=== PATIENT | female | born 1955 | race Caucasian/White ===

== ENCOUNTER 2017-06-02 15:39 | Observation (INO) | payer BC, SELFPAY ==
--- NOTE | 2017-06-02 15:54 | XR_ITS ---
XR chest 2V HISTORY: ITS.REASON: shortness of breath, cough ORDERING PHYSICIAN: Jorge A Souza MD PATIENT AGE: 62 years COMPARISON: None available FINDINGS: The cardiomediastinal silhouette and pulmonary vascularity are within normal limits. There is atelectasis or infiltrate in the right lung base medially. The remaining lungs are clear. Calcified node present in the right perihilar region.. No acute bony abnormalities. IMPRESSION: Right lower lobe atelectasis or infiltrate
[2017-06-02 16:06] VITALS: O2SAT 90
[2017-06-02 16:23] VITALS: BP 141/55; PULSE 85; RESP 20; TEMP 36.7; O2SAT 90; BMI 42.0
[2017-06-02 17:06] LABS: Adenovirus,PCR Not Detected (NotDetected); Bordetella Pertussis Not Detected (NotDetected); Chlamydophila Pneumoniae, PCR Not Detected (NotDetected); Coronavirus 229E Not Detected (NotDetected); Coronavirus NL63 Not Detected (NotDetected); Coronavirus OC43 Not Detected (NotDetected); Coronovirus HKU1,PCR Not Detected (NotDetected); Human Metapneumovirus Not Detected (NotDetected); Influenza A, PCR Not Detected (NotDetected); Influenza AH1, 2009 Not Detected (NotDetected); Influenza AH1, PCR Not Detected (NotDetected); Influenza AH3,PCR Not Detected (NotDetected); Influenza B, PCR Not Detected (NotDetected); Mycoplasma Pneumoniae, PCR Not Detected (NotDected); Parainfluenza 1, PCR Not Detected (NotDetected); Parainfluenza 2, PCR Not Detected (NotDetected); Parainfluenza 3, PCR Not Detected (NotDetected); Parainfluenza 4, PCR Not Detected (NotDetected); Respiratory Syncytial Virus Not Detected (NotDetected); Rhinovirus/Enterovirus Not Detected (NotDetected)
[2017-06-02 17:09] LABS: Basophils # 0.1 K/mm3 (0-0.2); Basophils % 0.5 % (0.1-2.0); Eosinophils # 0.2 K/mm3 (0.0-0.4); Eosinophils % 1.4 % (0.1-12.0); Hematocrit 36.4 % (37.0-47.0); Hemoglobin 11.1 g/dL (12.2-16.2); Lymphocytes # 2.4 K/mm3 (0.7-4.5); Lymphocytes % 22.4 K/mm3 (10-50); Mean Corpuscular HGB Conc 30.5 g/dL (31.8-35.4); Mean Corpuscular Hemoglobin 22.6 pg (27.0-31.2); Monocytes # 0.9 K/mm3 (0.1-1.0); Monocytes % 7.9 % (1.7-9.3); Neutrophils # 7.3 K/mm3 (1.8-7.8); Neutrophils % 67.8 % (37.0-80.0); Platelet Count 299 K/mm3 (142-424); Red Blood Count 4.92 M/mm3 (4.20-5.40); Red Cell Distribution Width 17.9 % (11.5-17.5); White Blood Count 10.7 K/mm3 (4.8-10.8)
[2017-06-02 17:25] VITALS: PULSE 62; O2SAT 91
[2017-06-02 17:39] LABS: Alanine Aminotransferase 35 U/L (12-78); Albumin Level 2.8 gm/dL (3.4-5.0); Albumin/Globulin Ratio 0.5 (1.1-1.8); Alkaline Phosphatase 86 U/L (46-116); Anion Gap 8.6 mEq/L (5-15); Aspartate Amino Transferase 35 U/L (15-37); Bilirubin,Total 0.5 mg/dL (0.2-1.0); Blood Urea Nitrogen 13 mg/dL (7-18); Calcium 9.1 mg/dL (8.5-10.1); Carbon Dioxide 34 mmol/L (21.0-32.0); Chloride 100 mmol/L (98-107); Creatinine Clearance Estimated 56 mL/min (0-300); Creatinine,Serum 0.81 mg/dL (0.55-1.02); Estimated Glomerular Filt Rate 71 ml/min (>60); GFR (African American) 86 ML/MIN (>60); Globulin 5.6 gm/dl (1.3-3.2); Glucose 95 mg/dL (74-106); Potassium 3.6 mmoL/L (3.5-5.1); Sodium 139 mmol/L (136-145); Total Protein,Serum 8.4 gm/dL (6.4-8.2)
[2017-06-02 20:14] VITALS: O2SAT 87
[2017-06-02 20:17] VITALS: BP 157/60; PULSE 78; RESP 20; TEMP 36.7; O2SAT 93
[2017-06-02 20:45] VITALS: O2SAT 93
[2017-06-02 22:54] LABS: Mycoplasma Pneumo IGM (Rapid) Non-Reactive (Non-Reactiv)
[2017-06-03] VITALS (10 sets, daily range): BP systolic 134–183; BP diastolic 36–69; PULSE 68–90; RESP 16–68; TEMP 36.5–37.3; O2SAT 88–95; BMI 42.0
--- NOTE | 2017-06-03 03:38 | PC.NURSE ---
PT RESTING IN BED. LUNGS NOTED TO HAVE WHEEZING AND RHONCHI T/O. PT REMAINS ON 2L O2 NC. VSS. PT REMAINS AFEBRILE. MEDICATIONS ADMINISTERED PER JUL. NO OTHER COCNERNS AT THIS TIME. WILL CONTINUE TO MONITOR.
[2017-06-03 06:53] LABS: Basophils % 0.2 % (0.1-2.0); Eosinophils % 0.5 % (0.1-12.0); Hematocrit 34.6 % (37.0-47.0); Hemoglobin 10.3 g/dL (12.2-16.2); Lymphocytes % 16.8 K/mm3 (10-50); Mean Corpuscular HGB Conc 29.9 g/dL (31.8-35.4); Mean Corpuscular Volume 73.4 fl (81-99); Mean Platelet Volume 7.2 fl (7.4-10.4); Monocytes # 0.1 K/mm3 (0.1-1.0); Monocytes % 1.9 % (1.7-9.3); Neutrophils # 4.8 K/mm3 (1.8-7.8); Neutrophils % 80.7 % (37.0-80.0); Platelet Count 284 K/mm3 (142-424); Red Blood Count 4.71 M/mm3 (4.20-5.40); Red Cell Distribution Width 17.7 % (11.5-17.5)
[2017-06-03 07:12] LABS: Anion Gap 9.9 mEq/L (5-15); Blood Urea Nitrogen 13 mg/dL (7-18); Carbon Dioxide 31 mmol/L (21.0-32.0); Chloride 103 mmol/L (98-107); Creatinine Clearance Estimated 56 mL/min (0-300); Creatinine,Serum 0.71 mg/dL (0.55-1.02); Estimated Glomerular Filt Rate 83 ml/min (>60); GFR (African American) 101 ML/MIN (>60); Glucose 152 mg/dL (74-106); Potassium 3.9 mmoL/L (3.5-5.1); Sodium 140 mmol/L (136-145)
--- NOTE | 2017-06-03 07:21 | HMH.PHAVTE ---
[facility] Pharmacy VTE Monitoring - Patient Demographics Admission date: 06/02/17 Report Date: 06/03/17 Time: 07:21 Allergies/Adverse Reactions: Patient Allergies No Known Allergies Allergy (Unverified 04/26/17 14:48) Height: 1.7 m Weight: 121.563 kg - VTE Risk Labs: VTE Related Lab Results Hgb 10.3 g/dL (12.2-16.2) L 06/03/17 06:22 Hct 34.6 % (37.0-47.0) L 06/03/17 06:22 Plt Count 284 K/mm3 (142-424) 06/03/17 06:22 BUN 13 mg/dL (7-18) 06/03/17 06:22 Creatinine 0.71 mg/dL (0.55-1.02) 06/03/17 06:22 Estimated Creat Clear 56 mL/min (0-300) 06/03/17 06:22 VTE Score: 3 VTE Risk Level: Low Risk Clinical Trial Participant: No - Prophylaxis VTE Prophylaxis Ordered?: Yes Types of VTE Prophylaxis: TEDS Knee High
--- NOTE | 2017-06-03 07:25 | PC.NURSE ---
REPORT GIVEN TO Delia MCMAHAN W/C
--- NOTE | 2017-06-03 07:49 | PC.NURSE ---
REPORT HANDOFF TO Scott DRAKE
--- NOTE | 2017-06-03 08:24 | HMH.ACPN2 ---
Internal Medicine - PN: Subj *Date: 06/03/17 *Time: 08:24 Interval history: Patient feels better than she did yesterday. Less tightness. No problems with cough or Dyspnea at rest. Exam Vital signs and Labs for Last 24 Hours: Temp Pulse Resp BP Pulse Ox 97.7 F 90 20 183/69 93 L 06/03/17 07:26 06/03/17 07:26 06/03/17 07:26 06/03/17 07:26 06/03/17 07:26 Laboratory Results - last 24 hr 06/02/17 16:45: Mycoplasma pneumon IgM Non-reactive 06/02/17 16:45: Chlamy pneumoniae PCR Not detected, Adenovirus (PCR) Not detected, B.parapertussis DNA PCR Not detected, Coronavirus OC43 (PCR) Not detected, Coronavirus HKU1 (PCR) Not detected, Coronavirus 229E (PCR) Not detected, Coronavirus NL63 (PCR) Not detected, Human Metapneumovir PCR Not detected, Influenza A (H1) PCR Not detected, Influ A (H1N1/09) PCR Not detected, Influenza A (H3) PCR Not detected, Influenza Type A (PCR) Not detected, Influenza Type B (PCR) Not detected, M. pneumoniae (PCR) Not detected, Parainfluenza 1 (PCR) Not detected, Parainfluenza 2 (PCR) Not detected, Parainfluenza 3 (PCR) Not detected, Parainfluenza 4 (PCR) Not detected, RSV (PCR) Not detected, Entero/Rhino (PCR) Not detected 06/02/17 16:45: WBC 10.7, RBC 4.92, Hgb 11.1 L, Hct 36.4 L, MCV 74.0 L, MCH 22.6 L, MCHC 30.5 L, RDW 17.9 H, Plt Count 299, MPV 7.0 L, Neut % (Auto) 67.8, Lymph % (Auto) 22.4, [place] % (Auto) 7.9, Eos % (Auto) 1.4, Baso % (Auto) 0.5, Neut # (Auto) 7.3, Lymph # (Auto) 2.4, [place] # (Auto) 0.9, Eos # (Auto) 0.2, Baso # (Auto) 0.1 06/02/17 16:45: Sodium 139, Potassium 3.6, Chloride 100, Carbon Dioxide 34 H, Anion Gap 8.6, BUN 13, Creatinine 0.81, Estimated Creat Clear 56, Estimated GFR 71, Est GFR ( Amer) 86, Glucose 95, Calcium 9.1, Total Bilirubin 0.5, AST 35, ALT 35, Alkaline Phosphatase 86, Total Protein 8.4 H, Albumin 2.8 L, Globulin 5.6 H, Albumin/Globulin Ratio 0.5 L 06/03/17 06:22: WBC 6.0 D, RBC 4.71, Hgb 10.3 L, Hct 34.6 L, MCV 73.4 L, MCH 22.0 L, MCHC 29.9 L, RDW 17.7 H, Plt Count 284, MPV 7.2 L, Neut % (Auto) 80.7 H, Lymph % (Auto) 16.8, [place] % (Auto) 1.9, Eos % (Auto) 0.5, Baso % (Auto) 0.2, Neut # (Auto) 4.8, Lymph # (Auto) 1.0, [place] # (Auto) 0.1, Eos # (Auto) 0.0, Baso # (Auto) 0.0 06/03/17 06:22: Sodium 140, Potassium 3.9, Chloride 103, Carbon Dioxide 31, Anion Gap 9.9, BUN 13, Creatinine 0.71, Estimated Creat Clear 56, Estimated GFR 83, Est GFR ( Amer) 101, Glucose 152 H D I & O for Last 24 hours: Intake & Output 05/31/17 06/01/17 06/02/17 06/03/17 11:59 11:59 11:59 11:59 Intake Total 1475 / 1475 Balance 1475 / 1475 Weight 268 lb Microbiology Reports for the Last 24 Hours: Microbiology 06/02/17 Unknown Sputum - Expectorated Sputum Gram Stain - Final Narrative: Patient is alert, oriented. Wearing oxygen, appears comfortable. Morbid obesity noted which limits her exam and complicates all aspects of her care. Lungs have expiratory wheezing but symmetric air entry bilaterally. Rate regular. No edema noted. No clubbing. Assessment and Plan (1) Asthma with acute exacerbation in adult Current visit: Yes Status: Acute Category: Medical Code(s): J45.901 - Unspecified asthma with (acute) exacerbation (2) Hypertension, essential Current visit: Yes Status: Chronic Category: Medical Code(s): I10 - Essential (primary) hypertension (3) Morbid obesity with BMI of 40.0-44.9, adult Current visit: Yes Status: Chronic Category: Medical Code(s): E66.01 - Morbid (severe) obesity due to excess calories; Z68.41 - Body mass index (BMI) 40.0-44.9, adult - Assessment and plan all Dx Assessment and Plan for all problems:: Continue current plan. Patient is improving but continues to have an oxygen requirement and wheezing. Continue steroids. Restart hypertensive medications.
--- NOTE | 2017-06-03 08:42 | HMH.HP ---
*Admission Date: 06/02/17 *Chief complaint: Cough and congestion *History of present illness: 62-year-old white female, with history of smoking, asthma and recurrent cough and congestion episodes over the past week or so. has been exposed to flu. Came to the office on the day of admission, found to have tight wheezing, cough/congestion/dyspnea and was admitted to hospital for asthma exacerbation. [facility] History I have reviewed the patient's past medical history: Yes Medical History: Reports:: Asthma, Congestive Heart Failure, Hypertension Denies:: Cancer, Diabetes Mellitus Type 1, Diabetes Mellitus Type 2, MRSA Other Medical History: Reports: Hormone Therapy Other Surgeries: Yes: Colonoscopy, Tubal Ligation Amputation: No Fractures: No - *Social History Educational Level: Attended College Smoking Status: Current every day smoker Tobacco Type: cigarettes Alcohol Intake: never Occupational Status: unemployed Housing: house Household Members: spouse - Psychiatric History Expresses thoughts of harming self/others: None Suicide Plan Description: No Plan *Family Hx:: Asthma, Cancer, Coronary Artery Disease, Diabetes, Heart Attack, Hyperlipidemia, Hypertension, Kidney Disease, Stroke Review of Systems - Review of Systems Review of systems:: unable to obtain, other, pertinent systems reviewed and negative unless documented below - ENT Reports dry mouth, Reports nasal obstruction, Reports sinus pressure - *Cardiovascular Reports shortness of breath, Reports shortness of breath with activity - *Respiratory Reports change in phlegm color, Reports chest congestion, Reports cough, Reports shortness of breath - *Gastrointestinal Denies abdominal pain Meds Home Medications Medication Instructions Recorded Confirmed Type Carvedilol [Carvedilol 25mg Tab] 12.5 mg PO BID 06/02/17 06/02/17 History Cyanocobalamin (Vitamin B-12) 1,000 mcg SL DAILY 06/02/17 06/02/17 History [Vitamin B-12] Venlafaxine HCl [Effexor Xr] 75 mg PO DAILY 06/02/17 06/02/17 History hydroCHLOROthiazide [HCTZ 25mg 25 mg PO DAILY 06/02/17 06/02/17 History tab] Allergies Allergy/AdvReac Type Severity Reaction Status Date / Time No Known Allergies Allergy Unverified 04/26/17 14:48 Exam Vital signs and Labs for Last 24 Hours: Temp Pulse Resp BP Pulse Ox 97.7 F 90 20 183/69 93 L 06/03/17 07:26 06/03/17 07:26 06/03/17 07:26 06/03/17 07:26 06/03/17 07:26 Laboratory Results - last 24 hr 06/02/17 16:45: Mycoplasma pneumon IgM Non-reactive 06/02/17 16:45: Chlamy pneumoniae PCR Not detected, Adenovirus (PCR) Not detected, B.parapertussis DNA PCR Not detected, Coronavirus OC43 (PCR) Not detected, Coronavirus HKU1 (PCR) Not detected, Coronavirus 229E (PCR) Not detected, Coronavirus NL63 (PCR) Not detected, Human Metapneumovir PCR Not detected, Influenza A (H1) PCR Not detected, Influ A (H1N1/09) PCR Not detected, Influenza A (H3) PCR Not detected, Influenza Type A (PCR) Not detected, Influenza Type B (PCR) Not detected, M. pneumoniae (PCR) Not detected, Parainfluenza 1 (PCR) Not detected, Parainfluenza 2 (PCR) Not detected, Parainfluenza 3 (PCR) Not detected, Parainfluenza 4 (PCR) Not detected, RSV (PCR) Not detected, Entero/Rhino (PCR) Not detected 06/02/17 16:45: WBC 10.7, RBC 4.92, Hgb 11.1 L, Hct 36.4 L, MCV 74.0 L, MCH 22.6 L, MCHC 30.5 L, RDW 17.9 H, Plt Count 299, MPV 7.0 L, Neut % (Auto) 67.8, Lymph % (Auto) 22.4, [place] % (Auto) 7.9, Eos % (Auto) 1.4, Baso % (Auto) 0.5, Neut # (Auto) 7.3, Lymph # (Auto) 2.4, [place] # (Auto) 0.9, Eos # (Auto) 0.2, Baso # (Auto) 0.1 06/02/17 16:45: Sodium 139, Potassium 3.6, Chloride 100, Carbon Dioxide 34 H, Anion Gap 8.6, BUN 13, Creatinine 0.81, Estimated Creat Clear 56, Estimated GFR 71, Est GFR ( Amer) 86, Glucose 95, Calcium 9.1, Total Bilirubin 0.5, AST 35, ALT 35, Alkaline Phosphatase 86, Total Protein 8.4 H, Albumin 2.8 L, Globulin 5.6 H, Albumin/Globulin Ratio 0.5 L 06/03/17 0
--- NOTE | 2017-06-03 08:48 | P.HP_ITS ---
*Admission Date: 06/02/17 *Chief complaint: Cough and congestion *History of present illness: 62-year-old white female, with history of smoking, asthma and recurrent cough and congestion episodes over the past week or so. has been exposed to flu. Came to the office on the day of admission, found to have tight wheezing, cough/ congestion/dyspnea and was admitted to hospital for asthma exacerbation. [facility] History I have reviewed the patient's past medical history: Yes Medical History: Reports:: Asthma, Congestive Heart Failure, Hypertension Denies:: Cancer, Diabetes Mellitus Type 1, Diabetes Mellitus Type 2, MRSA Other Medical History: Reports: Hormone Therapy Other Surgeries: Yes: Colonoscopy, Tubal Ligation Amputation: No Fractures: No - *Social History Educational Level: Attended College Smoking Status: Current every day smoker Tobacco Type: cigarettes Alcohol Intake: never Occupational Status: unemployed Housing: house Household Members: spouse - Psychiatric History Expresses thoughts of harming self/others: None Suicide Plan Description: No Plan *Family Hx:: Asthma, Cancer, Coronary Artery Disease, Diabetes, Heart Attack, Hyperlipidemia, Hypertension, Kidney Disease, Stroke Review of Systems - Review of Systems Review of systems:: unable to obtain, other, pertinent systems reviewed and negative unless documented below - ENT Reports dry mouth, Reports nasal obstruction, Reports sinus pressure - *Cardiovascular Reports shortness of breath, Reports shortness of breath with activity - *Respiratory Reports change in phlegm color, Reports chest congestion, Reports cough, Reports shortness of breath - *Gastrointestinal Denies abdominal pain Meds Home Medications Medication Instructions Recorded Confirmed Type Carvedilol [Carvedilol 25mg Tab] 12.5 mg PO BID 06/02/17 06/02/17 History Cyanocobalamin (Vitamin B-12) 1,000 mcg SL DAILY 06/02/17 06/02/17 History [Vitamin B-12] Venlafaxine HCl [Effexor Xr] 75 mg PO DAILY 06/02/17 06/02/17 History hydroCHLOROthiazide [HCTZ 25mg 25 mg PO DAILY 06/02/17 06/02/17 History tab] Allergies Allergy/AdvReac Type Severity Reaction Status Date / Time No Known Allergies Allergy Unverified 04/26/17 14:48 Exam Vital signs and Labs for Last 24 Hours: Temp Pulse Resp BP Pulse Ox 97.7 F 90 20 183/69 93 L 06/03/17 07:26 06/03/17 07:26 06/03/17 07:26 06/03/17 07:26 06/03/17 07:26 Laboratory Results - last 24 hr 06/02/17 16:45: Mycoplasma pneumon IgM Non-reactive 06/02/17 16:45: Chlamy pneumoniae PCR Not detected, Adenovirus (PCR) Not detected, B.parapertussis DNA PCR Not detected, Coronavirus OC43 (PCR) Not detected, Coronavirus HKU1 (PCR) Not detected, Coronavirus 229E (PCR) Not detected, Coronavirus NL63 (PCR) Not detected, Human Metapneumovir PCR Not detected, Influenza A (H1) PCR Not detected, Influ A (H1N1/09) PCR Not detected , Influenza A (H3) PCR Not detected, Influenza Type A (PCR) Not detected, Influenza Type B (PCR) Not detected, M. pneumoniae (PCR) Not detected, Parainfluenza 1 (PCR) Not detected, Parainfluenza 2 (PCR) Not detected, Parainfluenza 3 (PCR) Not detected, Parainfluenza 4 (PCR) Not detected, RSV (PCR ) Not detected, Entero/Rhino (PCR) Not detected 06/02/17 16:45: WBC 10.7, RBC 4.92, Hgb 11.1 L, Hct 36.4 L, MCV 74.0 L, MCH 22.6 L, MCHC 30.5 L, RDW 17.9 H, Plt Count 299, MPV 7.0 L, Neut % (Auto) 67.8, Lymph % (Auto) 22.4, [place] % (Auto) 7.9, Eos
--- NOTE | 2017-06-03 16:08 | PC.NURSE ---
Pt resting in bed, no complaints noted this shift. Pt remains with auditory wheeze, Has slept most of the shift. ambulated to and from bathroom independently. Call light in reach will continue to monitor
[2017-06-04] VITALS: BP 143/62; PULSE 86; RESP 16; TEMP 36.6; O2SAT 94
[2017-06-04 04:00] VITALS: BP 156/48; PULSE 77; RESP 18; TEMP 36.6; O2SAT 91
--- NOTE | 2017-06-04 05:25 | PC.NURSE ---
Pt has rested well this shift. She has not c/o any discomfort or soa. she is currently on 1 L NC. V/S HAVE REMAINED STABLE. MEDICATIONS ADMIN PER MAR. NO CONCERNS NOTED AT THIS TIME. WILL CONTINUE TO MONITOR.
[2017-06-04 06:15] VITALS: PULSE 84; O2SAT 95
[2017-06-04 07:40] VITALS: BP 149/62; PULSE 68; RESP 20; TEMP 36.8; O2SAT 91
--- NOTE | 2017-06-04 07:53 | HMH.DCSUM ---
General - General Admission date: 06/02/17 Discharge date: 06/04/17 HPI HPI: 62-year-old white female, with history of smoking, asthma and recurrent cough and congestion episodes over the past week or so. has been exposed to flu. Came to the office on the day of admission, found to have tight wheezing, cough/congestion/dyspnea and was admitted to hospital for asthma exacerbation. Objective Vital signs: Temp Pulse Resp BP Pulse Ox 98.2 F 68 20 149/62 91 L 06/04/17 07:40 06/04/17 07:40 06/04/17 07:40 06/04/17 07:40 06/04/17 07:40 Narrative: This morning patient is sitting up in bed. Awake, alert, off oxygen with saturations 91-92%. Lungs are much clearer, good air movement, only minimal rhonchi, minimal expiratory wheezing at the end expiratory phase. No edema or clubbing. Hospital Course Hospital Course: She was admitted, placed on nebulizer treatments, inhaled bronchodilators, IV steroids and antibiotics. She improved over the next couple of days and is back almost to baseline today. She will be discharged home with nebulizer treatments, p.o. steroids, p.o. antibiotics and short-term follow-up in my office. Results Labs on day of discharge: Preliminary micro results at discharge 06/02/17 16:45 Blood Culture - Preliminary Blood NO GROWTH AFTER 24 HOURS 06/02/17 16:45 Blood Culture - Preliminary Blood NO GROWTH AFTER 24 HOURS DS: Diagnosis - Discharge Diagnosis (1) Asthma with acute exacerbation in adult Status: Acute (2) Hypertension, essential Status: Chronic (3) Morbid obesity with BMI of 40.0-44.9, adult Status: Chronic (4) Lobar pneumonia Status: Acute Meds Home Medications Medication Instructions Recorded Confirmed Type Carvedilol [Carvedilol 25mg Tab] 12.5 mg PO BID 06/02/17 06/02/17 History Cyanocobalamin (Vitamin B-12) 1,000 mcg SL DAILY 06/02/17 06/02/17 History [Vitamin B-12] Venlafaxine HCl [Effexor Xr] 75 mg PO DAILY 06/02/17 06/02/17 History hydroCHLOROthiazide [HCTZ 25mg 25 mg PO DAILY 06/02/17 06/02/17 History tab] Allergies Allergy/AdvReac Type Severity Reaction Status Date / Time No Known Allergies Allergy Unverified 04/26/17 14:48 Discharge Plan - Patient Discharge Instructions ACTIVITY: Limited activity DIET: continue same diet - Follow up Plan Follow up with: Jena Mackay APRN [Nurse Practitioner] - 06/07/17 11:00 am Disposition: Home, Self-Detention Medications: Home Medications Medication Instructions Recorded Confirmed Type Carvedilol [Carvedilol 25mg Tab] 12.5 mg PO BID 06/02/17 06/02/17 History Cyanocobalamin (Vitamin B-12) 1,000 mcg SL DAILY 06/02/17 06/02/17 History [Vitamin B-12] Venlafaxine HCl [Effexor Xr] 75 mg PO DAILY 06/02/17 06/02/17 History hydroCHLOROthiazide [HCTZ 25mg 25 mg PO DAILY 06/02/17 06/02/17 History tab] Prescriptions/Medication Reconciliation: New Azithromycin [Zithromax 250mg tab] 250 mg PO DIRECTED #6 tab Cefdinir [Omnicef 300mg Capsule] 300 mg PO BID #20 cap Ipratropium/Albuterol Sulfate [Duoneb 3mL neb] 3 ml IH TID 30 Days #90 neb predniSONE [Prednisone 20mg Tab] 20 mg PO BID 5 Days #10 tab Continue hydroCHLOROthiazide [HCTZ 25mg tab] 25 mg PO DAILY Cyanocobalamin (Vitamin B-12) [Vitamin B-12] 1,000 mcg SL DAILY Carvedilol [Carvedilol 25mg Tab] 12.5 mg PO BID Venlafaxine HCl [Effexor Xr] 75 mg PO DAILY
--- NOTE | 2017-06-04 07:56 | P.DS_ITS ---
General - General Admission date: 06/02/17 Discharge date: 06/04/17 HPI HPI: 62-year-old white female, with history of smoking, asthma and recurrent cough and congestion episodes over the past week or so. has been exposed to flu. Came to the office on the day of admission, found to have tight wheezing, cough/ congestion/dyspnea and was admitted to hospital for asthma exacerbation. Objective Vital signs: Temp Pulse Resp BP Pulse Ox 98.2 F 68 20 149/62 91 L 06/04/17 07:40 06/04/17 07:40 06/04/17 07:40 06/04/17 07:40 06/04/17 07:40 Narrative: This morning patient is sitting up in bed. Awake, alert, off oxygen with saturations 91-92%. Lungs are much clearer, good air movement, only minimal rhonchi, minimal expiratory wheezing at the end expiratory phase. No edema or clubbing. Hospital Course Hospital Course: She was admitted, placed on nebulizer treatments, inhaled bronchodilators, IV steroids and antibiotics. She improved over the next couple of days and is back almost to baseline today. She will be discharged home with nebulizer treatments, p.o. steroids, p.o. antibiotics and short-term follow-up in my office. Results Labs on day of discharge: Preliminary micro results at discharge 06/02/17 16:45 Blood Culture - Preliminary Blood NO GROWTH AFTER 24 HOURS 06/02/17 16:45 Blood Culture - Preliminary Blood NO GROWTH AFTER 24 HOURS DS: Diagnosis - Discharge Diagnosis (1) Asthma with acute exacerbation in adult Status: Acute (2) Hypertension, essential Status: Chronic (3) Morbid obesity with BMI of 40.0-44.9, adult Status: Chronic (4) Lobar pneumonia Status: Acute Meds Home Medications Medication Instructions Recorded Confirmed Type Carvedilol [Carvedilol 25mg Tab] 12.5 mg PO BID 06/02/17 06/02/17 History Cyanocobalamin (Vitamin B-12) 1,000 mcg SL DAILY 06/02/17 06/02/17 History [Vitamin B-12] Venlafaxine HCl [Effexor Xr] 75 mg PO DAILY 06/02/17 06/02/17 History hydroCHLOROthiazide [HCTZ 25mg 25 mg PO DAILY 06/02/17 06/02/17 History tab] Allergies Allergy/AdvReac Type Severity Reaction Status Date / Time No Known Allergies Allergy Unverified 04/26/17 14:48 Discharge Plan - Patient Discharge Instructions ACTIVITY: Limited activity DIET: continue same diet - Follow up Plan Follow up with: Jena Mackay APRN [Nurse Practitioner] - 06/07/17 11:00 am Disposition: Home, Self-Senior Living Medications: Home Medications Medication Instructions Recorded Confirmed Type Carvedilol [Carvedilol 25mg Tab] 12.5 mg PO BID 06/02/17 06/02/17 History Cyanocobalamin (Vitamin B-12) 1,000 mcg SL DAILY 06/02/17 06/02/17 History [Vitamin B-12] Venlafaxine HCl [Effexor Xr] 75 mg PO DAILY 06/02/17 06/02/17 History hydroCHLOROthiazide [HCTZ 25mg 25 mg PO DAILY 06/02/17 06/02/17 History tab] Prescriptions/Medication Reconciliation: New Azithromycin [Zithromax 250mg tab] 250 mg PO DIRECTED #6 tab Cefdinir [Omnicef 300mg Capsule] 300 mg PO BID #20 cap Ipratropium/Albuterol Sulfate [Duoneb 3mL neb] 3 ml IH TID 30 Days #90 neb predniSONE [Prednisone 20mg Tab] 20 mg PO BID 5 Days #10 tab Continue hydro
[2017-06-04 11:27] VITALS: BP 159/56; PULSE 70; RESP 22; TEMP 36.6; O2SAT 91
[2017-06-04 11:45] VITALS: PULSE 88
== END 2017-06-04 12:00 | disposition home or self-care (01) ==
PROVIDERS: Nurse Practitioner Family; Admitting Provider Internal Medicine Adolescent Medicine; Family Provider Internal Medicine Adolescent Medicine; PCP Internal Medicine Adolescent Medicine; Visit Provider Internal Medicine Adolescent Medicine
DX: J45.901 Unspecified asthma with (acute) exacerbation (principal); J18.1 Lobar pneumonia, unspecified organism; I10 Essential (primary) hypertension; E66.01 Morbid (severe) obesity due to excess calories; Z72.0 Tobacco use
CPT/HCPCS: 36415; 71046; 80048; 80053; 85025; 86738; 87040; 87070; 87205; 87486; 87581; 87633; 87798; 93005; 94640; 94760; 94761; G0378

== ENCOUNTER → 2017-09-15 08:36 | Outpatient (CLI) | payer BC, SELFPAY ==
[2017-09-15 10:40] LABS: Basophils # 0.1 K/mm3 (0-0.2); Basophils % 0.9 % (0.1-2.0); Eosinophils # 0.2 K/mm3 (0.0-0.4); Eosinophils % 2.6 % (0.1-12.0); Hematocrit 37.3 % (37.0-47.0); Hemoglobin 11.2 g/dL (12.2-16.2); Lymphocytes # 2.8 K/mm3 (0.7-4.5); Lymphocytes % 36.6 K/mm3 (10-50); Mean Corpuscular Hemoglobin 23.8 pg (27.0-31.2); Mean Corpuscular Volume 79.3 fl (81-99); Monocytes # 0.6 K/mm3 (0.1-1.0); Neutrophils # 3.9 K/mm3 (1.8-7.8); Neutrophils % 51.9 % (37.0-80.0); Platelet Count 334 K/mm3 (142-424); Red Cell Distribution Width 17.5 % (11.5-17.5); White Blood Count 7.6 K/mm3 (4.8-10.8)
[2017-09-15 17:37] LABS: Alanine Aminotransferase 46 U/L (12-78); Albumin Level 3.2 gm/dL (3.4-5.0); Albumin/Globulin Ratio 0.7 (1.1-1.8); Alkaline Phosphatase 83 U/L (46-116); Aspartate Amino Transferase 43 U/L (15-37); Bilirubin,Total 0.3 mg/dL (0.2-1.0); Blood Urea Nitrogen 16 mg/dL (7-18); Calcium 9.2 mg/dL (8.5-10.1); Carbon Dioxide 28 mmol/L (21.0-32.0); Chloride 106 mmol/L (98-107); Chol/HDL Ratio 3.6 (1-3.5); Cholesterol 164 mg/dL (140-200); Creatinine,Serum 0.73 mg/dL (0.55-1.02); Estimated Glomerular Filt Rate 81 ml/min (>60); GFR (African American) 97 ML/MIN (>60); Globulin 4.3 gm/dl (1.3-3.2); Glucose 110 mg/dL (74-106); HDL Cholesterol 45 mg/dL (29-89); LDL Cholesterol 100 mg/dL (0-130); Sodium 143 mmol/L (136-145); Total Protein,Serum 7.5 gm/dL (6.4-8.2); Triglycerides 95 mg/dL (30-200); VLDL Cholesterol 19 mg/dL (0-40)
== END ==
PROVIDERS: Visit Provider Nurse Practitioner Family
DX: Z00.00 Encounter for general adult medical examination without abnormal findings (principal); E78.5 Hyperlipidemia, unspecified; I10 Essential (primary) hypertension; D64.9 Anemia, unspecified
CPT/HCPCS: 36415; 80053; 80061; 85025

== ENCOUNTER → 2017-09-20 09:35 | Outpatient (CLI) | payer BC, SELFPAY ==
--- NOTE | 2017-09-20 09:39 | MM_ITS ---
MM Dig screening mamm BI w/CAD CAD Screening INDICATION: ORDERING PHYSICIAN: Jena Mackay PATIENT AGE: 62 years COMPARISON: 06/08/2016, 07/30/2014, 06/06/2013 TECHNIQUE: Standard CC and MLO images were obtained. R2 CAD reviewed. FINDINGS: Average fibroglandular tissue. There are multiple benign-appearing nodules and benign-appearing calcifications. There is an enlarging probably benign-appearing nodule in the medial aspect of the right breast. This does have a probably benign appearance however has continued to slightly increase in size with some increase in density and questionable calcifications therefore, spot compression mag views and ultrasound is recommended. IMPRESSION: Probably benign nodule medial aspect of the right breast slightly increasing in size and is increasing in density with question of calcifications. Mag views and Ultrasound is therefore recommended BI-RADS Category: 0 Need Additional Imaging Evaluation RECOMMENDED FOLLOW-UP: IMM - IMMEDIATE FOLLOW-UP RECOMMENDED Recommend right breast ultrasound with spot mag views (A letter has been sent to the patient regarding results of the study.)
== END ==
PROVIDERS: Family Provider Internal Medicine Adolescent Medicine; PCP Internal Medicine Adolescent Medicine; Visit Provider Nurse Practitioner Family
DX: Z12.31 Encounter for screening mammogram for malignant neoplasm of breast (principal)
CPT/HCPCS: 77067

== ENCOUNTER → 2017-10-12 13:22 | Outpatient (CLI) | payer BC, SELFPAY ==
--- NOTE | 2017-10-12 13:30 | MM_ITS ---
MM Dig mamm DX unilat RT CAD, US breast RT complete INDICATION: Follow-up abnormal mammogram ORDERING PHYSICIAN: Jorge A Souza MD PATIENT AGE: 62 years COMPARISON: 09/20/2017, 06/08/2016 TECHNIQUE: Problem-solving views of the right breast along with right breast ultrasound FINDINGS: Nodular density medial aspect of the right breast measures 7 x 6 mm.. Superior margins are somewhat obscured. No discrete calcification within the nodule. Right breast ultrasound: There are some low level echoes within the nodule at 2:00 with some irregularity of the posterior wall. Possibly complex cyst. IMPRESSION: Mildly suspicious findings. Probable complex cyst. Recommend ultrasound guided aspiration BI-RADS Category: 4 Suspicious Abnormality-Biopsy Considered RECOMMENDED FOLLOW-UP: BIO - BIOPSY RECOMMENDED Suggest ultrasound guided aspiration. If the area does not aspirate, then core biopsy can be performed (A letter has been sent to the patient regarding results of the study.)
== END ==
PROVIDERS: Family Provider Internal Medicine Adolescent Medicine; PCP Internal Medicine Adolescent Medicine; Visit Provider Internal Medicine Adolescent Medicine
DX: R92.8 Other abnormal and inconclusive findings on diagnostic imaging of breast (principal)
CPT/HCPCS: 76641; 77065

== ENCOUNTER → 2017-11-15 09:53 | Outpatient (CLI) | payer BC, SELFPAY ==
--- NOTE | 2017-11-15 | MM_ITS ---
US breast cyst asp, US breast RT complete, MM Dig mamm DX unilat LT CAD HISTORY: Complex cyst right breast. ITS.REASON: RT BREAST CYST ORDERING PHYSICIAN: Jorge A Souza MD PATIENT AGE: 62 years COMPARISON: 10/12/2017 Pre-biopsy ultrasound: Prebiopsy ultrasound performed for planning for the best approach for the FNA and confirms the presence of a hypoechoic nodule at 2:00 similar to the previous exam. TECHNIQUE: Following obtaining informed consent, using aseptic technique and local anesthesia with buffered lidocaine, fine-needle aspiration was performed of the nodule of interest using sonographic guidance. 25-gauge needle was inserted into the nodule. The nodule was easily aspirated and completely disappeared. Less than 1 cc of cloudy fluid was aspirated.. The patient tolerated the procedure well without evidence of immediate complications and left the suite in stable condition. CYTOLOGY:Negative for malignant cells. And metaplasia and microbiology is consistent with fibrocystic change Right mammogram: Post aspiration mammogram shows a nodule of interest within the medial aspect of the right breast is no longer be present. IMPRESSION: Successful sonographic guided aspiration of right breast nodule negative for malignancy consistent with a cyst. Recommend resuming screening mammogram September 2018
== END ==
PROVIDERS: Family Provider Internal Medicine Adolescent Medicine; PCP Internal Medicine Adolescent Medicine; Visit Provider Internal Medicine Adolescent Medicine
DX: R92.8 Other abnormal and inconclusive findings on diagnostic imaging of breast (principal); N60.01 Solitary cyst of right breast
CPT/HCPCS: 10022; 76942; 76641; 77065

== ENCOUNTER 2018-03-02 11:54 | Inpatient (IN) ==
[2018-03-02 12:55] LABS: Basophils # 0.1 K/mm3 (0-0.2); Basophils % 0.7 % (0.1-2.0); Eosinophils # 0.2 K/mm3 (0.0-0.4); Eosinophils % 1.9 % (0.1-12.0); Hematocrit 38.6 % (37.0-47.0); Hemoglobin 11.5 g/dL (12.2-16.2); Lymphocytes # 2.4 K/mm3 (0.7-4.5); Lymphocytes % 24.6 K/mm3 (10-50); Mean Corpuscular HGB Conc 29.9 g/dL (31.8-35.4); Mean Corpuscular Hemoglobin 23.1 pg (27.0-31.2); Mean Corpuscular Volume 77.3 fl (81-99); Mean Platelet Volume 6.9 fl (7.4-10.4); Monocytes # 0.7 K/mm3 (0.1-1.0); Monocytes % 6.9 % (1.7-9.3); Neutrophils # 6.4 K/mm3 (1.8-7.8); Neutrophils % 65.8 % (37.0-80.0); Platelet Count 314 K/mm3 (142-424); Red Blood Count 4.99 M/mm3 (4.20-5.40); Red Cell Distribution Width 17.9 % (11.5-17.5); White Blood Count 9.7 K/mm3 (4.8-10.8)
--- NOTE | 2018-03-02 13:11 | History & Physical Report ---
*Admission Date: 03/02/18 *Chief complaint: shortness of breath, cough *History of present illness: 62 year old female with a history of tobacco use and mild intermittent asthma presented to PCP office with shortness of breath and cough. Patient reports URI symptoms began approx one month ago and were resolving until cough/chest congestion became worst last week. Patient has productive cough, white sputum. Shortness of breath has increased significantly over the last week, especially with ambulation. No fevers. + malaise. In the office, she was found to be somewhat dyspneic and mildly hypoxic, saturations 87% RA. She was moving very little air on exam. Albuterol neb was administered with no improvement in saturations. Patient was direct admitted for IV antibiotics, steroids and further evaluation. [facility] History I have reviewed the patient's past medical history: Yes Medical History: Reports:: Asthma, Congestive Heart Failure, Hypertension Denies:: Cancer, Diabetes Mellitus Type 1, Diabetes Mellitus Type 2, MRSA Other Medical History: Reports: Hormone Therapy Other Surgeries: Yes: Colonoscopy, Tubal Ligation Amputation: No Fractures: No - *Social History Educational Level: Completed High School Smoking Status: Current every day smoker Tobacco Type: cigarettes Alcohol Intake: never Occupational Status: unemployed Housing: house Household Members: spouse - Psychiatric History Expresses thoughts of harming self/others: None Suicide Plan Description: No Plan *Family Hx:: Asthma, Cancer, Coronary Artery Disease, Diabetes, Heart Attack, Hyperlipidemia, Hypertension, Kidney Disease, Stroke Review of Systems - Review of Systems Review of systems:: pertinent systems reviewed and negative unless documented below - Constitutional Reports malaise - *Respiratory Reports chest congestion, Reports cough, Reports shortness of breath Meds Home Medications Medication Instructions Recorded Confirmed Type Carvedilol [Carvedilol 25mg Tab] 12.5 mg PO BID 06/02/17 06/02/17 History Cyanocobalamin (Vitamin B-12) 1,000 mcg SL DAILY 06/02/17 06/02/17 History [Vitamin B-12] Venlafaxine HCl [Effexor Xr] 75 mg PO DAILY 06/02/17 06/02/17 History hydroCHLOROthiazide [HCTZ 25mg 25 mg PO DAILY 06/02/17 06/02/17 History tab] Allergies Allergy/AdvReac Type Severity Reaction Status Date / Time No Known Allergies Allergy Unverified 04/26/17 14:48 Exam Vital signs and Labs for Last 24 Hours: Laboratory Results - last 24 hr 03/02/18 12:44: WBC 9.7, RBC 4.99, Hgb 11.5 L, Hct 38.6, MCV 77.3 L, MCH 23.1 L, MCHC 29.9 L, RDW 17.9 H, Plt Count 314, MPV 6.9 L, Neut % (Auto) 65.8, Lymph % (Auto) 24.6, Weakley % (Auto) 6.9, Eos % (Auto) 1.9, Baso % (Auto) 0.7, Neut # (Auto) 6.4, Lymph # (Auto) 2.4, Weakley # (Auto) 0.7, Eos # (Auto) 0.2, Baso # (Auto) 0.1 Narrative: Alert and oriented x3. Rate and rhythm regular. No LE edema. No JVD. No cervical LAD. ENT exam unremarkable. Lung sounds with rhonchi/tight wheezes throughout, poor air movement. Abdomen soft and nontender. Skin pink, warm and dry. Neuro exam unremarkable Assessment and Plan (1) CAP (community acquired pneumonia) Current visit: Yes Status: Acute Category: Medical Code(s): J18.9 - Pneumonia, unspecified organism (2) Asthma with acute exacerbation in adult Current visit: No Status: Acute Category: Medical Code(s): J45.901 - Unspecified asthma with (acute) exacerbation (3) Hypertension, essential Current visit: No Status: Chronic Category: Medical Code(s): I10 - Essential (primary) hypertension (4) Morbid obesity with BMI of 40.0-44.9, adult Current visit: No Status: Chronic Category: Medical Code(s): E66.01 - Morbid (severe) obesity due to excess calories; Z68.41 - Body mass index (BMI) 40.0-44.9, adult - Assessment and plan all Dx Assessment and Plan for all problems:: Community acquired pneumonia protocol with ceftriaxone and azithromycin. Solu- medrol added. Place oxygen, titrate to saturations 94-99%. CXR, blood cultures and labs are pending. Obtain sputum if able to produce.
[2018-03-02 13:30] LABS: Alanine Aminotransferase 40 U/L (12-78); Albumin/Globulin Ratio 0.6 (1.1-1.8); Alkaline Phosphatase 97 U/L (46-116); Anion Gap 10.7 mEq/L (5-15); Aspartate Amino Transferase 35 U/L (15-37); Bilirubin,Total 0.4 mg/dL (0.2-1.0); Blood Urea Nitrogen 17 mg/dL (7-18); Calcium 8.6 mg/dL (8.5-10.1); Carbon Dioxide 30 mmol/L (21.0-32.0); Chloride 106 mmol/L (98-107); Glucose 110 mg/dL (74-106); Potassium 3.7 mmoL/L (3.5-5.1); Sodium 143 mmol/L (136-145)
[2018-03-03 06:33] LABS: Basophils % 0.1 % (0.1-2.0); Eosinophils % 0.3 % (0.1-12.0); Hematocrit 36.5 % (37.0-47.0); Hemoglobin 11.1 g/dL (12.2-16.2); Lymphocytes # 1.3 K/mm3 (0.7-4.5); Lymphocytes % 13.4 K/mm3 (10-50); Mean Corpuscular HGB Conc 30.4 g/dL (31.8-35.4); Mean Corpuscular Volume 75.6 fl (81-99); Mean Platelet Volume 6.4 fl (7.4-10.4); Monocytes # 0.3 K/mm3 (0.1-1.0); Monocytes % 2.7 % (1.7-9.3); Neutrophils # 7.7 K/mm3 (1.8-7.8); Neutrophils % 83.5 % (37.0-80.0); Platelet Count 285 K/mm3 (142-424); Red Blood Count 4.82 M/mm3 (4.20-5.40); Red Cell Distribution Width 17.8 % (11.5-17.5); White Blood Count 9.3 K/mm3 (4.8-10.8)
[2018-03-03 06:42] LABS: Anion Gap 9.2 mEq/L (5-15); Calcium 8.8 mg/dL (8.5-10.1); Potassium 4.2 mmoL/L (3.5-5.1)
--- NOTE | 2018-03-03 07:22 | Pharmacy Consult Notes ---
[facility] Pharmacy VTE Monitoring - Patient Demographics Admission date: 03/02/18 Report Date: 03/03/18 Time: 07:22 Allergies/Adverse Reactions: Patient Allergies bee sting Allergy (Uncoded 03/02/18 13:09) Height: 1.7 m Weight: 122.555 kg Patient Problems: Current Active Problems CAP (community acquired pneumonia) (Acute) - VTE Risk Labs: VTE Related Lab Results Hgb 11.1 g/dL (12.2-16.2) L 03/03/18 06:20 Hct 36.5 % (37.0-47.0) L 03/03/18 06:20 Plt Count 285 K/mm3 (142-424) 03/03/18 06:20 BUN 18 mg/dL (7-18) 03/03/18 06:20 Creatinine 0.65 mg/dL (0.55-1.02) D 03/03/18 06:20 Estimated Creat Clear 56 mL/min (0-300) 03/03/18 06:20 Was VTE Risk Assessment Performed: Yes VTE Score: 3 VTE Risk Level: Low Risk Clinical Trial Participant: No - Prophylaxis VTE Prophylaxis Ordered?: Yes Types of VTE Prophylaxis: TEDS Knee High
--- NOTE | 2018-03-03 12:41 | Progress Note ---
Internal Medicine - PN: Subj *Date: 03/03/18 *Time: 08:25 Interval history: Patient continued to have some shortness of breath overnight. Having productive cough. Still wheezing. Tolerating regular intake. Denies any fevers or chills. Otherwise hemodynamically stable. Exam Vital signs and Labs for Last 24 Hours: Temp Pulse Resp BP Pulse Ox 98.5 F 97 H 22 165/61 H 91 L 03/03/18 11:35 03/03/18 11:35 03/03/18 11:35 03/03/18 11:35 03/03/18 11:35 Laboratory Results - last 24 hr 03/02/18 12:44: WBC 9.7, RBC 4.99, Hgb 11.5 L, Hct 38.6, MCV 77.3 L, MCH 23.1 L, MCHC 29.9 L, RDW 17.9 H, Plt Count 314, MPV 6.9 L, Neut % (Auto) 65.8, Lymph % (Auto) 24.6, Boyd % (Auto) 6.9, Eos % (Auto) 1.9, Baso % (Auto) 0.7, Neut # (Auto) 6.4, Lymph # (Auto) 2.4, Boyd # (Auto) 0.7, Eos # (Auto) 0.2, Baso # (Auto) 0.1 03/02/18 12:44: Sodium 143, Potassium 3.7, Chloride 106, Carbon Dioxide 30, Anion Gap 10.7, BUN 17, Creatinine 0.93, Estimated GFR 61, Est GFR ( Amer) 74, Glucose 110 H, Calcium 8.6, Total Bilirubin 0.4, AST 35, ALT 40, Alkaline Phosphatase 97, Total Protein 8.0, Albumin 3.0 L, Globulin 5.0 H, Albumin/Globulin Ratio 0.6 L 03/03/18 06:20: WBC 9.3, RBC 4.82, Hgb 11.1 L, Hct 36.5 L, MCV 75.6 L, MCH 23.0 L, MCHC 30.4 L, RDW 17.8 H, Plt Count 285, MPV 6.4 L, Neut % (Auto) 83.5 H, Lymph % (Auto) 13.4, Boyd % (Auto) 2.7, Eos % (Auto) 0.3, Baso % (Auto) 0.1, Neut # (Auto) 7.7, Lymph # (Auto) 1.3, Boyd # (Auto) 0.3, Eos # (Auto) 0.0, Baso # (Auto) 0.0 03/03/18 06:20: Sodium 140, Potassium 4.2, Chloride 104, Carbon Dioxide 31, Anion Gap 9.2, BUN 18, Creatinine 0.65 D, Estimated Creat Clear 56, Estimated GFR 92, Est GFR ( Amer) 111 D, Glucose 158 H D, Calcium 8.8 I & O for Last 24 hours: Intake & Output 02/28/18 03/01/18 03/02/18 03/03/18 23:59 23:59 23:59 23:59 Intake Total 360 / 360 360 / 360 Balance 360 / 360 360 / 360 Weight 122.555 kg 122.555 kg Microbiology Reports for the Last 24 Hours: Microbiology 03/02/18 Unknown Sputum - Expectorated Sputum Gram Stain - Final - *Routine HEENT Exam Head: Present: normocephalic, atraumatic Eye: Present: EOMI, PERRL ENT: Present: mucous membranes moist - *Routine Neck Exam Present: supple, full ROM. Absent: lymphadenopathy - *Routine Respiratory Exam Present: prolonged expiratory phase, wheezes, crackles. Absent: CTA bilaterally - *Routine Cardiovascular Exam Present: RRR, Normal S1, Normal S2 - *Routine Abdominal Exam Present: soft, normoactive bowel sounds - *Routine Rectal Exam Patient deferred: visual exam - *Routine Exam Patient deferred: external exam - *Routine Extremities Exam Absent: cyanosis, clubbing, edema - *Routine Skin Exam Present: intact. Absent: erythema - *Routine Neurological Exam Present: alert, oriented X3, CN II-XII intact. Absent: altered mental status Assessment and Plan (1) CAP (community acquired pneumonia) Current visit: Yes Status: Acute Category: Medical Code(s): J18.9 - Pneumonia, unspecified organism Continue current course. Transition antibiotics to oral azithromycin, continue IV ceftriaxone -Continue supplemental oxygen as needed goal sats greater than 88 while asleep, greater than 92 while awake -Breathing treatments scheduled -Continue steroid (2) Asthma with acute exacerbation in adult Current visit: No Status: Acute Category: Medical Code(s): J45.901 - Unspecified asthma with (acute) exacerbation (3) Hypertension, essential Current visit: No Status: Chronic Category: Medical Code(s): I10 - Essential (primary) hypertension Continue home regimen (4) Morbid obesity with BMI of 40.0-44.9, adult Current visit: No Status: Chronic Category: Medical Code(s): E66.01 - Morbid (severe) obesity due to excess calories; Z68.41 - Body mass index (BMI) 40.0-44.9, adult Complicates all aspects of care
--- NOTE | 2018-03-04 08:05 | Discharge Summary ---
General - General Admission date:: 03/02/18 Discharge date: 03/04/18 HPI HPI: 62 year old female with a history of tobacco use and mild intermittent asthma presented to PCP office with shortness of breath and cough. Patient reports URI symptoms began approx one month ago and were resolving until cough/chest congestion became worst last week. Patient has productive cough, white sputum. Shortness of breath has increased significantly over the last week, especially with ambulation. No fevers. + malaise. In the office, she was found to be somewhat dyspneic and mildly hypoxic, saturations 87% RA. She was moving very little air on exam. Albuterol neb was administered with no improvement in saturations. Patient was direct admitted for IV antibiotics, steroids and further evaluation. Hospital Course Hospital Course: Patient was admitted to hospital, found to have right middle lobe pneumonia on chest x-ray. Treated with levofloxacin and did well with this, oxygen requirement diminished over the next 24 hours. This morning she was eating well, drinking well, felt better, continue to have a mild cough but much less productive sputum. Of note blood cultures and sputum cultures are nondiagnostic at the time of discharge. Plan will be to discharge home, levofloxacin as noted, short-term follow-up in my office. Await culture results for decision on any needed antibiotic change. Objective Vital signs: Temp Pulse Resp BP Pulse Ox 97.4 F L 71 20 126/43 L 92 L 03/04/18 07:47 03/04/18 07:47 03/04/18 07:47 03/04/18 07:47 03/04/18 07:47 Narrative: Patient is pleasant, awake, oriented x3. O2 saturation 92% on room air. Lungs have minimal rhonchi in the right middle lung field, good air movement, no perfusion deficits. No cyanosis, clubbing or edema. Heart rate regular. Abdomen soft, no tenderness. No edema or clubbing. Neurologic exam intact. Results Labs on day of discharge: Preliminary micro results at discharge 03/02/18 Unknown Sputum Culture - Preliminary Sputum - Expectorated Sputum DS: Diagnosis - Discharge Diagnosis (1) CAP (community acquired pneumonia) Status: Acute (2) Asthma with acute exacerbation in adult Status: Acute (3) Hypertension, essential Status: Chronic (4) Morbid obesity with BMI of 40.0-44.9, adult Status: Chronic Discharge Plan - Patient Discharge Instructions ACTIVITY: Continue current activity DIET: continue same diet Patient Instructions: Pneumonia-Adult - Follow up Plan Follow up with: Jorge A Souza MD [Primary Care Provider] - 03/08/18 11:15 am Disposition: Home, Self-Fpc Medications: Home Medications Medication Instructions Recorded Confirmed Type Carvedilol [Carvedilol 25mg Tab] 25 mg PO BID 06/02/17 03/03/18 History Cyanocobalamin (Vitamin B-12) 1,000 mcg SL DAILY 06/02/17 03/02/18 History [Vitamin B-12] Venlafaxine HCl [Effexor Xr] 75 mg PO DAILY 06/02/17 03/02/18 History hydroCHLOROthiazide [HCTZ 25mg 12.5 mg PO DAILY 06/02/17 03/03/18 History tab] Ipratropium/Albuterol Sulfate 3 ml IH TID 03/02/18 03/02/18 History [Duoneb 3mL neb] Prescriptions/Medication Reconciliation: New Azithromycin [Zithromax 250mg tab] 250 mg PO DIRECTED #6 tab Cefdinir [Omnicef 300mg Capsule] 300 mg PO BID #14 cap predniSONE [Deltasone 20mg tablet] 20 mg PO BID 7 Days #14 tab Continue hydroCHLOROthiazide [HCTZ 25mg tab] 12.5 mg PO DAILY Cyanocobalamin (Vitamin B-12) [Vitamin B-12] 1,000 mcg SL DAILY Carvedilol [Carvedilol 25mg Tab] 25 mg PO BID Ipratropium/Albuterol Sulfate [Duoneb 3mL neb] 3 ml IH TID Venlafaxine HCl [Effexor Xr] 75 mg PO DAILY
== END 2018-03-04 10:25 | disposition home or self-care (01) ==
LOC: 2ND 12:03
PROVIDERS: ADMIT Internal Medicine Adolescent Medicine; ATTEND Internal Medicine Adolescent Medicine

== ENCOUNTER → 2018-03-22 12:13 | Outpatient (CLI) | payer BC, SELFPAY ==
[2018-03-22 12:44] LABS: Basophils % 0.6 % (0.1-2.0); Eosinophils # 0.2 K/mm3 (0.0-0.4); Eosinophils % 2.3 % (0.1-12.0); Hematocrit 37.1 % (37.0-47.0); Hemoglobin 11.3 g/dL (12.2-16.2); Lymphocytes # 2.3 K/mm3 (0.7-4.5); Lymphocytes % 29.6 % (10-50); Mean Corpuscular HGB Conc 30.5 g/dL (31.8-35.4); Mean Corpuscular Hemoglobin 23.4 pg (27.0-31.2); Mean Corpuscular Volume 76.6 fl (81-99); Mean Platelet Volume 6.7 fl (7.4-10.4); Monocytes # 0.6 K/mm3 (0.1-1.0); Monocytes % 7.2 % (1.7-9.3); Neutrophils # 4.6 K/mm3 (1.8-7.8); Neutrophils % 60.3 % (37.0-80.0); Platelet Count 251 K/mm3 (142-424); Red Blood Count 4.84 M/mm3 (4.20-5.40); Red Cell Distribution Width 19.5 % (11.5-17.5); White Blood Count 7.6 K/mm3 (4.8-10.8)
[2018-03-22 14:11] LABS: Alanine Aminotransferase 42 U/L (12-78); Albumin/Globulin Ratio 0.8 (1.1-1.8); Alkaline Phosphatase 93 U/L (46-116); Anion Gap -15.2 mEq/L (5-15); Aspartate Amino Transferase 36 U/L (15-37); Bilirubin,Total 0.4 mg/dL (0.2-1.0); Blood Urea Nitrogen 20 mg/dL (7-18); Carbon Dioxide 29 mmol/L (21.0-32.0); Chloride 117 mmol/L (98-107); Creatinine,Serum 1.14 mg/dL (0.55-1.02); Estimated Glomerular Filt Rate 48 ml/min (>60); Ferritin 17 ng/mL (8-388); GFR (African American) 58 ML/MIN (>60); Glucose 98 mg/dL (74-106); Potassium 3.8 mmoL/L (3.5-5.1); Sodium 127 mmol/L (136-145)
[2018-03-23 08:32] LABS: Iron 37 ug/dL (27-139); UIBC 340 ug/dL (118-369)
[2018-03-24 07:04] LABS: Iron Saturation 10 % (15-55); Vitamin B12 1963 pg/mL (232-1245)
== END ==
PROVIDERS: Visit Provider Internal Medicine Adolescent Medicine
DX: D50.9 Iron deficiency anemia, unspecified (principal)
CPT/HCPCS: 36415; 80053; 82607; 82728; 83540; 83550; 85025

== ENCOUNTER → 2018-03-27 14:46 | Outpatient (CLI) | payer BC, SELFPAY ==
[2018-03-27 15:55] VITALS: PULSE 62; PULSE 68
[2018-03-27 16:15] VITALS: BP 130/80; BP 170/90; PULSE 114; PULSE 62; RESP 16; RESP 20; O2SAT 92; O2SAT 94
== END ==
PROVIDERS: PCP Internal Medicine Adolescent Medicine; Visit Provider Internal Medicine Adolescent Medicine
DX: J44.9 Chronic obstructive pulmonary disease, unspecified (principal)
CPT/HCPCS: 94060; 94618; 94640; 94727; 94729

== ENCOUNTER → 2018-07-24 10:28 | Outpatient (CLI) | payer BC, SELFPAY ==
[2018-07-24 10:53] LABS: Basophils # 0.1 K/mm3 (0-0.2); Basophils % 0.8 % (0.1-2.0); Eosinophils # 0.2 K/mm3 (0.0-0.4); Eosinophils % 2.2 % (0.1-12.0); Hematocrit 43.9 % (37.0-47.0); Hemoglobin 14.7 g/dL (12.2-16.2); Lymphocytes # 2.3 K/mm3 (0.7-4.5); Lymphocytes % 30.7 % (10-50); Mean Corpuscular HGB Conc 33.4 g/dL (31.8-35.4); Mean Corpuscular Hemoglobin 30.9 pg (27.0-31.2); Mean Corpuscular Volume 92.4 fl (81-99); Mean Platelet Volume 7.1 fl (7.4-10.4); Monocytes # 0.6 K/mm3 (0.1-1.0); Monocytes % 7.9 % (1.7-9.3); Neutrophils # 4.4 K/mm3 (1.8-7.8); Neutrophils % 58.4 % (37.0-80.0); Platelet Count 231 K/mm3 (142-424); Red Blood Count 4.75 M/mm3 (4.20-5.40); Red Cell Distribution Width 14.4 % (11.5-17.5); White Blood Count 7.5 K/mm3 (4.8-10.8)
[2018-07-24 12:01] LABS: Alanine Aminotransferase 62 U/L (12-78); Albumin Level 3.2 gm/dL (3.4-5.0); Albumin/Globulin Ratio 0.8 (1.1-1.8); Alkaline Phosphatase 88 U/L (46-116); Anion Gap 13.8 mEq/L (5-15); Aspartate Amino Transferase 43 U/L (15-37); Bilirubin,Total 0.5 mg/dL (0.2-1.0); Blood Urea Nitrogen 17 mg/dL (7-18); Calcium 8.8 mg/dL (8.5-10.1); Carbon Dioxide 27 mmol/L (21.0-32.0); Chloride 107 mmol/L (98-107); Chol/HDL Ratio 3.5 (1-3.5); Cholesterol 181 mg/dL (140-200); Creatinine,Serum 0.63 mg/dL (0.55-1.02); Estimated Glomerular Filt Rate 95 ml/min (>60); Ferritin 104 ng/mL (8-388); GFR (African American) 115 ML/MIN (>60); Glucose 114 mg/dL (74-106); HDL Cholesterol 51 mg/dL (29-89); LDL Cholesterol 110 mg/dL (0-130); Potassium 3.8 mmoL/L (3.5-5.1); Sodium 144 mmol/L (136-145); Total Protein,Serum 7.2 gm/dL (6.4-8.2); Triglycerides 100 mg/dL (30-200); VLDL Cholesterol 20 mg/dL (0-40)
[2018-07-25 07:19] LABS: Iron 147 ug/dL (27-139); UIBC 145 ug/dL (118-369)
[2018-07-26 07:58] LABS: Iron Saturation 50 % (15-55)
== END ==
PROVIDERS: Visit Provider Nurse Practitioner Family
DX: I10 Essential (primary) hypertension (principal); D50.9 Iron deficiency anemia, unspecified
CPT/HCPCS: 36415; 80053; 80061; 82728; 83540; 83550; 85025

== ENCOUNTER → 2018-09-22 08:47 | Outpatient (CLI) | payer BC, SELFPAY ==
--- NOTE | 2018-09-22 08:49 | MM_ITS ---
MM Dig screening mamm BI w/CAD ORDERING PHYSICIAN : Jorge A Souza MD PATIENT AGE: 63 years GENDER: Female COMPARISON: July 2014, September 2017, May 2016, May 2013 INDICATION: . Routine screening mammogram. No hormones. No new complaints. .. Previous cyst aspiration right breast Noncontributory family history TECHNIQUE: Standard CC and MLO images were obtained. R2 CAD reviewed. Additional axillary CC view left breast FINDINGS: Low-density breast with generalized fatty replacement. Very Minimal residual fibroglandular elements. . Prior films are helpful and supportive stable appearance is well. No dominant or suspicious mass. No suspicious calcification. Scattered benign calcifications bilateral. RIGHT BREAST:Stable right mammogram. Previously noted small cyst seen at the medial retroareolar region is smaller today. Previous it measured near 6 mm. Today it measures up to 4.3 mm.. LEFT BREAST:. No new areas of concern.. Stable gbenign-appearing axillary lymph node bilaterally. With one of these nodes measuring over Today's image includes more of the long 3.5 mm lymph node likely combination of 2 left nodes with thin appearance and fatty hilum. This benign-appearing node at left breast stable since 2013. IMPRESSION: Stable bilateral mammogram with no significant new findings. Lower density breast. Bilateral follow-up in one year recommended BI-RADS Category: 2 Benign Finding(s) RECOMMENDED FOLLOW-UP: 1YR 1 YEAR FOLLOW-UP (A letter has been sent to the patient regarding results of the study.)
== END ==
PROVIDERS: PCP Internal Medicine Adolescent Medicine; Visit Provider Internal Medicine Adolescent Medicine
DX: Z12.31 Encounter for screening mammogram for malignant neoplasm of breast (principal)
CPT/HCPCS: 77067

== ENCOUNTER 2019-03-22 11:24 | Inpatient (IN) ==
[2019-03-22 13:15] LABS: Basophils # 0.1 K/mm3 (0-0.2); Basophils % 1.3 % (0.1-2.0); Eosinophils # 0.1 K/mm3 (0.0-0.4); Eosinophils % 1.2 % (0.1-12.0); Hematocrit 45.9 % (37.0-47.0); Hemoglobin 15.3 g/dL (12.2-16.2); Lymphocytes # 1.7 K/mm3 (0.7-4.5); Mean Corpuscular HGB Conc 33.4 g/dL (31.8-35.4); Mean Platelet Volume 7.9 fl (7.4-10.4); Monocytes # 0.6 K/mm3 (0.1-1.0); Monocytes % 8.7 % (1.7-9.3); Neutrophils # 4.8 K/mm3 (1.8-7.8); Neutrophils % 65.9 % (37.0-80.0); Platelet Count 189 K/mm3 (142-424); Red Blood Count 4.78 M/mm3 (4.20-5.40); Red Cell Distribution Width 13.6 % (11.5-17.5); White Blood Count 7.2 K/mm3 (4.8-10.8)
--- NOTE | 2019-03-22 13:20 | Pharmacy Consult Notes ---
[facility] Pharmacy VTE Monitoring - Patient Demographics Admission date: 03/22/19 Report Date: 03/22/19 Time: 13:20 Allergies/Adverse Reactions: Patient Allergies venom-honey bee Allergy (Unknown, Verified 03/22/19 11:49) Unknown allergy reaction venom-wasp Allergy (Unknown, Verified 03/22/19 11:49) Unknown allergy reaction Height: 1.7 m Weight: 122.668 kg - VTE Risk Labs: VTE Related Lab Results Hgb 15.3 g/dL (12.2-16.2) 03/22/19 13:00 Hct 45.9 % (37.0-47.0) 03/22/19 13:00 Plt Count 189 K/mm3 (142-424) 03/22/19 13:00 - Prophylaxis VTE Prophylaxis Ordered?: Yes Types of VTE Prophylaxis: TEDS Knee High Location of Applied Device: Bilateral Lower Extremeties - VTE Diagnosis Confirmed Treatment or plan recommended: Continue Current Treatment
[2019-03-22 13:26] LABS: Anion Gap 8.9 mEq/L (5-15); Calcium 9.3 mg/dL (8.5-10.1)
--- NOTE | 2019-03-22 14:13 | History & Physical Report ---
*Admission Date: 03/22/19 <Christina Parker 03/22/19 14:24> *Chief complaint: cough and shortness of breath <Christina Parker 03/22/19 14:24> *History of present illness: 64 yr old female with history of chronic obstructive lung disease, pneumonia and continued tobacco use presented to our outpatient clinic today with complaints of cough, clear sputum, chills, shortness of breath and malaise over the past 48 hours. Denies body aches, sore throat, sore ears and nasal symptoms. Denies known exposure to respiratory illness recently and has not had her influenza vaccination for this season. She has been hospitalized for pneumonia in the past, most recently in February 2018. She has been prescribed controller inhalers for COPD in the past but is not currently using any type of inhaler. She believes she has an albuterol inhaler at home but also has not been using that recently. In clinic she was found to be hypoxic with a room air saturation of 71% which improved to 90% on 3L oxygen via NC. Low-grade fever of 99.5F orally and diffuse wheezes and was admitted with community acquired pneumonia and COPD exacerbation. <Christina Parker 03/22/19 17:58> [facility] History I have reviewed the patient's past medical history: Yes <Christina Parker 03/22/19 17:58> Medical History: Reports:: Anxiety, Asthma, Congestive Heart Failure, Chronic Obstructive Pulmonary Disease (COPD), Depression, Hypertension Denies:: Cancer, Diabetes Mellitus Type 1, Diabetes Mellitus Type 2, MRSA <Christina Parker 03/22/19 17:58> *Have you ever received a pneumonia vaccine?: Yes <Christina Parker 03/22/19 14:24> *Have you received a flu vaccine this season?: No <Christina Parker 03/22/19 14:24> Other Medical History: Reports: Hormone Therapy <Christina Parker 03/22/19 14:24> Other Surgeries: Yes: Colonoscopy, Tubal Ligation, Other (LEFT heel surgery) <Christina Parker 03/22/19 17:58> Amputation: No <Christina Parker 03/22/19 14:24> Fractures: No <Christina Parker 03/22/19 14:24> - *Social History Educational Level: Completed High School <Christina Parker 03/22/19 14:24> Smoking Status: Current every day smoker <Christina Parker 03/22/19 14:24> Tobacco Type: cigarettes <Christina Parker 03/22/19 14:24> # Packs/Day (cigarettes): 1 <Christina Parker 03/22/19 17:58> Alcohol Intake: never <Christina Parker 03/22/19 14:24> *Occupational Status:: unemployed <Christina Parker 03/22/19 14:24> Housing: house <Christina Parker 03/22/19 14:24> Household Members: spouse <Christina Parker 03/22/19 14:24> *Travel in the last 8 weeks: None <Christina Parker 03/22/19 14:24> - Psychiatric History Pschychiatric History:: Reports:: Anxiety, Depression <Christina Parker 03/22/19 17:58> Family Hx:: Asthma, Cancer, Coronary Artery Disease, Diabetes, Heart Attack, Hyperlipidemia, Hypertension, Kidney Disease, Stroke <Christina Parker 03/22/19 14:24> Review of Systems - Review of Systems Review of systems:: pertinent systems reviewed and negative unless documented below <Christina Parker 03/22/19 17:58> - Constitutional Reports chills, Denies body ache(s), Denies fever(s) <Christina Parker 03/22/19 17:58> - ENT Denies ear pain, Denies nasal congestion, Denies nasal discharge <Christina Parker 03/22/19 17:58> - *Cardiovascular Reports shortness of breath, Denies chest pain <Christina Parker [facility] 03/22/19 17:58> - *Respiratory Reports chest congestion, Reports cough, Reports shortness of breath <Christina Parker 03/22/19 17:58> - *Gastrointestinal Denies abdominal pain <Christina Parker 03/22/19 17:58> - *Musculoskeletal Reports other (back pain, intermittent joint pain, stable) <Christina Parker - 03/22/19 17:58> - Psychiatric Reports anxiety, Reports depression (stable on venlafaxine) <Christina Parker - 03/22/19 17:58> Meds Home Medications Medication Instructions Recorded Confirmed Type Carvedilol [Carvedilol 25mg Tab] 12.5 mg PO BID 06/02/17 03/22/19 History Venlafaxine HCl [Effexor Xr] 75 mg PO DAILY 06/02/17 03/22/19 History hydroCHLOROthiazide [HCTZ 25mg 12.5 mg PO DAILY 06/02/17 03/22/19 History tab] Aspirin [Aspirin 325mg Tab] 325 mg PO DAILY 03/22/19 03/22/19 History <David Sesay - 03/23/19 06:24> Allergies Allergy/AdvReac Type Severity Reaction Status Date / Time venom-honey bee Allergy Unknown Unknown Verified 03/22/19 11:49 allergy reaction venom-wasp Allergy Unknown Unknown Verified 03/22/19 11:49 allergy reaction <David Sesay - 03/23/19 06:24> Exam Vital signs and Labs for Last 24 Hours: Temp Pulse Resp BP Pulse Ox 98.3 F 63 21 181/77 H 94 L 03/23/19 04:00 03/23/19 04:00 03/23/19 04:00 03/23/19 04:00 03/23/19 04:00 Laboratory Results - last 24 hr 03/22/19 11:25: Influenza Type A Ag Negative, Influenza Type B Ag Negative 03/22/19 13:00: WBC 7.2, RBC 4.78, Hgb 15.3, Hct 45.9, MCV 96.0, MCH 32.1 H, MCHC 33.4, RDW 13.6, Plt Count 189, MPV 7.9, Neut % (Auto) 65.9, Lymph % (Auto) 23.0, [place] % (Auto) 8.7, Eos % (Auto) 1.2, Baso % (Auto) 1.3, Neut # (Auto) 4.8, Lymph # (Auto) 1.7, [place] # (Auto) 0.6, Eos # (Auto) 0.1, Baso # (Auto) 0.1 03/22/19 13:00: Sodium 140, Potassium 3.9, Chloride 104, Carbon Dioxide 31, Anion Gap 8.9, BUN 15, Creatinine 0.89, Estimated Creat Clear 55, Estimated GFR 64, Est GFR ( Amer) 77, Glucose 114 H, Calcium 9.3 03/22/19 13:00: Mycoplasma pneumon IgM Non-reactive 03/23/19 05:37: WBC 5.9, RBC 4.51, Hgb 14.2, Hct 43.6, MCV 96.7, MCH 31.5 H, MCHC 32.6, RDW 13.6, Plt Count 161, MPV 7.9, Neut % (Auto) 45.6, Lymph % (Auto) 37.0, [place] % (Auto) 13.7 H, Eos % (Auto) 2.4, Baso % (Auto) 1.3, Neut # (Auto) 2.7, Lymph # (Auto) 2.2, [place] # (Auto) 0.8, Eos # (Auto) 0.1, Baso # (Auto) 0.1 03/23/19 05:37: Sodium 139, Potassium 3.8, Chloride 105, Carbon Dioxide 32, Anion Gap 5.8, BUN 16, Creatinine 0.75, Estimated Creat Clear 55, Estimated GFR 78, Est GFR ( Amer) 94 D, Glucose 114 H, Calcium 8.7 <David Sesay - 03/23/19 06:24> Temp Pulse Resp BP Pulse Ox 98.2 F 74 18 146/67 H 91 L 03/22/19 11:53 03/22/19 13:49 03/22/19 11:53 03/22/19 11:53 03/22/19 13:49 Laboratory Results - last 24 hr 03/22/19 11:25: Influenza Type A Ag Negative, Influenza Type B Ag Negative 03/22/19 13:00: WBC 7.2, RBC 4.78, Hgb 15.3, Hct 45.9, MCV 96.0, MCH 32.1 H, MCHC 33.4, RDW 13.6, Plt Count 189, MPV 7.9, Neut % (Auto) 65.9, Lymph % (Auto) 23.0, [place] % (Auto) 8.7, Eos % (Auto) 1.2, Baso % (Auto) 1.3, Neut # (Auto) 4.8, Lymph # (Auto) 1.7, [place] # (Auto) 0.6, Eos # (Auto) 0.1, Baso # (Auto) 0.1 03/22/19 13:00: Sodium 140, Potassium 3.9, Chloride 104, Carbon Dioxide 31, Anion Gap 8.9, BUN 15, Creatinine 0.89, Estimated Creat Clear 55, Estimated GFR 64, Est GFR ( Amer) 77, Glucose 114 H, Calcium 9.3 03/22/19 13:00: Mycoplasma pneumon IgM Non-reactive <Christina Parker - 03/22/19 14:24> I & O for Last 24 hours: Intake & Output 03/20/19 03/21/19 03/22/19 03/23/19 23:59 23:59 23:59 23:59 Intake Total 720 / 720 Balance 720 / 720 Weight 122.668 kg 122.668 kg <LázaroDavid - 03/23/19 06:24> Intake & Output 03/20/19 03/21/19 03/22/19 03/23/19 11:59 11:59 11:59 11:59 Intake Total 360 / 360 Balance 360 / 360 Weight 270 lb 7 oz <Christina Parker - 03/22/19 14:24> Microbiology Reports for the Last 24 Hours: Microbiology 03/22/19 18:50 Sputum - Expectorated Sputum Gram Stain - Final <LázaroDavid 03/23/19 06:24> - Constitutional mild distress, obese <Christina Parker - 03/22/19 17:58> - *Routine HEENT Exam Head: Present: normocephalic, atraumatic <Christina Parker 03/22/19 17:58> Eye: Present: conjunctivae pink <Christina Parker 03/22/19 17:58> ENT: Present: mucous membranes moist, oropharynx clear, external ear normal <Christina Parker 03/22/19 17:58> - *Routine Neck Exam Present: supple. Absent: lymphadenopathy <Christina Parker 03/22/19 17:58> - *Routine Respiratory Exam Present: prolonged expiratory phase. Absent: rhonchi <David Sesay 03/23/19 06:24> Present: rales, wheezes (musical, throughout. Right sided rales after nebulizer treatment) <[facility] 03/22/19 17:58> - *Routine Cardiovascular Exam Present: RRR. Absent: murmur <[facility]lena[facility] 03/22/19 17:58> - *Routine Abdominal Exam Present: soft, normoactive bowel sounds. Absent: tenderness <[facility] 03/22/19 17:58> - *Routine Extremities Exam Absent: clubbing, edema <[facility] 03/22/19 17:58> - *Routine Skin Exam Present: intact, warm <[facility] 03/22/19 17:58> - *Routine Neurological Exam Present: oriented X3, moving all extremities <[facility] 03/22/19 17:58> Assessment and Plan (1) CAP (community acquired pneumonia) Current visit: No Status: Acute Qualifiers: Laterality: right Lung location: middle lobe of lung Qualified Code(s): J18.9 - Pneumonia, unspecified organism Category: Medical Code(s): J18.9 - Pneumonia, unspecified organism (2) COPD with exacerbation Current visit: Yes Status: Acute Category: Medical Code(s): J44.1 - Chronic obstructive pulmonary disease with (acute) exacerbation (3) Hypertension, essential Current visit: Yes Status: Chronic Category: Medical Code(s): I10 - Essential (primary) hypertension (4) Morbid obesity with BMI of 40.0-44.9, adult Current visit: Yes Status: Chronic Category: Medical Code(s): E66.01 - Morbid (severe) obesity due to excess calories; Z68.41 - Body mass index (BMI) 40.0-44.9, adult complicates all aspects of care. (5) Tobacco use Current visit: Yes Status: Chronic Category: Medical Code(s): Z72.0 - Tobacco use (6) Hypoxia Current visit: Yes Status: Acute Category: Medical Code(s): R09.02 - Hypoxemia <David Sesay 03/23/19 06:24> (1) CAP (community acquired pneumonia) Current visit: No Status: Acute Qualifiers: Laterality: right Lung location: middle lobe of lung Qualified Code(s): J18.9 - Pneumonia, unspecified organism Category: Medical Code(s): J18.9 - Pneumonia, unspecified organism (2) COPD with exacerbation Current visit: Yes Status: Acute Category: Medical Code(s): J44.1 - Chronic obstructive pulmonary disease with (acute) exacerbation (3) Hypertension, essential Current visit: Yes Status: Chronic Category: Medical Code(s): I10 - Essential (primary) hypertension (4) Morbid obesity with BMI of 40.0-44.9, adult Current visit: Yes Status: Chronic Category: Medical Code(s): E66.01 - Morbid (severe) obesity due to excess calories; Z68.41 - Body mass index (BMI) 40.0-44.9, adult (5) Tobacco use Current visit: Yes Status: Chronic Category: Medical Code(s): Z72.0 - Tobacco use (6) Hypoxia Current visit: Yes Status: Acute Category: Medical Code(s): R09.02 - Hypoxemia <Christina Parker - 03/22/19 17:41> - Assessment and plan all Dx Assessment and Plan for all problems:: Rounded on the patient in the afternoon on day of admission. Discussed assessment and plan with nurse practitioner. Agree with exam findings and care plan as documented. <David Sesay - 03/23/19 06:24> Treatment initiated with Community-Acquired Pneumonia protocol, azithromycin and ceftriaxone. Albuterol/ipratropium treatment every 6 hours and as needed. Supplemental oxygen support as indicated. Sputum and blood cultures pending. Rapid influenza testing negative. CT chest ordered secondary to recurrent right- sided pneumonia. Nicotine patches to help with cessation and continue to encourage through outpatient setting Monitor labs during admission, renal function currently normal and WBC in normal range as well. Regular diet. Activity as tolerated. GANGA sears for DVT/PE prevention <Christina Parker - 03/22/19 17:58>
[2019-03-23 05:47] LABS: Basophils # 0.1 K/mm3 (0-0.2); Basophils % 1.3 % (0.1-2.0); Eosinophils # 0.1 K/mm3 (0.0-0.4); Eosinophils % 2.4 % (0.1-12.0); Hematocrit 43.6 % (37.0-47.0); Hemoglobin 14.2 g/dL (12.2-16.2); Lymphocytes # 2.2 K/mm3 (0.7-4.5); Mean Corpuscular HGB Conc 32.6 g/dL (31.8-35.4); Mean Corpuscular Volume 96.7 fl (81-99); Mean Platelet Volume 7.9 fl (7.4-10.4); Monocytes # 0.8 K/mm3 (0.1-1.0); Monocytes % 13.7 % (1.7-9.3); Neutrophils # 2.7 K/mm3 (1.8-7.8); Neutrophils % 45.6 % (37.0-80.0); Platelet Count 161 K/mm3 (142-424); Red Blood Count 4.51 M/mm3 (4.20-5.40); Red Cell Distribution Width 13.6 % (11.5-17.5); White Blood Count 5.9 K/mm3 (4.8-10.8)
[2019-03-23 05:52] LABS: Anion Gap 5.8 mEq/L (5-15); Calcium 8.7 mg/dL (8.5-10.1)
--- NOTE | 2019-03-23 09:35 | Progress Note ---
Internal Medicine - PN: Subj *Date: 03/23/19 *Time: 09:31 Interval history: Ms. Cruz did well overnight. Continues to require oxygen. Overall feeling better but still slept poorly due to cough and some mild to improve shortness of breath. Denies chest pain, nausea, vomiting, diarrhea. Tolerating p.o. intake well Exam Vital signs and Labs for Last 24 Hours: Temp Pulse Resp BP Pulse Ox 98.2 F 69 17 131/55 L 92 L 03/23/19 08:00 03/23/19 08:00 03/23/19 08:00 03/23/19 08:00 03/23/19 08:20 Laboratory Results - last 24 hr 03/22/19 11:25: Influenza Type A Ag Negative, Influenza Type B Ag Negative 03/22/19 13:00: WBC 7.2, RBC 4.78, Hgb 15.3, Hct 45.9, MCV 96.0, MCH 32.1 H, MCHC 33.4, RDW 13.6, Plt Count 189, MPV 7.9, Neut % (Auto) 65.9, Lymph % (Auto) 23.0, [place] % (Auto) 8.7, Eos % (Auto) 1.2, Baso % (Auto) 1.3, Neut # (Auto) 4.8, Lymph # (Auto) 1.7, [place] # (Auto) 0.6, Eos # (Auto) 0.1, Baso # (Auto) 0.1 03/22/19 13:00: Sodium 140, Potassium 3.9, Chloride 104, Carbon Dioxide 31, Anion Gap 8.9, BUN 15, Creatinine 0.89, Estimated Creat Clear 55, Estimated GFR 64, Est GFR ( Amer) 77, Glucose 114 H, Calcium 9.3 03/22/19 13:00: Mycoplasma pneumon IgM Non-reactive 03/23/19 05:37: WBC 5.9, RBC 4.51, Hgb 14.2, Hct 43.6, MCV 96.7, MCH 31.5 H, MCHC 32.6, RDW 13.6, Plt Count 161, MPV 7.9, Neut % (Auto) 45.6, Lymph % (Auto) 37.0, [place] % (Auto) 13.7 H, Eos % (Auto) 2.4, Baso % (Auto) 1.3, Neut # (Auto) 2.7, Lymph # (Auto) 2.2, [place] # (Auto) 0.8, Eos # (Auto) 0.1, Baso # (Auto) 0.1 03/23/19 05:37: Sodium 139, Potassium 3.8, Chloride 105, Carbon Dioxide 32, Anion Gap 5.8, BUN 16, Creatinine 0.75, Estimated Creat Clear 55, Estimated GFR 78, Est GFR ( Amer) 94 D, Glucose 114 H, Calcium 8.7 I & O for Last 24 hours: Intake & Output 03/20/19 03/21/19 03/22/19 03/23/19 23:59 23:59 23:59 23:59 Intake Total 720 / 720 240 / 240 Balance 720 / 720 240 / 240 Weight 122.668 kg 122.668 kg Microbiology Reports for the Last 24 Hours: Microbiology 03/22/19 18:50 Sputum - Expectorated Sputum Gram Stain - Final 03/22/19 18:50 Sputum - Expectorated Sputum Sputum Culture - Preliminary Narrative: - Constitutional Minimal distress on 2L NC, obese - *Routine HEENT Exam Head: Present: normocephalic, atraumatic Eye: Present: conjunctivae pink Mouth: moist, oropharynx clear, external ear normal - *Routine Neck Exam Present: supple. Absent: lymphadenopathy - *Routine Respiratory Exam Present: prolonged expiratory phase. Absent: rhonchi Present: rales, wheezes, interval improvement in air movement - *Routine Cardiovascular Exam Present: RRR. Absent: murmur - *Routine Abdominal Exam Present: soft, normoactive bowel sounds. Absent: tenderness - *Routine Extremities Exam Absent: clubbing, edema - *Routine Skin Exam Present: intact, warm - *Routine Neurological Exam Present: oriented X3, moving all extremities Assessment and Plan (1) CAP (community acquired pneumonia) Current visit: No Status: Acute Qualifiers: Laterality: right Lung location: middle lobe of lung Qualified Code(s): J18.9 - Pneumonia, unspecified organism Category: Medical Code(s): J18.9 - Pneumonia, unspecified organism (2) COPD with exacerbation Current visit: Yes Status: Acute Category: Medical Code(s): J44.1 - Chronic obstructive pulmonary disease with (acute) exacerbation (3) Hypertension, essential Current visit: Yes Status: Chronic Category: Medical Code(s): I10 - Essential (primary) hypertension (4) Morbid obesity with BMI of 40.0-44.9, adult Current visit: Yes Status: Chronic Category: Medical Code(s): E66.01 - Morbid (severe) obesity due to excess calories; Z68.41 - Body mass index (BMI) 40.0-44.9, adult (5) Tobacco use Current visit: Yes Status: Chronic Category: Medical Code(s): Z72.0 - Tobacco use (6) Hypoxia Current visit: Yes Status: Acute Category: Medical Code(s): R09.02 - Hypoxemia - Assessment and plan all Dx Assessment and Plan for all problems:: 64-year-old with pneumonia. Tolerating IV antibiotics and supplemental oxygen. Some improvement in the past 24 hours however still necessitating inpatient management, would recommend 48 hours of IV antibiotics prior to transition to oral medications and discharge home. Will assess for oxygen need when dischar ged. Blood pressure elevated overnight however did not resume her blood pressure meds last evening. Will monitor today. Given patient's body habitus, the fact she snores at night, and is sleeping poorly, would recommend outpatient sleep study to assess for sleep apnea. Monitor overnight for continued effervescence of symptoms. Transition oral tomorrow with anticipated discharge in the morning.
[2019-03-24 07:28] LABS: Basophils # 0.1 K/mm3 (0-0.2); Eosinophils # 0.3 K/mm3 (0.0-0.4); Eosinophils % 4.3 % (0.1-12.0); Hematocrit 43.8 % (37.0-47.0); Hemoglobin 14.2 g/dL (12.2-16.2); Lymphocytes # 2.4 K/mm3 (0.7-4.5); Lymphocytes % 39.8 % (10-50); Mean Corpuscular HGB Conc 32.3 g/dL (31.8-35.4); Mean Platelet Volume 7.7 fl (7.4-10.4); Monocytes # 0.6 K/mm3 (0.1-1.0); Monocytes % 10.1 % (1.7-9.3); Neutrophils # 2.7 K/mm3 (1.8-7.8); Neutrophils % 44.9 % (37.0-80.0); Platelet Count 181 K/mm3 (142-424); Red Blood Count 4.52 M/mm3 (4.20-5.40); Red Cell Distribution Width 13.8 % (11.5-17.5); White Blood Count 6.1 K/mm3 (4.8-10.8)
[2019-03-24 07:34] LABS: Anion Gap 5.7 mEq/L (5-15); Calcium 8.6 mg/dL (8.5-10.1)
--- NOTE | 2019-03-24 09:13 | Discharge Summary ---
General - General Admission date:: 03/22/19 Discharge date: 03/24/19 HPI HPI: 64 yr old female with history of chronic obstructive lung disease, pneumonia and continued tobacco use presented to our outpatient clinic today with complaints of cough, clear sputum, chills, shortness of breath and malaise over the past 48 hours. Denies body aches, sore throat, sore ears and nasal symptoms. Denies known exposure to respiratory illness recently and has not had her influenza vaccination for this season. She has been hospitalized for pneumonia in the past, most recently in February 2018. She has been prescribed controller inhalers for COPD in the past but is not currently using any type of inhaler. She believes she has an albuterol inhaler at home but also has not been using that recently. In clinic she was found to be hypoxic with a room air saturation of 71% which improved to 90% on 3L oxygen via NC. Low-grade fever of 99.5F orally and diffuse wheezes and was admitted with community acquired pneumonia and COPD exacerbation. Hospital Course Hospital Course: Admitted due to acute hypoxemic respiratory failure secondary to pneumonia. Patient initiated on azithromycin and ceftriaxone along with nebulizer every 4 hours. Responded well to therapy. Had significant improvement during hospitalization with gradual effervescence of symptoms and stable oxygen saturations greater 90% on room air. Continue to be wheezy on day of discharge however significant improvement and respiratory status. Remained afebrile during admission. Tolerating good p.o. intake. Completed course of azithromycin during admission. Plan to initiate oral Omnicef to complete 7 days of therapy total. Additionally started on Stiolto and given samples for daily inhaler use. Counseled on need to stop smoking. Discussed risks of continued smoking and benefit of cessation. Counseled for 5 minutes. Patient is pre- contemplative at this time though has done well without smoking during admission and has not used a nicotine patch. Denies chest pain, nausea, vomiting, shortness of breath. Medically stable for discharge home Objective Vital signs: Temp Pulse Resp BP Pulse Ox 97.9 F 76 17 154/73 H 85 L 03/24/19 08:00 03/24/19 08:00 03/24/19 08:00 03/24/19 08:00 03/24/19 08:00 Narrative: - Constitutional NAD on RA, obese - *Routine HEENT Exam Head: Present: normocephalic, atraumatic Eye: Present: conjunctivae pink Mouth: moist, oropharynx clear, external ear normal - *Routine Neck Exam Present: supple. Absent: lymphadenopathy - *Routine Respiratory Exam Present: Good airmovement bilaterally, no crackles, improved wheeze in posterior lung balderas, occasional rhonchi that clear with cough. - *Routine Cardiovascular Exam Present: RRR. Absent: murmur - *Routine Abdominal Exam Present: soft, normoactive bowel sounds. Absent: tenderness - *Routine Extremities Exam Absent: clubbing, edema - *Routine Skin Exam Present: intact, warm - *Routine Neurological Exam Present: oriented X3, moving all extremities Results Labs on day of discharge: Labs from last 24 hours 03/24/19 03/24/19 06:20 06:20 WBC 6.1 RBC 4.52 Hgb 14.2 Hct 43.8 MCV 97.0 MCH 31.4 H MCHC 32.3 RDW 13.8 Plt Count 181 MPV 7.7 Neut % (Auto) 44.9 Lymph % (Auto) 39.8 [place] % (Auto) 10.1 H Eos % (Auto) 4.3 Baso % (Auto) 1.0 Neut # (Auto) 2.7 Lymph # (Auto) 2.4 [place] # (Auto) 0.6 Eos # (Auto) 0.3 Baso # (Auto) 0.1 Sodium 140 Potassium 3.7 Chloride 106 Carbon Dioxide 32 Anion Gap 5.7 BUN 15 Creatinine 0.62 Estimated Creat Clear 53 Estimated GFR 97 Est GFR ( Amer) 117 D Glucose 98 Calcium 8.6 Preliminary micro results at discharge 03/22/19 18:50 Sputum Culture - Preliminary Sputum - Expectorated Sputum DS: Diagnosis - Discharge Diagnosis (1) CAP (community acquired pneumonia) Status: Acute (2) COPD with exacerbation Status: Acute (3) Hypertension, essential Status: Chronic (4) Morbid obesity with BMI of 40.0-44.9, adult Status: Chronic (5) Tobacco use Status: Chronic (6) Hypoxia Status: Acute Discharge Plan - Patient Discharge Instructions ACTIVITY: Continue current activity DIET: continue same diet Patient Instructions: DI for Chronic Obstructive Pulmonary Disease, DI for Pn eumonia -- Adult - Follow up Plan Follow up with: David Sesay MD [Staff Physician] - Disposition: Home, Self-Halfway Medications: Home Medications Medication Instructions Recorded Confirmed Type Carvedilol [Carvedilol 25mg Tab] 12.5 mg PO BID 06/02/17 03/22/19 History Venlafaxine HCl [Effexor Xr] 75 mg PO DAILY 06/02/17 03/22/19 History Aspirin [Aspirin 325mg Tab] 325 mg PO DAILY 03/22/19 03/22/19 History Cefdinir [Omnicef 300mg Capsule] 300 mg PO BID 5 Days #10 cap 03/23/19 Rx Tiotropium Br/Olodaterol HCl 2 puff IH DAILY 30 Days #1 03/24/19 Rx [Stiolto Respimat Inhal Kimberly] mist.inhal hydroCHLOROthiazide [HCTZ 25mg 12.5 mg PO DAILY 30 Days #15 tab 03/24/19 Rx tab] Prescriptions/Medication Reconciliation: New Cefdinir [Omnicef 300mg Capsule] 300 mg PO BID 5 Days #10 cap hydroCHLOROthiazide [HCTZ 25mg tab] 12.5 mg PO DAILY 30 Days #15 tab Continued Carvedilol [Carvedilol 25mg Tab] 12.5 mg PO BID Venlafaxine HCl [Effexor Xr] 75 mg PO DAILY Aspirin [Aspirin 325mg Tab] 325 mg PO DAILY - Problem Reconciliation Problems Reviewed?: Yes
== END 2019-03-24 12:41 | disposition home or self-care (01) | DRG 193 ==
LOC: 2ND 11:35
PROVIDERS: ADMIT Internal Medicine Adolescent Medicine; ATTEND Internal Medicine Adolescent Medicine
CPT/HCPCS: 36415; 71020; 71046; 71250; 80048; 85025; 86738; 87040; 87070; 87077; 87186; 87205; 87275; 87276; 94640; 94761; J0456

== ENCOUNTER → 2019-04-03 20:06 | Outpatient (CLI) | payer MEDICARE, BC, SELFPAY | PROVIDERS: PCP Internal Medicine Adolescent Medicine; Visit Provider Internal Medicine Adolescent Medicine | DX: G47.33 Obstructive sleep apnea (adult) (pediatric) (principal); I10 Essential (primary) hypertension; E66.9 Obesity, unspecified | CPT/HCPCS: 95810 ==

== ENCOUNTER → 2019-06-12 10:54 | Outpatient (CLI) | payer MEDICARE, BC, SELFPAY ==
--- NOTE | 2019-06-12 11:07 | XR_ITS ---
PROCEDURE: XR MULTIPLE SPINE 6+V CLINICAL INDICATION: CERVICAL, THORACIC AND LUMBAR PAIN COMPARISON: No exams were available for comparison FINDINGS: Cervical spine: Five views: Mild facet arthritic changes at C3-C4 and C5 on the right. Normal alignment. No fracture or dislocation or significant foraminal narrowing. Thoracic spine two views: Normal alignment. There are mild degenerative changes in the mid and upper thoracic spine with slight decrease in the disc space and minimal endplate spurring. No fracture or dislocation. No lytic or blastic change. Lumbar spine five views: Normal alignment. No fracture or dislocation. No significant degenerative change. Incidental note made atherosclerotic calcification of the aorta and degenerative changes of the SI joints. IMPRESSION: Mild degenerative changes of the cervical and thoracic spine with unremarkable lumbar spine. There are degenerative changes of the SI joints Dictated by: Js Petersen MD 06/12/2019 18:38 Electronically signed by Js Petersen MD in [place] 06/12/2019 18:38
== END ==
PROVIDERS: PCP Internal Medicine Adolescent Medicine; Visit Provider Internal Medicine Adolescent Medicine
DX: M54.6 Pain in thoracic spine (principal); M54.2 Cervicalgia; M54.9 Dorsalgia, unspecified
CPT/HCPCS: 72084

== ENCOUNTER → 2020-03-14 08:19 | Outpatient (CLI) | payer MEDICARE, BC, SELFPAY ==
[2020-03-14 10:03] LABS: Basophils # 0.1 K/mm3 (0-0.2); Basophils % 0.9 % (0.1-2.0); Eosinophils # 0.2 K/mm3 (0.0-0.4); Eosinophils % 2.8 % (0.1-12.0); Hematocrit 48.2 % (37.0-47.0); Hemoglobin 15.9 g/dL (12.2-16.2); Lymphocytes # 1.6 K/mm3 (0.7-4.5); Lymphocytes % 21.1 % (10-50); Mean Corpuscular HGB Conc 32.9 g/dL (31.8-35.4); Mean Corpuscular Hemoglobin 31.6 pg (27.0-31.2); Mean Corpuscular Volume 96.1 fl (81-99); Mean Platelet Volume 8.5 fl (7.4-10.4); Monocytes # 0.7 K/mm3 (0.1-1.0); Monocytes % 8.9 % (1.7-9.3); Neutrophils # 4.9 K/mm3 (1.8-7.8); Neutrophils % 66.1 % (37.0-80.0); Platelet Count 192 K/mm3 (142-424); Red Blood Count 5.02 M/mm3 (4.20-5.40); Red Cell Distribution Width 13.8 % (11.5-17.5); White Blood Count 7.4 K/mm3 (4.8-10.8)
[2020-03-14 12:01] LABS: Alanine Aminotransferase 43 U/L (12-78); Albumin Level 3.8 g/dl (3.5-5.0); Albumin/Globulin Ratio 1.1 (1.1-1.8); Alkaline Phosphatase 89 U/L (38-126); Anion Gap 10.8 mEq/L (5-15); Aspartate Amino Transferase 52 U/L (14-36); Bilirubin,Total 0.7 mg/dl (0.2-1.3); Blood Urea Nitrogen 17 mg/dl (7-17); Calcium 9.6 mg/dl (8.4-10.2); Carbon Dioxide 32 mmol/L (22.0-30.0); Chloride 103 mmol/L (98-107); Cholesterol 174 mg/dl (140-200); Estimated Glomerular Filt Rate 100 ml/min (>60); GFR (African American) 121 ML/MIN (>60); Globulin 3.5 g/dL (1.3-3.2); Glucose 124 mg/dl (74-100); HDL Cholesterol 44 mg/dl (40-60); Potassium 3.8 mmoL/L (3.5-5.1); Sodium 142 mmol/L (136-145); Total Protein,Serum 7.3 g/dl (6.3-8.2); Triglycerides 139 mg/dl (30-150); VLDL Cholesterol 28 mg/dL (0-40)
[2020-03-14 12:12] LABS: Direct LDL Cholesterol 103.27 mg/dL (100-129)
[2020-03-14 15:30] LABS: Hemoglobin A1C 5.9 % (4.0-6.0)
== END ==
PROVIDERS: Internal Medicine Adolescent Medicine; Visit Provider Internal Medicine Adolescent Medicine
DX: E78.5 Hyperlipidemia, unspecified (principal); D50.9 Iron deficiency anemia, unspecified; R73.9 Hyperglycemia, unspecified
CPT/HCPCS: 36415; 80053; 80061; 83036; 85025

== ENCOUNTER → 2020-03-21 09:16 | Outpatient (CLI) | payer MEDICARE, SELFPAY ==
--- NOTE | 2020-03-21 09:23 | MM_ITS ---
PROCEDURE: MM DIG SCREENING MAMM BI W/CAD Referring Doctor: Jorge A Souza Patient Age:65Y CLINICAL INDICATION: SCREENING . no hormones no new complaints. Previous cyst aspiration right breast. Family history-noncontributory COMPARISON: MG DMSB DIG MAMM-SCREEN ISAIAS W/CAD from 06/08/2016 MG SCBI MM Dig screening mamm BI w/CAD from 09/20/2017 US BREASTRT US breast RT complete from 10/12/2017 MG DXRT MM Dig mamm DX unilat RT CAD from 10/12/2017 MG DXLT MM Dig mamm DX unilat LT CAD from 11/15/2017 US ASPBR US breast cyst asp from 11/15/2017 MG DIG MAMM-SCREEN ISAAIS from 09/22/2018 TECHNIQUE: Standard CC and MLO images were obtained. R2 CAD reviewed. Bilateral digital breast tomosynthesis included. FINDINGS: Lower density breast year with minimal residual fibroglandular elements and generalized fatty replacement. No suspicious calcifications Left breast. No areas of concern. No significant change. Follow-up 1 year recommended Right breast: Scattered nodularity encountered at right breast. Some areas of been seen previously. Nodule A:. This is developed or progressed since previous studies. This slightly lobulated nodule measuring up to near 8 mm maximally located in the deeper medial right breast. A likely small lobulated cyst but warrants ultrasound right breast, along with spot views to further correlate. Recommend spot cc and MLO view along with full 90 degree view right breast Nodule B: Previously identified and aspirated cyst under ultrasound-, 2018 appears to of recurred Behind the nipple at medial and slight superior. Nodule C: But this is been seen on previous studies and is likely a fluctuating cyst but it seems to come and go over course of multiple studies supporting tiny cyst. Of its appearance similar to 2000 There are some other tiny areas of nodularity but these appear similar to previous studies but can be survey does well when the patient returns IMPRESSION: 1...Right breast. Scattered areas of nodularity most of which have been seen before. There is a new area labeled A:-probable small lobulated cyst measuring up to 8 mm but warrants ultrasound and spot views right breast to further evaluate.. Patient with prior history of small cysts right breast 2..Left breast. Stable Thus left breast follow-up screening mammogram 1 year. BI-RAD Category: 0 Need Additional Imaging Evaluation FOLLOW-UP: IMM Immediate Follow-up Recommended (A letter has been sent to the patient regarding results of the study.) Dictated by: Karan Sebastian MD 03/28/2020 11:01 Karan Sebastian MD in [place] 03/28/2020 11:01
--- NOTE | 2020-03-21 09:23 | XR_ITS ---
PROCEDURE: XR DEXA AXIAL SKELETON CLINICAL HISTORY: POST MENOPAUSAL COMPARISON: No exams were available for comparison FINDINGS: The right hip BMD is 1.097 with a T-score of 2.2. The left hip BMD is 1.173 with a T-score of 1.9. The lumbar spine BMD is 1.154 with a T-score of 1.0. IMPRESSION: This patient is considered normal according to the World Health Organization criteria. Fracture risk is low. Based on these results a follow-up exam is recommended in 2 year. Dictated by: Js Petersen MD 03/21/2020 20:32 Js Petersen MD in [place] 03/22/2020 08:45
== END ==
PROVIDERS: PCP Internal Medicine Adolescent Medicine; Visit Provider Internal Medicine Adolescent Medicine
DX: Z12.31 Encounter for screening mammogram for malignant neoplasm of breast (principal); Z78.0 Asymptomatic menopausal state; Z13.820 Encounter for screening for osteoporosis
CPT/HCPCS: 77063; 77067; 77080

== ENCOUNTER → 2020-04-11 13:34 | Outpatient (CLI) | payer MEDICARE, SELFPAY ==
--- NOTE | 2020-04-11 13:39 | US_ITS ---
PROCEDURE: Right breast ultrasound complete with axilla MM DIG MAMM DX UNILAT RT CAD Digital Breast Tomosynthesis Included CLINICAL INDICATION: ABN MAMM OF RT BREAST Follow-up abnormal mammogram COMPARISON: MG DMSB DIGITAL MAMM-SCREEN BILATERAL from 01/25/2011 US BREASTRT US breast RT complete from 10/12/2017 MG DXLT MM Dig mamm DX unilat LT CAD from 11/15/2017 MG DIG MAMM-SCREEN ISAIAS from 09/22/2018 MG MM DIG SCREENING MAMM BI W/CAD from 03/21/2020 US US BREAST RT COMPLETE from 04/11/2020 TECHNIQUE: Standard CC and MLO images and 3D Tomosynthesis was obtained. R2 CAD reviewed. FINDINGS: Spot-compression views are performed of the right breast once again demonstrating multiple breast nodules. There are 3 nodules present in the medial aspect of the right breast. The anterior-most nodule measures 5 mm. The posterior-most nodule is lobular and measures 6 mm. There is also an area of asymmetry between these 2 nodules which measure 4 mm. Rolled views demonstrate that the middle nodule is probably due to overlapping fibroglandular tissue. Other smaller nodules are present in the mid and lateral aspect of the right breast. The enlarging posterior nodule has benign features multilocular. Right breast ultrasound: There is a 5 mm cyst at 12 o'clock, 4 mm cyst at 2 o'clock, 5 by 7 mm cyst at 9 o'clock.. The 4 mm cyst at 2 o'clock could very well represent the enlarging nodule noted on the mammogram however, that nodule has a somewhat lobulated contour on the mammogram not demonstrated on the ultrasound. Therefore, recommend ultrasound-guided fine needle aspiration of the cyst with mammogram to follow to confirm a concordance. IMPRESSION: Enlarging nodule in the medial aspect of the right breast may represent a 4 mm cyst however, concordance is not confirmed. Recommend ultrasound-guided FNA with mammogram to follow. BI-RAD Category: 4 Suspicious Abnormality - Biopsy Considered FOLLOW-UP: BIO Biopsy Recommended (A letter has been sent to the patient regarding results of the study.) Dictated by: Js Petersen MD 04/18/2020 11:21 Js Petersen MD in [place] 04/18/2020 11:21
== END ==
PROVIDERS: PCP Internal Medicine Adolescent Medicine; Visit Provider Internal Medicine Adolescent Medicine
DX: R92.8 Other abnormal and inconclusive findings on diagnostic imaging of breast (principal)
CPT/HCPCS: 76641; 77061; 77065; G0279

== ENCOUNTER → 2020-05-27 09:26 | Outpatient (CLI) | payer MEDICARE, SELFPAY ==
--- NOTE | 2020-05-27 | MM_ITS ---
PROCEDURE: MM DIG MAMM DX UNILAT RT CAD Digital Breast Tomosynthesis Included CLINICAL INDICATION: Post FNA mammogram COMPARISON: MG DIG MAMM-SCREEN ISAIAS from 09/22/2018 MG MM DIG SCREENING MAMM BI W/CAD from 03/21/2020 MG MM DIG MAMM DX UNILAT RT CAD from 04/11/2020 TECHNIQUE: Standard CC and MLO images and 3D Tomosynthesis was obtained. R2 CAD reviewed. FINDINGS: Previous exam demonstrating an enlarging nodule in the medial aspect of the right breast. There are multiple other smaller nodules also present. Fine-needle aspiration was performed of 2 small nodules in the medial aspect of the right breast. Previously noted lobulated nodule in the medial aspect of the right breast appears somewhat less apparent and may have been due to 1 of the nodules which is aspirated. In the medial aspect of the right breast anteriorly previously noted nodule is no longer apparent. There also remains a nodule in the medial aspect of the right breast near the nipple. No suspicious nodules are evident. IMPRESSION: No suspicious nodule is evident. Previously noted lobulated nodule medial aspect right breast may be slightly smaller and may have been aspirated during the procedure. Probably benign. Recommend continued six-month mammographic and sonographic follow-up of the right breast BI-RAD Category: 3 Probably Benign Finding Short Term Follow-up FOLLOW-UP: 6M 6Month Follow-up (A letter has been sent to the patient regarding results of the study.) Dictated by: Js Petersen MD 06/09/2020 11:56 Js Petersen MD in [place] 06/09/2020 11:56
--- NOTE | 2020-05-27 09:44 | US_ITS ---
PROCEDURE: US FNA BREAST CLINICAL INDICATION: ABN MAMM Right breast nodule 2 o'clock COMPARISON: US US BREAST RT COMPLETE from 04/11/2020 FINDINGS: Two cystic nodules are present level 2 a and B both at 2 o'clock. Following obtaining informed consent and time-out procedure under aseptic conditions and local anesthesia with 1 percent buffered lidocaine, a 21 gauge needle was inserted into both of the right breast nodules at 2 o'clock and completely aspirated by ultrasound. There were no immediate complications. Cytology: Right breast cyst, A: 2 o'clock negative for malignancy. Consistent with benign cyst contents Cytology right breast cyst B: At 2 o'clock negative for malignancy consistent with benign cyst contents IMPRESSION: Status post cyst aspiration of the right breast x2 both negative for malignancy. Please see mammogram report Dictated by: Js Petersen MD 06/09/2020 11:34 Js Petersen MD in [place] 06/09/2020 11:34
== END ==
PROVIDERS: PCP Internal Medicine Adolescent Medicine; Visit Provider Internal Medicine Adolescent Medicine
DX: R92.8 Other abnormal and inconclusive findings on diagnostic imaging of breast (principal); N63.11 Unspecified lump in the right breast, upper outer quadrant
CPT/HCPCS: 10005; 77061; 77065; 88112; 88173; G0279

== ENCOUNTER → 2020-05-28 08:00 | Outpatient (CLI) | payer MEDICARE, SELFPAY ==
[2020-05-28 11:22] LABS: Coronavirus 19 IgG Antibody Negative (Negative); Coronavirus 19 IgM Antibody Negative (Negative)
== END ==
PROVIDERS: Visit Provider Internal Medicine Gastroenterology
DX: Z01.812 Encounter for preprocedural laboratory examination (principal); Z11.52 Encounter for screening for COVID-19; Z12.11 Encounter for screening for malignant neoplasm of colon
CPT/HCPCS: 36415; 86328

== ENCOUNTER 2020-05-30 08:00 | Day surgery (SDC) | payer MEDICARE, SELFPAY ==
[2020-05-22 10:06] VITALS: BMI 44.3
[2020-05-30 08:16] VITALS: BP 151/70; PULSE 79; RESP 18; TEMP 36.3; O2SAT 95
[2020-05-30 09:31] VITALS: O2SAT 97
--- NOTE | 2020-05-30 09:42 | P.PCN_ITS ---
[facility] Procedure Note Procedure Note:: Colonoscopy Procedure Report: Colonoscopy with cold snare polypectomy Endoscopist: Rebel Coronado II, MD Referring physician: Jorge A Souza M.D. Date of Procedure: May 30, 2020 Equipment: Olympus 180 variable stiffness pediatric colonoscope Sedation: MAC sedation Indication: Mrs. Cruz is a 65-year-old female who is here for screening colonoscopy (10-year surveillance). She reports no abdominal pain, weight loss, change in her bowel habits or rectal bleeding. I believe at one point she did have some microcytic anemia. She reports no family history of colon cancer. Her last colonoscopy approximately 10 years ago was normal. Procedure: Prior to the procedure, a history and physical exam was performed, and patient's medications and allergies were reviewed. The risks, benefits and alternatives of the sedation and procedure were discussed with the patient. All questions were answered and informed consent was obtained. The patient was brought to the procedure room. Patient identification and proposed procedure were verified by the physician and the nurse. The patient was placed in a left lateral decubitus position and the scope was passed under direct vision. Throughout the procedure, the patient's blood pressure, pulse, and oxygen saturations were monitored continuously. The colonoscopy was accomplished without difficulty. The patient tolerated the procedure well. Findings: On digital rectal examination there was normal rectal tone. There were no external hemorrhoids. The colonoscope was introduced through the anal canal to the rectum and advanced to the cecum. The ileocecal valve and appendiceal orifice were identified. The scope was advanced a short distance into the ileum which appeared grossly normal. The scope was then withdrawn into the colon. There was a single 5 mm polyp in the cecum removed via cold snare polypectomy. The remaining cecum, ascending and transverse colon and mucosa were grossly normal. There were scattered diverticuli throughout the descending and sigmoid colon (LEFT colon). The rectum itself was normal. Upon retroflexion within the rectum there were grade 1-2 internal hemorrhoids. The preparation was excellent throughout with Lamoni Preparation Score of 9. The cecal time was 12 minutes. Impression: 1. Diminutive cecal polyp 2. Left-sided diverticulosis 3. Grade 1-2 internal hemorrhoids Plan: I will follow up the polyp pathology and recommend repeat colonoscopy again in 7-10 years based upon the polyp histology. I would encourage fiber supplementation on a long-term daily maintenance basis.
[2020-05-30 09:43] VITALS: BP 133/63; PULSE 83; RESP 18; TEMP 37.1; O2SAT 98
[2020-05-30 09:53] VITALS: BP 134/67; PULSE 69; RESP 18; O2SAT 100
[2020-05-30 10:03] VITALS: BP 155/57; PULSE 66; RESP 18; O2SAT 98
[2020-05-30 10:33] VITALS: BP 148/73; PULSE 63; RESP 18; O2SAT 99
--- NOTE | 2020-05-30 13:50 | HMH.ANESCL ---
[facility] Anesthesia Checklist - Patient Identification Patient Identification: Arm Band - Structural Data Admitted From: Home Planned Operative Procedure/s: colon Consent for Planned Operative Procedure(s) Verified: Yes Verified Documents: Surgical Consent - Anesthesia Plan Anesthesia Risk discussed: Yes Anesthesia Plan: Verified ASA Class: III Anesthesia Type: General [facility] History Medical History: Reports:: Anxiety, Asthma, Congestive Heart Failure, Chronic Obstructive Pulmonary Disease (COPD), Depression, Hypertension Denies:: Cancer, Diabetes Mellitus Type 1, Diabetes Mellitus Type 2, Internal Pacemaker, MRSA, Seizures *Have you ever received a pneumonia vaccine?: Yes *Have you received a flu vaccine this season?: Yes Other Medical History: Reports: Hormone Therapy Anesthesia experience/problems:: none Laterality Cases: Left: Other Other Surgeries: Yes: Colonoscopy, Tubal Ligation, Other (LEFT heel surgery). No: Pacemaker Amputation: No Fractures: No - *Social History Last grade of school completed: Some college Smoking Status: Current every day smoker Tobacco Type: cigarettes # Packs/Day (cigarettes): 1 Alcohol Intake: current Alcohol Intake Frequency:: holidays/special occasions only Substance Use Type: denies use *Occupational Status:: retired Housing: house Household Members: spouse *Travel in the last 8 weeks: None - Psychiatric History Pschychiatric History:: Reports:: Anxiety, Depression Family Hx:: Diabetes, Heart Attack, Hypertension, Stroke
== END 2020-05-30 10:41 | disposition home or self-care (01) ==
LOC: OUTP 08:01
PROVIDERS: PCP Internal Medicine Adolescent Medicine; Visit Provider Internal Medicine Gastroenterology
PROC: 0DJD8ZZ Inspection of Lower Intestinal Tract, Via Natural or Artificial Opening Endoscopic (ICD-10-PCS; CPT 45378; principal; 2020-05-30 09:00)
DX: Z12.11 Encounter for screening for malignant neoplasm of colon (principal); K63.5 Polyp of colon; K57.30 Diverticulosis of large intestine without perforation or abscess without bleeding; K64.0 First degree hemorrhoids; I11.0 Hypertensive heart disease with heart failure; I50.9 Heart failure, unspecified; F41.9 Anxiety disorder, unspecified; J44.9 Chronic obstructive pulmonary disease, unspecified; F32.9 Major depressive disorder, single episode, unspecified; Z79.82 Long term (current) use of aspirin; Z79.890 Hormone replacement therapy; Z79.899 Other long term (current) drug therapy
CPT/HCPCS: 45385; 88305

== ENCOUNTER → 2020-09-10 10:00 | Outpatient (CLI) | payer MEDICARE, SELFPAY ==
[2020-09-10 11:02] LABS: Basophils # 0.1 K/mm3 (0-0.2); Eosinophils # 0.3 K/mm3 (0.0-0.4); Hematocrit 43.4 % (37.0-47.0); Hemoglobin 14.2 g/dL (12.2-16.2); Lymphocytes # 2.5 K/mm3 (0.7-4.5); Mean Corpuscular HGB Conc 32.7 g/dL (31.8-35.4); Mean Corpuscular Hemoglobin 30.6 pg (27.0-31.2); Mean Corpuscular Volume 93.8 fl (81-99); Mean Platelet Volume 7.5 fl (7.4-10.4); Monocytes # 0.7 K/mm3 (0.1-1.0); Monocytes % 8.8 % (1.7-9.3); Neutrophils # 4.8 K/mm3 (1.8-7.8); Neutrophils % 57.3 % (37.0-80.0); Platelet Count 206 K/mm3 (142-424); Red Blood Count 4.63 M/mm3 (4.20-5.40); Red Cell Distribution Width 13.7 % (11.5-17.5); White Blood Count 8.3 K/mm3 (4.8-10.8)
[2020-09-10 11:58] LABS: Chloride 105 mmol/L (98-107)
[2020-09-10 11:59] LABS: Sodium 139 mmol/L (136-145)
[2020-09-10 12:01] LABS: Alanine Aminotransferase 44 U/L (12-78); Alkaline Phosphatase 96 U/L (38-126); Aspartate Amino Transferase 53 U/L (14-36); Bilirubin,Total 0.5 mg/dl (0.2-1.3); Blood Urea Nitrogen 18 mg/dl (7-17); Carbon Dioxide 28 mmol/L (22.0-30.0); Estimated Glomerular Filt Rate 100 ml/min (>60); GFR (African American) 121 ML/MIN (>60)
[2020-09-10 12:02] LABS: Albumin Level 3.8 g/dl (3.5-5.0); Albumin/Globulin Ratio 1.2 (1.1-1.8); Calcium 9.1 mg/dl (8.4-10.2); Chol/HDL Ratio 4.6 (1-3.5); Cholesterol 179 mg/dl (140-200); Globulin 3.2 g/dL (1.3-3.2); Glucose 139 mg/dl (74-100); HDL Cholesterol 39 mg/dl (40-60); Triglycerides 116 mg/dl (30-150); VLDL Cholesterol 23 mg/dL (0-40)
[2020-09-10 12:13] LABS: Direct LDL Cholesterol 107.44 mg/dL (100-129)
== END ==
PROVIDERS: Visit Provider Internal Medicine Adolescent Medicine
DX: E78.5 Hyperlipidemia, unspecified (principal); D50.9 Iron deficiency anemia, unspecified
CPT/HCPCS: 36415; 80053; 80061; 85025

== ENCOUNTER → 2020-10-08 07:16 | Outpatient (CLI) | payer MEDICARE, SELFPAY ==
--- NOTE | 2020-10-08 07:20 | CT_ITS ---
PROCEDURE: CT LUNG SCREENING CLINICAL INDICATION: H/O NICOTINE DEPENDENCE Current smoker 30 pack year smoking history Quit smoking for 21 years and started back 4 years ago. COMPARISON: CT CT CHEST WO CON from 03/22/2019 TECHNIQUE: The exam was performed on a [facility] Light Speed [address] scanner using 2.90 mGy CTDI. A low dose helical CT CHEST was performed on a multi-detector scanner. All CT scans at the facility use one or more dose reduction, viz: automated exposure control, ma/kV adjustment per patient size (including targeted exams where dose is matched to indication, i.e. head), or iterative reconstruction technique. The LDCT was performed in a facility that meets the criteria for the screening program. Data regarding this exam was submitted to ACR which is an approved registry. The order for this exam indicates that it came as a result of a lung cancer screening counseling shard decision-making visit that included all the elements required of such a visit including smoking cessation. The radiologist interpreting this exam meets the [facility] criteria for the LDCT lung cancer screening program. The exam is reported using the Lung-RADS classification scale and reported to the ACR registry. NOTE: This study was performed for the specific purposes of lung cancer screening and is not an alternative to diagnostic chest CT. RADIATION DOSE: CTDI vol(CT dose Index-volume) = 2.90mG DLP (Dose Length Product) = 109.94 mGcm FINDINGS: Scattered pulmonary nodules are once again noted. The 7 mm nodule in the left apex is slightly smaller in volume at 8 x 4 mm. Previously this measured 8 x 8 mm. Previously noted 5 mm nodule in the right apex is no longer apparent. Patchy area of increased density is present in the right lower lobe medially and posteriorly slightly less prominent. There is some minimal atelectatic or fibrotic change in the left lung base. No new nodules are evident. OTHER FINDINGS: COPD changes. Coronary artery calcifications. IMPRESSION: Lung-RADS Category 2 Benign Appearance or Behavior Follow-up: Continue annual screening with LDCT in 12 months Dictated by: Js Petersen MD 10/27/2020 08:38 Js Petersen MD in [place] 10/27/2020 08:38
== END ==
PROVIDERS: PCP Internal Medicine Adolescent Medicine; Visit Provider Internal Medicine Adolescent Medicine
DX: Z87.891 Personal history of nicotine dependence (principal); Z12.2 Encounter for screening for malignant neoplasm of respiratory organs
CPT/HCPCS: 71271

== ENCOUNTER → 2021-05-16 11:14 | Outpatient (CLI) | payer MEDICARE, SELFPAY ==
[2021-05-16 12:21] LABS: Basophils # 0.2 K/mm3 (0-0.2); Basophils % 2.6 % (0.1-2.0); Eosinophils # 0.3 K/mm3 (0.0-0.4); Hematocrit 47.4 % (37.0-47.0); Hemoglobin 14.8 g/dL (12.2-16.2); Lymphocytes # 2.4 K/mm3 (0.7-4.5); Lymphocytes % 28.9 % (10-50); Mean Corpuscular HGB Conc 31.3 g/dL (31.8-35.4); Mean Corpuscular Hemoglobin 30.8 pg (27.0-31.2); Mean Corpuscular Volume 98.4 fl (81-99); Mean Platelet Volume 7.9 fl (7.4-10.4); Monocytes # 0.7 K/mm3 (0.1-1.0); Monocytes % 8.9 % (1.7-9.3); Neutrophils # 4.7 K/mm3 (1.8-7.8); Neutrophils % 56.6 % (37.0-80.0); Platelet Count 240 K/mm3 (142-424); Red Blood Count 4.82 M/mm3 (4.20-5.40); Red Cell Distribution Width 13.8 % (11.5-17.5); White Blood Count 8.2 K/mm3 (4.8-10.8)
[2021-05-16 13:48] LABS: Chloride 101 mmol/L (98-107)
[2021-05-16 13:49] LABS: Alanine Aminotransferase 47 U/L (12-78); Aspartate Amino Transferase 63 U/L (14-36); Carbon Dioxide 30 mmol/L (22.0-30.0); Sodium 141 mmol/L (136-145)
[2021-05-16 13:51] LABS: Albumin Level 3.8 g/dl (3.5-5.0); Albumin/Globulin Ratio 1.1 (1.1-1.8); Alkaline Phosphatase 102 U/L (38-126); Bilirubin,Total 0.6 mg/dl (0.2-1.3); Cholesterol 167 mg/dl (140-200); Globulin 3.6 g/dL (1.3-3.2); Total Protein,Serum 7.4 g/dl (6.3-8.2); Triglycerides 110 mg/dl (30-150); VLDL Cholesterol 22 mg/dL (0-40)
[2021-05-16 13:52] LABS: Chol/HDL Ratio 4.1 (1-3.5); Glucose 130 mg/dl (74-100); HDL Cholesterol 41 mg/dl (40-60)
[2021-05-16 13:54] LABS: Blood Urea Nitrogen 20 mg/dl (7-17); Estimated Glomerular Filt Rate 100 ml/min (>60); GFR (African American) 121 ML/MIN (>60)
[2021-05-16 14:01] LABS: Direct LDL Cholesterol 100.72 mg/dL (100-129)
[2021-05-16 14:55] LABS: Hemoglobin A1C 6.3 % (4.0-6.0)
== END ==
PROVIDERS: Visit Provider Internal Medicine Adolescent Medicine
DX: Z00.00 Encounter for general adult medical examination without abnormal findings (principal); I10 Essential (primary) hypertension; E66.9 Obesity, unspecified; Z68.41 Body mass index [BMI] 40.0-44.9, adult; Z79.899 Other long term (current) drug therapy
CPT/HCPCS: 36415; 80053; 80061; 83036; 85025

== ENCOUNTER → 2021-11-04 14:45 | Outpatient (CLI) | payer MEDICARE, SELFPAY ==
--- NOTE | 2021-11-04 14:51 | CT_ITS ---
FINAL REPORT CLINICAL HISTORY: PERSONAL HX OF NICOTINE DEPENDENCE COMPARISON: October 08, 2020 and March 22, 2019 FINDINGS: Low-Dose Chest CT CTDI vol (mGy): 2.90 DLP (mGy-cm): 103.42 Axial images were obtained from the lung apex to the mid abdomen by computed tomography. Low-dose protocol was utilized. FINDINGS: CHEST: There is no axillary adenopathy. There is no hilar or mediastinal adenopathy. The heart is proper size. There is severe coronary artery calcification. There is no pericardial or pleural effusion. Limited images of the upper abdomen are unremarkable. Lung window images demonstrate mild changes of emphysema and mild pulmonary scarring. There is a stable 7 mm left apical nodule. No new mass or nodule is identified. IMPRESSION: Stable left apical nodule. Modifier S: Severe coronary artery calcifications Lung RADS category 1S. Recommend 12 month follow-up low-dose chest CT. Reviewed, Interpreted and Dictated by John High III, MD Transcribed by Radha Corrales Authenticated and [facility]
== END ==
PROVIDERS: PCP Internal Medicine Adolescent Medicine; Visit Provider Internal Medicine Adolescent Medicine
DX: Z87.891 Personal history of nicotine dependence (principal); Z12.2 Encounter for screening for malignant neoplasm of respiratory organs
CPT/HCPCS: 71271

== ENCOUNTER → 2021-11-19 07:15 | Outpatient (CLI) | payer MEDICARE, SELFPAY ==
--- NOTE | 2021-11-19 | CA_ITS ---
APPROVED REPORT Exam: Pharmacologic Technologist: Janneth Soliz, Ht: 5 ft 7 in Wt: 260 lbs BSA: 2.26 m2 HR: 58 bpm BP: 193/76 mmHg Rhythm: sinus victor hugo, slow R wave progression Medical History Medical History: HTN, Diabetes Medications: Aspirin,,,,, Metformin,,,,, HCTZ,,,,, Carvedilol,,,,, Venlafaxine,,,,, JaRDiance,,,,, StIloto,,,,, Cardiac Risk Factors: HTN, , Diabetes (non-insulin), Smoking Stress Test Details Test: LEXISCAN HR Resting HR: 55 bpm Max Heart Rate (APMHR): 153.097721 bpm Max HR Achieved: 78 bpm Target HR (85% APMHR): 130.801672 bpm % of APMHR: 50.98 Recovery HR: 65 bpm BP Resting BP: 193/76 mmHg Max BP: 193/76 mmHg Recovery BP: 165.0/62.0 mmHg ECG Resting ECG: sinus victor hugo, slow R wave progression Clinical Exercise duration: 04:11 min Highest Stage Achieved: Stress ECG Conclusion During lexiscan pt experinced mild SOA and head discomfort. Rare PAC noted. no significant ST changes. Unremarkable lexiscan stress. Myoview images reported separately. Test Summary REST . . . . . . . Sitting REST 10:21 . . 55 . 193/ 76 . . Stage 1 01:00 . . 71 . . . . Stage 2 01:00 . . 74 . . . . Stage 3 01:00 . . 74 . 160/ 69 . . Stage 4 01:00 . . 73 . 179/ 65 . . Stage 4 01:11 . . 73 . 179/ 65 . Stop exercise at 04:11 RECOVERY 01:00 . . 65 . 177/ 73 . . RECOVERY 02:00 . . 62 . 177/ 73 . . RECOVERY 03:00 . . 61 . 165/ 62 . . RECOVERY 03:20 . . 66 . 172/ 62 . . Electronically signed by : Octavio Sanford MD 11/20/2021 13:02:47
--- NOTE | 2021-11-19 07:36 | NM_ITS ---
APPROVED REPORT Exam: Nuclear Stress Test Indication: CHF, HTN, D.M., HYPERLIPIDEMIA, TOB USE, SOB Patient Location: Outpatient Stress Tech: Janneth LANDERS Tech:Anne Marie Dinh ELIANA RT (R)(N)(M) Ht: 5 ft 7 in Wt: 260 lbs Bra Size: B HR: 58 bpm BP: 193/76 mmHg BSA: 2.26 m2 TID: 1.29 BMI: 40.7 History: PT COULD NOT LAY ON STOMACH FOR PRONE IMAGES DUE TO ASCITES Procedure: Patient received a 0.4 mg of intravenous Lexiscan, resting heart rate 58 bpm, resting blood pressure 193/76 mmHg, with Lexiscan maximum heart rate achived was 76 bpm which is Less than 85 % of the maximum predicted heart rate and blood pressure was 160/69 mmHg. With Lexiscan, patient denied any complaint of chest pain. Electrocardiogram Resting electrocardiogram shows sinus rhythm, with Lexiscan there is less than 1.[address] segment depression noted from the baseline EKG. The EKG portion of the Lexiscan is nondiagnostic. Cardiac Stress and Resting SPECT Images: Cardiac Stress and Resting SPECT images were obtained using technetium 99m Myoview 31.9 mCi stress and 10.83 mCi at rest. Gated SPECT for analysis of segmental wall motion and calculation of the ejection fraction also done. Cardiac stress and rest SPECT may show uniform myocardial activity without segmental perfusion abnormality, computer derived ejection fraction is 59% with no regional wall motion abnormality, right ventricle is normal size and contractility, there is transient ischemic dilatation of the left ventricle seen, raising the concern for presence of balanced ischemia or multivessel coronary artery disease. Conclusion: 1. The EKG portion of the Lexiscan is nondiagnostic. 2. No scintigraphic evidence of reversible ischemia seen, compared to ejection fraction 59% with no regional wall motion abnormality, right ventricle is normal size and contractility, there is transient ischemic dilatation of the left ventricle seen, raising the concerns of presence of balanced ischemia or multivessel coronary artery disease. 3. Abnormal Lexiscan Myoview study. Electronically signed by : Octavio Sanford MD 11/20/2021 13:05:05
== END ==
PROVIDERS: PCP Internal Medicine Adolescent Medicine; Visit Provider Internal Medicine Adolescent Medicine
DX: J44.1 Chronic obstructive pulmonary disease with (acute) exacerbation (principal); R06.2 Wheezing
CPT/HCPCS: 78452; 93017; A9502; J2785

== ENCOUNTER → 2022-09-10 11:18 | Outpatient (CLI) | payer MEDICARE, SELFPAY ==
--- NOTE | 2022-09-10 11:22 | CT_ITS ---
FINAL REPORT TECHNIQUE: Axial images were obtained from the lung apex to the mid abdomen by computed tomography. This study was performed with techniques to keep radiation doses as low as reasonably achievable (ALARA). Individualized dose reduction techniques using automated exposure control or adjustment of mA and/or kV according to the patient's size were employed. CLINICAL HISTORY: HISTORY OF NICOTINE DEPENDENCE SMOKED FOR 40 YRS 1 PK PER DAY FINDINGS: CHEST CT LOW DOSE CTDI vol (mGy): 2.90 DLP (mGy-cm): 125.85 There is dense coronary artery calcification. There is no axillary adenopathy. There is no hilar or mediastinal adenopathy. The heart is normal in size. There is no pericardial or pleural effusion. There is a stable 7 mm left apical nodule well seen on image 22 series 4. There are stable tiny nodules in the periphery of the right upper lobe measuring up to 3 mm. Findings are well seen on image 40 of series 4. Limited images of the upper abdomen are unremarkable. IMPRESSION: Stable nodules as detailed above. Lung RADS category 2. Recommend 12 month follow-up low-dose chest CT. Reviewed, Interpreted and Dictated by Manuel Hyatt MD Transcribed by Leni Jones Authenticated and [facility]
== END ==
PROVIDERS: PCP Internal Medicine Adolescent Medicine; Visit Provider Internal Medicine Adolescent Medicine
DX: Z87.891 Personal history of nicotine dependence (principal); Z12.2 Encounter for screening for malignant neoplasm of respiratory organs
CPT/HCPCS: 71271

== ENCOUNTER → 2022-09-15 08:40 | Outpatient (CLI) | payer MEDICARE, SELFPAY ==
--- NOTE | 2022-09-15 08:45 | XR_ITS ---
FINAL REPORT TECHNIQUE: Bone densitometry calculations of the lumbar spine and left hip were obtained. CLINICAL HISTORY: post menopausal COMPARISON: 03/21/2020 FINDINGS: Using L1-4, the bone mineral density of the spine is 1.154 g/cm2, corresponding to T-score of 1.0. Using the left hip, the bone mineral density of the femoral neck is 1 point 088 g/cm2, corresponding to a T-score of 2.2. Using the right hip, the bone mineral density of the femoral neck is 1.063 g/cm2, corresponding to a T-score of 1.9. NOTE: T-score: Standard deviation compared with peak bone mass of young adult mean. *Following the recommendations of the International Society of Bone densitometry, classification of hip BMD is based on the lower of two T-scores; total hip or femoral neck. IMPRESSION: Normal bone mineral density of the lumbar spine and hip. FRAX data was not reported because all of the T-scores are at or above -1.0 Reviewed, Interpreted and Dictated by Vijaya Barillas MD Transcribed by Leni Jones Authenticated and [facility]
--- NOTE | 2022-09-15 08:45 | MM_ITS ---
PROCEDURE INFORMATION: Exam: MG Bilateral Screening 3D Mammography Exam date and time: 09/15/2022 8:59 AM Age: 67 years old Clinical indication: Screening examination TECHNIQUE: Imaging protocol: Bilateral Screening tomosynthesis and 2D mammography including computer-aided detection (CAD) when performed. COMPARISON: 1. MG MM DIG MAMM DX UNILAT RT CAD 05/27/2020 10:27 AM 2. MG MM DIG MAMM DX UNILAT RT CAD 04/11/2020 1:47 PM FINDINGS: MAMMOGRAPHY: Breast composition: There are scattered areas of fibroglandular density. Mass: None. Architectural distortion: None. Calcifications: No suspicious calcifications. Asymmetric density: None. Skin thickening: None. Axillary adenopathy: None. IMPRESSION: No mammographic evidence of malignancy. Annual screening is recommended unless otherwise clinically indicated. ASSESSMENT: BI-RADS Category 1: Negative
== END ==
PROVIDERS: PCP Internal Medicine Adolescent Medicine; Visit Provider Internal Medicine Adolescent Medicine
DX: Z12.31 Encounter for screening mammogram for malignant neoplasm of breast (principal); Z78.0 Asymptomatic menopausal state; Z87.891 Personal history of nicotine dependence; Z12.2 Encounter for screening for malignant neoplasm of respiratory organs
CPT/HCPCS: 77063; 77067; 77080

== ENCOUNTER → 2023-04-25 11:38 | Outpatient (CLI) | payer MEDICARE, SELFPAY ==
[2023-04-25 12:08] LABS: Basophils % 0.4 % (0.1-2.0); Eosinophils # 0.3 K/mm3 (0.0-0.4); Eosinophils % 3.6 % (0.1-12.0); Hematocrit 40.8 % (37.0-47.0); Hemoglobin 13.8 g/dL (12.2-16.2); Lymphocytes # 2.5 K/mm3 (0.7-4.5); Lymphocytes % 27.3 % (10-50); Mean Corpuscular HGB Conc 33.8 g/dL (31.8-35.4); Mean Corpuscular Hemoglobin 30.5 pg (27.0-31.2); Mean Corpuscular Volume 90.3 fl (81-99); Mean Platelet Volume 7.2 fl (7.4-10.4); Monocytes # 0.6 K/mm3 (0.1-1.0); Monocytes % 6.4 % (1.7-9.3); Neutrophils # 5.8 K/mm3 (1.8-7.8); Neutrophils % 62.3 % (37.0-80.0); Platelet Count 251 K/mm3 (142-424); Red Blood Count 4.53 M/mm3 (4.20-5.40); Red Cell Distribution Width 13.8 % (11.5-17.5); White Blood Count 9.3 K/mm3 (4.8-10.8)
[2023-04-25 12:45] LABS: Chloride 104 mmol/L (98-107); Potassium 4.1 mmoL/L (3.5-5.1); Sodium 140 mmol/L (136-145)
[2023-04-25 12:47] LABS: Alanine Aminotransferase 37 U/L (12-78); Aspartate Amino Transferase 45 U/L (14-36); Blood Urea Nitrogen 21 mg/dl (7-17); Estimated Glomerular Filt Rate 83 ml/min (>60); GFR (African American) 100 ML/MIN (>60)
[2023-04-25 12:48] LABS: Albumin Level 4.1 g/dl (3.5-5.0); Albumin/Globulin Ratio 1.2 (1.1-1.8); Alkaline Phosphatase 84 U/L (38-126); Anion Gap 13.1 mEq/L (5-15); Bilirubin,Total 0.4 mg/dl (0.2-1.3); Calcium 9.1 mg/dl (8.4-10.2); Carbon Dioxide 27 mmol/L (22.0-30.0); Cholesterol 178 mg/dl (140-200); Globulin 3.3 g/dL (1.3-3.2); Glucose 114 mg/dl (74-100); HDL Cholesterol 45 mg/dl (40-60); Total Protein,Serum 7.4 g/dl (6.3-8.2); Triglycerides 168 mg/dl (30-150); VLDL Cholesterol 34 mg/dL (0-40)
[2023-04-25 13:15] LABS: Direct LDL Cholesterol 94.54 mg/dL (100-129)
[2023-04-25 14:48] LABS: Hemoglobin A1C 5.6 % (4.0-6.0)
== END ==
PROVIDERS: PCP Internal Medicine Adolescent Medicine; Visit Provider Internal Medicine Adolescent Medicine
DX: E78.5 Hyperlipidemia, unspecified (principal); E11.69 Type 2 diabetes mellitus with other specified complication
CPT/HCPCS: 36415; 80053; 80061; 83036; 85025

== ENCOUNTER 2023-09-14 10:40 | Outpatient (CLI) | payer MEDICARE, SELFPAY ==
[2023-09-14 11:53] LABS: Alanine Aminotransferase 28 U/L (12-78); Albumin Level 3.9 g/dl (3.5-5.0); Albumin/Globulin Ratio 1.2 (1.1-1.8); Alkaline Phosphatase 76 U/L (38-126); Anion Gap 12.9 mEq/L (5-15); Aspartate Amino Transferase 39 U/L (14-36); Bilirubin,Total 0.4 mg/dl (0.2-1.3); Blood Urea Nitrogen 20 mg/dl (7-17); Calcium 9.6 mg/dl (8.4-10.2); Carbon Dioxide 29 mmol/L (22.0-30.0); Chloride 104 mmol/L (98-107); Chol/HDL Ratio 3.3 (1-3.5); Cholesterol 192 mg/dl (140-200); Estimated Glomerular Filt Rate 83 ml/min (>60); GFR (African American) 100 ML/MIN (>60); Globulin 3.3 g/dL (1.3-3.2); Glucose 107 mg/dl (74-100); HDL Cholesterol 58 mg/dl (40-60); Potassium 3.9 mmoL/L (3.5-5.1); Sodium 142 mmol/L (136-145); Total Protein,Serum 7.2 g/dl (6.3-8.2); Triglycerides 169 mg/dl (30-150); VLDL Cholesterol 34 mg/dL (0-40)
[2023-09-14 13:54] LABS: Hemoglobin A1C 5.8 % (4.0-6.0)
== END 2023-09-14 23:59 | disposition home or self-care (01) ==
LOC: LAB 10:42
PROVIDERS: PCP Internal Medicine Adolescent Medicine; Visit Provider Internal Medicine Adolescent Medicine
DX: E11.69 Type 2 diabetes mellitus with other specified complication (principal); E66.8 Other obesity; Z68.41 Body mass index [BMI] 40.0-44.9, adult
CPT/HCPCS: 36415; 80053; 80061; 83036

== ENCOUNTER 2023-09-16 10:50 | Outpatient (CLI) | payer MEDICARE, SELFPAY ==
--- NOTE | 2023-09-16 10:54 | MM_ITS ---
PROCEDURE INFORMATION: Exam: MG Bilateral Screening 3D Mammography Exam date and time: 09/16/2023 10:46 AM Age: 68 years old Clinical indication: Screening mammogram TECHNIQUE: Imaging protocol: Bilateral Screening tomosynthesis and 2D mammography including computer-aided detection (CAD) when performed. COMPARISON: 1. MG MM DIG SCREENING MAMM BI W/CAD 09/15/2022 8:59 AM 2. MG MM DIG MAMM DX UNILAT RT CAD 05/27/2020 10:27 AM 3. MG MM DIG MAMM DX UNILAT RT CAD 04/11/2020 1:47 PM 4. MG MM DIG SCREENING MAMM BI W/CAD 03/21/2020 9:32 AM FINDINGS: MAMMOGRAPHY: Breast composition: There are scattered areas of fibroglandular density. Mass: None. Architectural distortion: No new or suspicious architectural distortion. Calcifications: No new or suspicious calcifications are present Asymmetric density: No new or suspicious asymmetric density is present Skin thickening: None. Axillary adenopathy: None. IMPRESSION: No mammographic evidence of malignancy. Recommend annual screening mammography unless otherwise clinically indicated. ASSESSMENT: BI-RADS category 1: Negative.
== END 2023-09-16 23:59 | disposition home or self-care (01) ==
LOC: RAD 10:51
PROVIDERS: PCP Internal Medicine Adolescent Medicine; Visit Provider Internal Medicine Adolescent Medicine
DX: Z12.31 Encounter for screening mammogram for malignant neoplasm of breast (principal)
CPT/HCPCS: 77063; 77067

== ENCOUNTER 2024-10-30 08:54 | Day surgery (SDC) | payer MEDICARE, SELFPAY ==
[2024-10-29 14:08] VITALS: BMI 37.7
[2024-10-30 09:40] VITALS: BP 180/58; PULSE 72; RESP 16; TEMP 36.2; O2SAT 93
--- NOTE | 2024-10-30 09:40 | EXP.GEN.HP ---
HPI HPI HPI: This is a 69-year-old female who presents for esophagogastroduodenoscopy for evaluation regarding epigastric pain. Occasional reflux. No melena. No hematemesis. She states that she is concerned that she might have a hernia or an ulcer . [facility] Disclaimer: The information contained in this section may have been updated after the patient was seen, as this information can be updated by other users. Medical History (Updated 10/30/24 @ 09:41 by Hans Cha MD) Depression Anxiety Stroke Diabetes Hypercholesterolemia Hypertension COPD (chronic obstructive pulmonary disease) Surgical History Hx of colonoscopy Hx of tubal ligation Hx of foot surgery Family History (Updated 10/30/24 @ 09:34 by Ashwini Mc RN) No significant family history Social History Smoking Status: Current every day smoker tobacco type: cigarettes packs per day: 1 second hand exposure: Yes alcohol intake: never substance use type: denies use current occupational status: employed and retired Travel in the last 8 weeks?: None household members: spouse housing: house current occupation: house current occupational exposures/hazards: No caffeine: No Have you lived/traveled outside [place] in past 30 days?: No Contact w/someone who lives/traveled outside [place] past 30 days?: No Exposure to someone with infectious disease in past 14 days?: No Do you have a fever (greater than 100.4 F or 38 C)?: No Have you tested positive for COVID-19?: No Exposed to someone with COVID-19 in past 14 days?: No Do you have a sore throat?: No Do you have a cough?: No Do you have any weakness?: No Are you experiencing any nausea/vomitting?: No Do you have any diarrhea?: No Are you experiencing any unusual bleeding?: No Do you have any muscle aches/pain?: No Do you have any abdominal pain?: No Are you experiencing loss of taste or smell?: No Other Medical History Have you received the Flu Vaccine for this season: Yes Have you received the Pneumonia Vaccine: Yes Review of Systems Review of Systems Review of systems:: pertinent systems reviewed and negative unless documented below *Gastrointestinal Gastrointestinal: Reports as per HPI Meds Home Medications and Allergies Home Medications ?Medication ?Instructions ?Recorded ?Confirmed ?Type carvedilol 25 mg tablet 12.5 mg PO BID Hypertension 06/02/17 10/30/24 History venlafaxine 75 mg capsule,extended 75 mg PO DAILY Depression 06/02/17 10/30/24 History release 24 hr (Effexor XR) aspirin 325 mg tablet 325 mg PO DAILY Heart disease 03/22/19 10/30/24 History hydrochlorothiazide 25 mg tablet 12.5 mg (1/2 x 25 mg) PO DAILY 03/24/19 10/30/24 Rx Diuretic 30 days #15 tabs tiotropium 2.5 mcg-olodaterol 2.5 2 puff IH DAILY allergies 05/22/20 10/30/24 History mcg/actuation mist for inhalation New Prescriptions to Start Prescriptions: Allergies Allergy/AdvReac Type Severity Reaction Status Date / Time venom-honey bee Allergy Unknown Unknown Verified 10/30/24 09:36 allergy reaction venom-wasp Allergy Unknown Unknown Verified 10/30/24 09:36 allergy reaction Exam Data for Last 24 hours I & O for Last 24 hours: Intake & Output 10/27/24 10/28/24 10/29/24 10/30/24 11:59 11:59 11:59 11:59 Weight 241 lb Constitutional Constitutional: no acute distress *Routine HEENT Exam Head: Present normocephalic Eye: Present EOMI ENT: Present mucous membranes moist *Routine Neck Exam Neck: Present full ROM *Routine Respiratory Exam Respiratory: Absent respiratory distress *Routine Cardiovascular Exam Cardiovascular: Absent tachycardia *Routine Abdominal Exam Abdominal: Present soft *Routine Rectal Exam Rectal:: deferred *Routine Genitalia Exam Genitalia:: deferred *Routine Extremities Exam Extremities: Present full ROM *Routine Skin Exam Skin: Absent erythema *Routine Neurological Exam Neurological: Present alert Assessment and Plan *Assessment and plan (1) Epigastric pain: Status: Acute Category: Medical Code(s): R10.13 - Epigastric pain Plan: Esophagogastroduodenoscopy today I have discussed the risks and benefits including, but not limited to: Bleeding Infection Damage to surrounding tissue Inherent risks of sedation The patient agrees to proceed.
--- NOTE | 2024-10-30 09:42 | HMH.SCOPE ---
Procedure: Date: 10/30/24 Patient Date of :: 1955 Procedure Performed:: Esophagogastroduodenoscopy with biopsy Indications:: Epigastric pain Performing Provider:: Hans Cha MD Referring Provider:: Dr. Souza Sedation:: Monitored anesthesia care Procedure:: After informed consent was obtained the patient was taken to the endoscopy suite. Sedation ensued after the patient was transferred to the left lateral decubitus position. Pulse, blood pressure, and oxygen saturation were monitored throughout the procedure. The endoscope was advanced beyond the duodenal bulb. Retroflexion within the gastric lumen was accomplished. The gastroscope was carefully removed and the patient was transferred to recovery in stable condition. Please see findings and specimens below for detail. Findings:: Gastroesophageal junction at 43 cm Relatively small sliding hiatal hernia Patchy gastritis distally No obvious ulceration No evidence of bleeding Specimens:: Antral biopsy Recommendations:: Follow-up pathology Evaluation with regard to recent symptomatology will be ongoing (consider gastroenterology evaluation, consider additional radiographic evaluation, etc.) Complications:: No immediate Estimated blood obtained (mL): 1 Colonoscopy Component Colonoscopy Component Was a colonoscopy performed during today's procedure?: No
--- NOTE | 2024-10-30 09:51 | EXP.ANES.CKL ---
[facility] Disclaimer: The information contained in this section may have been updated after the patient was seen, as this information can be updated by other users. Medical History (Updated 10/30/24 @ 09:41 by Hans Cha MD) Depression Anxiety Stroke Diabetes Hypercholesterolemia Hypertension COPD (chronic obstructive pulmonary disease) Surgical History Hx of colonoscopy Hx of tubal ligation Hx of foot surgery Family History (Updated 10/30/24 @ 09:34 by Ashwini Mc RN) Other No significant family history Social History Smoking Status: Current every day smoker tobacco type: cigarettes packs per day: 1 second hand exposure: Yes alcohol intake: never substance use type: denies use current occupational status: employed and retired Travel in the last 8 weeks?: None household members: spouse housing: house current occupation: house current occupational exposures/hazards: No caffeine: No Have you lived/traveled outside [place] in past 30 days?: No Contact w/someone who lives/traveled outside [place] past 30 days?: No Exposure to someone with infectious disease in past 14 days?: No Do you have a fever (greater than 100.4 F or 38 C)?: No Have you tested positive for COVID-19?: No Exposed to someone with COVID-19 in past 14 days?: No Do you have a sore throat?: No Do you have a cough?: No Do you have any weakness?: No Are you experiencing any nausea/vomitting?: No Do you have any diarrhea?: No Are you experiencing any unusual bleeding?: No Do you have any muscle aches/pain?: No Do you have any abdominal pain?: No Are you experiencing loss of taste or smell?: No [facility] Anesthesia Checklist Patient Identification Patient Identification: Arm Band and Verbal (Name & ) Structural Data Admitted From: Home Planned Operative Procedure/s: EGD Consent for Planned Operative Procedure(s) Verified: Yes Verified Documents: Surgical Consent NPO Status Verified Time NPO: 00:00 Additional verifications Anesthesia Reactions: No Hx Blood Transfusions: No Airway Assessment Mallampati Score:: Class II C-Spine Mobility Assessed: Yes TMJ Mobility Assessed: Yes Dentition: Partials Neurological Assessment Level of Consciousness: Awake, Alert and Appropriate Hx Seizures: No Numbness or tingling in extremities: No Anesthesia Plan Anesthesia Risk discussed: Yes Anesthesia Plan: Verified ASA Class: III Anesthesia Type: MAC
[2024-10-30 10:20] VITALS: BP 112/49; PULSE 55; RESP 17; TEMP 36.1; O2SAT 93
[2024-10-30 10:30] VITALS: BP 114/50; PULSE 49; RESP 17; O2SAT 95
[2024-10-30 10:40] VITALS: BP 116/50; PULSE 47; RESP 17; O2SAT 98
[2024-10-30 10:50] VITALS: BP 122/57; PULSE 50; RESP 18; O2SAT 98
[2024-10-30 10:52] LABS: POC Glucose,Bedside 106 (70-110)
== END 2024-10-30 10:55 | disposition home or self-care (01) ==
PROVIDERS: PCP Internal Medicine Adolescent Medicine; Visit Provider Surgery
PROC: 0DJ08ZZ Inspection of Upper Intestinal Tract, Via Natural or Artificial Opening Endoscopic (ICD-10-PCS; CPT 43239; principal; 2024-10-30 10:30)
DX: K29.50 Unspecified chronic gastritis without bleeding (principal); J44.9 Chronic obstructive pulmonary disease, unspecified; E11.9 Type 2 diabetes mellitus without complications; E78.00 Pure hypercholesterolemia, unspecified; I10 Essential (primary) hypertension; F17.200 Nicotine dependence, unspecified, uncomplicated; Z86.73 Personal history of transient ischemic attack (TIA), and cerebral infarction without residual deficits; Z79.82 Long term (current) use of aspirin; Z79.899 Other long term (current) drug therapy
CPT/HCPCS: 43239; 82962; 88305; 88342; J2003; J2704

== ENCOUNTER 2024-11-07 14:51 | Outpatient (CLI) | payer MEDICARE, SELFPAY ==
[2024-11-07 15:21] LABS: Hematocrit 41.5 % (37.0-47.0); Hemoglobin 13.7 g/dL (12.2-16.2); Immature Granulocytes % 0.4 %; Mean Corpuscular HGB Conc 33.0 g/dL (31.8-35.4); Mean Corpuscular Hemoglobin 29.0 pg (27.0-31.2); Mean Corpuscular Volume 87.9 fl (81-99); Nucleated Red Blood Cells % 0 %; Platelet Count 237 K/mm3 (142-424); Red Blood Count 4.72 M/mm3 (4.20-5.40); Red Cell Distribution Width-SD 57.9 fL; White Blood Count 10.4 K/mm3 (4.8-10.8)
[2024-11-07 16:13] LABS: Anion Gap 13.4 mEq/L (5-15); Blood Urea Nitrogen 19 mg/dl (7-17); Calcium 9.7 mg/dl (8.4-10.2); Carbon Dioxide 28 mmol/L (22.0-30.0); Chloride 103 mmol/L (98-107); Creatinine,Serum 0.80 mg/dl (0.52-1.04); Estimated Glomerular Filt Rate 71 ml/min (>60); GFR (African American) 86 ML/MIN (>60); Glucose 88 mg/dl (74-100); Potassium 4.4 mmoL/L (3.5-5.1); Sodium 140 mmol/L (136-145)
== END 2024-11-07 23:59 | disposition home or self-care (01) ==
LOC: LAB 14:52
PROVIDERS: PCP Internal Medicine Adolescent Medicine; Visit Provider Surgery
DX: R10.13 Epigastric pain (principal)
CPT/HCPCS: 36415; 80048; 85025

== ENCOUNTER 2024-11-19 07:53 | Outpatient (CLI) | payer MEDICARE, SELFPAY ==
--- OUTSIDE RECORDS SUMMARY | 2024-08-11 17:30 | XMS_ITS ---
Author Organization [facility] PE D DAVID Address [address] [place] [address] Care Team Providers Care Chauffeur [employer] Name Role Phone Jorge A Souza Primary Care Provider [phone] David Sesay Unavailable [phone] Migration, Provider Unavailable Unavailable REASON FOR VISIT Multum To [facility] Conversion Encounter Medications Medication SIG (Take, Route, Frequency, Duration) Notes Start Date End Date Status Albuterol Sulfate (2.5 MG/3ML) 0.083% 3 mL inhaled three times daily as needed; Duration: 90 days Diagnosis: J44.9 COPD 02/09/2021 Active Anoro Ellipta 62.5 MCG-25 MCG/INH 1 PUFF(S) INHALED ONCE A DAY; Duration: 90 DAYS prn *Please review and pick correct strength-formula tion from [facility] options. 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 If intended option is not shown, discontinue and re-order from Quick Search* Venlafaxine HCl ER 150 MG 1 cap(s) orally once a day prn; Duration: 90 days Next Appt Details Provider Name:Jorge A Souza, 12/05/2024 09:30:00 AM, [address] [facility] [address] [facility], [address], [place], [address], Progress Notes * Janice CRUZDOB:1955 ( 69 yo F)Acc No.[id number]:08/11/2024 Patient: Romero THOMPSONva Provider: Lizzie steiner Migration :1955 A ge:69 Y S ex:Female Date:08/11/2024 Address:[address] [place] [address] RD , [place], [id number] Pcp:Jorge A Souza Subjective: * Chief Complaints: [...] 1. * * Electronic signature of Prov andrew Migration on 11/19/2024 at 07:55 AM EDT Sign off status: Pending * Provider: Lizzie steiner Migration Date: 08/11/2024 Generated for Porter hernandez/Juan/Aliviaitting on: 0 11/19/2024 07:55 AM EDT
--- OUTSIDE RECORDS SUMMARY | 2024-10-24 07:15 | XMS_ITS ---
Author Organization [facility] PE D DAVID Address [address] [facility] [address] [facility] [address] [place] [address] Care Team Providers Care Class 1 Owner Operator Name Role Phone Jorge A Souza Primary Care Provider [phone] David Sesay Unavailable [phone] Allergies No Known Allergies Reason For Referral Reason dr elliott for egd Diagnosis 1 Epigastric pain (R10 .13) Referral Organization [facility] PED DAVID Referring Provider First Name Jorge A Referring Provider Last Name Harley Referring Provider Speciality Internal M edicine Referred Organization [facility] Referred Address [address], [place],[address],[place] Referred Provider Specialty General Surg aparna General Notes Ann Lee 2024 04:02:30 PM >npo after midnight 10, Ann Lee 10/24/2024 04:04:23 PM >spoke with patient about appt Referral Priority Routine Referral Appointment Date 10/30/2024 REASON FOR VISIT 8 Week F/U, lots of pain across her stomach-sometimes after she eats and other times it's all day-then she vomits x 8 wks (started when she started Iron) Medications Medication SIG (Take, Route, Frequency, Duration) Notes Start Date End Date Status Rosuvastatin Calcium 20 MG Take 1 tablet by mouth once daily; Duration: 90 Active Albuterol Sulfate (2.5 MG/3ML) 0.083% 3 mL inhaled three times daily as needed; Duration: 90 days Diagnosis: J44.9 COPD 02/09/2021 Active Carvedilol 12.5 MG Take 1 tablet by mouth twice daily; Duration: 90 days Active hydroCHLOROthiazide 25 MG 1/2 orally onc e a day; Duration: 90 days Active Venlafaxine HCl ER 150 MG 1 cap(s) orall y daily; Duration: 90 days Active Aspirin 325 MG 1 tab(s) orally once a day Active Fluticasone Propionate 50 MCG/ACT as directed intranasally once a day; Duration: 90 days prn Active GLUCOMETER 1; Duration: 30 DAYS *Please review for potential replacement for e-prescription and drug interaction check* Active metFORMIN HCl 1000 MG 1 tab(s) orally once daily; Duration: 90 days Active Anoro Ellipta 62.5 MCG-25 MCG/INH 1 PUFF(S) INHALED ONCE A DAY; Duration: 90 DAYS prn *Please review and pick correct strength-formula tion from [employer] options. If intended option is not shown, discontinue and re-order from Quick Search* 04/17/2019 Active KONSYL 100% DIRECTED ORALLY 3 TIMES A DAY; Duration: 7 DAY(S) once a day *Please review for potential replacement for e-prescription and drug interaction check* Active Biotin 40108 MCG 1 tab(s) orally once a day Active Social History Tobacco Use: Social History Observation Description Date Details (start date - stop date) Current Smoker NA - NA Smoking: Question Answer Notes Are you a: current smoker How often do you smoke cigarettes? every day How many cigarettes a day do you smoke? 11-20 Problems Problem Type SNOMED Code ICD Code Onset Dates Problem Status W/U Status Risk Notes Problem Iron deficiency anemia (24779911) Iron deficiency anemia, unspecified iron deficiency anemia type (D50.9) Active confirmed Vital Signs Temperature 97.6 degrees Fahrenheit 10/25/19 25 Blood pressure systolic 132 mm Hg 10/25/19 25 Blood pressure diastolic 64 mm Hg 025 Heart Rate 78 /min 10/24/2024 Height 5 ft 7.5 in in 10/24/2024 Weight 241.3 lbs 10/24/2024 BMI 37.23 kg/m2 10/24/2024 Encounters Encounter Location Date Provider Diagnosis [facility] PED DAVID [address] [place] [address] 10/24/2024 Jorge A Souza Epigastric pain R10.13 and Iron deficiency anemia, unspecified iron deficiency anemia type D50.9 Assessments Encounter Date Diagnosis (ICD Code) Assessment Notes Treatment Notes Treatment Clinical Notes Section Notes 10/24/2024 Epigastric pain (ICD-10 - R10.13) Needs EGD given combination of iron deficiency anemia and abdominal pain 10/24/2024 Iron deficiency anemia, unspecified iron deficiency anemia type (ICD-10 - D50.9) EGD will be set up, hold oral iron at this point, feels better after 6 weeks of therapy, will do lab work in November Plan Of Treatment Treatment Notes Assessment Notes Epigastric pain Needs EGD given comb ination of iron deficiency anemia and abdominal pain Iron deficiency anemia, unsp ecified iron deficiency anemia type EGD will be set up, hold oral iron at th is point, feels better after 6 weeks of therapy, will do lab work in November Referrals Referral Date Details 10/24/2024 10/24/2024, dr gabriel rm for egd, [address] [facility], [place], [address], Next Appt Details Follow Up: prn, Reason: Provider Name:Jorge A Souza, 12/05/2024 09:30:00 AM, [address] [facility], [address], [place], [address], Progress Notes * ANTHONY JaniceDOB:1955 ( 69 yo F)Acc No.[id number]:10/24/2024 Progress Notes Patient: Janice THOMPSON Provider: Mary Souza MD :1955 A ge:69 Y S ex:Female Date:10/24/2024 Address:[address] [place] [address] , [id number] Subjective: * Chief Complaints: * 1 . 8 Week F/U. 2. lots of pain across her stomach-sometimes after she eats and other times it's all day-then she vomits x 8 wks (started when she started Iron). * HPI: g en: Patient is having abdominal pain and cramping across her stomach, thinks it is related to some iron therapy issues. No hematemesis, coffee-ground emesis, no melena or bright red blood per rectum. * Medical History: H ypertension, Stroke, Anxiety, Vit d def, Arthritis, Recurrent uti's, Body mass index (BMI) of 40.0-44.9 in adult, colonoscopy 2015-diverticulosis - repeated May 2020 with diminutive polyp and left-sided diverticulosis, Tobacco use, mammogram with change in nodules 05/29- biopsy normal - normal mammogram 09/2022, Normal mammogram 09/29, COPD, see PFT 03/2018, Normal DEXA 03/2020 and normal DEXA 09/28, Normal LDCT chest 10/27 -repeated October 2021 with no changes - Stable without changes 09/28, Diabetes. * Surgical History: l eft heel spur , tubal ligation , cystoscopy 02/2015, colonoscopy 2015, breast cyst with aspiration 2004 , colonscopy 05/2020. * Hospitalization/Major Diagno stic Procedure: p neumonia, CHF 1985, childbirth x3 , pneumonia, asthma 05/2017, pneumonia 02/2018. * Family History: F ather: , stroke, heart disease, diagnosed with Heart Disease, Stroke. M other: , diabetes, heart disease, diagnosed with Diabetes, Heart Disease. P aternal Grand Father: . P aternal Grand Mother: . M aternal Grand Father: , [place], diagnosed with Heart Disease. M aternal Grand Mother: . P aternal aunt: alive, stroke. M aternal uncle: , [place]. M aternal aunt: , diabetes. S iblings: alive, 5 brother [place],lung cancer, 3 sisters -[place] and cirrhosis of the liver older brother-Parkinson's Diseaseyoungest brother-black lzvz-vhvnsnslofsbwbq-xhmoyusgs cancersister-, diagnosed with Cancer. C patrickzack: alive. 5 brother(s) , 4 sister(s) . 2 son(s) , 1 daughter(s) - healthy. . one brother currently has esophageal cancer. * Social History: S moking A re you a: c urrent smoker, H ow often do you smoke cigarettes? e very day, H ow many cigarettes a day do you smoke? 1 1-20. R ecreational drug use: no. Exercise: no. Home smoke detector use: yes. Caffeine: yes, frequency: tea. Living Will: Yes. Alcohol: no. Sexually active: yes. Travel outside [place]: no. Occupation: housewife. * Medications: T aking KONSYL 100% POWDER FOR RECONSTITUTION DIRECTED ORALLY 3 TIMES A DAY , Notes to Pharmacist: once a day *Please review for potential replacement for e- prescription and drug interaction check*, Taking Biotin 29429 MCG Tablet 1 tab(s) orally once a day [...] 1 tab(s) orally once daily , Taking Anoro Ellipta 62.5 MCG-25 MCG/INH POWDER 1 PUFF(S) INHALED ONCE A DAY , Notes to Pharmacist: prn *Please review and pick correct strength-formulation from [employer] options. If intended option is not shown, discontinue and re-order from Quick Search*, Taking Albuterol Sulfate (2.5 MG/3ML) 0.083% Nebulization Solution 3 mL inhaled three times daily as needed , Notes to Pharmacist: Diagnosis: J44.9 COPD, Taking Carvedilol 12.5 MG Tablet Take 1 tablet by mouth twice daily , Taking hydroCHLOROthiazide 25 MG Tablet 1/2 orally once a day , Taking Venlafaxine HCl ER 150 MG Capsule Extended Release 24 Hour 1 cap(s) orally daily , Taking Rosuvastatin Calcium 20 MG Tablet Take 1 tablet by mouth once daily , Medication List reviewed and reconciled with the patient * Allergies: N .K.D.A. Objective: * Vitals: N urse: jl, Pain: 0, Temp: 97.6, RR: 18, HR: 78, BP: 132/64, Ht: 5 ft 7.5 in, Wt: 241.3, BMI:37.23. * Examination: G astroenterology: General Appearance: p leasant, NAD. Oral cavity: n ormal. Sclera: a nicteric. Heart sounds: r egular, normal S1 S2 , no murmurs. Lungs: c lear, no crackles or wheezes. Abdomen: s oft, BS present, no guarding or rigidity, no masses felt. Hernias: n one. Skin W ithout acute rashes. Assessment: * Assessment: 1. E pigastric pain - R10.13 (Primary) 2 . I laura deficiency anemia, unspecified iron deficiency anemia type - D50.9 Plan: * Treatment: 2. I laura deficiency anemia, unspecified iron deficiency anemia type Notes: EGD will be set up, hold oral iron at this point, feels better after 6 weeks of therapy, will do lab work in November * Follow Up: p rn * * Sign off status: Completed true * Provider: Mary Souza MD Date: 0 10/24/2024 Generated for Shayyi david/Juan/eTransmitting on: 0 11/19/2024 07:55 AM EDT History and Physical Notes * Examination Category Sub-Category Detail Notes Category Not es Gastroenterology Oral cavity: normal Sclera: anicteric Heart sounds: regular, normal S1 S 2 , no murmurs Lungs: clear, no crackles o r wheezes Abdomen: soft, BS present, no guarding or rigidity, no masses felt Hernias: none General Appearance: pleasant, NAD Skin Without acute rashes Consultation Request Notes Referral Date Referring Provider Referred Provider Not es 10/24/[address] allran fo r egd
--- OUTSIDE RECORDS SUMMARY | 2024-11-19 07:55 | XMS_ITS | Patient Health Record ---
Author Organization [facility] PE D DAVID Address [address] [place] [address] Care Team Providers Care Value Stream Leader Name Role Phone Jorge A Souza Primary Care Provider [phone] David Sesay Unavailable [phone] Migration, Provider Unavailable Unavailable Allergies No Known Allergies Results Component Value Reference Range Notes COMPREHENSIVE METABOLIC PANE Adrian ([id number]) Reviewed date:03/30/2024 02:37:20 PM Interpretation: Performing Lab:CB, [facility] [address], [facility] ClinicUnkgXB[address] Han Busch Notes/Report: FASTING: YES FASTING:YES NON-FASTING; NON-FASTING; NON-FASTING GLUCOSE 105 65-99 mg/dL Fasting reference interval For someone without known diabetes, a glucose value between 100 and 125 mg/dL is consistent with prediabetes and should be confirmed with a follow-up test. UREA NITROGEN (BUN) 16 7-25 mg/dL CREATININE 0.66 0.60-1.00 mg/dL EGFR 94 > OR = 60 mL/min/1.73m2 BUN/CREATININE RATIO SEE NOTE: 6-22 (calc) Not Reported: BUN and Creatinine are within reference range. SODIUM 143 135-146 mmol/L POTASSIUM 3.9 3.5-5.3 mmol/L CHLORIDE 105 98-110 mmol/L CARBON DIOXIDE 29 20-32 mmol/L CALCIUM 9.6 8.6-10.4 mg/dL PROTEIN, TOTAL 7.4 6.1-8.1 g/dL ALBUMIN 3.8 3.6-5.1 g/dL GLOBULIN 3.6 1.9-3.7 g/dL (calc) ALBUMIN/GLOBULIN RATIO 1.1 1.0-2.5 (calc) BILIRUBIN, TOTAL 0.4 0.2-1.2 mg/dL ALKALINE PHOSPHATASE 64 37-153 U/L AST 31 10-35 U/L ALT 22 6-29 U/L COMPREHENSIVE METABOLIC PANE L ([id number]) Reviewed date:02/08/2024 12:52:58 PM Interpretation: Performing Lab:[facility]NEY, [facility] [address], [place] AmrpLU[address] Han Busch Notes/Report: FASTING: YES FASTING:YES NON-FASTING; NON-FASTING GLUCOSE 110 65-99 mg/dL Fasting reference interval For someone without known diabetes, a glucose value between 100 and 125 mg/dL is consistent with prediabetes and should be confirmed with a follow-up test. UREA NITROGEN (BUN) 19 7-25 mg/dL CREATININE 0.76 0.50-1.05 mg/dL EGFR 85 > OR = 60 mL/min/1.73m2 BUN/CREATININE RATIO SEE NOTE: 6-22 (calc) Not Reported: BUN and Creatinine are within reference range. SODIUM 144 135-146 mmol/L POTASSIUM 4.1 3.5-5.3 mmol/L CHLORIDE 105 98-110 mmol/L CARBON DIOXIDE 28 20-32 mmol/L CALCIUM 9.4 8.6-10.4 mg/dL PROTEIN, TOTAL 7.5 6.1-8.1 g/dL ALBUMIN 3.9 3.6-5.1 g/dL GLOBULIN 3.6 1.9-3.7 g/dL (calc) ALBUMIN/GLOBULIN RATIO 1.1 1.0-2.5 (calc) BILIRUBIN, TOTAL 0.4 0.2-1.2 mg/dL ALKALINE PHOSPHATASE 72 37-153 U/L AST 34 10-35 U/L ALT 26 6-29 U/L LIPID PANEL, STANDARD ([id number]) Reviewed date:02/08/2024 12:52:58 PM Interpretation: Performing Lab:[place], [facility] [address], [facility] CenterNbohGH[address] Han Busch Notes/Report: NON-FASTING; NON-FASTING FASTING:YES FASTING: YES CHOLESTEROL, TOTAL 95 <200 mg/dL HDL CHOLESTEROL 46 > OR = 50 mg/dL TRIGLYCERIDES 101 <150 mg/dL LDL-CHOLESTEROL 31 Reference range: <100 Desirable range <100 mg/dL for primary prevention; <70 mg/dL for patients with CHD or diabetic patients with > or = 2 CHD risk factors. LDL-C is now calculated using the Jose-Guerra calculation, which is a validated novel method providing better accuracy than the Friedewald equation in the estimation of LDL-C. Jose SS et al. JOB. 2013;310(19): 9106-9972 (http://education.[employer] labs.SPOOTNIC.COM/faq/YWW585) CHOL/HDLC RATIO 2.1 <5.0 (calc) NON HDL CHOLESTEROL 49 <130 mg/dL (calc) For patients with diabetes plus 1 major ASCVD risk factor, treating to a non-HDL-C goal of <100 mg/dL (LDL-C of <70 mg/dL) is considered a therapeutic option. LIPID PANEL, STANDARD (7600) Reviewed date:03/30/2024 02:37:20 PM Interpretation: Performing Lab:CB, [facility] [id number] [facility], [facility] CenterBedrFR[address] Han Busch Notes/Report: NON-FASTING; NON-FASTING; NON-FASTING FASTING:YES FASTING: YES CHOLESTEROL, TOTAL 90 <200 mg/dL HDL CHOLESTEROL 48 > OR = 50 mg/dL TRIGLYCERIDES 89 <150 mg/dL LDL-CHOLESTEROL 25 Reference range: <100 Desirable range <100 mg/dL for primary prevention; <70 mg/dL for patients with CHD or diabetic patients with > or = 2 CHD risk factors. LDL-C is now calculated using the Jose-Guerra calculation, which is a validated novel method providing better accuracy than the Friedewald equation in the estimation of LDL-C. Jose SS et al. JOB. 2013;310(19): 7483-1942 (http://education.[employer] labs.SPOOTNIC.COM/faq/INZ921) CHOL/HDLC RATIO 1.9 <5.0 (calc) NON HDL CHOLESTEROL 42 <130 mg/dL (calc) For patients with diabetes plus 1 major ASCVD risk factor, treating to a non-HDL-C goal of <100 mg/dL (LDL-C of <70 mg/dL) is considered a therapeutic option. LIPID PANEL, STANDARD (7600) Reviewed date:08/30/2024 02:15:11 PM Interpretation: Performing Lab:[facility] [address], UnveilEyknPH[address] Han Busch Notes/Report: NON-FASTING; NON-FASTING; NON-FASTING; NON-FASTING; NON-FAST FASTING:YES FASTING: YES CHOLESTEROL, TOTAL 104 <200 mg/dL HDL CHOLESTEROL 60 > OR = 50 mg/dL TRIGLYCERIDES 76 <150 mg/dL LDL-CHOLESTEROL 28 Reference range: <100 Desirable range <100 mg/dL for primary prevention; <70 mg/dL for patients with CHD or diabetic patients with > or = 2 CHD risk factors. LDL-C is now calculated using the Jose-Mari calculation, which is a validated novel method providing better accuracy than the Friedewald equation in the estimation of LDL-C. Jose SS et al. JOB. 2013;310(19): 6305-3683 (http://education.[employer]./faq/XFH175) CHOL/HDLC RATIO 1.7 <5.0 (calc) NON HDL CHOLESTEROL 44 <130 mg/dL (calc) For patients with diabetes plus 1 major ASCVD risk factor, treating to a non-HDL-C goal of <100 mg/dL (LDL-C of <70 mg/dL) is considered a therapeutic option. IRON, TIBC AND FERRITIN LLOYD Campbell ([id number]) Reviewed date:08/30/2024 02:15:11 PM Interpretation: Performing Lab:[facility] [address], UnveilYbidPN[address] Han Busch Notes/Report: NON-FASTING; NON-FASTING; NON-FASTING; NON-FASTING; NON-FAST FASTING:YES FASTING: YES IRON, TOTAL 27 45-160 mcg/dL IRON BINDING CAPACITY 431 250-450 mcg/dL (robina c) % SATURATION 6 16-45 % (calc) FERRITIN 7 16-288 ng/mL THYROID PANEL WITH TSH (1523 ) Reviewed date:08/30/2024 02:15:10 PM Interpretation: Performing Lab:[facility] ePatientFindere[address], UnveilDhuvFI[address] Han Busch Notes/Report: NON-FASTING; NON-FASTING; NON-FASTING; NON-FASTING; NON-FAST FASTING:YES FASTING: YES T3 UPTAKE 30 22-35 % T4 (THYROXINE), TOTAL 6.6 5.1-11.9 mcg/dL FREE T4 INDEX (T7) 2.0 1.4-3.8 TSH 2.43 0.40-4.50 mIU/L COMPREHENSIVE METABOLIC PANE L ([id number]) Reviewed date:08/30/2024 02:15:11 PM Interpretation: Performing Lab:[facility], [facility] [address], InquirlyXqvnHZ[address] Han Busch Notes/Report: NON-FASTING; NON-FASTING; NON-FASTING; NON-FASTING; NON-FAST FASTING:YES FASTING: YES GLUCOSE 105 65-99 mg/dL Fasting reference interval For someone without known diabetes, a glucose value between 100 and 125 mg/dL is consistent with prediabetes and should be confirmed with a follow-up test. UREA NITROGEN (BUN) 18 7-25 mg/dL CREATININE 0.63 0.60-1.00 mg/dL EGFR 95 > OR = 60 mL/min/1.73m2 BUN/CREATININE RATIO SEE NOTE: 6-22 (calc) Not Reported: BUN and Creatinine are within reference range. SODIUM 144 135-146 mmol/L POTASSIUM 4.1 3.5-5.3 mmol/L CHLORIDE 107 98-110 mmol/L CARBON DIOXIDE 28 20-32 mmol/L CALCIUM 9.2 8.6-10.4 mg/dL PROTEIN, TOTAL 6.9 6.1-8.1 g/dL ALBUMIN 3.7 3.6-5.1 g/dL GLOBULIN 3.2 1.9-3.7 g/dL (calc) ALBUMIN/GLOBULIN RATIO 1.2 1.0-2.5 (calc) BILIRUBIN, TOTAL 0.3 0.2-1.2 mg/dL ALKALINE PHOSPHATASE 65 37-153 U/L AST 23 10-35 U/L ALT 15 6-29 U/L CBC (INCLUDES DIFF/PLT) (639 9) Reviewed date:08/30/2024 02:15:11 PM Interpretation: Performing Lab:[facility], [facility] [address] [employer], UnveilOvovJM[address] Han Busch Notes/Report: NON-FASTING; NON-FASTING; NON-FASTING; NON-FASTING; NON-FAST FASTING:YES FASTING: YES WHITE BLOOD CELL COUNT 9.2 3.8-10.8 Thousand/ uL RED BLOOD CELL COUNT 4.20 3.80-5.10 Million/uL HEMOGLOBIN 10.8 11.7-15.5 g/dL HEMATOCRIT 36.1 35.0-45.0 % MCV 86.0 80.0-100.0 fL MCH 25.7 27.0-33.0 pg MCHC 29.9 32.0-36.0 g/dL For adults, a slight decrease in the calculated MCHC value (in the range of 30 to 32 g/dL) is most likely not clinically significant; however, it should be interpreted with caution in correlation with other red cell parameters and the patient's clinical condition. RDW 15.5 11.0-15.0 % PLATELET COUNT 266 140-400 Thousand/uL MPV 9.9 7.5-12.5 fL ABSOLUTE NEUTROPHILS [phone] cells/uL ABSOLUTE LYMPHOCYTES 1240 606-0494 cells/uL ABSOLUTE MONOCYTES 892 200-950 cells/uL ABSOLUTE EOSINOPHILS 442 15-500 cells/uL ABSOLUTE BASOPHILS 74 0-200 cells/uL NEUTROPHILS 64.2 LYMPHOCYTES 20.5 MONOCYTES 9.7 EOSINOPHILS 4.8 BASOPHILS 0.8 HEMOGLOBIN A1c (496) Reviewed date:08/30/2024 02:15:11 PM Interpretation: Performing Lab:CB, [facility] [id number] [facility], [facility] CenterQfjoHG[address] Han Busch Notes/Report: NON-FASTING; NON-FASTING; NON-FASTING; NON-FASTING; NON-FAST FASTING:YES FASTING: YES HEMOGLOBIN A1c 6.0 <5.7 % For someone without known diabetes, a hemoglobin A1c value between 5.7% and 6.4% is consistent with prediabetes and should be confirmed with a follow-up test. For someone with known diabetes, a value <7% indicates that their diabetes is well controlled. A1c targets should be individualized based on duration of diabetes, age, comorbid conditions, and other considerations. This assay result is consistent with an increased risk of diabetes. Currently, no consensus exists regarding use of hemoglobin A1c for diagnosis of diabetes for children. HEMOGLOBIN A1c (496) Reviewed date:03/30/2024 02:37:20 PM Interpretation: Performing Lab:[place], [facility] [address] [facility], [place] RposYC[address] Han Busch Notes/Report: NON-FASTING; NON-FASTING; NON-FASTING FASTING:YES FASTING: YES HEMOGLOBIN A1c 6.0 <5.7 % of total Hgb A1c value between 5.7% and 6.4% is consistent with prediabetes and should be confirmed with a follow-up test. For someone without known diabetes, a hemoglobin For someone with known diabetes, a value <7% indicates that their diabetes is well controlled. A1c targets should be individualized based on duration of diabetes, age, comorbid conditions, and other considerations. This assay result is consistent with an increased risk of diabetes. Currently, no consensus exists regarding use of hemoglobin A1c for diagnosis of diabetes for children. VITAMIN B12/FOLATE, SERUM PA ANA (7065) Reviewed date:08/30/2024 02:15:11 PM Interpretation: Performing Lab:CDYNEY [facility] K[address] [facility], [place] HerbAH[address] Han Busch Notes/Report: NON-FASTING; NON-FASTING; NON-FASTING; NON-FASTING; NON-FAST FASTING:YES FASTING: YES VITAMIN B12 531 925-7612 pg/mL Please Note: Although the reference range for vitamin B12 is 200-1100 pg/mL, it has been reported that between 5 and 10% of patients with values between 200 and 400 pg/mL may experience neuropsychiatric and hematologic abnormalities due to occult B12 deficiency; less than 1% of patients with values above 400 pg/mL will have symptoms. FOLATE, SERUM 14.1 Reference Range Low: <3.4 Borderline: 3.4-5.4 Normal: >5.4 Medications Medication SIG (Take, Route, Frequency, Duration) Notes Start Date End Date Status KONSYL 100% DIRECTED ORALLY 3 TIMES A DAY; Duration: 7 DAY(S) once a day *Please review for potential replacement for e-prescription and drug interaction check* Active Rosuvastatin Calcium 20 MG Take 1 tablet by mouth once daily; Duration: 90 Active Biotin 99758 MCG 1 tab(s) orally once a day Active Aspirin 325 MG 1 tab(s) orally [...] review and pick correct strength-formula tion from [employer] options. If intended option is not shown, discontinue and re-order from Quick Search* 04/17/2019 Active Albuterol Sulfate (2.5 MG/3ML) 0.083% 3 mL inhaled three times daily as needed; Duration: 90 days Diagnosis: J44.9 COPD 02/09/2021 Active Carvedilol 12.5 MG Take 1 tablet by mouth twice daily; Duration: 90 days Active hydroCHLOROthiazide 25 MG 1/2 orally onc e a day; Duration: 90 days Active Venlafaxine HCl ER 150 MG 1 cap(s) orall y daily; Duration: 90 days Active Immunizations Vaccine Route Administration Date Status Comme nts Zostavax (Shingles) Unknown 11/14/2015 Administered 11/12/2015 Julio gave see document SHINGRIX IM Intramuscular 01/31/2023 Administered SHINGRIX IM Intramuscular 04/25/2023 Administered Prevnar PCV-20 (Pneumococcal conjugate 20) IM Intramuscular 01/31/2023 Administered Prevnar PCV-13 (Pneumococcal conjugate 13) IM Intramuscular 03/13/2020 Administered Pneumovax 23 IM Intramuscular 10/01/2020 Administered Influenza-Fluzone 3+years (NON-MEDICARE) IM Intramuscular 03/05/2016 Administered Influenza-Fluzone 3+years (NON-MEDICARE) IM Intramuscular 03/09/2017 Administered Influenza-Fluzone 3+years (NON-MEDICARE) IM Intramuscular 01/24/2018 Administered Fluzone High Dose IM Intramuscular 03/13/2020 Administered Fluzone High Dose IM Intramuscular 02/09/2021 Administered Fluzone High Dose IM Intramuscular 01/31/2023 Administered Fluzone High Dose IM Intramuscular 03/28/2024 Administered Fluvirin--Influenz a vaccine 3+ year IM Intramuscular 02/07/2009 Administered Fluvirin--Influenz a vaccine 3+ year IM Intramuscular 02/09/2010 Administered Fluvirin--Influenz a vaccine 3+ year IM Intramuscular 02/11/2011 Administered Fluvirin--Influenz a vaccine 3+ year IM Intramuscular 03/09/2012 Administered Fluvirin--Influenz a vaccine 3+ year IM Intramuscular 03/29/2013 Administered Covid Pfizer Unknown 07/11/2020 Administered Covid Pfizer Unknown 07/11/2020 Administered Covid Pfizer Unknown 08/08/2020 Administered Covid Pfizer Unknown 08/08/2020 Administered Covid Pfizer Unknown 03/02/2021 Administered Arexvy IM Intramuscular 02/06/2024 Administered Adacel (Tdap) IM Intramuscular 03/09/2017 Administered Adacel (Tdap) Unknown 03/09/2017 Administered Social History Tobacco Use: Social History Observation Description Date Details (start date - stop date) Current Smoker NA - NA Smoking: Question Answer Notes Are you a: current smoker How often do you smoke cigarettes? every day How many cigarettes a day do you smoke? -20 Problems Problem Type SNOMED Code ICD Code Onset Dates Problem Status W/U Status Risk Notes Problem Type 2 diabetes mellitus with other specified complication (E11.69) Active confirmed Problem Obesity (255380879) Obesity, unspecified (E66.9) Active confirmed Problem Simple chronic bronchitis (39335150) Simple chronic bronchitis (J41.0) Active confirmed Problem Acute cystitis (87538869) Acute cystitis without hematuria (N30.00) Active confirmed Problem Nicotine dependence (97655394) Personal history of nicotine dependence (Z87.891) Active confirmed Problem Gastroesophageal reflux disease (907307668) GERD (gastroesophage al reflux disease) (K21.9) Active confirmed Problem Mixed anxiety and depressive disorder (225156026) Depression with anxiety (F41.8) Active confirmed Problem Hyperlipidemia (30488276) Hyperlipemia, idiopathic familial (E78.5) Active confirmed Problem Essential hypertension (63903192) Hypertension, essential (I10) Active confirmed Problem Urinary frequency (145896220) Urinary frequency (R35.0) Active confirmed Problem Acute exacerbation of chronic obstructive airways disease (072405441) COPD exacerbation (J44.1) Active confirmed Problem Mammography abnormal (079951222) Abnormal mammogram of right breast (R92.8) Active confirmed Problem Body mass index 40+ - morbidly obese (297353358) BMI 40.0-44.9, adult (Z68.41) Active confirmed Problem COPD - Chronic obstructive pulmonary disease (39604325) Chronic obstructive pulmonary disease, unspecified COPD type (J44.9) Active confirmed Problem Tobacco user (752773119) Cigarette nicotine dependence without complication (F17.210) Active confirmed Problem Iron deficiency anemia (51303296) Iron deficiency anemia, unspecified iron deficiency anemia type (D50.9) Active confirmed Problem Sciatica (88939802) Sciatica of left side (M54.32) Active confirmed Problem SI - Stress incontinence (01466517) Stress incontinence (N39.3) Active confirmed Problem Pain in pelvis (66771684) Pelvic pain (R10.2) Active confirmed Problem Recurrent major depression in full remission (61996421) Recurrent major depressive disorder, in full remission (F33.42) Active confirmed Problem Mixed incontinence (796322917) Mixed stress and urge urinary incontinence (N39.46) Active confirmed Problem Microcytic anemia (947985065) Microcytic anemia (D50.9) Active confirmed Problem Adult health examination (756378761) Healthcare maintenance (Z00.00) Active confirmed Problem Allergic rhinitis (40101780) Allergic sinusitis (J30.9) Active confirmed Vital Signs Heart Rate 78 /min 10/24/2024 Temperature 97.6 degrees Fahrenheit 10/24/2024 Blood pressure diastolic 64 mm Hg 10/24/2024 Height 5 ft 7.5 in in 10/24/2024 Blood pressure systolic 132 mm Hg 10/24/2024 Weight 241.3 lbs 10/24/2024 BMI 37.23 kg/m2 10/24/2024 Encounters Encounter Location Date Provider Diagnosis [facility] [address] [place] [address] 08/11/2024 Provider Migration Chronic obstructive pulmonary disease, unspecified COPD type J44.9 [facility] [address] [place], [place] [address] 02/06/2024 Jorge A Besson Hyperlipemia, idiopathic familial E78.5 ; Hypertension, essential I10 ; Personal history of nicotine dependence Z87.891 and Encounter for immunization Z23 [facility] [address] [place], [place] [address] 03/28/2024 Jorge A Besson Hyperlipemia, idiopathic familial E78.5 ; Type 2 diabetes mellitus with other specified complication E11.69 ; Chronic obstructive pulmonary disease, unspecified COPD type J44.9 and Immunization(s) administered Z23 [facility] [address] [facility] [address] [place] [address] 08/29/2024 Jorge A Souza Hypertension, essential I10 ; Chronic obstructive pulmonary disease, unspecified COPD type J44.9 ; Microcytic anemia D50.9 ; Type 2 diabetes mellitus with other specified complication E11.69 ; Recurrent major depressive disorder, in full remission F33.42 and Dizziness R42 [facility] [address] [facility] [address] [place], [place] [address] 10/24/2024 Jorge A Souza Epigastric pain R10.13 and Iron deficiency anemia, unspecified iron deficiency anemia type D50.9 [facility] [address] [address] 01/04/2024 Jorge A Brianson [facility] [address] [address] 09/26/2024 Jorge A Souza [facility] [address] [address] 10/10/2024 Jorge A Souza Hyperlipemia, idiopathic familial E78.5 Assessments Encounter Date Diagnosis (ICD Code) Assessment Notes Treatment Notes Treatment Clinical Notes Section Notes 02/06/2024 Hyperlipemia, idiopathic familial (ICD-10 - E78.5) - started on crestor 20 mg at last visit - denies myalgias PLAN - repeat lipid panel today 02/06/2024 Hypertension, essential (ICD-10 - I10) - BP in office 130/66 - on hctz and coreg Discussed trying to begin an exercise program now that it is cooler. 03/28/2024 Type 2 diabetes mellitus with other specified complication (ICD-10 - E11.69) Will get labs to follow her diabetes as well as her other chronic medical problems I spent a great deal of time encouraging her to do even just minimal exercise to help with all of her medical problems. We discussed walking on level ground and the health benefits this might bring. Please note I will review all of her labs personally. Will update her flu shot today. 03/28/2024 Hyperlipemia, idiopathic familial (ICD-10 - E78.5) 08/29/2024 Hypertension, essential (ICD-10 - I10) Overall blood pressure control is good. Check kidney function today. No changes in plan. No edema noted 08/29/2024 Chronic obstructive pulmonary disease, unspecified COPD type (ICD-10 - J44.9) Stable on current inhalers. Not due yet for low-dose CT screening. She will have her Medicare wellness exam in October and we will reevaluate 10/10/2024 Hyperlipemia, idiopathic familial (ICD-10 - E78.5) 10/24/2024 Epigastric pain (ICD-10 - R10.13) Needs EGD given combination of iron deficiency anemia and abdominal pain 10/24/2024 Iron deficiency anemia, unspecified iron deficiency anemia type (ICD-10 - D50.9) EGD will be set up, hold oral iron at this point, feels better after 6 weeks of therapy, will do lab work in 02/06/2024 Personal history of nicotine dependence (ICD-10 - Z87.891) Patient continues to smoke, discussed once again benefits of quitting smoking. Greater than 5 minutes spent discussing smoking cessation, patient is pretty contemplative but states she will quit someday. 08/29/2024 Microcytic anemia (ICD-10 - D50.9) 03/28/2024 Chronic obstructive pulmonary disease, unspecified COPD type (ICD-10 - J44.9) 08/11/2024 Chronic obstructive pulmonary disease, unspecified COPD type (ICD-10 - J44.9) 02/06/2024 Encounter for immunization (ICD-10 - Z23) 08/29/2024 Type 2 diabetes mellitus with other specified complication (ICD-10 - E11.69) 03/28/2024 Immunization(s) administered (ICD-10 - Z23) 08/29/2024 Recurrent major depressive disorder, in full remission (ICD-10 - F33.42) 08/29/2024 Dizziness (ICD-10 - R42) Dizziness is improved since returning to [place]. Check labs as noted. I will review all labs personally to monitor her chronic medical problems Plan Of Treatment Pending Test Test Name Order Date N-CBC 06/27/2006 X ray : Spines, Lumbosacral 06/12/2019 X ray : Spines, Cervical 06/12/2019 N-CMP 06/27/2006 N-Lipid Panel 06/27/2006 Physical Therapy 10/17/2013 C-THYROID PROFILE 03/05/2016 C-URINE CULTURE 11/20/2014 Urine Culture, Routine 11/04/2014 Pulmonary Function Test- Complete 2017 LIPID PANEL, STANDARD (7600) 09/09/2023 COMPREHENSIVE METABOLIC PANEL (04352) HEMOGLOBIN A1c (496) 09/09/2023 Future Test Test Name Order Date Mammogram : Diagnostic 12/29/2006 Mammogram : Bilateral 01/25/2011 Next Appt Details Provider Name:Jorge A Souza, 12/05/2024 09:30:00 AM, [address], [place], [address], Insurance Providers Payer Name Payer Address Payer Phone Subscriber Number Group Number Insured Name Patient Relationship to Insured Coverage Start Date Coverage End Date [employer] [address] [place] [address] [phone] [id number] [id number] Self - patient is the insured Medical (General) History Medical History History ICD Code hypertension stroke anxiety vit d def arthritis recurrent uti's Body mass index (BMI) of 40.0-44.9 in ad ult colonoscopy 2015-diverticulo sis - repeated May 2020 with diminutive polyp and left-sided diverticulosis tobacco use mammogram with change in nod ules 05/29- biopsy normal - normal mammogram 09/2022, Normal mammogram 09/29 COPD, see PFT 03/2018 Normal DEXA 03/2020 and normal DEXA 09/28 Normal LDCT chest 10/27 -repe ated October 2021 with no changes - Stable without changes 09/28 diabetes Surgical History Surgery Date(Month/Year) left heel spur tubal ligation cystoscopy 02/2015 colonoscopy 2015 breast cyst with aspiration 2004 colonscopy 05/2020 Hospitalization History Reason Date(Month/Year) pneumonia 02/2018 pneumonia, asthma 05/2017 childbirth x3 pneumonia, CHF 1985
--- NOTE | 2024-11-19 08:00 | US_ITS ---
FINAL REPORT TECHNIQUE: Multiple transverse and longitudinal images CLINICAL HISTORY: abdominal pain COMPARISON: None FINDINGS: Multiple gallstones of varying size, largest measuring up to 22 mm. No signs of acute gallbladder disease. No biliary ductal dilatation is appreciated. No fluid collections are seen. Limited portions of the right liver are unremarkable. Limited portions of the right kidney are unremarkable. Pancreas is largely obscured. IMPRESSION: Uncomplicated cholelithiasis. Reviewed, Interpreted and Dictated by Vijaya Barillas MD Transcribed by Juliann Dennis Authenticated and [facility]
== END 2024-11-19 23:59 | disposition home or self-care (01) ==
PROVIDERS: PCP Internal Medicine Adolescent Medicine; Visit Provider Surgery
DX: K80.20 Calculus of gallbladder without cholecystitis without obstruction (principal)
CPT/HCPCS: 76705

== ENCOUNTER 2024-12-11 20:16 | Emergency (ER) | payer MEDICARE, SELFPAY ==
--- OUTSIDE RECORDS SUMMARY | 2024-10-24 07:15 | XMS_ITS ---
Author Organization [facility] PE D DAVID Address [address] [facility] 36 [facility] [address] [place] [address] Care Team Providers Care Director Of Patient Safety Name Role Phone Jorge A Souza Primary Care Provider [phone] David Sesay Unavailable [phone] Allergies No Known Allergies Reason For Referral Reason dr elliott for egd Diagnosis 1 Epigastric pain (R10 .13) Referral Organization [facility] PED DAVID Referring Provider First Name Jorge A Referring Provider Last Name Harley Referring Provider Speciality Internal M edicine Referred Organization [facility] Referred Address [address], [place],[address],[place] Referred Provider Specialty General Surg [place] General [...] review and pick correct strength-formula tion from [employer] options. If intended option is not shown, discontinue and re-order from Quick Search* 04/17/2019 Active KONSYL 100% DIRECTED ORALLY 3 TIMES A DAY; Duration: 7 DAY(S) once a day *Please review for potential replacement for e-prescription and drug interaction check* Active Biotin 44839 MCG 1 tab(s) orally once a day [...] Status Risk Notes Problem Iron deficiency anemia (57385791) Iron deficiency anemia, unspecified iron deficiency anemia type (D50.9) Active confirmed Vital Signs Temperature 97.6 degrees Fahrenheit 10/25/19 25 Blood pressure systolic 132 mm Hg 10/25/19 25 Blood pressure diastolic 64 mm Hg 025 Heart Rate 78 /min 10/24/2024 Height 5 ft 7.5 in in 10/24/2024 Weight 241.3 lbs 10/24/2024 BMI 37.23 kg/m2 10/24/2024 Encounters Encounter Location Date Provider Diagnosis [facility] PED DAVID [address] [place] [address] 10/24/2024 Jorge A Souza Epigastric pain R10.13 [...] rm for egd, [address] [facility], [place], [address], Next Appt Details Follow Up: prn, Reason: Provider Name:Jorge A Souza, 03/06/2025 10:15:00 AM, [address] [facility], [address], [place], [address], Progress Notes * ANTHONY JaniceDOB:1955 ( 69 yo F)Acc No.[id number]:10/24/2024 Progress Notes Patient: Janice THOMPSON Provider: Mary Souza MD :1955 A ge:69 Y S ex:Female Date:10/24/2024 Address:[address] [place] [address] , [place] Subjective: * Chief Complaints: [...] Mother: . M aternal Grand Father: , [place], diagnosed with Heart Disease. M aternal Grand Mother: . P aternal aunt: alive, stroke. M aternal uncle: , [place]. M aternal aunt: , diabetes. S iblings: alive, 5 brother [place],lung cancer, 3 sisters -[place] and cirrhosis of the liver older brother-Parkinson's Diseaseyoungest brother-black jeeb-rtwlvxonsysxhvo-hxuqzeiig cancersister-, diagnosed with Cancer. C patrickzack: alive. [...] prescription and drug interaction check*, Taking Biotin 29756 MCG Tablet 1 tab(s) orally once a [...] *Please review and pick correct strength-formulation from [employer] options. If intended option is not shown, [...] 10/24/2024 Generated for Shayyi david/Juan/eTransmitting on: 0 12/11/2024 08:21 PM EDT History and Physical Notes * Examination [...]
--- OUTSIDE RECORDS SUMMARY | 2024-12-05 05:30 | XMS_ITS ---
Author Organization [facility] PE D DAVID Address [address] [place] [address] Care Team Providers Care Therapist Physical Name Role Phone Jorge A Souza Primary Care Provider [phone] David Sesay Unavailable [phone] Allergies No Known Allergies REASON FOR VISIT Medicare Wellness-fasting, needs refill on Albuterol Sulfate Medications Medication SIG (Take, Route, Frequency, Duration) Notes Start Date End Date Status hydroCHLOROthiazide 25 MG 1/2 orally onc e a day; Duration: 90 days Active Carvedilol 12.5 MG Take 1 tablet by mouth twice daily; Duration: 90 days Active metFORMIN HCl 1000 MG 1 tab(s) orally once daily; Duration: 90 days Active Rosuvastatin Calcium 20 MG Take 1 tablet by mouth once daily; Duration: 90 Active Venlafaxine HCl ER 150 MG 1 cap(s) orall y daily; Duration: 90 days Active Albuterol Sulfate (2.5 MG/3ML) 0.083% 3 mL inhaled three times daily as needed; Duration: 90 days Diagnosis: J44.9 COPD 02/09/2021 Active Anoro Ellipta 62.5 MCG-25 MCG/INH 1 PUFF(S) INHALED ONCE A DAY; Duration: 90 DAYS prn 04/17/2019 Active Aspirin 325 MG 1 tab(s) orally once a day Active GLUCOMETER 1; Duration: 30 DAYS Active Fluticasone Propionate 50 MCG/ACT as directed intranasally once a day; Duration: 90 days prn Active Biotin 42735 MCG 1 tab(s) orally once a day Active KONSYL 100% DIRECTED ORALLY 3 TIMES A DAY; Duration: 7 DAY(S) once a day Active Social History Tobacco [...] Problem Status W/U Status Risk Notes Problem Essential (primary) hypertension (I10) Active confirmed Vital Signs Temperature 95.9 degrees Fahrenheit 12/06/19 25 Blood pressure systolic 120 mm Hg 12/06/19 25 Blood pressure diastolic 70 mm Hg 025 Heart Rate 68 /min 12/05/2024 Height 5 ft 7.5 in in 12/05/2024 Weight 241.2 lbs 12/05/2024 BMI 37.22 kg/m2 12/05/2024 Encounters Encounter Location Date Provider Diagnosis [facility] [address] [place], [place] [address] 12/05/2024 Jorge A Souza Essential (primary) hypertension I10 ; Depression with anxiety F41.8 ; Cigarette nicotine dependence without complication F17.210 ; Hyperlipemia, idiopathic familial E78.5 and Encntr for general adult medical exam w/o abnormal findings Z00.00 Assessments Encounter Date Diagnosis (ICD Code) Assessment Notes Treatment Notes Treatment Clinical Notes Section Notes 12/05/2024 Essential (primary) hypertension (ICD-10 - I10) - BP well controlled 120/70 today in clinic - Expressed concern for high reading during surgery eval and BP was 190/110 - Encouraged continued checks at home and to keep a log - Will continue on carvedilol and HCTZ 12/05/2024 Depression with anxiety (ICD-10 - F41.8) - Mood is stable - Continue venlafaxine 12/05/2024 Cigarette nicotine dependence without complication (ICD-10 - F17.210) - Current smoker, not ready to quit - Discussed alteratives to smoking such as nicotene pouches Greater than 5 minutes spent discussing smoking cessation. She is thinking about doing patches or nicotine pouches 12/05/2024 Hyperlipemia, idiopathic familial (ICD-10 - E78.5) - Continue statin 12/05/2024 Encntr for general adult medical exam w/o abnormal findings (ICD-10 - Z00.00) - No memory or fall concerns - Metabolic labs and vaccines UTD HRA reviewed. Up-to-date with cancer screening. No recent falls. On appropriate depression medication. is healthcare surrogate Plan Of Treatment Treatment Notes Assessment Notes Essential (primary) hypertension - BP well controlled 120/70 today in clinic - Expressed concern for high reading during surgery eval and BP was 190/110 - Encouraged continued checks at home and to keep a log - Will continue on carvedilol and HCTZ Depression with anxiety - Mood is stable - Continue venlafaxine Cigarette nicotine dependenc e without complication - Current smoker, not ready to quit - Discussed alteratives to smoking such as nicotene pouches Greater than 5 minutes spent discussing smoking cessation. She is thinking about doing patches or nicotine pouches Hyperlipemia, idiopathic familial - Cont inue statin Encntr for general adult med ical exam w/o abnormal findings - No memory or fall concerns - Metabolic labs and vaccines UTD HRA reviewed. Up-to-date with cancer screening. No recent falls. On appropriate depression medication. is healthcare surrogate Next Appt Details Follow Up: prn, Reason: Provider Name:Jorge A Souza, 03/06/2025 10:15:00 AM, [address], [place], [address], Progress Notes * Janice CRUZDOB:1955 ( 69 yo F)Acc No.[id number]:12/05/2024 Progress notes Patient: Janice THOMPSON Provider: Mary Souza MD :1955 A ge:69 Y S ex:Female Date:12/05/2024 Address:[address] [place] [address] RD , [id number] Subjective: * Chief Complaints: * 1 . Medicare Wellness-fasting. 2. needs refill on Albuterol Sulfate. * HPI: g en: Janice Cruz is a 69 yo F here for medicare wellness visit. She has no concerns today with memory or had recent falls. She recently stopped taking her iron pills and states she has been feeling dizzy since then. She is having a cholescystectomy in December after having abdominal pain. BP is well controlled, encouraged continued checks at home. * Medical History: H ypertension, Stroke, Anxiety, [...] Mother: . M aternal Grand Father: , [place], diagnosed with Heart Disease. M aternal Grand Mother: . P aternal aunt: alive, stroke. M aternal uncle: , [place]. M aternal aunt: , diabetes. S iblings: alive, 5 brother [place],lung cancer, 3 sisters -[place] and cirrhosis of the liver older brother-Parkinson's Diseaseyoungest brother-black gsqa-zgzgocszaadzwqi-gpsmyjsit cancersister-, diagnosed with Cancer. Mario guerra: alive. 5 brother(s) , 4 sister(s) . [...] DAY , Notes to Pharmacist: once a day, Taking Biotin 34836 MCG Tablet 1 tab(s) orally once a day , Taking Aspirin 325 MG Tablet 1 tab(s) orally once a day , Taking Fluticasone Propionate 50 MCG/ACT Suspension as directed intranasally once a day , Notes to Pharmacist: prn, Taking GLUCOMETER 1 , Taking Anoro Ellipta 62.5 MCG-25 MCG/INH POWDER 1 PUFF(S) INHALED ONCE A DAY , Notes to Pharmacist: prn, Taking Albuterol Sulfate (2.5 MG/3ML) 0.083% Nebulization [...] 1 tablet by mouth once daily , Taking metFORMIN HCl 1000 MG Tablet 1 tab(s) orally once daily , Medication List reviewed and reconciled with the patient * Allergies: N .K.D.A. Objective: * Vitals: N urse: jl, Pain: 0, Temp: 95.9, RR: 18, HR: 68, BP: 120/70, Ht: 5 ft 7.5 in, Wt: 241.2, BMI:37.22. * Examination: G eneral Examination: General P leasant and Cooperative, NAD on RA,. Heart: R egular Rate and Rhythm, no murmur, rubs or gallops. Lungs: n ormal breath sounds. Assessment: * Assessment: 1. E ssential (primary) hypertension - I10 (Primary) 2 . D epression with anxiety - F41.8 3 . C igarette nicotine dependence without complication - F17.210? 4. H yperlipemia, idiopathic familial - E78.5 5 . E ncntr for general adult medical exam w/o abnormal findings - Z00.00 Plan: * Treatment: 2. D epression with anxiety Notes: - Mood is stable - Continue venlafaxine 3. C igarette nicotine dependence without complication Notes: - Current smoker, not ready to quit - Discussed alteratives to smoking such as nicotene pouches Greater than 5 minutes spent discussing smoking cessation. She is thinking about doing patches or nicotine pouches 4. H yperlipemia, idiopathic familial Notes: - Continue statin 5. E ncntr for general adult medical exam w/o abnormal findings Notes: - No memory or fall concerns - Metabolic labs and vaccines UTD HRA reviewed. Up-to-date with cancer screening. No recent falls. On appropriate depression medication. is healthcare surrogate * Procedure Codes: G 0439 ANNUAL WELLNESS VST; PPS SUBSQT VST, 1170F FUNCTIONAL STATUS ASSESSMENT * Follow Up: p rn * * Sign off status: Completed true * Provider: Mary Souza MD Date: 0 12/05/2024 Generated for Porter hernandez/Juan/eTransmitting on: 0 12/11/2024 08:21 PM EDT History and Physical Notes * HPI (History of Present Illness) Category Sub-Category Detail Notes Category Not es gen Janice Cruz is a 69 yo F here for medicare wellness visit. She has no concerns today with memory or had recent falls. She recently stopped taking her iron pills and states she has been feeling dizzy since then. She is having a cholescystectomy in December after having abdominal pain. BP is well controlled, encouraged continued checks at home. Examination Category Sub-Category Detail Notes Category Not es General Examination Heart: Regular Rate and Rhythm, no murmur, rubs or gallops Lungs: normal breath sounds General Pleasant and Coopera tive, NAD on RA,
[2024-12-11] VITALS (14 sets, daily range): BP systolic 184–262; BP diastolic 75–130; PULSE 58–81; RESP 10–20; TEMP 36.4; O2SAT 89–99; BMI 37.5
--- NOTE | 2024-12-11 20:14 | ECG_ITS ---
APPROVED REPORT Exam: Resting ECG HR:65 bpm ECG Measurements Heart Rate 65 AXES NJ 183 P 78 QRSd 93 QRS 40 QT 386 T 78 QTc 398 Conclusion Normal sinus rhythm without acute ST or T waves concerning for ischemia Electronically signed by : Beverley Mcintosh, 12/12/2024 00:18:49
--- OUTSIDE RECORDS SUMMARY | 2024-12-11 20:21 | XMS_ITS | Patient Health Record ---
Author Organization [facility] PE D DAVID Address [address] [place] [address] Care Team Providers Care Casualty Underwriter Name Role Phone HarleyJorge A Primary Care Provider David Sesay Unavailable [phone] Migration, Provider Unavailable Unavailable Allergies No Known Allergies Results Component Value Reference Range Notes THYROID PANEL WITH TSH (7444 ) Reviewed date:08/30/2024 02:15:10 PM Interpretation: Performing Lab:[facility] [address] [employer], [place] KixxXZ[address] Han Busch Notes/Report: FASTING: YES FASTING:YES NON-FASTING; NON-FASTING; NON-FASTING; NON-FASTING; NON-FAST T3 UPTAKE 30 22-35 % T4 (THYROXINE), TOTAL 6.6 5.1-11.9 mcg/dL FREE T4 INDEX (T7) 2.0 1.4-3.8 TSH 2.43 0.40-4.50 mIU/L IRON, TIBC AND FERRITIN PANE L (5616) Reviewed date:08/30/2024 02:15:11 PM Interpretation: Performing Lab:[facility] [employer], [place] MelendezPakjMR[address] Han Busch Notes/Report: FASTING: YES FASTING:YES NON-FASTING; NON-FASTING; NON-FASTING; NON-FASTING; NON-FAST IRON, TOTAL 27 45-160 mcg/dL IRON BINDING CAPACITY 431 250-450 mcg/dL (robina c) % SATURATION 6 16-45 % (calc) FERRITIN 7 16-288 ng/mL LIPID PANEL, STANDARD (7600) Reviewed date:08/30/2024 02:15:11 PM Interpretation: Performing Lab:[facility] Rtqc[address] [facility] ([place]), [facility] HospitalSkdsCG[address] Han Busch Notes/Report: NON-FASTING; NON-FASTING; NON-FASTING; NON-FASTING; [...] LDL-C. Jose SS et al. JOB. 2013;310(19): 0639-0104 (http://education.Yoka.TruQu/faq/OCX809) CHOL/HDLC RATIO 1.7 <5.0 (calc) NON HDL CHOLESTEROL 44 <130 mg/dL (calc) For patients with diabetes plus 1 major ASCVD risk factor, treating to a non-HDL-C goal of <100 mg/dL (LDL-C of <70 mg/dL) is considered a therapeutic option. COMPREHENSIVE METABOLIC PANE L (54806) Reviewed date:08/30/2024 02:15:11 PM Interpretation: Performing Lab:[facility] Hemarina-ParkWhiz Uxya[address] [facility]te[facility], [facility] HospitalSckhWS[address] Han Busch Notes/Report: NON-FASTING; NON-FASTING; NON-FASTING; NON-FASTING; [...] 9) Reviewed date:08/30/2024 02:15:11 PM Interpretation: Performing Lab:CB, [facility] Healthe[address] [facility], [facility] HospitalGgahFL[address] Han Busch Notes/Report: NON-FASTING; NON-FASTING; NON-FASTING; NON-FASTING; [...] MPV 9.9 7.5-12.5 fL ABSOLUTE NEUTROPHILS 5906 9263-1490 cells/uL ABSOLUTE LYMPHOCYTES 9187 057-8333 cells/uL ABSOLUTE MONOCYTES 892 200-950 cells/uL ABSOLUTE EOSINOPHILS 442 15-500 cells/uL ABSOLUTE BASOPHILS 74 0-200 cells/uL NEUTROPHILS 64.2 LYMPHOCYTES 20.5 MONOCYTES 9.7 EOSINOPHILS 4.8 BASOPHILS 0.8 HEMOGLOBIN A1c (496) Reviewed date:08/30/2024 02:15:11 PM Interpretation: Performing Lab:[facility] Hemarina-Park[facility], [place] KilzWE[address] Han Busch Notes/Report: NON-FASTING; NON-FASTING; NON-FASTING; NON-FASTING; [...] of diabetes for children. VITAMIN B12/FOLATE, [facility] (2343) Reviewed date:08/30/2024 02:15:11 PM Interpretation: Performing Lab:CY[facility] Hemarina-Wood [address] [facility], [place] IyrhVP[address] Han Busch Notes/Report: NON-FASTING; NON-FASTING; NON-FASTING; NON-FASTING; NON-FAST FASTING:YES FASTING: YES VITAMIN B12 530 487-7831 pg/mL Please Note: Although the reference range [...] Range Low: <3.4 Borderline: 3.4-5.4 Normal: >5.4 COMPREHENSIVE METABOLIC PANE L (39512) Reviewed date:02/08/2024 12:52:58 PM Interpretation: Performing Lab:[facility] Hem[facility]ina-[address], [place] TcasST[address] Han Busch Notes/Report: NON-FASTING; NON-FASTING FASTING:YES FASTING: YES GLUCOSE 110 65-99 mg/dL Fasting reference interval [...] (7600) Reviewed date:02/08/2024 12:52:58 PM Interpretation: Performing Lab:[facility] Hem[facility]ina-[facility] Healthe13[address] [facility], Or[facility] HospitalNfixXT[address] Han Busch Notes/Report: NON-FASTING; NON-FASTING FASTING:YES FASTING: [...] equation in the estimation of LDL-C. Jose LINDER et al. JOB. 2013;310(19): 7639-5612 (http://education.TeleSign Corporation/faq/GEY041) CHOL/HDLC RATIO 2.1 <5.0 (calc) NON HDL CHOLESTEROL 49 <130 mg/dL (calc) For patients with diabetes plus 1 major ASCVD risk factor, treating to a non-HDL-C goal of <100 mg/dL (LDL-C of <70 mg/dL) is considered a therapeutic option. HEMOGLOBIN A1c (496) Reviewed date:03/30/2024 02:37:20 PM Interpretation: Performing Lab:CYDNEY, Hemarina-Wood Yh[address] [facility], [place] LhovOB[address] Han Busch Notes/Report: NON-FASTING; NON-FASTING; NON-FASTING FASTING:YES [...] A1c for diagnosis of diabetes for children. COMPREHENSIVE METABOLIC PANE L (12235) Reviewed date:03/30/2024 02:37:20 PM Interpretation: Performing Lab:CYDNEY, Hemarina-ParkWhiz Zzju[address] [facility], [place] IewaTI[address] Han Busch Notes/Report: NON-FASTING; NON-FASTING; NON-FASTING FASTING:YES FASTING: YES GLUCOSE 105 65-99 mg/dL [...] 31 10-35 U/L ALT 22 6-29 U/L LIPID PANEL, STANDARD (7600) Reviewed date:03/30/2024 02:37:20 PM Interpretation: Performing Lab:CYDNEY, [facility], Or[facility] HospitalRnljRF[address] Han Busch Notes/Report: NON-FASTING; NON-FASTING; NON-FASTING FASTING:YES [...] LDL-C. Jose SS et al. JOB. 2013;310(19): 4036-2463 (http://education.Yoka.TruQu/faq/PBB569) CHOL/HDLC RATIO 1.9 <5.0 (calc) NON HDL CHOLESTEROL 42 <130 mg/dL (calc) For patients with diabetes plus 1 major ASCVD risk factor, treating to a non-HDL-C goal of <100 mg/dL (LDL-C of <70 mg/dL) is considered a therapeutic option. Medications Medication SIG (Take, Route, Frequency, Duration) Notes Start Date End Date Status hydroCHLOROthiazide 25 MG 1/2 orally onc e a day; Duration: 90 days Active Carvedilol 12.5 MG Take 1 tablet by mouth twice daily; Duration: 90 days Active Albuterol Sulfate (2.5 MG/3ML) 0.083% 3 mL inhaled three times daily as needed; Duration: 90 days Diagnosis: J44.9 COPD 02/09/2021 Active Anoro Ellipta 62.5 MCG-25 MCG/INH 1 PUFF(S) INHALED ONCE A DAY; Duration: 90 DAYS prn 04/17/2019 Active Biotin 43932 MCG 1 tab(s) orally once a day Active KONSYL 100% DIRECTED ORALLY 3 TIMES A DAY; Duration: 7 DAY(S) once a day Active metFORMIN HCl 1000 MG 1 tab(s) [...] a day; Duration: 90 days prn Active Immunizations Vaccine Route Administration Date Status Comme nts Adacel (Tdap) Unknown 03/09/2017 Administered Covid Pfizer Unknown 07/11/2020 Administered Covid Pfizer Unknown 08/08/2020 Administered Covid Pfizer Unknown 03/02/2021 Administered Covid Pfizer Unknown 08/08/2020 Administered Covid Pfizer Unknown 07/11/2020 Administered Fluzone High Dose IM Intramuscular 03/13/2020 Administered Influenza-Fluzone 3+years (NON-MEDICARE) IM Intramuscular 03/09/2017 Administered Prevnar PCV-13 (Pneumococcal conjugate 13) IM Intramuscular 03/13/2020 Administered Prevnar PCV-20 (Pneumococcal conjugate 20) IM Intramuscular 01/31/2023 Administered SHINGRIX IM Intramuscular 01/31/2023 Administered Pneumovax 23 IM Intramuscular 10/01/2020 Administered Influenza-Fluzone 3+years (NON-MEDICARE) IM Intramuscular 03/05/2016 Administered Influenza-Fluzone 3+years (NON-MEDICARE) IM Intramuscular 01/24/2018 Administered Fluzone High Dose IM Intramuscular 01/31/2023 Administered Fluzone High Dose IM Intramuscular 03/28/2024 Administered Fluzone High Dose IM Intramuscular 02/09/2021 Administered Fluvirin--Influenz a vaccine 3+ year IM Intramuscular 02/07/2009 Administered Fluvirin--Influenz a vaccine 3+ year IM Intramuscular 02/09/2010 Administered Fluvirin--Influenz a vaccine 3+ year IM Intramuscular 02/11/2011 Administered Fluvirin--Influenz a vaccine 3+ year IM Intramuscular 03/09/2012 Administered Fluvirin--Influenz a vaccine 3+ year IM Intramuscular 03/29/2013 Administered Arexvy IM Intramuscular 02/06/2024 Administered Adacel (Tdap) IM Intramuscular 03/09/2017 Administered Zostavax (Shingles) Unknown 11/14/2015 Administered 11/12/2015 Julio gave see document SHINGRIX IM Intramuscular 04/25/2023 Administered Social History Tobacco Use: Social History [...] specified complication (E11.69) Active confirmed Problem Obesity (366573452) Obesity, unspecified (E66.9) Active confirmed Problem Essential hypertension (80103931) Essential (primary) hypertension (I10) Active confirmed Problem Simple chronic bronchitis (92972907) Simple chronic bronchitis (J41.0) Active confirmed Problem Acute cystitis (22723718) Acute cystitis without hematuria (N30.00) Active confirmed Problem Nicotine dependence (74262280) Personal history of nicotine dependence (Z87.891) Active confirmed Problem Gastroesophageal reflux disease (803683931) GERD (gastroesophage al reflux disease) (K21.9) Active confirmed Problem Mixed anxiety and depressive disorder (034213742) Depression with anxiety (F41.8) Active confirmed Problem Hyperlipidemia (05427718) Hyperlipemia, idiopathic familial (E78.5) Active confirmed Problem Essential hypertension (94032713) Hypertension, essential (I10) Active confirmed Problem Urinary frequency (139255689) Urinary frequency (R35.0) Active confirmed Problem Acute exacerbation of chronic obstructive airways disease (663724154) COPD exacerbation (J44.1) Active confirmed Problem Mammography abnormal (778082395) Abnormal mammogram of right breast (R92.8) Active confirmed Problem Body mass index 40+ - morbidly obese (506540835) BMI 40.0-44.9, adult (Z68.41) Active confirmed Problem COPD - Chronic obstructive pulmonary disease (11472753) Chronic obstructive pulmonary disease, unspecified COPD type (J44.9) Active confirmed Problem Tobacco user (870796370) Cigarette nicotine dependence without complication (F17.210) Active confirmed Problem Iron deficiency anemia (19171450) Iron deficiency anemia, unspecified iron deficiency anemia type (D50.9) Active confirmed Problem Sciatica (60486514) Sciatica of left side (M54.32) Active confirmed Problem SI - Stress incontinence (21918151) Stress incontinence (N39.3) Active confirmed Problem Pain in pelvis (61578088) Pelvic pain (R10.2) Active confirmed Problem Recurrent major depression in full remission (76103263) Recurrent major depressive disorder, in full remission (F33.42) Active confirmed Problem Mixed incontinence (593990098) Mixed stress and urge urinary incontinence (N39.46) Active confirmed Problem Microcytic anemia (414585308) Microcytic anemia (D50.9) Active confirmed Problem Adult health examination (765100729) Healthcare maintenance (Z00.00) Active confirmed Problem Allergic rhinitis (74343215) Allergic sinusitis (J30.9) Active confirmed Vital Signs Heart Rate 68 /min 12/05/2024 Temperature 95.9 degrees Fahrenheit 12/05/2024 Blood pressure diastolic 70 mm Hg 12/05/2024 Height 5 ft 7.5 in in 12/05/2024 Blood pressure systolic 120 mm Hg 12/05/2024 Weight 241.2 lbs 12/05/2024 BMI 37.22 kg/m2 12/05/2024 Encounters Encounter Location Date Provider Diagnosis [facility] [address] [place] [address] 08/11/2024 Provider Migration Chronic obstructive pulmonary disease, unspecified COPD type J44.9 [facility] [address] [place] [address] 02/06/2024 Jorge Aholly Souza Hyperlipemia, idiopathic familial E78.5 ; Hypertension, essential I10 ; Personal history of nicotine dependence Z87.891 and Encounter for immunization Z23 [facility] [address] [place], [place] [address] 03/28/2024 Jorge Aholly Souza Hyperlipemia, idiopathic familial E78.5 ; Type 2 diabetes mellitus with other specified complication E11.69 ; Chronic obstructive pulmonary disease, unspecified COPD type J44.9 and Immunization(s) administered Z23 [facility] [address] [facility] [address] [place] [address] 08/29/2024 Jorge A Besson Hypertension, essential I10 ; Chronic obstructive pulmonary disease, unspecified COPD type J44.9 ; Microcytic anemia D50.9 ; Type 2 diabetes mellitus with other specified complication E11.69 ; Recurrent major depressive disorder, in full remission F33.42 and Dizziness R42 [facility] [address] [facility] [address] [place] [address] 10/24/2024 Jorge A Besson Epigastric pain R10.13 and Iron deficiency anemia, unspecified iron deficiency anemia type D50.9 [facility] [address] [facility] [address] [place] [address] 12/05/2024 Jorge A Besson Essential (primary) hypertension I10 ; Depression with anxiety F41.8 ; Cigarette nicotine dependence without complication F17.210 ; Hyperlipemia, idiopathic familial E78.5 and Encntr for general adult medical exam w/o abnormal findings Z00.00 [facility] [address] [address] 01/04/2024 Jorge A Besson [facility] [address] [address] 09/26/2024 Jorge A Besson [facility] [address] [address] 10/10/2024 Jorge A Besson Hyperlipemia, idiopathic familial E78.5 Assessments Encounter Date [...] of therapy, will do lab work in 12/05/2024 Essential (primary) hypertension (ICD-10 - I10) [...] thinking about doing patches or nicotine pouches 08/29/2024 Microcytic anemia (ICD-10 - D50.9) 03/28/2024 Chronic obstructive pulmonary disease, unspecified COPD type (ICD-10 - J44.9) 08/11/2024 Chronic obstructive pulmonary disease, unspecified COPD type (ICD-10 - J44.9) 02/06/2024 Personal history of nicotine dependence (ICD-10 - Z87.891) Patient continues to smoke, discussed once again benefits of quitting smoking. Greater than 5 minutes spent discussing smoking cessation, patient is pretty contemplative but states she will quit someday. 02/06/2024 Encounter for immunization (ICD-10 - Z23) 08/29/2024 Type 2 diabetes mellitus with other specified complication (ICD-10 - E11.69) 03/28/2024 Immunization(s) administered (ICD-10 - Z23) 12/05/2024 Hyperlipemia, idiopathic familial (ICD-10 - E78.5) - Continue statin 08/29/2024 Recurrent major depressive disorder, in full remission (ICD-10 - F33.42) 12/05/2024 Encntr for general adult medical exam w/o abnormal findings (ICD-10 - Z00.00) - No memory or fall concerns - Metabolic labs and vaccines UTD HRA reviewed. Up-to-date with cancer screening. No recent falls. On appropriate depression medication. is healthcare surrogate 08/29/2024 Dizziness (ICD-10 - R42) Dizziness is improved since returning to [place]. Check labs as noted. I will review [...] PANEL, STANDARD (7600) 09/09/2023 COMPREHENSIVE METABOLIC PANEL (92399) HEMOGLOBIN A1c (496) 09/09/2023 Future Test Test Name Order Date Mammogram : Diagnostic 12/29/2006 Mammogram : Bilateral 01/25/2011 Next Appt Details Provider Name:Jorge A Souza, 03/06/2025 10:15:00 AM, [address], [place], [address], Insurance Providers Payer Name Payer Address Payer Phone Subscriber Number Group Number Insured Name Patient Relationship to Insured Coverage Start Date Coverage End Date [employer] [address] [place] [address] [id number] Janice Cruz Self - patient is the insured Medical [...]
--- NOTE | 2024-12-11 20:33 | PC.NURSE ---
notified of BP.
--- NOTE | 2024-12-11 20:39 | ED_ITS ---
<Statement entered by Beverley Mcintosh DO - 12/14/24 01:00> I was consulted by the MERVAT, and we discussed the complexity of problems being addressed. I approve the treatment and management plan for this patient's care in the emergency department, thus performing a substantial portion of the medical decision making. Beverley Mcintosh DO Discharge Plan Disposition Patient Disposition: Home, Self-Care Condition: Good Prescriptions Prescriptions: New methocarbamol 500 mg tablet 500 mg PO BID Qty: 20 0RF lidocaine 5 % adhesive patch,medicated 1 patch topical DAILY Qty: 15 0RF Rx Instructions: leave on most painful area for up to 12 hrs No Action venlafaxine 150 mg capsule,extended release 24hr 150 mg PO Patient Comments: TAKE 1 CAPSULE BY MOUTH ONCE DAILY rosuvastatin 20 mg tablet 20 mg PO Patient Comments: TAKE 1 TABLET BY MOUTH ONCE DAILY carvedilol 25 MG tablet 12.5 mg PO BID Patient Comments: venlafaxine [Effexor XR] 75 MG capsule,extended release 24hr 75 mg PO DAILY tiotropium-olodaterol 4 GM mist 2 puff inhalation DAILY aspirin 325 MG tablet 325 mg PO DAILY hydrochlorothiazide 25 MG tablet 12.5 mg PO DAILY 30 Days Qty: 15 2RF Referrals Follow up/Referrals: Provider,Referral, MD [Referring, Medical] - See instructions Activity Restrictions/Add. Instructions Additional Instructions/Restrictions: Take Tylenol and Motrin in addition to the muscle relaxer and lidocaine patches for your symptoms. Return to the emergency department for any acute or worsening pain. You can use heat and ice as needed. Would like you to check your blood pressure daily at home and if your blood pressure continues to be over 200 systolic you should follow-up with your primary care provider to get your blood pressure medications adjusted. Clinical Impressions Clinical Impression: Back pain Print Language Print Language: Kazakh Discharge ED Provider: Beverley Mcintosh General Adult HPI <Beverley Mcintosh DO - Last Filed: 12/13/24 15:50> General Chief complaint: Chest Pain Stated complaint: Chest pain Time Seen by Provider: 12/11/24 20:39 Mode of Arrival: Ambulatory Source of Information: Patient Description of Symptoms (Recalled from ER Triage Doc. by RN): PT presents to the ED for evaluation of CP. PT stated she woke up with a stiff neck that progressed to CP and pain that radiated down L arm then progressed to both arms. Denies N,V. PT stated she has a hx of COPD and CHF. Related Data Home Medications ?Medication ?Instructions ?Recorded ?Confirmed carvedilol 25 mg tablet 12.5 mg PO BID Hypertension 06/02/17 11/21/24 venlafaxine 75 mg capsule,extended 75 mg PO DAILY Depr ession 06/02/17 11/21/24 release 24 hr (Effexor XR) aspirin 325 mg tablet 325 mg PO DAILY Heart diseas e 03/22/19 11/21/24 tiotropium 2.5 mcg-olodaterol 2.5 2 puff inhalation DA MAGDALENA allergies 05/22/20 11/21/24 mcg/actuation mist for inhalation rosuvastatin 20 mg tablet 20 mg PO 11/07/24 11/21/24 venlafaxine 150 mg 150 mg PO 11/07/24 11/21/24 capsule,extended release 24 hr Previous Rx's ?Medication ?Instructions ?Recorded hydrochlorothiazide 25 mg tablet 12.5 mg (1/2 x 25 mg) PO DAILY 03/24/19 Diuretic 30 days #15 tabs lidocaine 5 % topical patch 1 patch topical DAILY #15 ea 12/12/24 methocarbamol 500 mg tablet 500 mg PO BID #20 tabs 10/31 Allergies Allergy/AdvReac Type Severity Reaction Status Date / Time venom-honey bee Allergy Unknown Unknown Verified 11/21/24 14:01 allergy reaction venom-wasp Allergy Unknown Unknown Verified 11/21/24 14:01 allergy reaction Iodinated Contrast Media Allergy Hives Verified 12/11/24 22:10 [facility] <Beverley Mcintosh, DO - Last Filed: 12/13/24 15:50> [facility] Disclaimer: The information contained in this section may have been updated after the patient was seen, as this information can be updated by other users. Medical History Depression Anxiety Stroke Diabetes Hypercholesterolemia Hypertension COPD (chronic obstructive pulmonary disease) Surgical History History of esophagogastroduodenoscopy (EGD) Hx of colonoscopy Hx of tubal ligation Hx of foot surgery Family History Other No significant family history Social History Smoking Status: Current every day smoker tobacco type: cigarettes packs per day: 1 second hand exposure: Yes alcohol intake: never substance use type: denies use current occupational status: employed and retired Travel in the last 8 weeks?: None household members: spouse housing: house current occupation: house current occupational exposures/hazards: No caffeine: No Have you lived/traveled outside [place] in past 30 days?: No Contact w/someone who lives/traveled outside US past 30 days?: No Exposure to someone with infectious disease in past 14 days?: No Do you have a fever (greater than 100.4 F or 38 C)?: No Have you tested positive for COVID-19?: No Exposed to someone with COVID-19 in past 14 days?: No Do you have a sore throat?: No Do you have a cough?: No Do you have any weakness?: No Do you have any diarrhea?: No Are you experiencing any unusual bleeding?: No Do you have any muscle aches/pain?: No Do you have any abdominal pain?: No Are you experiencing loss of taste or smell?: No Other Medical History Have you received the Flu Vaccine for this season: Yes Have you received the Pneumonia Vaccine: Yes <Laurel Zhou (ED), MECHANICAL ENGINEERING SPECIALIST - Last Filed: 12/12/24 13:50> ROS Obtained: Yes Systems reviewed as appropriate & no additional complaints except as documented Physical Exam <Laurel Zhou (ED), MECHANICAL ENGINEERING SPECIALIST - Last Filed: 12/12/24 13:50> General General appearance: alert Respiratory Respiratory exam: Present normal lung sounds bilaterally Cardiovascular Cardiovascular exam: Present regular rate and normal rhythm Neurological Exam Neurological exam: Present alert and oriented X3 Medical Decision Making <Beverley Mcintosh DO - Last Filed: 12/13/24 15:50> Medical Records Screening: Per USPSTF and CDC recommendations, given the prevalence of disease in our region, it is our hospital?s policy to screen for HIV and viral Hepatitis for all patients aged 18 and over and those with ongoing risk factors. Vital Signs: 12/11/24 20:19 12/11/24 20:25 12/11/24 20:30 Temperature 97.5 F L Temperature Source Oral Pulse Rate 67 62 Pulse Rate [Left] 67 Respiratory Rate 17 Blood Pressure 225/100 H Blood Pressure [Left Arm] 262/106 H Blood Pressure Mean Blood Pressure Mean [Left Arm] 158 02 Sat by Pulse Oximetry 99 91 L Oxygen Delivery Method Room Air 12/11/24 20:30 12/11/24 21:06 12/11/24 21:26 Temperature Temperature Source Pulse Rate 62 60 72 Pulse Rate [Left] Respiratory Rate 20 16 14 Blood Pressure 184/75 H 184/75 H 210/130 H Blood Pressure [Left Arm] Blood Pressure Mean Blood Pressure Mean [Left Arm] 02 Sat by Pulse Oximetry 92 L 93 L 95 Oxygen Delivery Method Room Air 12/11/24 21:27 12/11/24 21:30 12/11/24 22:00 Temperature Temperature Source Pulse Rate 60 58 L 62 Pulse Rate [Left] Respiratory Rate 14 18 10 L Blood Pressure 210/130 H 197/80 H 192/82 H Blood Pressure [Left Arm] Blood Pressure Mean Blood Pressure Mean [Left Arm] 02 Sat by Pulse Oximetry 97 92 L 89 L Oxygen Delivery Method Room Air 12/11/24 22:25 12/11/24 22:30 12/11/24 23:20 Temperature Temperature Source Pulse Rate 64 80 Pulse Rate [Left] Respiratory Rate 20 18 Blood Pressure 192/82 H 208/82 H 224/85 H Blood Pressure [Left Arm] Blood Pressure Mean Blood Pressure Mean [Left Arm] 02 Sat by Pulse Oximetry 95 96 97 Oxygen Delivery Method Nasal Cannula Room Air 12/11/24 23:21 12/11/24 23:30 12/11/24 23:48 Temperature Temperature Source Pulse Rate 77 81 Pulse Rate [Left] Respiratory Rate 15 18 18 Blood Pressure 224/85 H 206/86 H 206/86 H Blood Pressure [Left Arm] Blood Pressure Mean 167 Blood Pressure Mean [Left Arm] 02 Sat by Pulse Oximetry 96 94 L Oxygen Delivery Method Room Air 12/12/24 00:00 12/12/24 00:10 12/12/24 00:14 Temperature 98.9 F Temperature Source Pulse Rate 79 75 78 Pulse Rate [Left] Respiratory Rate 14 13 Blood Pressure 204/89 H 186/89 H 186/89 H Blood Pressure [Left Arm] Blood Pressure Mean 164 Blood Pressure Mean [Left Arm] 02 Sat by Pulse Oximetry 92 L 95 Oxygen Delivery Method Room Air Lab Data Lab Results 12/11/24 20:18: WBC 9.5, RBC 4.94, Hgb 14.3, Hct 43.9, MCV 88.9, MCH 28.9, MCHC 32.6, RDW 15.6, Plt Count 231, MPV 10.2, Neut % (Auto) 57.2, Lymph % (Auto) 28.6, [place] % (Auto) 10.0 H, Eos % (Auto) 3.2, Baso % (Auto) 0.7, Neut # (Auto) 5.5, Lymph # (Auto) 2.7, [place] # (Auto) 1.0, Eos # (Auto) 0.3, Baso # (Auto) 0.1, D-Dimer 0.74 H, Sodium 142, Potassium 4.3, Chloride 106, Carbon Dioxide 31 H, Anion Gap 9.3, BUN 18 H, Creatinine 0.60, Estimated Creat Clear 90, Estimated GFR 99, Est GFR ( Amer) 120, Glucose 105 H, Calcium 10.2, Magnesium 1.8, Total Bilirubin 0.4, AST 54 H, ALT 28, Alkaline Phosphatase 73, Troponin I < 0.01, NT-Pro-B Natriuret Pep 270 H, Total Protein 8.3 H, Albumin 4.4, Globulin 3.9 H, Albumin/Globulin Ratio 1.1, Lipase 120, HCV Ab ESTER w/Rflx PCR Qn Negative, HIV Ag/Ab Combo Qual Negative 12/11/24 23:48: Troponin I < 0.01 12/11/24 20:18 12/11/24 20:18 Orders (Tests/Meds): ED MEDICATIONS Discontinued Medications Generic Name Dose Route Start Last Admin Trade Name Kavita PRN Reason Stop Dose Admin Acetaminophen 1,000 mg 12/11/24 23:01 12/11/24 23:18 Acetaminophen 500mg Tab PO 12/11/24 23:02 1,000 mg ONCE ONE Administration Albuterol/Ipratropium 9 ml 12/11/24 22:26 12/11/24 22:32 Ipratropium/Albuterol 3 Ml Neb 12/11/24 22:27 9 ml ONCE ONE Administration Carvedilol 12.5 mg 12/11/24 23:25 12/11/24 23:45 Carvedilol 12.5mg Tablet PO 12/11/24 23:26 12.5 mg ONCE ONE Administration Diphenhydramine HCl 50 mg 12/11/24 21:45 12/11/24 22:06 Diphenhydramine 50mg/Ml Vial IV 12/11/24 21:46 50 mg ONCE ONE Administration Famotidine 20 mg 12/11/24 21:47 12/11/24 22:05 Famotidine 20mg/2ml Vial IV 12/11/24 21:48 20 mg ONCE ONE Administration Iopamidol 160 ml 12/11/24 23:12 12/11/24 23:16 Iopamidol-370 (76%);100ml Bottle IV 12/11/24 23:13 160 ml ONCE ONE Administration Methocarbamol 500 mg 12/11/24 23:01 12/11/24 23:18 Methocarbamol 500mg Tablet PO 12/11/24 23:02 500 mg ONCE ONE Administration Methylprednisolone Sodium Succinate 125 mg 12/11/24 21:45 12/11/24 22:05 Methylprednisolone Sod Succ 125mg Vial IV 12/11/24 21:46 125 mg ONCE ONE Administration Morphine Sulfate 4 mg 12/11/24 20:52 12/11/24 21:25 Morphine 4mg/Ml Syringe IV 12/11/24 20:53 4 mg ONCE ONE Administration Morphine Sulfate 4 mg 12/11/24 23:59 12/12/24 00:13 Morphine 4mg/Ml Syringe IV 12/12/24 00:00 4 mg ONCE ONE Administration Ondansetron HCl 4 mg 12/11/24 20:52 12/11/24 21:25 Ondansetron 4mg/2ml Vial IV 12/11/24 20:53 4 mg ONCE ONE Administration Sodium Chloride 8 ml 12/11/24 21:47 Sodium Chloride 0.9% 10ml Vial IV 01/10/25 21:46 NEEDED PRN dilute pepcid Sodium Chloride 100 ml 12/11/24 23:12 12/11/24 23:16 0.9 % Sodium Chloride 50 Ml Vial IV 12/11/24 23:13 100 ml ONCE ONE Administration Sodium Chloride 10 ml 12/11/24 23:12 12/11/24 23:16 Sodium Chloride 0.9% 10ml Syr (Rad Only) IV 01/10/25 23:11 10 ml NEEDED PRN Administration Maintain IV Site ORDERS Category Date Time Status CT angio chest - dissection Stat Cat Scan 12/11/24 21:[address] angio head Stat Cat Scan 12/11/24 21:[address] angio neck Stat Cat Scan 12/11/24 21:[address] cervical spine wo con Stat Cat Scan 12/11/24 20:[address] head/brain wo con Stat Cat Scan 12/11/24 20:[address] lumbar spine wo con Stat Cat Scan 12/11/24 20:[address] thoracic spine wo con Stat Cat Scan 12/11/24 20:52 Completed BNP [NT Pro Brain Natriuretic Pep.] Stat Lab 12/11/24 20:18 Completed CBC [Complete Blood Count Auto Diff] Stat Lab 12/11/24 20:18 Completed Comprehensive Metabolic Panel Stat Lab 12/11/24 20:18 Completed D-Dimer Stat Lab 12/11/24 20:18 Completed HIV Combo Stat Lab 12/11/24 20:18 Completed Hepatitis C Ab Qual. W/ RFX Stat Lab 12/11/24 20:18 Completed Lipase Stat Lab 12/11/24 20:18 Completed Magnesium Stat Lab 12/11/24 20:18 Completed Trop I [Troponin I] Stat Lab 12/11/24 20:18 Completed Troponin I Q3H Lab 12/11/24 23:48 Completed Medical Decision Narrative: Patient is a 69-year-old female presenting to the emergency department for evaluation of neck pain, bilateral arm pain that started last night and worsened this evening. Patient arrived to the ED with elevated blood pressure but nontoxic and afebrile. Differential diagnosis includes ACS, nerve impingement, muscle spasm, dissection, among others. Workup will be conducted with hematologic labs, specific imaging including CTs to rule out dissection and CTs of head and neck and spine. initial inventions include crystalloid bolus, analgesics. Initial workup reviewed by [facility] hematologic labs are remarkable for normal troponin, slightly elevated BNP at 270 the patient has no clinical signs of heart failure. Imaging was not back when I left patient. I left patient to Dr. Mcintosh for further duration of her workup. Patient was stable at this time. <Laurel Zhou (ED), MECHANICAL ENGINEERING SPECIALIST - Last Filed: 12/12/24 13:50> [facility] Inquiry Pt receiving controlled substance: No Vital Signs: 12/11/24 20:19 12/11/24 20:25 12/11/24 20:30 Temperature 97.5 F L Temperature Source Oral Pulse Rate 67 62 Pulse Rate [Left] 67 Respiratory Rate 17 Blood Pressure 225/100 H Blood Pressure [Left Arm] 262/106 H Blood Pressure Mean Blood Pressure Mean [Left Arm] 158 02 Sat by Pulse Oximetry 99 91 L Oxygen Delivery Method Room Air 12/11/24 20:30 12/11/24 21:06 12/11/24 21:26 Temperature Temperature Source Pulse Rate 62 60 72 Pulse Rate [Left] Respiratory Rate 20 16 14 Blood Pressure 184/75 H 184/75 H 210/130 H Blood Pressure [Left Arm] Blood Pressure Mean Blood Pressure Mean [Left Arm] 02 Sat by Pulse Oximetry 92 L 93 L 95 Oxygen Delivery Method Room Air 12/11/24 21:27 12/11/24 21:30 12/11/24 22:00 Temperature Temperature Source Pulse Rate 60 58 L 62 Pulse Rate [Left] Respiratory Rate 14 18 10 L Blood Pressure 210/130 H 197/80 H 192/82 H Blood Pressure [Left Arm] Blood Pressure Mean Blood Pressure Mean [Left Arm] 02 Sat by Pulse Oximetry 97 92 L 89 L Oxygen Delivery Method Room Air 12/11/24 22:25 12/11/24 22:30 12/11/24 23:20 Temperature Temperature Source Pulse Rate 64 80 Pulse Rate [Left] Respiratory Rate 20 18 Blood Pressure 192/82 H 208/82 H 224/85 H Blood Pressure [Left Arm] Blood Pressure Mean Blood Pressure Mean [Left Arm] 02 Sat by Pulse Oximetry 95 96 97 Oxygen Delivery Method Nasal Cannula Room Air 12/11/24 23:21 12/11/24 23:30 12/11/24 23:48 Temperature Temperature Source Pulse Rate 77 81 Pulse Rate [Left] Respiratory Rate 15 18 18 Blood Pressure 224/85 H 206/86 H 206/86 H Blood Pressure [Left Arm] Blood Pressure Mean 167 Blood Pressure Mean [Left Arm] 02 Sat by Pulse Oximetry 96 94 L Oxygen Delivery Method Room Air 12/12/24 00:00 12/12/24 00:10 12/12/24 00:14 Temperature 98.9 F Temperature Source Pulse Rate 79 75 78 Pulse Rate [Left] Respiratory Rate 14 13 Blood Pressure 204/89 H 186/89 H 186/89 H Blood Pressure [Left Arm] Blood Pressure Mean 164 Blood Pressure Mean [Left Arm] 02 Sat by Pulse Oximetry 92 L 95 Oxygen Delivery Method Room Air Lab Data Lab Results 12/11/24 20:18: WBC 9.5, RBC 4.94, Hgb 14.3, Hct 43.9, MCV 88.9, MCH 28.9, MCHC 32.6, RDW 15.6, Plt Count 231, MPV 10.2, Neut % (Auto) 57.2, Lymph % (Auto) 28.6, [place] % (Auto) 10.0 H, Eos % (Auto) 3.2, Baso % (Auto) 0.7, Neut # (Auto) 5.5, Lymph # (Auto) 2.7, [place] # (Auto) 1.0, Eos # (Auto) 0.3, Baso # (Auto) 0.1, D-Dimer 0.74 H, Sodium 142, Potassium 4.3, Chloride 106, Carbon Dioxide 31 H, Anion Gap 9.3, BUN 18 H, Creatinine 0.60, Estimated Creat Clear 90, Estimated GFR 99, Est GFR ( Amer) 120, Glucose 105 H, Calcium 10.2, Magnesium 1.8, Total Bilirubin 0.4, AST 54 H, ALT 28, Alkaline Phosphatase 73, Troponin I < 0.01, NT-Pro-B Natriuret Pep 270 H, Total Protein 8.3 H, Albumin 4.4, Globulin 3.9 H, Albumin/Globulin Ratio 1.1, Lipase 120, HCV Ab ESTER w/Rflx PCR Qn Negative, HIV Ag/Ab Combo Qual Negative 12/11/24 23:48: Troponin I < 0.01 Orders (Tests/Meds): ED MEDICATIONS Discontinued Medications Generic Name Dose Route Start Last Admin Trade Name Kavita PRN Reason Stop Dose Admin Acetaminophen 1,000 mg 12/11/24 23:01 12/11/24 23:18 Acetaminophen 500mg Tab PO 12/11/24 23:02 1,000 mg ONCE ONE Administration Albuterol/Ipratropium 9 ml 12/11/24 22:26 12/11/24 22:32 Ipratropium/Albuterol 3 Ml Neb IH 12/11/24 22:27 9 ml ONCE ONE Administration Carvedilol 12.5 mg 12/11/24 23:25 12/11/24 23:45 Carvedilol 12.5mg Tablet PO 12/11/24 23:26 12.5 mg ONCE ONE Administration Diphenhydramine HCl 50 mg 12/11/24 21:45 12/11/24 22:06 Diphenhydramine 50mg/Ml Vial IV 12/11/24 21:46 50 mg ONCE ONE Administration Famotidine 20 mg 12/11/24 21:47 12/11/24 22:05 Famotidine 20mg/2ml Vial IV 12/11/24 21:48 20 mg ONCE ONE Administration Iopamidol 160 ml 12/11/24 23:12 12/11/24 23:16 Iopamidol-370 (76%);100ml Bottle IV 12/11/24 23:13 160 ml ONCE ONE Administration Methocarbamol 500 mg 12/11/24 23:01 12/11/24 23:18 Methocarbamol 500mg Tablet PO 12/11/24 23:02 500 mg ONCE ONE Administration Methylprednisolone Sodium Succinate 125 mg 12/11/24 21:45 12/11/24 22:05 Methylprednisolone Sod Succ 125mg Vial IV 12/11/24 21:46 125 mg ONCE ONE Administration Morphine Sulfate 4 mg 12/11/24 20:52 12/11/24 21:25 Morphine 4mg/Ml Syringe IV 12/11/24 20:53 4 mg ONCE ONE Administration Morphine Sulfate 4 mg 12/11/24 23:59 12/12/24 00:13 Morphine 4mg/Ml Syringe IV 12/12/24 00:00 4 mg ONCE ONE Administration Ondansetron HCl 4 mg 12/11/24 20:52 12/11/24 21:25 Ondansetron 4mg/2ml Vial IV 12/11/24 20:53 4 mg ONCE ONE Administration Sodium Chloride 8 ml 12/11/24 21:47 Sodium Chloride 0.9% 10ml Vial IV 01/10/25 21:46 NEEDED PRN dilute pepcid Sodium Chloride 100 ml 12/11/24 23:12 12/11/24 23:16 0.9 % Sodium Chloride 50 Ml Vial IV 12/11/24 23:13 100 ml ONCE ONE Administration Sodium Chloride 10 ml 12/11/24 23:12 12/11/24 23:16 Sodium Chloride 0.9% 10ml Syr (Rad Only) IV 01/10/25 23:11 10 ml NEEDED PRN Administration Maintain IV Site ORDERS Category Date Time Status CT angio chest - dissection Stat Cat Scan 12/11/24 21:[address] angio head Stat Cat Scan 12/11/24 21:[address] angio neck Stat Cat Scan 12/11/24 21:[address] cervical spine wo con Stat Cat Scan 12/11/24 20:[address] head/brain wo con Stat Cat Scan 12/11/24 20:[address] lumbar spine wo con Stat Cat Scan 12/11/24 20:[address] thoracic spine wo con Stat Cat Scan 12/11/24 20:52 Completed BNP [NT Pro Brain Natriuretic Pep.] Stat Lab 12/11/24 20:18 Completed CBC [Complete Blood Count Auto Diff] Stat Lab 12/11/24 20:18 Completed Comprehensive Metabolic Panel Stat Lab 12/11/24 20:18 Completed D-Dimer Stat Lab 12/11/24 20:18 Completed HIV Combo Stat Lab 12/11/24 20:18 Completed Hepatitis C Ab Qual. W/ RFX Stat Lab 12/11/24 20:18 Completed Lipase Stat Lab 12/11/24 20:18 Completed Magnesium Stat Lab 12/11/24 20:18 Completed Trop I [Troponin I] Stat Lab 12/11/24 20:18 Completed Troponin I Q3H Lab 12/11/24 23:48 Completed Medical Decision Narrative: patient is a 69-year-old female presenting to the emergency department for evaluation of neck pain, bilateral arm pain that started last night and worsened this evening. Patient arrived to the ED with elevated blood pressure but nontoxic and afebrile. Differential diagnosis includes ACS, nerve impingement, muscle spasm, dissection, among others. Workup will be conducted with hematologic labs, specific imaging including CTs to rule out dissection and CTs of head and neck and spine. initial inventions include crystalloid bolus, analgesics. Initial workup reviewed by me hematologic labs are remarkable for normal troponin, slightly elevated BNP at 270 the patient has no clinical signs of heart failure. Imaging was not back when I left patient. I left patient to Dr. Mcintosh for further duration of her workup. Patient was stable at this time. Critical Care <Laurel Zhou (ED), MECHANICAL ENGINEERING SPECIALIST - Last Filed: 12/12/24 13:50> Critical Care Time Critical Care Time: No
--- NOTE | 2024-12-11 20:51 | CT_ITS ---
PROCEDURE INFORMATION: Exam: CT Head Without Contrast Exam date and time: 12/11/2024 9:02 PM Age: 69 years old Clinical indication: Other: Back of the head pain TECHNIQUE: Imaging protocol: Computed tomography of the head without contrast. Radiation optimization: All CT scans at this facility use at least one of these dose optimization techniques: automated exposure control; mA and/or kV adjustment per patient size (includes targeted exams where dose is matched to clinical indication); or iterative reconstruction. COMPARISON: CT HEAD/BRAIN WO CON 12/11/2024 9:02 PM FINDINGS: Brain: No evidence for intracranial hemorrhage, mass lesions or acute stroke. Encephalomalacia and gliosis left occipital lobe image 1002/32 and . Cerebral ventricles: No ventriculomegaly. Pituitary gland and sella: Negative Paranasal sinuses: Visualized sinuses are unremarkable. No fluid levels. Mastoid air cells: Visualized mastoid air cells are well aerated. Orbital cavities: Negative. Bones: Unremarkable. No acute fracture. Soft tissues: Unremarkable. Vasculature: Negative. IMPRESSION: 1. No evidence for intracranial hemorrhage, mass lesions or acute stroke. 2. Encephalomalacia and gliosis left occipital lobe image 1002/32 and . Findings likely reflect remote infarct but MRI may be helpful to further delineate these findings.
--- NOTE | 2024-12-11 20:51 | CT_ITS ---
PROCEDURE INFORMATION: Exam: CT Lumbar Spine Without Contrast Exam date and time: 12/11/2024 9:08 PM Age: 69 years old Clinical indication: Low back pain TECHNIQUE: Imaging protocol: Computed tomography of the lumbar spine without contrast. Radiation optimization: All CT scans at this facility use at least one of these dose optimization techniques: automated exposure control; mA and/or kV adjustment per patient size (includes targeted exams where dose is matched to clinical indication); or iterative reconstruction. COMPARISON: CR XR MULTIPLE SPINE 6+V 06/12/2019 11:19 AM FINDINGS: Bones/joints: No acute fracture. Normal alignment. Mild multilevel spondylosis. Loss of intervertebral disc space height at L5-S1. L1-L2: No significant disc bulge. No significant spinal canal stenosis. No significant neural foraminal stenosis. L2-L3: No significant disc bulge. No significant spinal canal stenosis. No significant neural foraminal stenosis. L3-L4: Mild disc bulge. No significant spinal canal stenosis. No significant neural foraminal stenosis. L4-L5: Moderate disc bulge and facet arthropathy causes moderate spinal canal stenosis. No significant neural foraminal stenosis. L5-S1: Disc bulge and posterior osteophytosis causes mild-moderate spinal canal stenosis. Moderate left-sided neural foraminal stenosis. Soft tissues: Unremarkable. IMPRESSION: 1. No acute findings. 2. Mild multilevel spondylosis with moderate spinal canal stenosis at L4-L5 and moderate left L5-S1 neural foraminal stenosis.
--- NOTE | 2024-12-11 20:51 | CT_ITS ---
PROCEDURE INFORMATION: Exam: CT Cervical Spine Without Contrast Exam date and time: 12/11/2024 9:04 PM Age: 69 years old Clinical indication: Neck pain TECHNIQUE: Imaging protocol: Computed tomography of the cervical spine without contrast. Radiation optimization: All CT scans at this facility use at least one of these dose optimization techniques: automated exposure control; mA and/or kV adjustment per patient size (includes targeted exams where dose is matched to clinical indication); or iterative reconstruction. COMPARISON: CR XR MULTIPLE SPINE 6+V 06/12/2019 11:19 AM FINDINGS: Bones: Spinal alignment is normal. No fracture or bone destruction. [id number] multilevel facet arthropathy. Lungs: Left upper lobe lung nodule measuring 6.7 mm. This was previously identified on chest CT from 09/10/2022 measuring 7 mm. Soft tissues: Unremarkable. IMPRESSION: 1. Spinal alignment is normal. 2. No fracture or bone destruction. 3. [id number]-[id number] multilevel facet arthropathy. 4. Left upper lobe lung nodule measuring 6.7 mm. This was previously identified on chest CT from 09/10/2022 measuring 7 mm. For patients at low risk (minimal or absent history of smoking and of other known risk factors), recommend CT Chest at 6-12 months, then consider CT Chest at 18-24 months. For patients at high risk (history of smoking or of other known risk factors), recommend CT Chest at 6-12 months, then CT Chest at 18-24 months. (Reference: Josh) References: Josh Wisdom, et al. Guidelines for Management of Incidental Pulmonary Nodules Detected on CT Images: From the Fleischner Society 2017. Radiology. 2017;284(1):228-243.
--- NOTE | 2024-12-11 20:52 | CT_ITS ---
PROCEDURE INFORMATION: Exam: CT Thoracic Spine Without Contrast Exam date and time: 12/11/2024 9:06 PM Age: 69 years old Clinical indication: Pain in thoracic spine; Additional info: Spinal pain TECHNIQUE: Imaging protocol: Computed tomography of the thoracic spine without contrast. Radiation optimization: All CT scans at this facility use at least one of these dose optimization techniques: automated exposure control; mA and/or kV adjustment per patient size (includes targeted exams where dose is matched to clinical indication); or iterative reconstruction. COMPARISON: CR XR MULTIPLE SPINE 6+V 06/12/2019 11:19 AM FINDINGS: Bones/joints: No acute fracture. Normal alignment. Mild multilevel spondylosis. T1-T2: No significant disc bulge. No significant spinal canal stenosis. No significant neural foraminal stenosis. T2-T3: No significant disc bulge. No significant spinal canal stenosis. No significant neural foraminal stenosis. T3-T4: No significant disc bulge. No significant spinal canal stenosis. No significant neural foraminal stenosis. T4-T5: No significant disc bulge. No significant spinal canal stenosis. No significant neural foraminal stenosis. T5-T6: No significant disc bulge. No significant spinal canal stenosis. No significant neural foraminal stenosis. T6-T7: No significant disc bulge. No significant spinal canal stenosis. No significant neural foraminal stenosis. T7-T8: No significant disc bulge. No significant spinal canal stenosis. No significant neural foraminal stenosis. T8-T9: No significant disc bulge. No significant spinal canal stenosis. No significant neural foraminal stenosis. T10-T11: No significant disc bulge. No significant spinal canal stenosis. No significant neural foraminal stenosis. T11-T12: No significant disc bulge. No significant spinal canal stenosis. No significant neural foraminal stenosis. Soft tissues: Unremarkable. Lungs: Stable 7 mm left upper lobe pulmonary nodule. IMPRESSION: No acute thoracic abnormality.
[2024-12-11 21:01] LABS: Hematocrit 43.9 % (37.0-47.0); Hemoglobin 14.3 g/dL (12.2-16.2); Immature Granulocytes % 0.3 %; Mean Corpuscular HGB Conc 32.6 g/dL (31.8-35.4); Mean Corpuscular Hemoglobin 28.9 pg (27.0-31.2); Mean Corpuscular Volume 88.9 fl (81-99); Nucleated Red Blood Cells % 0 %; Platelet Count 231 K/mm3 (142-424); Red Blood Count 4.94 M/mm3 (4.20-5.40); Red Cell Distribution Width-SD 50.4 fL; White Blood Count 9.5 K/mm3 (4.8-10.8)
[2024-12-11 21:07] LABS: Alanine Aminotransferase 28 U/L (12-78); Albumin Level 4.4 g/dl (3.5-5.0); Albumin/Globulin Ratio 1.1 (1.1-1.8); Alkaline Phosphatase 73 U/L (38-126); Anion Gap 9.3 mEq/L (5-15); Aspartate Amino Transferase 54 U/L (14-36); Bilirubin,Total 0.4 mg/dl (0.2-1.3); Blood Urea Nitrogen 18 mg/dl (7-17); Calcium 10.2 mg/dl (8.4-10.2); Carbon Dioxide 31 mmol/L (22.0-30.0); Chloride 106 mmol/L (98-107); Creatinine Clearance Estimated 90 mL/min (50-200); Creatinine,Serum 0.60 mg/dl (0.52-1.04); Estimated Glomerular Filt Rate 99 ml/min (>60); GFR (African American) 120 ML/MIN (>60); Globulin 3.9 g/dL (1.3-3.2); Glucose 105 mg/dl (74-100); Lipase 120 U/L (23-300); Magnesium 1.8 mg/dl (1.6-2.3); Potassium 4.3 mmoL/L (3.5-5.1); Sodium 142 mmol/L (136-145); Total Protein,Serum 8.3 g/dl (6.3-8.2)
[2024-12-11 21:11] LABS: D-Dimer 0.74 ug/mL (0.0-0.5)
--- NOTE | 2024-12-11 21:11 | CT_ITS ---
PROCEDURE INFORMATION: Exam: CTA Head With Contrast, Arteriography Exam date and time: 12/11/2024 11:07 PM Age: 69 years old Clinical indication: Pain; Other: Concern for dissection; Headache TECHNIQUE: Imaging protocol: Computed tomographic angiography of the head with contrast. Exam focused on the arteries. 3D rendering (Not supervised by radiologist): MIP and/or 3D reconstructed images were created by the technologist. Radiation optimization: All CT scans at this facility use at least one of these dose optimization techniques: automated exposure control; mA and/or kV adjustment per patient size (includes targeted exams where dose is matched to clinical indication); or iterative reconstruction. Contrast material: ISOVUE; Contrast volume: 80 ml; Contrast route: INTRAVENOUS (IV); COMPARISON: CT HEAD/BRAIN WO CON 12/11/2024 9:02 PM FINDINGS: ANTERIOR CIRCULATION: Right internal carotid artery: Intracranial segment is patent with no significant stenosis. No aneurysm. Right middle cerebral artery: No occlusion or significant stenosis. No aneurysm. Right anterior cerebral artery: No occlusion or significant stenosis. No aneurysm. Left internal carotid artery: Intracranial segment is patent with no significant stenosis. No aneurysm. Left middle cerebral artery: No occlusion or significant stenosis. No aneurysm. Left anterior cerebral artery: No occlusion or significant stenosis. No aneurysm. POSTERIOR CIRCULATION: Right vertebral artery: No occlusion or significant stenosis. No aneurysm. Left vertebral artery: No occlusion or significant stenosis. No aneurysm. Basilar artery: No occlusion or significant stenosis. No aneurysm. Right posterior cerebral artery: No occlusion or significant stenosis. No aneurysm. Left posterior cerebral artery: No occlusion or significant stenosis. No aneurysm. Brain: No definite mass, mass effect, or midline shift. 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 Cerebral ventricles: No ventriculomegaly. Bones/joints: Unremarkable. No acute fracture. Soft tissues: Unremarkable. IMPRESSION: No large vessel stenosis or occlusion. PROCEDURE INFORMATION: Exam: CTA Neck With Contrast Exam date and time: 12/11/2024 11:07 PM Age: 69 years old Clinical indication: Pain; Other: Concern for dissection; Headache TECHNIQUE: Imaging protocol: Computed tomographic angiography of the neck with contrast. Exam focused on the cervical segments of the vasculature. 3D rendering (Not supervised by radiologist): MIP and/or 3D reconstructed images were created by the technologist. Radiation optimization: All CT scans at this facility use at least one of these dose optimization techniques: automated exposure control; mA and/or kV adjustment per patient size (includes targeted exams where dose is matched to clinical indication); or iterative reconstruction. Contrast material: ISOVUE; Contrast volume: 80 ml; Contrast route: INTRAVENOUS (IV); COMPARISON: 1. CT CERVICAL SPINE WO CON 12/11/2024 9:[address] chest without contrast 03/22/2029 at 2:47 p.m. FINDINGS: Right common carotid artery: No stenosis. No dissection or occlusion. Right internal carotid artery: No stenosis of the extracranial segment. No dissection or occlusion. Right external carotid artery: No occlusion or stenosis of the origin. Left common carotid artery: No stenosis. No dissection or occlusion. Left internal carotid artery: No stenosis of the extracranial segment. No dissection or occlusion. Left external carotid artery: No occlusion or stenosis of the origin. Right vertebral artery: No stenosis. No dissection or occlusion. Left vertebral artery: No stenosis. No dissection or occlusion. Soft tissues: Normal. No significant soft tissue swelling. Bones/joints: No acute fracture. Mild spondylosis. Lungs: Stable 7 x 8 mm left upper lobe pulmonary nodule. IMPRESSION: No stenosis or occlusion. REFERENCES: 1. Roberthosujey H, et al. Guidelines for Management of Incidental Pulmonary Nodules Detected on CT Images: From the Fleischner Society 2017. Radiology. 2017;284(1):228-243. 2. NASCET CRITERIA. The degree of stenosis in the cervical segment of the internal carotid artery is based on NASCET criteria. Normal is no stenosis. Mild is less than 50% stenosis. Moderate is 50-69% stenosis. Severe is 70% to 99% stenosis. Total occlusion is no detectable patent lumen.
--- NOTE | 2024-12-11 21:12 | CT_ITS ---
PROCEDURE INFORMATION: Exam: CTA Chest With Contrast Exam date and time: 12/11/2024 11:10 PM Age: 69 years old Clinical indication: Other: Concern for dissection; Additional info: Concern dissection TECHNIQUE: Imaging protocol: Computed tomographic angiography of the chest with contrast. Exam focused on the arteries. 3D rendering (Not supervised by radiologist): MIP and/or 3D reconstructed images were created by the technologist. Radiation optimization: All CT scans at this facility use at least one of these dose optimization techniques: automated exposure control; mA and/or kV adjustment per patient size (includes targeted exams where dose is matched to clinical indication); or iterative reconstruction. Contrast material: ISOVUE; Contrast volume: 80 ml; Contrast route: INTRAVENOUS (IV); COMPARISON: CT LUNG SCREENING 09/10/2022 11:26 AM FINDINGS: Pulmonary arteries: No pulmonary emboli. Aorta: Unremarkable. No aortic aneurysm. No aortic dissection. Lungs: Stable 0.7 cm left apical nodule. No consolidation. No masses. Pleural spaces: Unremarkable. No pneumothorax. No pleural effusion. Heart: Unremarkable. No cardiomegaly. No pericardial effusion. Lymph nodes: Unremarkable. No enlarged lymph nodes. Bones/joints: Unremarkable. No acute fracture. Soft tissues: Unremarkable. IMPRESSION: 1. No acute findings. 2. Stable left apical nodule.
[2024-12-11] MEDS: MORPHINE 4MG/ML SYRINGE 4 MG IV (21:25)
[2024-12-11] MEDS: ONDANSETRON 4MG/2ML VIAL 4 MG IV (21:25)
[2024-12-11 21:36] LABS: Troponin I < 0.01 ng/ml (0.00-0.034)
[2024-12-11 21:41] LABS: Hepatitis C Ab Qual. W/ RFX NEGATIVE (Negative)
[2024-12-11 21:55] LABS: NT Pro Brain Natriuretic Pep. 270 pg/mL (0-125)
[2024-12-11] MEDS: METHYLPREDNISOLONE SOD SUCC 125MG VIAL 125 MG IV (22:05)
[2024-12-11] MEDS: FAMOTIDINE 20MG/2ML VIAL 20 MG IV (22:05)
[2024-12-11] MEDS: IPRATROPIUM/ALBUTEROL 3 ML NEB 9 ML IH (22:32)
--- NOTE | 2024-12-11 22:50 | HMH.ITSTN ---
MD Mcintosh stated to this tick eradicator that patient should come to CT to be scanned for contrast studies at 2300.
[2024-12-11] MEDS: 0.9 % SODIUM CHLORIDE 50 ML VIAL 100 ML IV (23:16)
[2024-12-11] MEDS: SODIUM CHLORIDE 0.9% 10ML SYR (RAD ONLY) 10 ML IV (23:16)
[2024-12-11] MEDS: IOPAMIDOL-370 (76%);100ML BOTTLE 160 ML IV (23:16)
[2024-12-11] MEDS: METHOCARBAMOL 500MG TABLET 500 MG PO (23:18)
[2024-12-11] MEDS: ACETAMINOPHEN 500MG TAB 1000 MG PO (23:18)
--- NOTE | 2024-12-11 23:33 | PC.NURSE ---
Spoke to Slitter Operator r/t medication Carvedilol not in ED omni.
[2024-12-11] MEDS: CARVEDILOL 12.5MG TABLET 12.5 MG PO (23:45)
[2024-12-12] VITALS: BP 204/89; PULSE 79; RESP 14; O2SAT 92
[2024-12-12 00:10] VITALS: BP 186/89; PULSE 75; O2SAT 95
[2024-12-12] MEDS: MORPHINE 4MG/ML SYRINGE 4 MG IV (00:13)
[2024-12-12 00:14] VITALS: BP 186/89; PULSE 78; RESP 13; TEMP 37.2; O2SAT 91
[2024-12-12 00:29] LABS: Troponin I < 0.01 ng/ml (0.00-0.034)
--- NOTE | 2024-12-12 13:50 | ED_ITS ---
Discharge Plan Disposition Patient Disposition: Home, Self-Care Condition: Good Prescriptions Prescriptions: New methocarbamol 500 mg tablet 500 mg PO BID Qty: 20 0RF lidocaine 5 % adhesive patch,medicated 1 patch topical DAILY Qty: 15 0RF Rx Instructions: leave on most painful area for up to 12 hrs No Action venlafaxine 150 mg capsule,extended release 24hr 150 mg PO Patient Comments: TAKE 1 CAPSULE BY MOUTH ONCE DAILY rosuvastatin 20 mg tablet 20 mg PO Patient Comments: TAKE 1 TABLET BY MOUTH ONCE DAILY carvedilol 25 MG tablet 12.5 mg PO BID Patient Comments: venlafaxine [Effexor XR] 75 MG capsule,extended release 24hr 75 mg PO DAILY tiotropium-olodaterol 4 GM mist 2 puff inhalation DAILY aspirin 325 MG tablet 325 mg PO DAILY hydrochlorothiazide 25 MG tablet 12.5 mg PO DAILY 30 Days Qty: 15 2RF Referrals Follow up/Referrals: Provider,Referral, MD [Referring, Medical] - See instructions Activity Restrictions/Add. Instructions Additional Instructions/Restrictions: Take Tylenol and Motrin in addition to the muscle relaxer and lidocaine patches for your symptoms. Return to the emergency department for any acute or worsening pain. You can use heat and ice as needed. Would like you to check your blood pressure daily at home and if your blood pressure continues to be over 200 systolic you should follow-up with your primary care provider to get your blood pressure medications adjusted. Clinical Impressions Clinical Impression: Back pain Print Language Print Language: Malagasy Discharge ED Provider: Beverley Mcintosh Adult HPI <Laurel Zhou (ED), [employer] - Last Filed: 12/12/24 14:20> General Chief complaint: Chest Pain Stated complaint: Chest pain Time Seen by Provider: 12/11/24 20:39 Mode of Arrival: Ambulatory Source of Information: Patient Description of Symptoms (Recalled from ER Triage Doc. by RN): PT presents to the ED for evaluation of CP. PT stated she woke up with a stiff neck that progressed to CP and pain that radiated down L arm then progressed to both arms. Denies N,V. PT stated she has a hx of COPD and CHF. History of Present Illness HPI narrative: 69-year-old female presents to the ED today for complaint of left-sided neck pain that goes down her left arm across the back of her head and down her right arm. This started yesterday and then progressed and worsened this afternoon. Patient denies any chest pain but does have shortness of breath from the pain. No nausea, vomiting or diarrhea. She does have history of CHF and COPD. She has no clinical signs of CHF. Patient had an appointment 2 weeks ago where she set up surgery for her gallbladder and her blood pressure was high at that point 2. Related Data Home Medications ?Medication ?Instructions ?Recorded ?Confirmed carvedilol 25 mg tablet 12.5 mg PO BID Hypertension 06/02/17 11/21/24 venlafaxine 75 mg capsule,extended 75 mg PO DAILY Depr ession 06/02/17 11/21/24 release 24 hr (Effexor XR) aspirin 325 mg tablet 325 mg PO DAILY Heart diseas e 03/22/19 11/21/24 tiotropium 2.5 mcg-olodaterol 2.5 2 puff inhalation DA MAGDALENA allergies 05/22/20 11/21/24 mcg/actuation mist for inhalation rosuvastatin 20 mg tablet 20 mg PO 11/07/24 11/21/24 venlafaxine 150 mg 150 mg PO 11/07/24 11/21/24 capsule,extended release 24 hr Previous Rx's ?Medication ?Instructions ?Recorded hydrochlorothiazide 25 mg tablet 12.5 mg (1/2 x 25 mg) PO DAILY 03/24/19 Diuretic 30 days #15 tabs lidocaine 5 % topical patch 1 patch topical DAILY #15 ea 12/12/24 methocarbamol 500 mg tablet 500 mg PO BID #20 tabs 10/31 Allergies Allergy/AdvReac Type Severity Reaction Status Date / Time venom-honey bee Allergy Unknown Unknown Verified 11/21/24 14:01 allergy reaction venom-wasp Allergy Unknown Unknown Verified 11/21/24 14:01 allergy reaction Iodinated Contrast Media Allergy Hives Verified 12/11/24 22:10 [facility] <Laurel Zhou (ED), [employer] - Last Filed: 12/12/24 14:20> [facility] Disclaimer: The information contained in this section may have been updated after the patient was seen, as this information can be updated by other users. Medical History Depression Anxiety Stroke Diabetes Hypercholesterolemia Hypertension COPD (chronic obstructive pulmonary disease) Surgical History History of esophagogastroduodenoscopy (EGD) Hx of colonoscopy Hx of tubal ligation Hx of foot surgery Family History Other No significant family history Social History Smoking Status: Current every day smoker tobacco type: cigarettes packs per day: 1 second hand exposure: Yes alcohol intake: never substance use type: denies use current occupational status: employed and retired Travel in the last 8 weeks?: None household members: spouse housing: house current occupation: house current occupational exposures/hazards: No caffeine: No Have you lived/traveled outside [place] in past 30 days?: No Contact w/someone who lives/traveled outside US past 30 days?: No Exposure to someone with infectious disease in past 14 days?: No Do you have a fever (greater than 100.4 F or 38 C)?: No Have you tested positive for COVID-19?: No Exposed to someone with COVID-19 in past 14 days?: No Do you have a sore throat?: No Do you have a cough?: No Do you have any weakness?: No Do you have any diarrhea?: No Are you experiencing any unusual bleeding?: No Do you have any muscle aches/pain?: No Do you have any abdominal pain?: No Are you experiencing loss of taste or smell?: No Other Medical History Have you received the Flu Vaccine for this season: Yes Have you received the Pneumonia Vaccine: Yes <Laurel Zhou (ED), [employer] - Last Filed: 12/12/24 14:20> ROS Obtained: Yes Systems reviewed as appropriate & no additional complaints except as documented Constitutional Constitutional: Reports as per HPI Physical Exam <Laurel Zhou (ED), [employer] - Last Filed: 12/12/24 14:20> General General appearance: alert Head Head exam: normocephalic Eye Eye exam: Present PERRL and EOMI ENT ENT exam: Present normal oropharynx and mucous membranes moist Neck Neck exam: Present trachea midline and tenderness Respiratory Respiratory exam: Present normal lung sounds bilaterally Cardiovascular Cardiovascular exam: Present regular rate, normal rhythm, normal heart sounds, +S1 and +S2 Abdominal Exam Abdominal exam: Present soft and normal bowel sounds Extremities Exam Extremities exam: Present full ROM and normal capillary refill Back Exam Back exam: Present normal inspection and tenderness (Along C-spine and T-spine) Neurological Exam Neurological exam: Present alert and oriented X3 Skin Skin exam: Present warm, dry and intact Medical Decision Making <Laurelmariah Clarkcara (ED), [employer] - Last Filed: 12/12/24 14:20> Medical Records Screening: Per USPSTF and CDC recommendations, given the prevalence of disease in our region, it is our hospital?s policy to screen for HIV and viral Hepatitis for all patients aged 18 and over and those with ongoing risk factors. Alvin Inquiry Pt receiving controlled substance: No Vital Signs: 12/11/24 20:19 12/11/24 20:25 12/11/24 20:30 Temperature 97.5 F L Temperature Source Oral Pulse Rate 67 62 Pulse Rate [Left] 67 Respiratory Rate 17 Blood Pressure 225/100 H Blood Pressure [Left Arm] 262/106 H Blood Pressure Mean Blood Pressure Mean [Left Arm] 158 02 Sat by Pulse Oximetry 99 91 L Oxygen Delivery Method Room Air 12/11/24 20:30 12/11/24 21:06 12/11/24 21:26 Temperature Temperature Source Pulse Rate 62 60 72 Pulse Rate [Left] Respiratory Rate 20 16 14 Blood Pressure 184/75 H 184/75 H 210/130 H Blood Pressure [Left Arm] Blood Pressure Mean Blood Pressure Mean [Left Arm] 02 Sat by Pulse Oximetry 92 L 93 L 95 Oxygen Delivery Method Room Air 12/11/24 21:27 12/11/24 21:30 12/11/24 22:00 Temperature Temperature Source Pulse Rate 60 58 L 62 Pulse Rate [Left] Respiratory Rate 14 18 10 L Blood Pressure 210/130 H 197/80 H 192/82 H Blood Pressure [Left Arm] Blood Pressure Mean Blood Pressure Mean [Left Arm] 02 Sat by Pulse Oximetry 97 92 L 89 L Oxygen Delivery Method Room Air 12/11/24 22:25 12/11/24 22:30 12/11/24 23:20 Temperature Temperature Source Pulse Rate 64 80 Pulse Rate [Left] Respiratory Rate 20 18 Blood Pressure 192/82 H 208/82 H 224/85 H Blood Pressure [Left Arm] Blood Pressure Mean Blood Pressure Mean [Left Arm] 02 Sat by Pulse Oximetry 95 96 97 Oxygen Delivery Method Nasal Cannula Room Air 12/11/24 23:21 12/11/24 23:30 12/11/24 23:48 Temperature Temperature Source Pulse Rate 77 81 Pulse Rate [Left] Respiratory Rate 15 18 18 Blood Pressure 224/85 H 206/86 H 206/86 H Blood Pressure [Left Arm] Blood Pressure Mean 167 Blood Pressure Mean [Left Arm] 02 Sat by Pulse Oximetry 96 94 L Oxygen Delivery Method Room Air 12/12/24 00:00 12/12/24 00:10 12/12/24 00:14 Temperature 98.9 F Temperature Source Pulse Rate 79 75 78 Pulse Rate [Left] Respiratory Rate 14 13 Blood Pressure 204/89 H 186/89 H 186/89 H Blood Pressure [Left Arm] Blood Pressure Mean 164 Blood Pressure Mean [Left Arm] 02 Sat by Pulse Oximetry 92 L 95 Oxygen Delivery Method Room Air Lab Data Lab Results 12/11/24 20:18: WBC 9.5, RBC 4.94, Hgb 14.3, Hct 43.9, MCV 88.9, MCH 28.9, MCHC 32.6, RDW 15.6, Plt Count 231, MPV 10.2, Neut % (Auto) 57.2, Lymph % (Auto) 28.6, [place] % (Auto) 10.0 H, Eos % (Auto) 3.2, Baso % (Auto) 0.7, Neut # (Auto) 5.5, Lymph # (Auto) 2.7, [place] # (Auto) 1.0, Eos # (Auto) 0.3, Baso # (Auto) 0.1, D-Dimer 0.74 H, Sodium 142, Potassium 4.3, Chloride 106, Carbon Dioxide 31 H, Anion Gap 9.3, BUN 18 H, Creatinine 0.60, Estimated Creat Clear 90, Estimated GFR 99, Est GFR ( Amer) 120, Glucose 105 H, Calcium 10.2, Magnesium 1.8, Total Bilirubin 0.4, AST 54 H, ALT 28, Alkaline Phosphatase 73, Troponin I < 0.01, NT-Pro-B Natriuret Pep 270 H, Total Protein 8.3 H, Albumin 4.4, Globulin 3.9 H, Albumin/Globulin Ratio 1.1, Lipase 120, HCV Ab ESTER w/Rflx PCR Qn Negative, HIV Ag/Ab Combo Qual Negative 12/11/24 23:48: Troponin I < 0.01 12/11/24 20:18 12/11/24 20:18 Orders (Tests/Meds): ED MEDICATIONS Discontinued Medications Generic Name Dose Route Start Last Admin Trade Name Kavita PRN Reason Stop Dose Admin Acetaminophen 1,000 mg 12/11/24 23:01 12/11/24 23:18 Acetaminophen 500mg Tab PO 12/11/24 23:02 1,000 mg ONCE ONE Administration Albuterol/Ipratropium 9 ml 12/11/24 22:26 12/11/24 22:32 Ipratropium/Albuterol 3 Ml Neb IH 12/11/24 22:27 9 ml ONCE ONE Administration Carvedilol 12.5 mg 12/11/24 23:25 12/11/24 23:45 Carvedilol 12.5mg Tablet PO 12/11/24 23:26 12.5 mg ONCE ONE Administration Diphenhydramine HCl 50 mg 12/11/24 21:45 12/11/24 22:06 Diphenhydramine 50mg/Ml Vial IV 12/11/24 21:46 50 mg ONCE ONE Administration Famotidine 20 mg 12/11/24 21:47 12/11/24 22:05 Famotidine 20mg/2ml Vial IV 12/11/24 21:48 20 mg ONCE ONE Administration Iopamidol 160 ml 12/11/24 23:12 12/11/24 23:16 Iopamidol-370 (76%);100ml Bottle IV 12/11/24 23:13 160 ml ONCE ONE Administration Methocarbamol 500 mg 12/11/24 23:01 12/11/24 23:18 Methocarbamol 500mg Tablet PO 12/11/24 23:02 500 mg ONCE ONE Administration Methylprednisolone Sodium Succinate 125 mg 12/11/24 21:45 12/11/24 22:05 Methylprednisolone Sod Succ 125mg Vial IV 12/11/24 21:46 125 mg ONCE ONE Administration Morphine Sulfate 4 mg 12/11/24 20:52 12/11/24 21:25 Morphine 4mg/Ml Syringe IV 12/11/24 20:53 4 mg ONCE ONE Administration Morphine Sulfate 4 mg 12/11/24 23:59 12/12/24 00:13 Morphine 4mg/Ml Syringe IV 12/12/24 00:00 4 mg ONCE ONE Administration Ondansetron HCl 4 mg 12/11/24 20:52 12/11/24 21:25 Ondansetron 4mg/2ml Vial IV 12/11/24 20:53 4 mg ONCE ONE Administration Sodium Chloride 8 ml 12/11/24 21:47 Sodium Chloride 0.9% 10ml Vial IV 01/10/25 21:46 NEEDED PRN dilute pepcid Sodium Chloride 100 ml 12/11/24 23:12 12/11/24 23:16 0.9 % Sodium Chloride 50 Ml Vial IV 12/11/24 23:13 100 ml ONCE ONE Administration Sodium Chloride 10 ml 12/11/24 23:12 12/11/24 23:16 Sodium Chloride 0.9% 10ml Syr (Rad Only) IV 01/10/25 23:11 10 ml NEEDED PRN Administration Maintain IV Site ORDERS Category Date Time Status CT angio chest - dissection Stat Cat Scan 12/11/24 21:[address] angio head Stat Cat Scan 12/11/24 21:[address] angio neck Stat Cat Scan 12/11/24 21:[address] cervical spine wo con Stat Cat Scan 12/11/24 20:[address] head/brain wo con Stat Cat Scan 12/11/24 20:[address] lumbar spine wo con Stat Cat Scan 12/11/24 20:[address] thoracic spine wo con Stat Cat Scan 12/11/24 20:52 Completed BNP [NT Pro Brain Natriuretic Pep.] Stat Lab 12/11/24 20:18 Completed CBC [Complete Blood Count Auto Diff] Stat Lab 12/11/24 20:18 Completed Comprehensive Metabolic Panel Stat Lab 12/11/24 20:18 Completed D-Dimer Stat Lab 12/11/24 20:18 Completed HIV Combo Stat Lab 12/11/24 20:18 Completed Hepatitis C Ab Qual. W/ RFX Stat Lab 12/11/24 20:18 Completed Lipase Stat Lab 12/11/24 20:18 Completed Magnesium Stat Lab 12/11/24 20:18 Completed Trop I [Troponin I] Stat Lab 12/11/24 20:18 Completed Troponin I Q3H Lab 12/11/24 23:48 Completed Medical Decision Narrative: patient is a 69-year-old female presenting to the emergency department for evaluation of left neck pain that moves down left arm and radiates to right arm. Patient has initial elevated blood pressure, nontoxic-appearing and afebrile on arrival. Differential diagnosis includes ACS, muscle spasms, dissection, among others. Workup will be conducted with hematologic labs, specific imaging. Initial inventions include analgesics. Initial workup reviewed by me hematologic labs are remarkable for negative troponin, mildly elevated BNP. Imaging was being completed at the time that I left. I left patient in the care of Dr. Mcintosh. Patient was stable at that time. Dr. Mcintosh examined patient as well. <Beverley Mcintosh, DO - Last Filed: 12/13/24 15:41> Vital Signs: 12/11/24 20:19 12/11/24 20:25 12/11/24 20:30 Temperature 97.5 F L Temperature Source Oral Pulse Rate 67 62 Pulse Rate [Left] 67 Respiratory Rate 17 Blood Pressure 225/100 H Blood Pressure [Left Arm] 262/106 H Blood Pressure Mean Blood Pressure Mean [Left Arm] 158 02 Sat by Pulse Oximetry 99 91 L Oxygen Delivery Method Room Air 12/11/24 20:30 12/11/24 21:06 12/11/24 21:26 Temperature Temperature Source Pulse Rate 62 60 72 Pulse Rate [Left] Respiratory Rate 20 16 14 Blood Pressure 184/75 H 184/75 H 210/130 H Blood Pressure [Left Arm] Blood Pressure Mean Blood Pressure Mean [Left Arm] 02 Sat by Pulse Oximetry 92 L 93 L 95 Oxygen Delivery Method Room Air 12/11/24 21:27 12/11/24 21:30 12/11/24 22:00 Temperature Temperature Source Pulse Rate 60 58 L 62 Pulse Rate [Left] Respiratory Rate 14 18 10 L Blood Pressure 210/130 H 197/80 H 192/82 H Blood Pressure [Left Arm] Blood Pressure Mean Blood Pressure Mean [Left Arm] 02 Sat by Pulse Oximetry 97 92 L 89 L Oxygen Delivery Method Room Air 12/11/24 22:25 12/11/24 22:30 12/11/24 23:20 Temperature Temperature Source Pulse Rate 64 80 Pulse Rate [Left] Respiratory Rate 20 18 Blood Pressure 192/82 H 208/82 H 224/85 H Blood Pressure [Left Arm] Blood Pressure Mean Blood Pressure Mean [Left Arm] 02 Sat by Pulse Oximetry 95 96 97 Oxygen Delivery Method Nasal Cannula Room Air 12/11/24 23:21 12/11/24 23:30 12/11/24 23:48 Temperature Temperature Source Pulse Rate 77 81 Pulse Rate [Left] Respiratory Rate 15 18 18 Blood Pressure 224/85 H 206/86 H 206/86 H Blood Pressure [Left Arm] Blood Pressure Mean 167 Blood Pressure Mean [Left Arm] 02 Sat by Pulse Oximetry 96 94 L Oxygen Delivery Method Room Air 12/12/24 00:00 12/12/24 00:10 12/12/24 00:14 Temperature 98.9 F Temperature Source Pulse Rate 79 75 78 Pulse Rate [Left] Respiratory Rate 14 13 Blood Pressure 204/89 H 186/89 H 186/89 H Blood Pressure [Left Arm] Blood Pressure Mean 164 Blood Pressure Mean [Left Arm] 02 Sat by Pulse Oximetry 92 L 95 Oxygen Delivery Method Room Air Lab Data Lab Results 12/11/24 20:18: WBC 9.5, RBC 4.94, Hgb 14.3, Hct 43.9, MCV 88.9, MCH 28.9, MCHC 32.6, RDW 15.6, Plt Count 231, MPV 10.2, Neut % (Auto) 57.2, Lymph % (Auto) 28.6, [place] % (Auto) 10.0 H, Eos % (Auto) 3.2, Baso % (Auto) 0.7, Neut # (Auto) 5.5, Lymph # (Auto) 2.7, [place] # (Auto) 1.0, Eos # (Auto) 0.3, Baso # (Auto) 0.1, D-Dimer 0.74 H, Sodium 142, Potassium 4.3, Chloride 106, Carbon Dioxide 31 H, Anion Gap 9.3, BUN 18 H, Creatinine 0.60, Estimated Creat Clear 90, Estimated GFR 99, Est GFR ( Amer) 120, Glucose 105 H, Calcium 10.2, Magnesium 1.8, Total Bilirubin 0.4, AST 54 H, ALT 28, Alkaline Phosphatase 73, Troponin I < 0.01, NT-Pro-B Natriuret Pep 270 H, Total Protein 8.3 H, Albumin 4.4, Globulin 3.9 H, Albumin/Globulin Ratio 1.1, Lipase 120, HCV Ab ESTER w/Rflx PCR Qn Negative, HIV Ag/Ab Combo Qual Negative 12/11/24 23:48: Troponin I < 0.01 Orders (Tests/Meds): ED MEDICATIONS Discontinued Medications Generic Name Dose Route Start Last Admin Trade Name Kavita PRN Reason Stop Dose Admin Acetaminophen 1,000 mg 12/11/24 23:01 12/11/24 23:18 Acetaminophen 500mg Tab PO 12/11/24 23:02 1,000 mg ONCE ONE Administration Albuterol/Ipratropium 9 ml 12/11/24 22:26 12/11/24 22:32 Ipratropium/Albuterol 3 Ml Neb IH 12/11/24 22:27 9 ml ONCE ONE Administration Carvedilol 12.5 mg 12/11/24 23:25 12/11/24 23:45 Carvedilol 12.5mg Tablet PO 12/11/24 23:26 12.5 mg ONCE ONE Administration Diphenhydramine HCl 50 mg 12/11/24 21:45 12/11/24 22:06 Diphenhydramine 50mg/Ml Vial IV 12/11/24 21:46 50 mg ONCE ONE Administration Famotidine 20 mg 12/11/24 21:47 12/11/24 22:05 Famotidine 20mg/2ml Vial IV 12/11/24 21:48 20 mg ONCE ONE Administration Iopamidol 160 ml 12/11/24 23:12 12/11/24 23:16 Iopamidol-370 (76%);100ml Bottle IV 12/11/24 23:13 160 ml ONCE ONE Administration Methocarbamol 500 mg 12/11/24 23:01 12/11/24 23:18 Methocarbamol 500mg Tablet PO 12/11/24 23:02 500 mg ONCE ONE Administration Methylprednisolone Sodium Succinate 125 mg 12/11/24 21:45 12/11/24 22:05 Methylprednisolone Sod Succ 125mg Vial IV 12/11/24 21:46 125 mg ONCE ONE Administration Morphine Sulfate 4 mg 12/11/24 20:52 12/11/24 21:25 Morphine 4mg/Ml Syringe IV 12/11/24 20:53 4 mg ONCE ONE Administration Morphine Sulfate 4 mg 12/11/24 23:59 12/12/24 00:13 Morphine 4mg/Ml Syringe IV 12/12/24 00:00 4 mg ONCE ONE Administration Ondansetron HCl 4 mg 12/11/24 20:52 12/11/24 21:25 Ondansetron 4mg/2ml Vial IV 12/11/24 20:53 4 mg ONCE ONE Administration Sodium Chloride 8 ml 12/11/24 21:47 Sodium Chloride 0.9% 10ml Vial IV 01/10/25 21:46 NEEDED PRN dilute pepcid Sodium Chloride 100 ml 12/11/24 23:12 12/11/24 23:16 0.9 % Sodium Chloride 50 Ml Vial IV 12/11/24 23:13 100 ml ONCE ONE Administration Sodium Chloride 10 ml 12/11/24 23:12 12/11/24 23:16 Sodium Chloride 0.9% 10ml Syr (Rad Only) IV 01/10/25 23:11 10 ml NEEDED PRN Administration Maintain IV Site ORDERS Category Date Time Status CT angio chest - dissection Stat Cat Scan 12/11/24 21:[address] angio head Stat Cat Scan 12/11/24 21:[address] angio neck Stat Cat Scan 12/11/24 21:[address] cervical spine wo con Stat Cat Scan 12/11/24 20:[address] head/brain wo con Stat Cat Scan 12/11/24 20:[address] lumbar spine wo con Stat Cat Scan 12/11/24 20:[address] thoracic spine wo con Stat Cat Scan 12/11/24 20:52 Completed BNP [NT Pro Brain Natriuretic Pep.] Stat Lab 12/11/24 20:18 Completed CBC [Complete Blood Count Auto Diff] Stat Lab 12/11/24 20:18 Completed Comprehensive Metabolic Panel Stat Lab 12/11/24 20:18 Completed D-Dimer Stat Lab 12/11/24 20:18 Completed HIV Combo Stat Lab 12/11/24 20:18 Completed Hepatitis C Ab Qual. W/ RFX Stat Lab 12/11/24 20:18 Completed Lipase Stat Lab 12/11/24 20:18 Completed Magnesium Stat Lab 12/11/24 20:18 Completed Trop I [Troponin I] Stat Lab 12/11/24 20:18 Completed Troponin I Q3H Lab 12/11/24 23:48 Completed Medical Decision Narrative: patient is a 69-year-old female presenting to the emergency department for evaluation of left neck pain that moves down left arm and radiates to right arm. Patient has initial elevated blood pressure, nontoxic-appearing and afebrile on arrival. Differential diagnosis includes ACS, muscle spasms, dissection, among others. Workup will be conducted with hematologic labs, specific imaging. Initial inventions include analgesics. Initial workup reviewed by ky hematologic labs are remarkable for negative troponin, mildly elevated BNP. Imaging was being completed at the time that I left. I left patient in the care of Dr. Mcintosh. Patient was stable at that time. Dr. Mcintosh examined patient as well. Beverley Mcintosh, DO I assumed care of this patient at 10 PM. Labs were reviewed and interpreted by myself: CBC showed no leukocytosis, hemoglobin was stable. D-dimer elevated at 0.74. CMP was unremarkable. BNP mildly elevated at 270. Initial troponin less than 0.01, second troponin less than 0.01. CXR was reviewed and interpreted by myself and showed no acute pathology Imaging was reviewed and interpreted by myself including CT head, CT cervical spine, CT thoracic spine, CT lumbar spine as well as CT chest, CT head and neck. Imaging showed no acute pathology. EKG was reviewed and interpreted by myself and showed normal sinus rhythm at [address] or T wave changes concerning for ischemia. Patient was given multimodal pain control in the emergency department, at this time I feel that her symptoms are likely musculoskeletal in nature. Patient was sent with symptomatic management return precautions were discussed but at this time I felt the patient was appropriate for discharge home. Critical Care <Laurel Zhou (ED), [employer] - Last Filed: 12/12/24 14:20> Critical Care Time Critical Care Time: No
== END 2024-12-12 00:22 | disposition home or self-care (01) ==
PROVIDERS: Nurse Practitioner; Emergency Provider Student in an Organized Health Care Education/Training Program; PCP Internal Medicine Adolescent Medicine
DX: M54.2 Cervicalgia (principal); M79.601 Pain in right arm; M79.602 Pain in left arm; F17.210 Nicotine dependence, cigarettes, uncomplicated
CPT/HCPCS: 70450; 70496; 70498; 71275; 72125; 72128; 72131; 80053; 83690; 83735; 83880; 84484; 85025; 85378; 86803; 87389; 93005; 96374; 96375; 96376; 99285; J1200; J2270; J2405; J2919; Q9967

== ENCOUNTER 2024-12-14 08:50 | Outpatient (CLI) | payer MEDICARE, SELFPAY ==
--- OUTSIDE RECORDS SUMMARY | 2024-10-24 07:15 | XMS_ITS ---
Author Organization [facility] PE D DAVID Address [address] [facility] [address] [facility] [address] [place] [address] Care Team Providers Care Manager Mountain Name Role Phone Jorge A Souza Primary Care Provider David Sesay Unavailable [phone] Allergies No Known Allergies Reason For Referral Reason dr elliott for egd Diagnosis 1 Epigastric pain (R10 .13) Referral Organization [facility] PED DAVID Referring Provider First Name Jorge A Referring Provider Last Name Harley Referring Provider Speciality Internal M edicine Referred Organization [facility] Referred Address [address], [place],[address],[place] Referred Provider Specialty General Surg [place] General [...] review and pick correct strength-formula tion from [employer] options. If intended option is not shown, discontinue and re-order from Quick Search* 04/17/2019 Active KONSYL 100% DIRECTED ORALLY 3 TIMES A DAY; Duration: 7 DAY(S) once a day *Please review for potential replacement for e-prescription and drug interaction check* Active Biotin 95530 MCG 1 tab(s) orally once a day [...] W/U Status Risk Notes Problem Iron deficiency anemia, unspecified iron deficiency anemia type (D50.9) Active confirmed Vital Signs Temperature 97.6 degrees Fahrenheit 10/25/19 25 Blood pressure systolic 132 mm Hg 10/25/19 25 Blood pressure diastolic 64 mm Hg 025 Heart Rate 78 /min 10/24/2024 Height 5 ft 7.5 in in 10/24/2024 Weight 241.3 lbs 10/24/2024 BMI 37.23 kg/m2 10/24/2024 Encounters Encounter Location Date Provider Diagnosis [facility] PED DAVID [address] [place] [address] 10/24/2024 Jorge A Souza Epigastric pain R10.13 [...] dr gabriel rm for egd, [address] [facility], [place], [address], Next Appt Details Follow Up: prn, Reason: Provider Name:Jorge A Souza, 03/06/2025 10:15:00 AM, [address], [address], [place], [address], Progress Notes * Janice CRUZDOB:1955 ( 69 yo F)Acc No.[id number]:10/24/2024 Progress Notes Patient: Janice THOMPSON Provider: Mary Souza MD :1955 A ge:69 Y S ex:Female Date:10/24/2024 Address:[address] [place] [address] RD , [id number] Subjective: * Chief Complaints: * 1 . [...] Mother: . M aternal Grand Father: , [place], diagnosed with Heart Disease. M aternal Grand Mother: . P aternal aunt: alive, stroke. M aternal uncle: , [place]. M aternal aunt: , diabetes. S iblings: alive, 5 brother [place],lung cancer, 3 sisters -[place] and cirrhosis of the liver older brother-Parkinson's Diseaseyoungest brother-black xeyl-nsnytujdnlaudmr-ujpzlnevv cancersister-, diagnosed with Cancer. C toniazack: alive. 5 brother(s) , 4 sister(s) . 2 son(s) , 1 daughter(s) - healthy. . one brother currently has esophageal cancer. * Social History: S moking A re you a: c urrent smoker, H ow often do you smoke cigarettes? e very day, H ow many cigarettes a day do you smoke? 1 -20. R ecreational drug use: no. Exercise: no. [...] prescription and drug interaction check*, Taking Biotin 97703 MCG Tablet 1 tab(s) orally once a [...] *Please review and pick correct strength-formulation from [employer] options. If intended option is not shown, [...] 10/24/2024 Generated for Shayyi david/Juan/eTransmitting on: 0 12/14/2024 08:52 AM EDT History and Physical Notes * [...]
--- OUTSIDE RECORDS SUMMARY | 2024-12-05 05:30 | XMS_ITS ---
Author Organization [facility] PE D DAVID Address [address] [place] [address] Care Team Providers Care Lead Python Developer Name Role Phone Jorge A Souza Primary Care Provider David Sesay Unavailable [phone] Allergies No Known Allergies REASON FOR VISIT [...] day; Duration: 90 days prn Active Biotin 50864 MCG 1 tab(s) orally once a day [...] Status W/U Status Risk Notes Problem Essential hypertension (10451046) Essential (primary) hypertension (I10) Active confirmed Vital Signs Temperature 95.9 degrees Fahrenheit 12/06/19 25 Blood pressure systolic 120 mm Hg 12/06/19 25 Blood pressure diastolic 70 mm Hg 025 Heart Rate 68 /min 12/05/2024 Height 5 ft 7.5 in in 12/05/2024 Weight 241.2 lbs 12/05/2024 BMI 37.22 kg/m2 12/05/2024 Encounters Encounter Location Date Provider Diagnosis [facility] [address] [place] [address] 12/05/2024 Jorge A Souza Essential (primary) hypertension [...] [address], [address], [place], [address], Progress Notes * Janice CRUZDOB:1955 ( 69 yo F)Acc No.[id number]:12/05/2024 Progress notes Patient: Janice THOMPSON Provider: Mary Souza MD :1955 A ge:69 Y S ex:Female Date:12/05/2024 Address:[address] [place] [address] RD , [id number] Subjective: * Chief Complaints: * 1 . [...] Mother: . M aternal Grand Father: , [place], diagnosed with Heart Disease. M aternal Grand Mother: . P aternal aunt: alive, stroke. M aternal uncle: , [place]. M aternal aunt: , diabetes. S iblings: alive, 5 brother [place],lung cancer, 3 sisters -[place] and cirrhosis of the liver older brother-Parkinson's Diseaseyoungest brother-black nemz-lckyvpqlyiuhjzb-ltqubntcs cancersister-, diagnosed with Cancer. C [place]: alive. [...] to Pharmacist: once a day, Taking Biotin 93343 MCG Tablet 1 tab(s) orally once a [...] MD Date: 0 12/05/2024 Generated for Porter hernandez/Juan/Davieransmitting on: 0 12/14/2024 08:52 AM EDT History [...]
--- OUTSIDE RECORDS SUMMARY | 2024-12-14 08:52 | XMS_ITS | Patient Health Record ---
Author Organization [facility] Address [address] [place] [address] Care Team Providers Care Account Installation Specialist Name Role Phone Jorge A Souza Primary Care Provider David Sesay Unavailable [phone] Migration, Provider Unavailable Unavailable Allergies No Known Allergies Results Component Value Reference Range Notes LIPID PANEL, STANDARD (7600) Reviewed date:03/30/2024 02:37:20 PM Interpretation: Performing Lab:CY[facility]NEY, [facility] [id number] [facility], John MelendezGjtoRU[address] Han Busch Notes/Report: NON-FASTING; NON-FASTING; NON-FASTING FASTING:YES FASTING: YES CHOLESTEROL, TOTAL 90 <200 mg/dL HDL CHOLESTEROL 48 > OR = 50 mg/dL TRIGLYCERIDES 89 <150 mg/dL LDL-CHOLESTEROL 25 Reference range: <100 Desirable range <100 mg/dL for primary prevention; <70 mg/dL for patients with CHD or diabetic patients with > or = 2 CHD risk factors. LDL-C is now calculated using the Juana calculation, which is a validated novel method providing better accuracy than the Friedewald equation in the estimation of LDL-C. Jose LINDER et al. JOB. 2013;310(19): 1690-3851 (http://education.[employer].Family Help [facility] Wellness/faq/MOU838) CHOL/HDLC RATIO 1.9 <5.0 (calc) NON HDL CHOLESTEROL 42 <130 mg/dL (calc) For patients with diabetes plus 1 major ASCVD risk factor, treating to a non-HDL-C goal of <100 mg/dL (LDL-C of <70 mg/dL) is considered a therapeutic option. COMPREHENSIVE METABOLIC PANMichelle Campbell ([id number]) Reviewed date:03/30/2024 02:37:20 PM Interpretation: Performing Lab:[facility]NEY [facility]le[facility]y [id number] Ma-papeterieteCentro [facility], [facility] ClinicWbvxDB[address] Han Busch Notes/Report: NON-FASTING; NON-FASTING; NON-FASTING FASTING:YES [...] 31 10-35 U/L ALT 22 6-29 U/L HEMOGLOBIN A1c (496) Reviewed date:03/30/2024 02:37:20 PM Interpretation: Performing Lab:[facility] [id number] Ma-papeterietel [facility], [place] XijpLU[address] Han Busch Notes/Report: NON-FASTING; NON-FASTING; NON-FASTING FASTING:YES [...] for children. VITAMIN B12/FOLATE, SERUM PA ANA (1265) Reviewed date:08/30/2024 02:15:11 PM Interpretation: Performing Lab:CYDNEY, [facility] [id number] [facility], KnodiumFiawOG[address] Han Busch Notes/Report: NON-FASTING; NON-FASTING; NON-FASTING; NON-FASTING; NON-FAST FASTING:YES FASTING: YES VITAMIN B12 739 152-2048 pg/mL Please Note: Although the reference range [...] Range Low: <3.4 Borderline: 3.4-5.4 Normal: >5.4 HEMOGLOBIN A1c (496) Reviewed date:08/30/2024 02:15:11 PM Interpretation: Performing Lab:CYDNEY, [facility] [id number] [facility], KnodiumYoytYD[address] Han Busch Notes/Report: FASTING: YES FASTING:YES NON-FASTING; NON-FASTING; NON-FASTING; NON-FASTING; NON-FAST HEMOGLOBIN A1c 6.0 <5.7 % For someone [...] A1c for diagnosis of diabetes for children. CBC (INCLUDES DIFF/PLT) (639 9) Reviewed date:08/30/2024 02:15:11 PM Interpretation: Performing Lab:CYDNEY, [facility] Eidt0921 [facility] ClinicGtwaZG[address] Han Busch Notes/Report: FASTING: YES FASTING:YES NON-FASTING; NON-FASTING; NON-FASTING; NON-FASTING; NON-FAST WHITE BLOOD CELL COUNT 9.2 3.8-10.8 Thousand/ [...] MPV 9.9 7.5-12.5 fL ABSOLUTE NEUTROPHILS 5906 7486-3728 cells/uL ABSOLUTE LYMPHOCYTES 5926 981-9271 cells/uL ABSOLUTE MONOCYTES 892 200-950 cells/uL ABSOLUTE EOSINOPHILS 442 15-500 cells/uL ABSOLUTE BASOPHILS 74 0-200 cells/uL NEUTROPHILS 64.2 LYMPHOCYTES 20.5 MONOCYTES 9.7 EOSINOPHILS 4.8 BASOPHILS 0.8 COMPREHENSIVE METABOLIC PANE (31568) Reviewed date:08/30/2024 02:15:11 PM Interpretation: Performing Lab:[facility]1355 Ma-papeterietel [facility], [facility] HealthSvfbQD[address] Han Bushc Notes/Report: NON-FASTING; NON-FASTING; NON-FASTING; NON-FASTING; NON-FAST FASTING:YES [...] 23 10-35 U/L ALT 15 6-29 U/L LIPID PANEL, STANDARD (7600) Reviewed date:08/30/2024 02:15:11 PM Interpretation: Performing Lab:CYDNEY, [facility]-John [address], John GeorgesFozwUS[address] Han Busch Notes/Report: NON-FASTING; NON-FASTING; NON-FASTING; NON-FASTING; [...] LDL-C. Jose SS et al. JOB. 2013;310(19): 7969-7770 (http://education.[employer].Family Help & Wellness/faq/QSO895) CHOL/HDLC RATIO 1.7 <5.0 (calc) NON HDL CHOLESTEROL 44 <130 mg/dL (calc) For patients with diabetes plus 1 major ASCVD risk factor, treating to a non-HDL-C goal of <100 mg/dL (LDL-C of <70 mg/dL) is considered a therapeutic option. IRON, TIBC AND FERRITIN LLOYD Campbell (4690) Reviewed date:08/30/2024 02:15:11 PM Interpretation: Performing Lab:[facility] [address]by[address], [facility] HealthQvyqFP[address] Han Busch Notes/Report: NON-FASTING; NON-FASTING; NON-FASTING; NON-FASTING; NON-FAST FASTING:YES FASTING: YES IRON, TOTAL 27 45-160 mcg/dL IRON BINDING CAPACITY 431 250-450 mcg/dL (robina c) % SATURATION 6 16-45 % (calc) FERRITIN 7 16-288 ng/mL THYROID PANEL WITH TSH (7444 ) Reviewed date:08/30/2024 02:15:10 PM Interpretation: Performing Lab:[facility] [id number], [facility] HealthSreoWH[address] Han Busch Notes/Report: NON-FASTING; NON-FASTING; NON-FASTING; NON-FASTING; NON-FAST FASTING:YES FASTING: YES T3 UPTAKE 30 22-35 % T4 (THYROXINE), TOTAL 6.6 5.1-11.9 mcg/dL FREE T4 INDEX (T7) 2.0 1.4-3.8 TSH 2.43 0.40-4.50 mIU/L COMPREHENSIVE METABOLIC PANE L (88027) Reviewed date:02/08/2024 12:52:58 PM Interpretation: Performing Lab:[facility] Ffqs3426 Ma-[address]el [facility], [facility] HealthJcfhSB[address] Han Busch Notes/Report: NON-FASTING; NON-FASTING FASTING:YES FASTING: [...] Reviewed date:02/08/2024 12:52:58 PM Interpretation: Performing Lab:CYDNEY, [facility], [facility] CenterWigwCN[address] Han Busch Notes/Report: NON-FASTING; NON-FASTING FASTING:YES FASTING: [...] LDL-C. Jose SS et al. JOB. 2013;310(19): 8618-7561 (http://education.[employer].Family Help & Wellness/faq/SCH493) CHOL/HDLC RATIO 2.1 <5.0 (calc) NON HDL [...] Duration: 90 DAYS prn 04/17/2019 Active Biotin 31485 MCG 1 tab(s) orally once a day [...] specified complication (E11.69) Active confirmed Problem Obesity (536288814) Obesity, unspecified (E66.9) Active confirmed Problem Essential hypertension (53901109) Essential (primary) hypertension (I10) Active confirmed Problem Simple chronic bronchitis (42921914) Simple chronic bronchitis (J41.0) Active confirmed Problem Acute cystitis (36644681) Acute cystitis without hematuria (N30.00) Active confirmed Problem Nicotine dependence (40298515) Personal history of nicotine dependence (Z87.891) Active confirmed Problem Gastroesophageal reflux disease (337493469) GERD (gastroesophage al reflux disease) (K21.9) Active confirmed Problem Mixed anxiety and depressive disorder (441563186) Depression with anxiety (F41.8) Active confirmed Problem Hyperlipidemia (58970760) Hyperlipemia, idiopathic familial (E78.5) Active confirmed Problem Essential hypertension (05876949) Hypertension, essential (I10) Active confirmed Problem Urinary frequency (692551312) Urinary frequency (R35.0) Active confirmed Problem Acute exacerbation of chronic obstructive airways disease (461572055) COPD exacerbation (J44.1) Active confirmed Problem Mammography abnormal (621463153) Abnormal mammogram of right breast (R92.8) Active confirmed Problem Body mass index 40+ - morbidly obese (451784847) BMI 40.0-44.9, adult (Z68.41) Active confirmed Problem COPD - Chronic obstructive pulmonary disease (37989701) Chronic obstructive pulmonary disease, unspecified COPD type (J44.9) Active confirmed Problem Tobacco user (849028516) Cigarette nicotine dependence without complication (F17.210) Active confirmed Problem Iron deficiency anemia (99142877) Iron deficiency anemia, unspecified iron deficiency anemia type (D50.9) Active confirmed Problem Sciatica (38987819) Sciatica of left side (M54.32) Active confirmed Problem SI - Stress incontinence (36125790) Stress incontinence (N39.3) Active confirmed Problem Pain in pelvis (55517028) Pelvic pain (R10.2) Active confirmed Problem Recurrent major depression in full remission (80582473) Recurrent major depressive disorder, in full remission (F33.42) Active confirmed Problem Mixed incontinence (737906416) Mixed stress and urge urinary incontinence (N39.46) Active confirmed Problem Microcytic anemia (132644427) Microcytic anemia (D50.9) Active confirmed Problem Adult health examination (235234686) Healthcare maintenance (Z00.00) Active confirmed Problem Allergic rhinitis (10090393) Allergic sinusitis (J30.9) Active confirmed Vital Signs Heart Rate 68 /min 12/05/2024 Temperature 95.9 degrees Fahrenheit 12/05/2024 Blood pressure diastolic 70 mm Hg 12/05/2024 Height 5 ft 7.5 in in 12/05/2024 Blood pressure systolic 120 mm Hg 12/05/2024 Weight 241.2 lbs 12/05/2024 BMI 37.22 kg/m2 12/05/2024 Encounters Encounter Location Date Provider Diagnosis [facility] [address] [place] [address] 08/11/2024 Provider Migration Chronic obstructive pulmonary disease, unspecified COPD type J44.9 [facility] [address] [place] [address] 02/06/2024 Jorge Aholly Souza Hyperlipemia, idiopathic familial E78.5 ; Hypertension, essential I10 ; Personal history of nicotine dependence Z87.891 and Encounter for immunization Z23 [facility] [address] [place], [place] [address] 03/28/2024 Jorge Aholly Souza Hyperlipemia, idiopathic familial E78.5 ; Type 2 diabetes mellitus with other specified complication E11.69 ; Chronic obstructive pulmonary disease, unspecified COPD type J44.9 and Immunization(s) administered Z23 [facility] [address] [facility] [address] [place] [address] 08/29/2024 Jorge A Besson Hypertension, essential I10 ; Chronic obstructive pulmonary disease, unspecified COPD type J44.9 ; Microcytic anemia D50.9 ; Type 2 diabetes mellitus with other specified complication E11.69 ; Recurrent major depressive disorder, in full remission F33.42 and Dizziness R42 [facility] [address] [facility] [address] [place] [address] 10/24/2024 Jorge A Besson Epigastric pain R10.13 and Iron deficiency anemia, unspecified iron deficiency anemia type D50.9 [facility] [address] [facility] [address] [place] [address] 12/05/2024 Jorge A Besson Essential (primary) hypertension I10 ; Depression with anxiety F41.8 ; Cigarette nicotine dependence without complication F17.210 ; Hyperlipemia, idiopathic familial E78.5 and Encntr for general adult medical exam w/o abnormal findings Z00.00 [facility] [address] [address] 01/04/2024 Jorge A Besson [facility] [address] [address] 09/26/2024 Jorge A Besson [facility] [address] [address] 10/10/2024 Jorge A Besson Hyperlipemia, idiopathic familial [...] No changes in plan. No edema noted 10/10/2024 Hyperlipemia, idiopathic familial (ICD-10 - E78.5) [...] - Mood is stable - Continue venlafaxine 08/29/2024 Chronic obstructive pulmonary disease, unspecified COPD type (ICD-10 - J44.9) Stable on current inhalers. Not due yet for low-dose CT screening. She will have her Medicare wellness exam in October and we will reevaluate 12/05/2024 Cigarette nicotine dependence without complication (ICD-10 [...] but states she will quit someday. 08/29/2024 Type 2 diabetes mellitus with other specified complication (ICD-10 - E11.69) 03/28/2024 Immunization(s) administered (ICD-10 - Z23) 02/06/2024 Encounter for immunization (ICD-10 - Z23) 12/05/2024 Hyperlipemia, idiopathic familial (ICD-10 - E78.5) - Continue statin 12/05/2024 Encntr for general adult medical exam w/o abnormal findings (ICD-10 - Z00.00) - No memory or fall concerns - Metabolic labs and vaccines UTD HRA reviewed. Up-to-date with cancer screening. No recent falls. On appropriate depression medication. is healthcare surrogate 08/29/2024 Recurrent major depressive disorder, in full remission (ICD-10 - F33.42) 08/29/2024 Dizziness (ICD-10 - R42) Dizziness is improved since returning to [place]. Check labs as noted. I will review [...] PANEL, STANDARD (7600) 09/09/2023 COMPREHENSIVE METABOLIC PANEL (45775) HEMOGLOBIN A1c (496) 09/09/2023 Future Test Test Name Order Date Mammogram : Diagnostic 12/29/2006 Mammogram : Bilateral 01/25/2011 Next Appt Details Provider Name:Jorge A Souza, 03/06/2025 10:15:00 AM, [address], [place], [address], Insurance Providers Payer Name Payer Address Payer Phone Subscriber Number Group Number Insured Name Patient Relationship to Insured Coverage Start Date Coverage End Date [employer] [address] [place] [address] [id number] Janice Cruz Self - patient is [...]
== END 2024-12-14 23:59 | disposition home or self-care (01) ==
LOC: PREOP 08:50
PROVIDERS: PCP Internal Medicine Adolescent Medicine; Visit Provider Surgery
DX: R69 Illness, unspecified (principal)

== ENCOUNTER 2024-12-20 07:34 | Day surgery (SDC) | payer MEDICARE, SELFPAY ==
[2024-12-14 10:39] VITALS: BMI 37.5
[2024-12-20] VITALS (13 sets, daily range): BP systolic 148–207; BP diastolic 52–95; PULSE 62–82; RESP 16–18; TEMP 36.2–36.4; O2SAT 92–98
--- NOTE | 2024-12-20 08:03 | EXP.OP.NOTE ---
Date of procedure: 12/20/24 Pre-op Diagnosis:: Symptomatic cholelithiasis Post-op Diagnosis:: Chronic calculous cholecystitis Procedure performed:: Laparoscopic cholecystectomy Surgeon:: Hans Cha MD GAS PIT WORKER:: Jarett Hunter Anesthesia: GETA Estimated blood loss (mL): 15 Operative findings:: Severe infundibular thickening Pericholecystic fat stranding Operative note:: After informed consent was obtained, the patient was taken to the operating room and placed in the supine position. General anesthesia was induced and the abdomen was prepped and draped in a sterile fashion. After infiltration with local anesthetic an supraumbilical incision was made. A Veress needle was placed in position. The abdomen was insufflated. A 5 mm optical trocar was placed in position. Under direct visualization, a 12 mm trocar was placed in the subxiphoid position and 2 additional 5 mm trocars were placed in the right upper quadrant. The gallbladder was elevated up and over the liver margin. The tissue around the cystic duct was carefully dissected. 3 clips were placed proximally and the duct was transected with harmonic evelio. The cystic artery was controlled in a similar manner. Harmonic evelio were then utilized to dissect the gallbladder away from the liver margin. The gallbladder was placed in a retrieval bag and removed through the subxiphoid trocar site. The right upper quadrant was thoroughly irrigated. No active bleeding or bile leak was noted. Fascia at the subxiphoid trocar site was reapproximated utilizing the NeoClose device. The remaining trocars were removed. All wounds were irrigated and skin was closed with 4-0 Monocryl in an interrupted mattress fashion to facilitate hemostasis. Dressings were applied. The patient's anesthetic agents were reversed and extubation was completed prior to transfer to recovery in stable condition. Condition: stable Disposition: PACU Specimens:: Gallbladder Complications:: No immediate
--- NOTE | 2024-12-20 08:29 | EXP.ANES.CKL ---
[facility] Disclaimer: The information contained in this section may have been updated after the patient was seen, as this information can be updated by other users. Medical History Depression Anxiety Stroke Diabetes Hypercholesterolemia Hypertension COPD (chronic obstructive pulmonary disease) Surgical History History of esophagogastroduodenoscopy (EGD) Hx of colonoscopy Hx of tubal ligation Hx of foot surgery Family History Other Family history of CVA Family history of cancer Family history of diabetes mellitus Family history of heart disease Social History Smoking Status: Current every day smoker tobacco type: cigarettes packs per day: 1 second hand exposure: Yes alcohol intake: never substance use type: denies use current occupational status: retired Travel in the last 8 weeks?: Inside the [place] household members: spouse housing: house current occupation: house current occupational exposures/hazards: No caffeine: No Have you lived/traveled outside US in past 30 days?: No Contact w/someone who lives/traveled outside US past 30 days?: No Exposure to someone with infectious disease in past 14 days?: No Do you have a fever (greater than 100.4 F or 38 C)?: No Have you tested positive for COVID-19?: No Exposed to someone with COVID-19 in past 14 days?: No Do you have a sore throat?: No Do you have a cough?: No Do you have any weakness?: No Do you have any diarrhea?: No Are you experiencing any unusual bleeding?: No Do you have any muscle aches/pain?: No Do you have any abdominal pain?: No Are you experiencing loss of taste or smell?: No [facility] Anesthesia Checklist Patient Identification Patient Identification: Arm Band and Verbal (Name & ) Structural Data Admitted From: Home Planned Operative Procedure/s: Laparoscopic cholecystectomy Consent for Planned Operative Procedure(s) Verified: Yes Verified Documents: Surgical Consent NPO Status Verified Time NPO: 00:00 Chart Verification Results Verified: ECG Additional verifications Anesthesia Reactions: No Hx Blood Transfusions: No Airway Assessment Mallampati Score:: Class II C-Spine Mobility Assessed: Yes TMJ Mobility Assessed: Yes Dentition: Good Dentition Neurological Assessment Level of Consciousness: Awake, Alert and Appropriate Hx Seizures: No Numbness or tingling in extremities: No Anesthesia Plan Anesthesia Risk discussed: Yes Anesthesia Plan: Verified ASA Class: III Anesthesia Type: General
[2024-12-20] MEDS: 0.9 % SODIUM CHLORIDE 1000ML 1,000 ML 25 ML IV (08:32)
[2024-12-20 08:34] LABS: POC Glucose,Bedside 120 (70-110)
[2024-12-20] MEDS: SODIUM CHLORIDE IRRIG SOLUTION 3,000 ML 25 ML IR (09:00)
[2024-12-20] MEDS: LIDOCAINE 1% 20ML MDV 20 ML (09:00)
--- NOTE | 2024-12-20 10:01 | P.PNANES_ITS ---
[facility] Anesthesia Record Part I Anesthesia Record I Intake, IV Amount: 600 Hydration: Adequate Estimated blood loss (mL): 5 Urine output (mL): 0 Blood Products used (#): none Blood Pressure: 166/71 SaO2: 97 Pulse Rate: 81 Airway Patency: Patent Respiratory Rate: 16 Temperature: 97.5 F Patient is:: Drowsy, Nasal O2 and Stable Stable to PACU at:: 09:56
[2024-12-20] MEDS: KETOROLAC 30MG/ML VIAL 30 MG IV (10:27)
[2024-12-20] MEDS: HYDROMORPHONE 2MG/ML SYRINGE 0.5 MG IV (10:35)
[2024-12-20] MEDS: HYDRALAZINE 20MG/ML VIAL 20 MG IV (10:52)
--- NOTE | 2024-12-20 13:24 | EXP.ANES.II ---
[facility] Anesthesia Record Part II Anesthesia Record Part II Discharge Time: 10:56 Destination: Surgical Day Care (OP Surgery) PACU nurse assessment reviewed?: Yes Patient Condition:: Good Anesthesia Complications:: None Swallowing reflex intact?: Yes Airway Patency: Patent Cyanosis?: No Blood Pressure: 199/72 SaO2: 96 Respiratory Rate: 16 Pulse Rate: 72 Temperature: 97.6 F Mental Status: Alert & Oriented Pain level:: 3 Nausea and/or vomitting:: None Intake, IV Amount: 0 Hydration: Adequate
== END 2024-12-20 11:30 | disposition home or self-care (01) ==
PROVIDERS: PCP Internal Medicine Adolescent Medicine; Visit Provider Surgery
PROC: 0FT44ZZ Resection of Gallbladder, Percutaneous Endoscopic Approach (ICD-10-PCS; CPT 47562; principal; 2024-12-20 09:00)
DX: K80.12 Calculus of gallbladder with acute and chronic cholecystitis without obstruction (principal); J44.9 Chronic obstructive pulmonary disease, unspecified; E11.9 Type 2 diabetes mellitus without complications; E78.00 Pure hypercholesterolemia, unspecified; I10 Essential (primary) hypertension; Z86.73 Personal history of transient ischemic attack (TIA), and cerebral infarction without residual deficits; Z80.9 Family history of malignant neoplasm, unspecified; F17.210 Nicotine dependence, cigarettes, uncomplicated; Z79.899 Other long term (current) drug therapy; Z79.82 Long term (current) use of aspirin
CPT/HCPCS: 47562; 82962; 96374; J0360; J0690; J1100; J1171; J1805; J1885; J2003; J2405; J2704; J3010; J7030

== ENCOUNTER 2024-12-26 09:29 | Outpatient (CLI) | payer MEDICARE, SELFPAY ==
--- OUTSIDE RECORDS SUMMARY | 2024-12-05 05:30 | XMS_ITS ---
Author Organization [facility] PE D DAVID Address [address] [place] [address] Care Team Providers Care Dollyman Name Role Phone Jorge A Souza Primary Care Provider David Sesay Unavailable [phone] Allergies No Known Allergies REASON FOR VISIT [...] day; Duration: 90 days prn Active Biotin 80663 MCG 1 tab(s) orally once a day [...] 12/05/2024 Encounters Encounter Location Date Provider Diagnosis [facility] [address] [place], [place] [address] 12/05/2024 Jorge A Souza Essential (primary) hypertension [address], [place], [address], Progress Notes * Janice CRUZDOB:1955 ( 69 yo F)Acc No.[id number]:12/05/2024 Progress notes Patient: Janice THOMPSON Provider: Mary Souza MD :1955 A ge:69 Y S ex:Female Date:12/05/2024 Address:[address] [place] [address] RD , [id number] Subjective: * Chief [...] Mother: . M aternal Grand Father: , [place], diagnosed with Heart Disease. M aternal Grand Mother: . P aternal aunt: alive, stroke. M aternal uncle: , [place]. M aternal aunt: , diabetes. S iblings: alive, 5 brother [place],lung cancer, 3 sisters -[place] and cirrhosis of the liver older brother-Parkinson's Diseaseyoungest brother-black cfwa-ntheeugomeyknji-oqbxiwxoi cancersister-, diagnosed with Cancer. Mario guerra: alive. [...] to Pharmacist: once a day, Taking Biotin 27909 MCG Tablet 1 tab(s) orally once a [...] 12/05/2024 Generated for Porter hernandez/Juan/eTransmitting on: 0 12/26/2024 09:33 AM EDT History and Physical Notes * HPI [...]
--- OUTSIDE RECORDS SUMMARY | 2024-12-26 09:33 | XMS_ITS | Patient Health Record ---
Author Organization [facility] D DAVID Address [address] [place] [address] Care Team Providers Care Lactation Nurse Name Role Phone Jorge A Souza Primary Care Provider David Sesay Unavailable [phone] Migration, Provider Unavailable Unavailable Allergies No Known Allergies Results Component Value Reference Range Notes LIPID PANEL, STANDARD (7600) Reviewed date:03/30/2024 02:37:20 PM Interpretation: Performing Lab:CY[facility]NEY, [facility] [id number] [facility], John MelendezWijdXH[address] Han Busch Notes/Report: NON-FASTING; NON-FASTING; NON-FASTING FASTING:YES [...] LDL-C. Jose LINDER et al. JOB. 2013;310(19): 3304-8804 (http://education.Biotherapeutics.Eqalix/faq/MTP181) CHOL/HDLC RATIO 1.9 <5.0 (calc) NON HDL CHOLESTEROL 42 <130 mg/dL (calc) For patients with diabetes plus 1 major ASCVD risk factor, treating to a non-HDL-C goal of <100 mg/dL (LDL-C of <70 mg/dL) is considered a therapeutic option. COMPREHENSIVE METABOLIC PANMichelle Campbell (82627) Reviewed date:03/30/2024 02:37:20 PM Interpretation: Performing Lab:CY[facility]NEY [employer] [id number] A[address] [employer] [facility], [facility] HospitalZalnQY[address] Han Busch Notes/Report: NON-FASTING; NON-FASTING; NON-FASTING FASTING:YES [...] Reviewed date:03/30/2024 02:37:20 PM Interpretation: Performing Lab:[facility] [employer] [id number] [address] [employer] [facility], [place] OpohUH[address] Han Busch Notes/Report: NON-FASTING; NON-FASTING; NON-FASTING FASTING:YES [...] diabetes for children. COMPREHENSIVE METABOLIC PANE L (08605) Reviewed date:08/30/2024 02:15:11 PM Interpretation: Performing Lab:[facility] [employer] [id number] [address] [employer], ModafirmaWtvnFE[address] Han Busch Notes/Report: NON-FASTING; NON-FASTING; NON-FASTING; NON-FASTING; [...] Reviewed date:08/30/2024 02:15:11 PM Interpretation: Performing Lab:CY[facility] [employer] Avbl[address], ModafirmaBfdqHF[address] Han Busch Notes/Report: NON-FASTING; NON-FASTING; NON-FASTING; NON-FASTING; [...] of LDL-C. Jose SS et al. JOB. 2013;310(48): 2053-1187 (http://education.Yones/faq/DDV161) CHOL/HDLC RATIO 1.7 <5.0 (calc) NON HDL CHOLESTEROL 44 <130 mg/dL (calc) For patients with diabetes plus 1 major ASCVD risk factor, treating to a non-HDL-C goal of <100 mg/dL (LDL-C of <70 mg/dL) is considered a therapeutic option. IRON, TIBC AND FERRITIN LLOYD Campbell (5616) Reviewed date:08/30/2024 02:15:11 PM Interpretation: Performing Lab:CY[facility]NEY [employer] [id number], ModafirmaFyyeWL[address] Han Busch Notes/Report: NON-FASTING; NON-FASTING; NON-FASTING; NON-FASTING; NON-FAST FASTING:YES FASTING: YES IRON, TOTAL 27 45-160 mcg/dL IRON BINDING CAPACITY 431 250-450 mcg/dL (robina c) % SATURATION 6 16-45 % (calc) FERRITIN 7 16-288 ng/mL THYROID PANEL WITH TSH (7444 ) Reviewed date:08/30/2024 02:15:10 PM Interpretation: Performing Lab:CY[facility]NEY [employer] [id number], ModafirmaBgiqLL[address] Han Busch Notes/Report: NON-FASTING; NON-FASTING; NON-FASTING; NON-FASTING; NON-FAST FASTING:YES FASTING: YES T3 UPTAKE 30 22-35 % T4 (THYROXINE), TOTAL 6.6 5.1-11.9 mcg/dL FREE T4 INDEX (T7) 2.0 1.4-3.8 TSH 2.43 0.40-4.50 mIU/L LIPID PANEL, STANDARD (7600) Reviewed date:02/08/2024 12:52:58 PM Interpretation: Performing Lab:CYDNEY [employer] Buda2886 A8 [facility]teSaint [facility], [facility] CenterGcboJN[address] Han Busch Notes/Report: NON-FASTING; NON-FASTING FASTING:YES FASTING: [...] of LDL-C. Jose LINDER et al. JOB. 2013;310(51): 1762-0424 (http://education.Yones/faq/ARY899) CHOL/HDLC RATIO 2.1 <5.0 (calc) NON HDL CHOLESTEROL 49 <130 mg/dL (calc) For patients with diabetes plus 1 major ASCVD risk factor, treating to a non-HDL-C goal of <100 mg/dL (LDL-C of <70 mg/dL) is considered a therapeutic option. COMPREHENSIVE METABOLIC PANE L (78766) Reviewed date:02/08/2024 12:52:58 PM Interpretation: Performing Lab:CY[facility]NEY [employer] Fuif4481 A8 [facility]teSaint [facility], [facility] CenterAdvpWA[address] Han Busch Notes/Report: NON-FASTING; NON-FASTING FASTING:YES FASTING: [...] 34 10-35 U/L ALT 26 6-29 U/L VITAMIN B12/FOLATE, SERUM PA ANA (7016) Reviewed date:08/30/2024 02:15:11 PM Interpretation: Performing Lab:CYDNEY [employer]irmae[address]55 [employer], ModafirmaLmenKH[address] Han Busch Notes/Report: NON-FASTING; NON-FASTING; NON-FASTING; NON-FASTING; NON-FAST FASTING:YES FASTING: YES VITAMIN B12 320 219-8795 pg/mL Please Note: Although the reference range [...] Reviewed date:08/30/2024 02:15:11 PM Interpretation: Performing Lab:CYDNEY [employer] Uhaw6985 A8 [facility]teSaint [facility], [place] SgrmGG[address] Han Busch Notes/Report: NON-FASTING; NON-FASTING; NON-FASTING; NON-FASTING; [...] Reviewed date:08/30/2024 02:15:11 PM Interpretation: Performing Lab:CYDNEY, [facility] [address]ezi[address], John GeorgesMpgcTM[address] Han Busch Notes/Report: NON-FASTING; NON-FASTING; NON-FASTING; NON-FASTING; [...] MPV 9.9 7.5-12.5 fL ABSOLUTE NEUTROPHILS 5906 0134-6829 cells/uL ABSOLUTE LYMPHOCYTES 3861 322-7187 cells/uL ABSOLUTE MONOCYTES 892 200-950 cells/uL ABSOLUTE EOSINOPHILS 442 15-500 cells/uL ABSOLUTE BASOPHILS 74 0-200 cells/uL NEUTROPHILS 64.2 LYMPHOCYTES 20.5 MONOCYTES 9.7 EOSINOPHILS 4.8 BASOPHILS 0.8 Medications Medication SIG (Take, Route, Frequency, Duration) [...] Duration: 90 DAYS prn 04/17/2019 Active Biotin 04802 MCG 1 tab(s) orally once a day [...] specified complication (E11.69) Active confirmed Problem Obesity (194616162) Obesity, unspecified (E66.9) Active confirmed Problem Essential hypertension (63255075) Essential (primary) hypertension (I10) Active confirmed Problem Simple chronic bronchitis (64224149) Simple chronic bronchitis (J41.0) Active confirmed Problem Acute cystitis (40956838) Acute cystitis without hematuria (N30.00) Active confirmed Problem Nicotine dependence (28764925) Personal history of nicotine dependence (Z87.891) Active confirmed Problem Gastroesophageal reflux disease (966614570) GERD (gastroesophage al reflux disease) (K21.9) Active confirmed Problem Mixed anxiety and depressive disorder (448094212) Depression with anxiety (F41.8) Active confirmed Problem Hyperlipidemia (90782236) Hyperlipemia, idiopathic familial (E78.5) Active confirmed Problem Essential hypertension (67134856) Hypertension, essential (I10) Active confirmed Problem Urinary frequency (725543428) Urinary frequency (R35.0) Active confirmed Problem Acute exacerbation of chronic obstructive airways disease (167788222) COPD exacerbation (J44.1) Active confirmed Problem Mammography abnormal (689478173) Abnormal mammogram of right breast (R92.8) Active confirmed Problem Body mass index 40+ - morbidly obese (765102376) BMI 40.0-44.9, adult (Z68.41) Active confirmed Problem COPD - Chronic obstructive pulmonary disease (88447292) Chronic obstructive pulmonary disease, unspecified COPD type (J44.9) Active confirmed Problem Tobacco user (966925557) Cigarette nicotine dependence without complication (F17.210) Active confirmed Problem Iron deficiency anemia (52161737) Iron deficiency anemia, unspecified iron deficiency anemia type (D50.9) Active confirmed Problem Sciatica (96885086) Sciatica of left side (M54.32) Active confirmed Problem SI - Stress incontinence (30735982) Stress incontinence (N39.3) Active confirmed Problem Pain in pelvis (91187945) Pelvic pain (R10.2) Active confirmed Problem Recurrent major depression in full remission (39636791) Recurrent major depressive disorder, in full remission (F33.42) Active confirmed Problem Mixed incontinence (806455108) Mixed stress and urge urinary incontinence (N39.46) Active confirmed Problem Microcytic anemia (123092446) Microcytic anemia (D50.9) Active confirmed Problem Adult health examination (018498774) Healthcare maintenance (Z00.00) Active confirmed Problem Allergic rhinitis (35970941) Allergic sinusitis (J30.9) Active confirmed Vital Signs Heart Rate 68 /min 12/05/2024 Temperature 95.9 degrees Fahrenheit 12/05/2024 Blood pressure diastolic 70 mm Hg 12/05/2024 Height 5 ft 7.5 in in 12/05/2024 Blood pressure systolic 120 mm Hg 12/05/2024 Weight 241.2 lbs 12/05/2024 BMI 37.22 kg/m2 12/05/2024 Encounters Encounter Location Date Provider Diagnosis [facility] [address] [place] [address] 08/11/2024 Provider Migration Chronic obstructive pulmonary disease, unspecified COPD type J44.9 [facility] [address] [place] [address] 02/06/2024 Jorge Aholly Souza Hyperlipemia, idiopathic familial E78.5 ; Hypertension, essential I10 ; Personal history of nicotine dependence Z87.891 and Encounter for immunization Z23 [facility] [address] [place], [place] [address] 03/28/2024 Jorge Aholly Souza Hyperlipemia, idiopathic familial E78.5 ; Type 2 diabetes mellitus with other specified complication E11.69 ; Chronic obstructive pulmonary disease, unspecified COPD type J44.9 and Immunization(s) administered Z23 [facility] [address] [facility] [address] [place] [address] 08/29/2024 Jorge A Besson Hypertension, essential I10 ; Chronic obstructive pulmonary disease, unspecified COPD type J44.9 ; Microcytic anemia D50.9 ; Type 2 diabetes mellitus with other specified complication E11.69 ; Recurrent major depressive disorder, in full remission F33.42 and Dizziness R42 [facility] [address] [facility] [address] [place] [address] 10/24/2024 Jorge A Besson Epigastric pain R10.13 and Iron deficiency anemia, unspecified iron deficiency anemia type D50.9 [facility] [address] [facility] [address] [place] [address] 12/05/2024 Jorge A Besson Essential (primary) hypertension I10 ; Depression with anxiety F41.8 ; Cigarette nicotine dependence without complication F17.210 ; Hyperlipemia, idiopathic familial E78.5 and Encntr for general adult medical exam w/o abnormal findings Z00.00 [facility] [address] [address] 01/04/2024 Jorge A Besson [facility] [address] [address] 09/26/2024 Jorge A Besson [facility] [address] [address] 10/10/2024 Jorge A Besson Hyperlipemia, idiopathic familial [...] - Mood is stable - Continue venlafaxine 02/06/2024 Personal history of nicotine dependence (ICD-10 - Z87.891) Patient continues to smoke, discussed once again benefits of quitting smoking. Greater than 5 minutes spent discussing smoking cessation, patient is pretty contemplative but states she will quit someday. 08/29/2024 Microcytic anemia (ICD-10 - D50.9) 12/05/2024 Cigarette nicotine dependence without complication (ICD-10 - F17.210) - Current smoker, not ready to quit - Discussed alteratives to smoking such as nicotene pouches Greater than 5 minutes spent discussing smoking cessation. She is thinking about doing patches or nicotine pouches 03/28/2024 Chronic obstructive pulmonary disease, unspecified COPD [...] R42) Dizziness is improved since returning to [place]. Check labs as noted. I will review [...] PANEL, STANDARD (7600) 09/09/2023 COMPREHENSIVE METABOLIC PANEL (51331) HEMOGLOBIN A1c (496) 09/09/2023 Future Test Test Name Order Date Mammogram : Diagnostic 12/29/2006 Mammogram : Bilateral 01/25/2011 Next Appt Details Provider Name:Jorge A Souza, 03/06/2025 10:15:00 AM, [address], [place], [address], Insurance Providers Payer Name Payer Address Payer Phone Subscriber Number Group Number Insured Name Patient Relationship to Insured Coverage Start Date Coverage End Date [employer] [address] [place] [address] [id number] Janice Cruz Self - patient is [...]
[2024-12-26 10:07] LABS: Hematocrit 40.0 % (37.0-47.0); Hemoglobin 13.0 g/dL (12.2-16.2); Immature Granulocytes % 0.3 %; Mean Corpuscular HGB Conc 32.5 g/dL (31.8-35.4); Mean Corpuscular Hemoglobin 29.1 pg (27.0-31.2); Mean Corpuscular Volume 89.7 fl (81-99); Nucleated Red Blood Cells % 0 %; Platelet Count 208 K/mm3 (142-424); Red Blood Count 4.46 M/mm3 (4.20-5.40); Red Cell Distribution Width-SD 48.5 fL; White Blood Count 11.7 K/mm3 (4.8-10.8)
[2024-12-26 10:36] LABS: Albumin Level 4.0 g/dl (3.5-5.0); Chloride 108 mmol/L (98-107); Sodium 143 mmol/L (136-145)
[2024-12-26 10:37] LABS: Potassium 4.0 mmoL/L (3.5-5.1)
[2024-12-26 10:39] LABS: Alanine Aminotransferase 33 U/L (12-78); Albumin/Globulin Ratio 1.4 (1.1-1.8); Alkaline Phosphatase 80 U/L (38-126); Anion Gap 11.0 mEq/L (5-15); Aspartate Amino Transferase 37 U/L (14-36); Bilirubin,Total 0.4 mg/dl (0.2-1.3); Blood Urea Nitrogen 20 mg/dl (7-17); Carbon Dioxide 28 mmol/L (22.0-30.0); Creatinine,Serum 0.60 mg/dl (0.52-1.04); Estimated Glomerular Filt Rate 99 ml/min (>60); GFR (African American) 120 ML/MIN (>60); Globulin 2.9 g/dL (1.3-3.2); Total Protein,Serum 6.9 g/dl (6.3-8.2)
[2024-12-26 10:40] LABS: Calcium 10.0 mg/dl (8.4-10.2); Glucose 113 mg/dl (74-100)
== END 2024-12-26 23:59 | disposition home or self-care (01) ==
LOC: LAB 09:29
PROVIDERS: PCP Internal Medicine Adolescent Medicine; Visit Provider Surgery
DX: K80.20 Calculus of gallbladder without cholecystitis without obstruction (principal)
CPT/HCPCS: 36415; 80053; 85025

== ENCOUNTER 2025-02-15 21:21 | Emergency (ER) | payer MEDICARE, SELFPAY ==
--- NOTE | 2025-02-15 21:20 | CT_ITS ---
PROCEDURE INFORMATION: Exam: CT Thoracic Spine Without Contrast Exam date and time: 02/15/2025 10:02 PM Age: 69 years old Clinical indication: Injury or trauma; Fall TECHNIQUE: Imaging protocol: Computed tomography of the thoracic spine without contrast. Radiation optimization: All CT scans at this facility use at least one of these dose optimization techniques: automated exposure control; mA and/or kV adjustment per patient size (includes targeted exams where dose is matched to clinical indication); or iterative reconstruction. COMPARISON: CT THORACIC SPINE WO CON 02/15/2025 10:02 PM FINDINGS: Bones/joints: Acute mild compression fracture involving the L1 vertebral body. Minimal anterior vertebral body height loss. No bony retropulsion. Soft tissues: Unremarkable. Lungs: Partially calcified granuloma within the left lung apex measures 6 mm. Coronary arteries: Partially visualized dense three-vessel coronary artery calcifications. IMPRESSION: 1. Acute mild compression fracture involving the L1 vertebral body. Minimal anterior vertebral body height loss. No bony retropulsion. 2. Partially calcified granuloma within the left lung apex measures 6 mm. Partially visualized dense three-vessel coronary artery calcifications.
--- NOTE | 2025-02-15 21:20 | CT_ITS ---
PROCEDURE INFORMATION: Exam: CT Cervical Spine Without Contrast Exam date and time: 02/15/2025 10:00 PM Age: 69 years old Clinical indication: Injury or trauma; Fall TECHNIQUE: Imaging protocol: Computed tomography of the cervical spine without contrast. Radiation optimization: All CT scans at this facility use at least one of these dose optimization techniques: automated exposure control; mA and/or kV adjustment per patient size (includes targeted exams where dose is matched to clinical indication); or iterative reconstruction. COMPARISON: CT CERVICAL SPINE WO CON 12/11/2024 9:04 PM FINDINGS: Bones: Cervical vertebrae normal in height. No acute fracture. Mild reversal of normal cervical lordosis. Maintained craniocervical junction. Multilevel degenerative changes. Varying degrees of neural foraminal narrowing. No significant spinal canal stenosis. Lungs: Lung apices are normal. Soft tissues: Unremarkable. IMPRESSION: No acute osseous findings.
--- NOTE | 2025-02-15 21:20 | CT_ITS ---
PROCEDURE INFORMATION: Exam: CT Head Without Contrast Exam date and time: 02/15/2025 9:58 PM Age: 69 years old Clinical indication: Injury or trauma; Fall TECHNIQUE: Imaging protocol: Computed tomography of the head without contrast. Radiation optimization: All CT scans at this facility use at least one of these dose optimization techniques: automated exposure control; mA and/or kV adjustment per patient size (includes targeted exams where dose is matched to clinical indication); or iterative reconstruction. COMPARISON: 1. CT ANGIO HEAD 12/11/2024 11:[address] HEAD WITHOUT CONTRAST 12/11/2024 FINDINGS: Brain: No acute intracranial hemorrhage, midline shift, or mass effect. Redemonstrated left occipital lobe encephalomalacia. Cerebral ventricles: No ventriculomegaly. Paranasal sinuses: Visualized sinuses are unremarkable. No fluid levels. Mastoid air cells: Visualized mastoid air cells are well aerated. Bones: Unremarkable. No acute fracture. Soft tissues: Unremarkable. IMPRESSION: No acute intracranial findings.
--- NOTE | 2025-02-15 21:20 | CT_ITS ---
PROCEDURE INFORMATION: Exam: CT Lumbar Spine Without Contrast Exam date and time: 02/15/2025 10:04 PM Age: 69 years old Clinical indication: Injury or trauma; Fall TECHNIQUE: Imaging protocol: Computed tomography of the lumbar spine without contrast. Radiation optimization: All CT scans at this facility use at least one of these dose optimization techniques: automated exposure control; mA and/or kV adjustment per patient size (includes targeted exams where dose is matched to clinical indication); or iterative reconstruction. COMPARISON: CT LUMBAR SPINE WO CON 12/11/2024 9:08 PM FINDINGS: Bones/joints: Acute compression fracture anterior vertebral body of L1. Trace anterior vertebral body height loss. No bony retropulsion. The fracture is mildly comminuted. No other fracture seen. Soft tissues: Unremarkable. IMPRESSION: Acute compression fracture anterior vertebral body of L1. Trace anterior vertebral body height loss. No bony retropulsion. The fracture is mildly comminuted. No other fracture seen.
--- NOTE | 2025-02-15 21:21 | XR_ITS ---
PROCEDURE INFORMATION: Exam: XR Pelvis Exam date and time: 02/15/2025 10:06 PM Age: 69 years old Clinical indication: Injury or trauma; Fall; Other: Pain TECHNIQUE: Imaging protocol: Radiologic exam of the pelvis. Views: 1 or 2 view. COMPARISON: CT LUMBAR SPINE WO CON 02/15/2025 10:04 PM FINDINGS: Bones/joints: Unremarkable. No acute fracture. Soft tissues: Unremarkable. IMPRESSION: No acute findings.
[2025-02-15 21:22] VITALS: BP 170/81; PULSE 57; RESP 20; TEMP 36.8; O2SAT 95; BMI 37.5
[2025-02-15 21:31] VITALS: BP 102/70; PULSE 58; O2SAT 92
[2025-02-15 22:06] LABS: Hematocrit 36.6 % (37.0-47.0); Hemoglobin 12.6 g/dL (12.2-16.2); Immature Granulocytes % 1.0 %; Mean Corpuscular HGB Conc 34.4 g/dL (31.8-35.4); Mean Corpuscular Hemoglobin 31.7 pg (27.0-31.2); Mean Corpuscular Volume 92.2 fl (81-99); Nucleated Red Blood Cells % 0 %; Platelet Count 185 K/mm3 (142-424); Red Blood Count 3.97 M/mm3 (4.20-5.40); Red Cell Distribution Width-SD 48.7 fL; White Blood Count 8.4 K/mm3 (4.8-10.8)
[2025-02-15 22:15] LABS: Anion Gap 11.8 mEq/L (5-15); Blood Urea Nitrogen 23 mg/dl (7-17); Calcium 9.3 mg/dl (8.4-10.2); Carbon Dioxide 27 mmol/L (22.0-30.0); Chloride 104 mmol/L (98-107); Creatinine Clearance Estimated 90 mL/min (50-200); Creatinine,Serum 0.70 mg/dl (0.52-1.04); Estimated Glomerular Filt Rate 83 ml/min (>60); GFR (African American) 100 ML/MIN (>60); Glucose 127 mg/dl (74-100); INR 1.04 (0.9-1.1); Potassium 3.8 mmoL/L (3.5-5.1); Prothrombin Time 11.5 seconds (10.1-12.5); Sodium 139 mmol/L (136-145)
[2025-02-15 22:31] VITALS: BP 192/72; PULSE 62; O2SAT 95
--- NOTE | 2025-02-15 22:33 | PC.NURSE ---
Kimberlee Cardoza called [facility] for transfer, [facility] will call back.
[2025-02-15] MEDS: MORPHINE 4MG/ML SYRINGE 4 MG IV (22:46)
[2025-02-15] MEDS: ONDANSETRON 4MG/2ML VIAL 4 MG IV (22:46)
[2025-02-15 23:08] LABS: Hepatitis C Ab Qual. W/ RFX NEGATIVE (Negative)
--- NOTE | 2025-02-16 00:01 | XR_ITS ---
PROCEDURE INFORMATION: Exam: XR Lumbosacral Spine Exam date and time: 02/16/2025 12:21 AM Age: 69 years old Clinical indication: Injury or trauma; Fall; Other: Pain; Additional info: Upright films for spinal stability, l1 fracture TECHNIQUE: Imaging protocol: Radiologic exam of the lumbosacral spine. Views: 2 or 3 views. Total images: 3 COMPARISON: CT LUMBAR SPINE WO CON 02/15/2025 10:04 PM FINDINGS: Bones/joints: Five non rib-bearing lumbar vertebral segments. Minor anterior wedging L1 vertebral body. Vertebral body height and alignment is otherwise preserved. Mild loss of disc space L5-S1. Pedicles appear symmetric. Facet joints are appropriately aligned. No significant degenerate facet joint spondylosis. Visualized sacrum and SI joint spaces are unremarkable. Soft tissues: Unremarkable. Intraperitoneal space: No free abdominal fluid. Gastrointestinal tract: Nonobstructive bowel gas distribution. Organs: Status post cholecystectomy. Vasculature: Moderate to severe atherosclerotic calcifications of the abdominal aorta. IMPRESSION: Minor anterior wedging L1 vertebral body. Please refer to recent lumbar spine CT February 15, 2025.
[2025-02-16 00:52] VITALS: BP 147/78; PULSE 78; RESP 18; TEMP 36.6; O2SAT 98
--- NOTE | 2025-02-16 00:52 | ED_ITS ---
Discharge Plan Disposition Patient Disposition: Home, Self-Care Condition: Good Prescriptions Prescriptions: New naproxen 500 mg tablet 500 mg PO BID PRN (Reason: pain) Qty: 60 0RF methocarbamol 750 mg tablet 750 mg PO Q8H 7 Days Qty: 21 0RF No Action venlafaxine [Effexor XR] 150 mg capsule,extended release 24hr 150 mg PO DAILY Patient Comments: TAKE 1 CAPSULE BY MOUTH ONCE DAILY rosuvastatin 20 mg tablet 20 mg PO DAILY Patient Comments: TAKE 1 TABLET BY MOUTH ONCE DAILY carvedilol 25 MG tablet 12.5 mg PO BID Patient Comments: Stiolto Respimat 4 GM mist 2 puff inhalation DAILY aspirin 325 MG tablet 325 mg PO DAILY hydrochlorothiazide 25 MG tablet 12.5 mg PO DAILY 30 Days Qty: 15 2RF methocarbamol 500 mg tablet 500 mg PO BID Qty: 20 0RF lidocaine 5 % adhesive patch,medicated 1 patch topical DAILY Qty: 15 0RF Rx Instructions: leave on most painful area for up to 12 hrs Referrals Follow up/Referrals: Jorge A Souza MD [Primary Care Provider, Internal Medicine] - See instructions Activity Restrictions/Add. Instructions Additional Instructions/Restrictions: Please follow-up with your primary care physician about the lumbar spine fracture. You may take naproxen and Tylenol for pain at home. You can also take 750 mg of Robaxin for pain and muscle relaxation as well. If you have any new or worsening symptoms please return. Specifically, if you experience numbness and tingling in your extremities, weakness of one leg, difficulty emptying your bladder, or numbness in your genital region please return Clinical Impressions Clinical Impression: Closed compression fracture of L1 vertebra Qualifiers: Encounter type: initial encounter Qualified Code(s): S32.010A - Wedge compression fracture of first lumbar vertebra, initial encounter for closed fracture Print Language Print Language: Monegasque Discharge ED Provider: Freedom Short Adult HPI General Chief complaint: Fall Stated complaint: Fall Time Seen by Provider: 02/15/25 21:27 Mode of Arrival: EMS Source of Information: Patient Description of Symptoms (Recalled from ER Triage Doc. by RN): pt reports she was walking into the door of her home when she lost her balance and fell backwards on to concrete. pt denies hitting her head or any LOC, pt alert and oriented. pt reports back pain that is increased from her chronic back pain. History of Present Illness HPI narrative: This is a 69-year-old female patient, with past medical history of hypertension, diabetes, hyperlipidemia, and COPD, who is presenting to the emergency department today for evaluation after a fall. Patient states that she was walking into the front door of her home and she slipped on the molding of the doorway and fell backwards impacting the back of her body against the ground. She does not believe to have hit her head or lost consciousness. She is complaining of significant pain in her lower back. She is not experiencing any numbness and tingling in her extremities and she is not experiencing any weakness in her extremities. Related Data Home Medications ?Medication ?Instructions ?Recorded ?Confirmed carvedilol 25 mg tablet 12.5 mg PO BID Hypertension 06/02/17 01/28/25 aspirin 325 mg tablet 325 mg PO DAILY Heart diseas e 03/22/19 01/28/25 tiotropium 2.5 mcg-olodaterol 2.5 2 puff inhalation DA MAGDALENA allergies 05/22/20 01/28/25 mcg/actuation mist for inhalation (Stiolto Respimat) rosuvastatin 20 mg tablet 20 mg PO DAILY 11/07/2401/08 venlafaxine 150 mg 150 mg PO DAILY 11/07/24 capsule,extended release 24 hr (Effexor XR) Previous Rx's ?Medication ?Instructions ?Recorded hydrochlorothiazide 25 mg tablet 12.5 mg (1/2 x 25 mg) PO DAILY 03/24/19 Diuretic 30 days #15 tabs lidocaine 5 % topical patch 1 patch topical DAILY #15 ea 12/12/24 methocarbamol 500 mg tablet 500 mg PO BID #20 tabs 10/31 methocarbamol 750 mg tablet 750 mg PO Q8H 7 days #21 t abs 02/16/25 naproxen 500 mg tablet 500 mg PO BID PRN pain #60 t abs 02/16/25 Allergies Allergy/AdvReac Type Severity Reaction Status Date / Time venom-honey bee Allergy Unknown Unknown Verified 01/28/25 13:23 allergy reaction venom-wasp Allergy Unknown Unknown Verified 01/28/25 13:23 allergy reaction Iodinated Contrast Media Allergy Hives Verified 01/28/25 13:23 [facility] Disclaimer: The information contained in this section may have been updated after the patient was seen, as this information can be updated by other users. Medical History Depression Anxiety Stroke Diabetes Hypercholesterolemia Hypertension COPD (chronic obstructive pulmonary disease) Surgical History History of laparoscopic cholecystectomy History of esophagogastroduodenoscopy (EGD) Hx of colonoscopy Hx of tubal ligation Hx of foot surgery Family History Other Family history of CVA Family history of cancer Family history of diabetes mellitus Family history of heart disease Social History Smoking Status: Current every day smoker tobacco type: cigarettes packs per day: 1 second hand exposure: Yes alcohol intake: never substance use type: denies use current occupational status: retired Travel in the last 8 weeks?: Inside the [place] household members: spouse housing: house current occupation: house current occupational exposures/hazards: No caffeine: No Have you lived/traveled outside US in past 30 days?: No Contact w/someone who lives/traveled outside US past 30 days?: No Exposure to someone with infectious disease in past 14 days?: No Do you have a fever (greater than 100.4 F or 38 C)?: No Have you tested positive for COVID-19?: No Exposed to someone with COVID-19 in past 14 days?: No Do you have a sore throat?: No Do you have a cough?: No Do you have any weakness?: No Do you have any diarrhea?: No Are you experiencing any unusual bleeding?: No Do you have any muscle aches/pain?: No Do you have any abdominal pain?: No Are you experiencing loss of taste or smell?: No Other Medical History Have you received the Flu Vaccine for this season: Yes Have you received the Pneumonia Vaccine: Yes ROS Obtained: Yes Systems reviewed as appropriate & no additional complaints except as documented Physical Exam General General appearance: other (See MDM) Respiratory Respiratory exam: Present other (See MDM) Cardiovascular Cardiovascular exam: Present other (See MDM) Neurological Exam Neurological exam: Present other (See MDM) Medical Decision Making Medical Records Medical records reviewed: Yes I reviewed the patient's medical records. Screening: Per USPSTF and CDC recommendations, given the prevalence of disease in our region, it is our hospital?s policy to screen for HIV and viral Hepatitis for all patients aged 18 and over and those with ongoing risk factors. Alvin Inquiry Pt receiving controlled substance: Yes Alvin was queried for this patient: No Risks and benefits of using a controlled substance: were discussed with pt by me Vital Signs: 02/15/25 21:22 02/15/25 21:31 02/15/25 22:31 Temperature 98.2 F Temperature Source Oral Pulse Rate 58 L 62 Pulse Rate [Right] 57 L Respiratory Rate 20 Blood Pressure 102/70 L 192/72 H Blood Pressure [Right Arm] 170/81 H Blood Pressure Mean 80 Blood Pressure Mean [Right Arm] 110 02 Sat by Pulse Oximetry 95 92 L 95 Oxygen Delivery Method Room Air Lab Data Lab Results 02/15/25 21:43: WBC 8.4, RBC 3.97 L, Hgb 12.6, Hct 36.6 L, MCV 92.2, MCH 31.7 H, MCHC 34.4, RDW 14.5, Plt Count 185, MPV 9.9, Neut % (Auto) 58.8, Lymph % (Auto) 26.6, Jenkins % (Auto) 9.8 H, Eos % (Auto) 3.3, Baso % (Auto) 0.5, Neut # (Auto) 4.9, Lymph # (Auto) 2.2, Jenkins # (Auto) 0.8, Eos # (Auto) 0.3, Baso # (Auto) 0.0, PT 11.5, INR 1.04, Sodium 139, Potassium 3.8, Chloride 104, Carbon Dioxide 27, Anion Gap 11.8, BUN 23 H, Creatinine 0.70, Estimated Creat Clear 90, Estimated GFR 83, Est GFR ( Amer) 100, Glucose 127 H, Calcium 9.3, HCV Ab ESTER w/Rflx PCR Qn Negative, HIV Ag/Ab Combo Qual Negative 02/15/25 21:43 02/15/25 21:43 Orders (Tests/Meds): ED MEDICATIONS Discontinued Medications Generic Name Dose Route Start Last Admin Trade Name Freq PRN Reason Stop Dose Admin Morphine Sulfate 4 mg 02/15/25 22:44 02/15/25 22:46 Morphine 4mg/Ml Syringe IV 02/15/25 22:45 4 mg ONCE ONE Administration Ondansetron HCl 4 mg 02/15/25 22:43 02/15/25 22:46 Ondansetron 4mg/2ml Vial IV 02/15/25 22:44 4 mg ONCE ONE Administration ORDERS Category Date Time Status CT cervical spine wo con Stat Cat Scan 02/15/25 21:[address] head/brain wo con Stat Cat Scan 02/15/25 21:[address] lumbar spine wo con Stat Cat Scan 02/15/25 21:[address] thoracic spine wo con Stat Cat Scan 02/15/25 21:20 Completed Lumbar spine XR 2-3 views [XR lumbar spine 2-3V] Stat Exams 02/16/25 00:01 Taken XR pelvis 1-2V Stat Exams 02/15/25 21:21 Completed BMP [Basic Metabolic Panel] Stat Lab 02/15/25 21:43 Completed CBC w/Auto Diff [Complete Blood Count Auto Diff] Stat Lab 02/15/25 21:43 Completed HIV Combo Stat Lab 02/15/25 21:43 Completed Hepatitis C Ab Qual. W/ RFX Stat Lab 02/15/25 21:43 Completed PT INR [Prothrombin Time INR] Stat Lab 02/15/25 21:43 Completed Medical Decision Narrative: In summary, this is a 69-year-old female patient who is presenting to the emergency department today for evaluation after a fall in which she slipped backwards and fell onto the posterior aspect of her body. She does not believe to have hit her head or loss consciousness. Comorbidities include hypertension, hyperlipidemia, diabetes, and COPD. On primary survey the patient had a 2+ left radial pulse, bilateral breath sounds, and an intact airway. She has no scalp lacerations, hematomas, or abrasions. No midface instability or jaw malocclusion. No hemotympanum. No nasal septal hematoma. She has no tenderness of the C or T-spine. She has marked tenderness of the upper L-spine. Her pelvis is stable. She has no abdominal wall tenderness or chest wall tenderness anteriorly or laterally. She has no deformities of her extremities and no tenderness of her extremities. Differential diagnosis includes intracranial hemorrhage, cervical spine fracture, thoracic fracture, lumbar spine fracture, pelvic fracture, among others. Workup was initiated with hematologic labs and coagulation studies. We have also obtained CT scans of the head and axial spine and x-ray of the pelvis. Labs were personally interpreted by me and demonstrate no leukocytosis or actionable anemia. PT/INR is within normal limits. CMP shows no electrolyte derangements or evidence of acute kidney injury. CT scan of the head was personally interpreted by me and demonstrates no intracranial hemorrhage. CT scan of the cervical and thoracic spine was personally turbid by me and demonstrates no bony malalignment or obvious fractures. On CT scan of the lumbar spine the radiologist read an anterior compression fracture with trace height loss with a comminuted fragment. We have treated the patient's pain in the emergency department with 4 mg of morphine and 4 mg Zofran. I did have an interactive discussion with the [facility] about this patient's fracture pattern in her lumbar vertebrae. I have spoken with Dr. Houston of the orthopedic spine surgery service. She states that she does not feel that this fracture pattern necessitates transfer to their hospital for further evaluation. She is reassured by the fact that the patient is neurologically intact as well. She is asked to obtain upright x-rays to assess for spinal stability with standing. We did obtain standing upright lumbar spine x-rays and these were personally interpreted by me and demonstrate no bony malalignment. I have reviewed these images with Dr. Houston and she states that these x-ray films look great and she feels comfortable with the patient being discharged home this evening. She does not feel that this is a significant enough fracture to necessitate follow-up in the spine surgery clinic. She has recommended follow-up in the outpatient clinic with her primary care provider. I have discussed our options moving forward with the patient. She is ambulatory without difficulty. She is controlled from a pain standpoint at this time. I have offered to send her home with NSAIDs as well as oxycodone but she states that oxycodone makes her violently confused. Therefore she would like to forego narcotic therapy at home. We will discharge her home with a prescription for naproxen as well as for Robaxin for muscle relaxation. I have strongly urged her to follow-up with her primary care physician and have given her symptoms of red flag back pain that would provoke return to the emergency department. At this time all questions have been answered and all parties are agreeable with the decision to discharge home Critical Care Critical Care Time Critical Care Time: No
== END 2025-02-16 01:01 | disposition home or self-care (01) ==
PROVIDERS: Emergency Provider Student in an Organized Health Care Education/Training Program; PCP Internal Medicine Adolescent Medicine
DX: S32.010A Wedge compression fracture of first lumbar vertebra, initial encounter for closed fracture (principal); M54.59 Other low back pain; W01.10XA Fall on same level from slipping, tripping and stumbling with subsequent striking against unspecified object, initial encounter
CPT/HCPCS: 70450; 72100; 72125; 72128; 72131; 72170; 80048; 85025; 85610; 86803; 87389; 96374; 96375; 99285; J2270; J2405

== ENCOUNTER 2025-03-19 09:06 | Day surgery (SDC) | payer MEDICARE, SELFPAY ==
[2025-03-19 09:11] VITALS: BP 149/63; PULSE 58; RESP 16; O2SAT 96; BMI 38.9
[2025-03-19] MEDS: DEXAMETHASONE 10MG/ML 1ML VIAL 10 MG (09:30)
[2025-03-19 09:33] VITALS: BP 155/98; PULSE 77; RESP 18; O2SAT 94
[2025-03-19 09:34] VITALS: BP 155/98; PULSE 75; RESP 18; O2SAT 94
--- NOTE | 2025-03-19 09:35 | P.PCN_ITS ---
Procedure Date: 03/19/25 Time: 09:20 Anesthesiologist:: Noel Watson CRNA Complications:: None Pre-procedure Diagnosis:: Degenerative disc cervical spine multilevels. Cervical radiculopathy. Cervical disc bulge C5-6, C6-7. Post-procedure Diagnosis:: Same. Indications for Procedure:: Patient is a very pleasant 70-year-old female who comes to clinic today for cervical epidural steroid injection. Patient describes posterior cervical neck pain as well as bilateral arm radicular symptoms. She rates her pain 7/10. Procedure Details:: Procedure:Cervical epidural steroid injection Informed consent was obtained and the risks and benefits of the procedure were explained to the patient. The patient was taken to the procedure room and noninvasive monitors placed, including noninvasive blood pressure cuff and pulse oximeter. The neck was prepped using Chloraprep as a cleansing solution. The C6- C7 interspace was viewed using fluroscopy. The skin and subcutaneous tissues were anesthetized using lidocaine 1.5% and a 25-gauge needle. After this an 18- gauge Touhy epidural needle was placed into the C6-C7 interspace under fluroscopy guidance and advanced using loss of resistance to air until the epidural space was encountered. After confirmation of needle placement in the epidural space dexamethasone 10 mg ( 1 ML) was incrementally injected into the cervical epidural space.~ The patient tolerated the procedure well with no co mplications. The patient was observed in the Pain Clinic and then discharged home neurologically intact. Plan and Disposition:: Patient was discharged without incident.
--- NOTE | 2025-03-19 09:37 | P.PCN_ITS ---
Procedure Date: 03/19/25 Time: 09:25 Anesthesiologist:: Noel Watson CRNA Complications:: None Pre-procedure Diagnosis:: Degenerative disc cervical spine multilevels. Cervical radiculopathy. Multilevel cervical disc bulge. Post-procedure Diagnosis:: Same. Indications for Procedure:: Patient is a very pleasant 70-year-old who comes our clinic today for cervical epidural steroid injection. Patient describes posterior cervical neck pain as constant, dull, aching. She also reports bilateral arm radicular symptoms. She rates her pain 7/10. Procedure Details:: Procedure:Cervical epidural steroid injection Informed consent was obtained and the risks and benefits of the procedure were explained to the patient. The patient was taken to the procedure room and noninvasive monitors placed, including noninvasive blood pressure cuff and pulse oximeter. The neck was prepped using Chloraprep as a cleansing solution. The C6- C7 interspace was viewed using fluroscopy. The skin and subcutaneous tissues were anesthetized using lidocaine 1.5% and a 25-gauge needle. After this an 18- gauge Touhy epidural needle was placed into the C6-C7 interspace under fluroscopy guidance and advanced using loss of resistance to air until the epidural space was encountered. After confirmation of needle placement in the epidural space using contrast dye, dexamethasone 10 mg ( 1 ML) was incrementally injected into the cervical epidural space.~ The patient tolerated the procedure well with no complications. The patient was observed in the Pain Clinic and then discharged home neurologically intact. Plan and Disposition:: Patient was discharged without incident.
[2025-03-19 09:39] VITALS: BP 141/70; PULSE 82; RESP 16; O2SAT 93
== END 2025-03-19 09:39 | disposition home or self-care (01) ==
PROVIDERS: PCP Internal Medicine Adolescent Medicine; Visit Provider Nurse Anesthetist, Certified Registered
DX: M50.122 Cervical disc disorder at C5-C6 level with radiculopathy (principal); M50.123 Cervical disc disorder at C6-C7 level with radiculopathy; I10 Essential (primary) hypertension; E11.9 Type 2 diabetes mellitus without complications; J44.9 Chronic obstructive pulmonary disease, unspecified; Z86.73 Personal history of transient ischemic attack (TIA), and cerebral infarction without residual deficits; E78.5 Hyperlipidemia, unspecified; F41.9 Anxiety disorder, unspecified; F32.A Depression, unspecified; F17.210 Nicotine dependence, cigarettes, uncomplicated; Z91.030 Bee allergy status; Z91.041 Radiographic dye allergy status; Z79.82 Long term (current) use of aspirin; Z79.899 Other long term (current) drug therapy
CPT/HCPCS: 62321; J1100

== ENCOUNTER 2025-03-19 09:52 | Outpatient (CLI) | payer MEDICARE, SELFPAY ==
--- OUTSIDE RECORDS SUMMARY | 2024-08-11 16:30 | XMS_ITS ---
Author Organization Formerly [facility] PE D DAVID Address [address] [place] [address] Care Team Providers Care Psych Social Worker Name Role Phone Jorge A Souza Primary Care Provider David Sesay Unavailable [phone] Migration, Provider Unavailable Unavailable REASON FOR VISIT Multum To [facility] Conversion Encounter Medications Medication SIG (Take, Route, Frequency, Duration) Notes Start Date End Date Status Albuterol Sulfate (2.5 MG/3ML) 0.083% 3 mL inhaled three times daily as needed; Duration: 90 days Diagnosis: J44.9 COPD 02/09/2021 Active Anoro Ellipta 62.5 MCG-25 MCG/INH 1 PUFF(S) INHALED ONCE A DAY; Duration: 90 DAYS prn *Please review and pick correct strength-formula tion from [facility] options. If intended option is not shown, discontinue and re-order from Quick Search* 04/17/2019 Active Venlafaxine HCl ER 150 MG 1 cap(s) orall y once a day prn; Duration: 90 days Active Rosuvastatin Calcium 20 MG 1 tab(s) orally once a day; Duration: 90 days 10/24/2023 Active hydroCHLOROthiazide 25 MG 1/2 orally onc e a day; Duration: 90 days Active metFORMIN HCl 1000 MG 1 tab(s) orally once daily; Duration: 90 days Active GLUCOMETER 1; Duration: 30 DAYS *Please review for potential replacement for e-prescription and drug interaction check* Active Fluticasone Propionate 50 MCG/ACT as directed intranasally once a day; Duration: 90 days prn Active Aspirin 325 MG 1 tab(s) orally once a day Active Carvedilol 12.5 MG 1 tablet orally 2 times a day; Duration: 90 days Active Biotin 5 MG 1 tab(s) orally once a day Active KONSYL 100% DIRECTED ORALLY 3 TIMES A DAY; Duration: 7 DAY(S) once a day *Please review for potential replacement for e-prescription and drug interaction check* Active Encounters Encounter Location Date Provider Diagnosis [facility] PED DAVID [address] [facility] [address] [facility] [address] [place] [address] 08/11/2024 Provider Migration Chronic obstructive pulmonary disease, unspecified COPD type J44.9 Assessments Encounter Date Diagnosis (ICD Code) Assessment Notes Treatment Notes Treatment Clinical Notes Section Notes 08/11/2024 Chronic obstructive pulmonary disease, unspecified COPD type (ICD-10 - J44.9) Plan Of Treatment Medication Medication Name Sig Start Date Stop Date Notes Albuterol Sulfate (2.5 MG/3ML) 0.083% 3 mL inhaled three times daily as needed; Duration: 90 days 02/09/2021 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 If intended option is not shown, discontinue and re-order from Quick Search* Venlafaxine HCl ER 150 MG 1 cap(s) orally once a day prn; Duration: 90 days Next Appt Details Provider Name:Jorge A Souza, 08/26/2025 09:00:00 AM, [address] [facility] [address] [facility], [address], [place], [address], Progress Notes * Janice CRUZDOB:1955 ( 70 yo F)Acc No.[id number]:08/11/2024 Patient: Artis SANDERSON Janice Provider: Lizzie Dow :1955 A ge:69 Y S ex:Female Date:08/11/2024 Address:[address] [place] [address] RD , [place], [id number] Pcp:Jorge A Souza Subjective: * Chief Complaints: * 1 . Multum To [facility] Conversion Encounter. * Medical History: * Medications: T aking KONSYL 100% POWDER FOR RECONSTITUTION DIRECTED ORALLY 3 TIMES A DAY , Notes to Pharmacist: once a day *Please review for potential replacement for e- prescription and drug interaction check*, Taking Biotin 5 MG Tablet Disintegrating 1 tab(s) orally once a day , Taking Aspirin 325 MG Tablet 1 tab(s) orally once a day , Taking Fluticasone Propionate 50 MCG/ACT Suspension as directed intranasally once a day , Notes to Pharmacist: prn, Taking GLUCOMETER 1 , Notes to Pharmacist: *Please review for potential replacement for e-prescription and drug interaction check*, Taking metFORMIN HCl 1000 MG Tablet 1 tab(s) orally once daily , Taking Carvedilol 12.5 MG Tablet 1 tablet orally 2 times a day , Taking Rosuvastatin Calcium 20 MG Tablet 1 tab(s) orally once a day , Taking hydroCHLOROthiazide 25 MG Tablet 1/2 orally once a day Objective: * Vitals: Assessment: * Assessment: 1. C hronic obstructive pulmonary disease, unspecified COPD type - J44.9 Plan: * Treatment: 2. O thers Start Venlafaxine HCl ER Capsule Extended Release 24 Hour, 150 MG, 1 cap(s), orally, once a day prn, 90 days, 90, Refills 1. * * Electronic signature of Prov avar Migration on 2025 at 09:55 AM EST Sign off status: Pending * Provider: Lizzie steiner Migration Date: 0 08/11/2024 Generated for Porter hernandez/Juan/Boubacar on: 05/19/2024 09:55 AM EST
--- OUTSIDE RECORDS SUMMARY | 2025-02-18 05:15 | XMS_ITS ---
Author Organization [facility] Address [address] [place] [address] Care Team Providers Care Railroad Worker Name Role Phone Jorge A Souza Primary Care Provider David Sesay Unavailable [phone] Allergies No Known Allergies REASON FOR VISIT fu/er has fallen- L1 fracture Medications Medication SIG (Take, Route, Frequency, Duration) Notes Start Date End Date Status hydroCHLOROthiazide 25 MG 1/2 orally onc e a day; Duration: 90 days Active CeleBREX 200 MG 1 capsule as needed Orally twice a day; Duration: 10 days As needed 12/26/2024 Active Rosuvastatin Calcium 20 MG Take 1 tablet by mouth once daily; Duration: 90 Active Venlafaxine HCl ER 150 MG 1 cap(s) orall y daily; Duration: 90 days Active metFORMIN HCl 1000 MG 1 tab(s) orally once daily; Duration: 90 days Active Albuterol Sulfate (2.5 MG/3ML) 0.083% 3 mL inhaled three times daily as needed; Duration: 90 days Diagnosis: J44.9 COPD 02/09/2021 Active Carvedilol 12.5 MG Take 1 tablet by mouth twice daily; Duration: 90 days Active GLUCOMETER 1; Duration: 30 DAYS Active Anoro Ellipta 62.5 MCG-25 MCG/INH 1 PUFF(S) INHALED ONCE A DAY; Duration: 90 DAYS prn 04/17/2019 Active Fluticasone Propionate 50 MCG/ACT as directed [...] many cigarettes a day do you smoke? - Vital Signs Temperature 97.5 degrees Fahrenheit 02/19/20 25 Blood pressure systolic 124 mm Hg 02/19/20 25 Blood pressure diastolic 60 mm Hg 025 Heart Rate 60 /min 02/18/2025 Height 5 ft 7.5 in in 02/18/2025 Weight 237.6 lbs 02/18/2025 BMI 36.66 kg/m2 02/18/2025 Encounters Encounter Location Date Provider Diagnosis [facility] [address] [facility] [address] [place] [address] 02/18/2025 Jorge A Souza Compression fracture of L1 vertebra with routine healing, subsequent encounter S32.010D ; Personal history of nicotine dependence Z87.891 and Hospital discharge follow-up Z09 Assessments Encounter Date Diagnosis (ICD Code) Assessment Notes Treatment Notes Treatment Clinical Notes Section Notes 02/18/2025 Compression fracture of L1 vertebra with routine healing, subsequent encounter (ICD-10 - S32.010D) Pt is being scheduled for a DEXA scan and was counseled to stop smoking. Pt was given a sample of Journavx and was told to call with pain progress. She is seeing Pain Management next month and was told to mention the compression fracture during that appointment. Will follow pt closely 02/18/2025 Personal history of nicotine dependence (ICD-10 - Z87.891) Long discussion about cigarette smoking. Patient understands the risks, does not want to quit until the new year. She knows that it is a risk for worsening osteoporosis 02/18/2025 Hospital discharge follow-up (ICD-10 - Z09) I reviewed ER notes available from emergency department. Reviewed labs, reviewed discharge plan, personally reconciled medication. Plan Of Treatment Treatment Notes Assessment Notes Compression fracture of L1 v ertebra with routine healing, subsequent encounter Pt is being scheduled for a DEXA scan an d was counseled to stop smoking. Pt was given a sample of Journavx and was told to call with pain progress. She is seeing Pain Management next month and was told to mention the compression fracture during that appointment. Will follow pt closely Personal history of nicotine dependence Long discussion about cigarette smoking. Patient understands the risks, does not want to quit until the new year. She knows that it is a risk for worsening osteoporosis Hospital discharge follow-up I reviewed ER notes available from emergency department. Reviewed labs, reviewed discharge plan, personally reconciled medication. Pending Test Test Name Order Date DEXA Hip and Spine - Diagnostic 02/19/20 Next Appt Details Follow Up: prn, Reason: Provider Name:Jorge A Souza, 08/26/2025 09:00:00 AM, [address], [address], [place], [address], Progress Notes * Janice CRUZDOB:1955 ( 69 yo F)Acc No.[id number]:02/18/2025 Progress Notes Patient: Janice THOMPSON Provider: Mary Souza MD :1955 A ge:69 Y S ex:Female Date:02/18/2025 Address:[address] [place] [address] [address] , [place], [id number] Subjective: * Chief Complaints: * 1 . fu/er has fallen- L1 fracture. * HPI: g en: Pt is here for follow-up after an ER visit on 02/15 for a fall. Pt fell and went to ER, CT showed L1 compression fracture. Was given pain meds and spine surgery looked at her. They did not recommend surgery, she was discharged home with naproxen and methocarbamol. She presents today with complaints of pain, denies leg numbness or weakness or bowel/bladder issues. She states she can get around and can use the bathroom and get dressed but it is painful. * Medical History: H ypertension, Stroke, Anxiety, [...] breast cyst with aspiration 2004 , colonscopy 05/2020, Gallbladder removal 12/2024. * Hospitalization/Major Diagno stic Procedure: p neumonia, CHF 1985, childbirth x3 , pneumonia, asthma 05/2017, pneumonia 02/2018. * Family History: F ather: , stroke, heart disease, diagnosed with Heart Disease, Stroke. M other: , diabetes, heart disease, diagnosed with Heart Disease, Diabetes. P aternal Grand Father: . P aternal Grand Mother: . M aternal Grand Father: , [place], diagnosed with Heart Disease. M aternal Grand Mother: . P aternal aunt: alive, stroke. M aternal uncle: , [place]. M aternal aunt: , diabetes. S iblings: alive, 5 brother [place],lung cancer, 3 sisters -CA and cirrhosis of the liver older brother-Parkinson's Diseaseyoungest brother-black usjq-eijntwicfnloodk-vdzxppobi cancersister-, diagnosed with Cancer. C hildren: alive. 5 brother(s) , 4 sister(s) . [...] Notes to Pharmacist: once a day, Taking Aspirin 325 MG Tablet 1 tab(s) [...] Hour 1 cap(s) orally daily , Taking metFORMIN HCl 1000 MG Tablet 1 tab(s) orally once daily , Taking CeleBREX 200 MG Capsule 1 capsule as needed Orally twice a day As needed, Taking Rosuvastatin Calcium 20 MG Tablet Take 1 tablet by mouth once daily , Discontinued Biotin 63591 MCG Tablet 1 tab(s) orally once a day , Medication List reviewed and reconciled with the patient * Allergies: N .K.D.A. Objective: * Vitals: N urse: KJ, Pain: 9, Temp: 97.5, RR: 18, HR: 60, BP: 124/60, Ht: 5 ft 7.5 in, Wt: 237.6, BMI:36.66. * Examination: G eneral Examination: General P leasant and Cooperative, NAD on RA,. Heart: R egular Rate and Rhythm, no murmur, rubs or gallops. Lungs: L CTAB, No wheezes, crackles or rhonchi, Good air movement,. Abdomen: S oft, NTND, BSNA, No organomegaly or peritoneal signs.. Neurologic Exam: n o focal signs,, normal sensation, strength, tone and reflexes,, Alert and oriented x 3. Back: n ormal, TTP over lumbar spine. ? Assessment: * Assessment: 1. C ompression fracture of L1 vertebra with routine healing, subsequent encounter - S32.010D (Primary) 2 . P ersonal history of nicotine dependence - Z87.891 3 . H ospital discharge follow-up - Z09 Plan: * Treatment: * Notes: Pt is being scheduled for a DEXA scan and was counseled to stop smoking. Pt was given a sample of Journavx and was told to call with pain progress. She is seeing Pain Management next month andwas told to mention the compression fracture during that appointment. Will follow pt closely? 2.?Personal history of nicotine dependence? Notes: Long discussion about cigarette smoking. Patient understands the risks, does not want to quit until the new year. She knows that it is a risk for worsening osteoporosis??3.?Hospital discharge follow-up? Notes: I reviewed ER notes available from emergency department. Reviewed labs, reviewed discharge plan, personally reconciled medication.?? * Procedure Codes: 1 111F DSCHR MED/CURENT MED MERGE, G2211 Complex e/m visit add on * Follow Up: p rn * * Sign off status: Completed true * Provider: Mary Souza MD Date: Generated for Porter hernandez/Juan/eTransmitting on: 05/19/2024 09:55 AM EST History and Physical Notes * HPI (History of Present Illness) Category Sub-Category Detail Notes Category Not es gen Pt is here for follow-up after an ER visit on 02/15 for a fall. Pt fell and went to ER, CT showed L1 compression fracture. Was given pain meds and spine surgery looked at her. They did not recommend surgery, she was discharged home with naproxen and methocarbamol. She presents today with complaints of pain, denies leg numbness or weakness or bowel/bladder issues. She states she can get around and can use the bathroom and get dressed but it is painful. Examination Category Sub-Category Detail Notes Category Not es General Examination Heart: Regular Rate and Rhythm, no murmur, rubs or gallops Lungs: LCTAB, No wheezes, c rackles or rhonchi, Good air movement, Abdomen: Soft, NTND, BSNA, No organomegaly or peritoneal signs. Neurologic Exam: no focal signs,, nor mal sensation, strength, tone and reflexes,, Alert and oriented x 3 Back: normal, TTP over lum bar spine General Pleasant and Coopera tive, NAD on RA,
--- OUTSIDE RECORDS SUMMARY | 2025-03-06 05:15 | XMS_ITS ---
Author Organization [facility] PE D DAVID Address [address] [place] [address] Care Team Providers Care Produce Team Member Name Role Phone Jorge A Souza Primary Care Provider David Sesay Unavailable [phone] Allergies No Known Allergies Results Component Value Reference Range Notes LIPID PANEL, STANDARD (7600) Reviewed date:03/08/2025 12:19:11 PM Interpretation: Performing Lab:[facility], [facility] [id number] MitteSaint [facility] Medical CenterJohnQgkeTC[address] Han Busch Notes/Report: NON-FASTING; NON-FASTING; NON-FASTING; NON-FASTING FASTING:YES FASTING: YES CHOLESTEROL, TOTAL 82 <200 mg/dL HDL CHOLESTEROL 45 > OR = 50 mg/dL TRIGLYCERIDES 92 <150 mg/dL LDL-CHOLESTEROL 19 Reference range: <100 Desirable range <100 mg/dL for primary prevention; <70 mg/dL for patients with CHD or diabetic patients with > or = 2 CHD risk factors. LDL-C is now calculated using the [place] calculation, which is a validated novel method providing better accuracy than the Friedewald equation in the estimation of LDL-C. Jose LINDER et al. JOB. 2013;310(19): 0291-7990 (http://education.Octamer/faq/ASB854) CHOL/HDLC RATIO 1.8 <5.0 (calc) NON HDL CHOLESTEROL 37 <130 mg/dL (calc) For patients with diabetes plus 1 major ASCVD risk factor, treating to a non-HDL-C goal of <100 mg/dL (LDL-C of <70 mg/dL) is considered a therapeutic option. COMPREHENSIVE METABOLIC PANMichelle Campbell ([id number]) Reviewed date:03/08/2025 12:19:12 PM Interpretation: Performing Lab:[facility] [id number] [facility]el [facility], [facility] HealthHbjrSF[address] Han Busch Notes/Report: NON-FASTING; NON-FASTING; NON-FASTING; NON-FASTING FASTING:YES FASTING: YES GLUCOSE 94 65-99 mg/dL Fasting reference interval UREA NITROGEN (BUN) 22 7-25 mg/dL CREATININE 0.81 0.60-1.00 mg/dL EGFR 78 > OR = 60 mL/min/1.73m2 BUN/CREATININE RATIO SEE NOTE: 6-22 (calc) Not Reported: BUN and Creatinine are within reference range. SODIUM 144 135-146 mmol/L POTASSIUM 3.9 3.5-5.3 mmol/L CHLORIDE 106 98-110 mmol/L CARBON DIOXIDE 28 20-32 mmol/L CALCIUM 9.5 8.6-10.4 mg/dL PROTEIN, TOTAL 6.6 6.1-8.1 g/dL ALBUMIN 3.6 3.6-5.1 g/dL GLOBULIN 3.0 1.9-3.7 g/dL (calc) ALBUMIN/GLOBULIN RATIO 1.2 1.0-2.5 (calc) BILIRUBIN, TOTAL 0.3 0.2-1.2 mg/dL ALKALINE PHOSPHATASE 82 37-153 U/L AST 23 10-35 U/L ALT 17 6-29 U/L CBC (INCLUDES DIFF/PLT) (639 9) Reviewed date:03/08/2025 12:19:12 PM Interpretation: Performing Lab:[facility] [id number] [employer] [facility], [facility] CenterFdljUT[address] Han Busch Notes/Report: NON-FASTING; NON-FASTING; NON-FASTING; NON-FASTING FASTING:YES FASTING: YES WHITE BLOOD CELL COUNT 9.1 3.8-10.8 Thousand/ uL RED BLOOD CELL COUNT 4.13 3.80-5.10 Million/uL HEMOGLOBIN 12.9 11.7-15.5 g/dL HEMATOCRIT 40.3 35.0-45.0 % MCV 97.6 80.0-100.0 fL MCH 31.2 27.0-33.0 pg MCHC 32.0 32.0-36.0 g/dL For adults, a slight decrease in the calculated MCHC value (in the range of 30 to 32 g/dL) is most likely not clinically significant; however, it should be interpreted with caution in correlation with other red cell parameters and the patient's clinical condition. RDW 13.9 11.0-15.0 % PLATELET COUNT 250 140-400 Thousand/uL MPV 9.9 7.5-12.5 fL ABSOLUTE NEUTROPHILS 6070 9678-1385 cells/uL ABSOLUTE LYMPHOCYTES 5644 596-4881 cells/uL ABSOLUTE MONOCYTES 646 200-950 cells/uL ABSOLUTE EOSINOPHILS 428 15-500 cells/uL ABSOLUTE BASOPHILS 64 0-200 cells/uL NEUTROPHILS 66.7 LYMPHOCYTES 20.8 MONOCYTES 7.1 EOSINOPHILS 4.7 BASOPHILS 0.7 HEMOGLOBIN A1c (496) Reviewed date:03/08/2025 12:19:12 PM Interpretation: Performing Lab:[facility], [facility] [facility]te[facility], [facility] CenterLxlxLY[address] Han Busch Notes/Report: NON-FASTING; NON-FASTING; NON-FASTING; NON-FASTING FASTING:YES FASTING: YES HEMOGLOBIN A1c 5.5 <5.7 % For the purpose of screening for the presence of diabetes: <5.7% Consistent with the absence of diabetes 5.7-6.4% Consistent with increased risk for diabetes (prediabetes) > or =6.5% Consistent with diabetes This assay result is consistent with a decreased risk of diabetes. Currently, no consensus exists regarding use of hemoglobin A1c for diagnosis of diabetes in children. According to [place] Diabetes Association (ADA) guidelines, hemoglobin A1c <7.0% represents optimal control in non- diabetic patients. Different metrics may apply to specific patient populations. Standards of Medical Care in Diabetes(ADA). REASON FOR VISIT 3 month f/u-fasting, flu shot Medications Medication SIG (Take, Route, Frequency, Duration) Notes Start Date End Date Status metFORMIN HCl 1000 MG 1 tab(s) orally on ce daily; Duration: 90 days Active Carvedilol 12.5 MG Take 1 tablet by mouth twice daily; Duration: 90 days Active Albuterol Sulfate (2.5 MG/3ML) 0.083% 3 mL inhaled three times daily as needed; Duration: 90 days 02/09/2021 Active Venlafaxine HCl ER 150 MG 1 cap(s) orall y daily; Duration: 90 days Active hydroCHLOROthiazide 25 MG 1/2 orally onc e a day; Duration: 90 days Active Fluticasone Propionate 50 MCG/ACT as directed intranasally once a day; Duration: 90 days prn Active Anoro Ellipta 62.5 MCG-25 MCG/INH 1 PUFF(S) INHALED ONCE A DAY; Duration: 90 DAYS prn 04/17/2019 Active GLUCOMETER 1; Duration: 30 DAYS Active Aspirin 325 MG 1 tab(s) orally once a day Active KONSYL 100% DIRECTED ORALLY 3 TIMES A DAY; Duration: 7 DAY(S) once a day Active Rosuvastatin Calcium 20 MG Take 1 tablet by mouth once daily; Duration: 90 Active Immunizations Vaccine Route Administration Date Status Comme nts Fluzone High Dose IM Intramuscular 03/06/2025 Administered Social History Tobacco Use: Social History Observation Description Date Details (start date - stop date) Current Smoker NA - NA Smoking: Question Answer Notes Are you a: current smoker How often do you smoke cigarettes? every day How many cigarettes a day do you smoke? 03-28 Vital Signs Temperature 96.8 degrees Fahrenheit 03/06/20 25 Blood pressure systolic 134 mm Hg 03/06/20 25 Blood pressure diastolic 70 mm Hg 025 Heart Rate 78 /min 03/06/2025 Height 5 ft 7.5 in in 03/06/2025 Weight 237.2 lbs 03/06/2025 BMI 36.6 kg/m2 03/06/2025 Encounters Encounter Location Date Provider Diagnosis [facility] [address] [place] [address] 03/06/2025 Jorge A Souza Hypertension, essential I10 ; Hyperlipemia, idiopathic familial E78.5 ; Chronic obstructive pulmonary disease, unspecified COPD type J44.9 ; Type 2 diabetes mellitus with other specified complication E11.69 ; Immunization(s) administered Z23 and Compression fracture of lumbar vertebra with routine healing, unspecified lumbar vertebral level, subsequent encounter S32.000D Assessments Encounter Date Diagnosis (ICD Code) Assessment Notes Treatment Notes Treatment Clinical Notes Section Notes 03/06/2025 Hypertension, essential (ICD-10 - I10) Blood pressure is under good control. No changes in plans. 03/06/2025 Hyperlipemia, idiopathic familial (ICD-10 - E78.5) Check lipids. All reviewed personally 03/06/2025 Chronic obstructive pulmonary disease, unspecified COPD type (ICD-10 - J44.9) Stable. Unfortunately continues to smoke, will discuss at next visit also 03/06/2025 Type 2 diabetes mellitus with other specified complication (ICD-10 - E11.69) Check A1c. 03/06/2025 Immunization(s) administered (ICD-10 - Z23) 03/06/2025 Compression fracture of lumbar vertebra with routine healing, unspecified lumbar vertebral level, subsequent encounter (ICD-10 - S32.000D) Pain seems to be improving. Continue to follow with pain management. I will see her as needed for this problem Plan Of Treatment Treatment Notes Assessment Notes Hypertension, essential Blood pressure i s under good control. No changes in plans. Hyperlipemia, idiopathic familial Check lipids. All reviewed personally Chronic obstructive pulmonar y disease, unspecified COPD type Stable. Unfortunately continues to smoke , will discuss at next visit also Type 2 diabetes mellitus wit h other specified complication Check A1c. Compression fracture of lumb ar vertebra with routine healing, unspecified lumbar vertebral level, subsequent encounter Pain seems to be improving. Continue to follow with pain management. I will see her as needed for this problem Next Appt Details Follow Up: 6 Months, Reason: Provider Name:Jorge A Souza, 08/26/2025 09:00:00 AM, [address] [facility], [address], [place], [address], Progress Notes * CRUZJaniceDOB:1955 ( 69 yo F)Acc No.[id number]:03/06/2025 Progress Notes Patient: Janice THOMPSON Provider: Mary Souza MD :1955 A ge:69 Y S ex:Female Date:03/06/2025 Address:[address] [place] [address] RD , [id number] Subjective: * Chief Complaints: * 1 . 3 month f/u-fasting. 2. Flu shot. * HPI: toma en: Presents for 3-month follow-up. Was seen because of compression fractures last week. She is an appoint with pain management for kyphoplasty injections on March 19. Pain is better and she stopped all her pain medicines. Otherwise no changes in meds. * Medical History: H ypertension, Stroke, Anxiety, [...] ather: , stroke, heart disease, diagnosed with Stroke, Heart Disease. M other: , diabetes, heart disease, diagnosed with Diabetes, Heart Disease. P aternal Grand Father: . P aternal Grand Mother: . M aternal Grand Father: , [place], diagnosed with Heart Disease. M aternal Grand Mother: . P aternal aunt: alive, stroke. M aternal uncle: , [place]. M aternal aunt: , diabetes. S iblings: alive, 5 brother [place],lung cancer, 3 sisters -[place] and cirrhosis of the liver older brother-Parkinson's Diseaseyoungest brother-black dgdu-xidujpxlevoaixu-pwbbqbouv cancersister-, diagnosed with Cancer. C charlie: alive. 5 brother(s) , 4 sister(s) . [...] inhaled three times daily as needed , Taking Carvedilol 12.5 MG Tablet Take 1 tablet by mouth twice daily , Taking hydroCHLOROthiazide 25 MG Tablet 1/2 orally once a day , Taking Venlafaxine HCl ER 150 MG Capsule Extended Release 24 Hour 1 cap(s) orally daily , Taking metFORMIN HCl 1000 MG Tablet 1 tab(s) orally once daily , Taking Rosuvastatin Calcium 20 MG Tablet Take 1 tablet by mouth once daily , Discontinued CeleBREX 200 MG Capsule 1 capsule as needed Orally twice a day As needed, Discontinued Journavx 50 MG Tablet as directed Orally twice a day As needed, Medication List reviewed and reconciled with the patient * Allergies: N .K.D.A. Objective: * Vitals: N urse: jl, Pain: 5, Temp: 96.8, RR: 18, HR: 78, BP: 134/70, Ht: 5 ft 7.5 in, Wt: 237.2, BMI:36.6. * Examination: G eneral Examination: S till somewhat stiff when she walks and when she gets up from the chair has pain down into her spine. No ankle edema, heart rate regular, lungs clear. Otherwise neurologically intact. Assessment: * Assessment: 1. H ypertension, essential - I10 (Primary) 2 . H yperlipemia, idiopathic familial - E78.5 3 . C hronic obstructive pulmonary disease, unspecified COPD type - J44.9 4 . T ype 2 diabetes mellitus with other specified complication - E11.69 5 . I mmunization(s) administered - Z23 6 . C ompression fracture of lumbar vertebra with routine healing, unspecified lumbar vertebral level, subsequent encounter - S32.000D Plan: * Treatment: 2. H yperlipemia, idiopathic familial L AB: LIPID PANEL, STANDARD (7600) Value Reference Range T RIGLYCERIDES 92 <150 - mg/dL * C HOLESTEROL, TOTAL 82 <200 - mg/dL * H DL CHOLESTEROL 45 L > OR = 50 - mg/dL * L DL-CHOLESTEROL 19 - mg/dL (calc) * C HOL/HDLC RATIO 1.8 <5.0 - (calc) * N ON HDL CHOLESTEROL 37 <130 - mg/dL (calc) * Irlanda Smith 03/08/2025 12:18:58 PM EDT > informedThis lab was reviewed by Irlanda Smith on 03/08/2025 at 12:19 PM EDT ?LAB: COMPREHENSIVE METABOLIC PANEL (66833)* Value Reference Range G LUCOSE 94 65-99 - mg/dL * U ANANTH NITROGEN (BUN) 22 7-25 - mg/dL * C REATININE 0.81 0.60-1.00 - mg/dL * B UN/CREATININE RATIO SEE NOTE: 6-22 - (calc) * S ODIUM 144 135-146 - mmol/L * P OTASSIUM 3.9 3.5-5.3 - mmol/L * C HLORIDE 106 98-110 - mmol/L * C ARBON DIOXIDE 28 20-32 - mmol/L * C ALCIUM 9.5 8.6-10.4 - mg/dL * P ROTEIN, TOTAL 6.6 6.1-8.1 - g/dL * A LBUMIN 3.6 3.6-5.1 - g/dL * G LOBULIN 3.0 1.9-3.7 - g/dL (calc ) * A LBUMIN/GLOBULIN RATIO 1.2 1.0-2.5 - (calc) * B ILIRUBIN, TOTAL 0.3 0.2-1.2 - mg/dL * A LKALINE PHOSPHATASE 82 37-153 - U/L * A ST 23 10-35 - U/L * A LT 17 6-29 - U/L * E GFR 78 > OR = 60 - mL/min/1 .73m2 * Irlanda Smith 03/08/2025 12:18:58 PM EDT > informedThis lab was reviewed by Irlanda Smith on 03/08/2025 at 12:19 PM EDT ?LAB: CBC (INCLUDES DIFF/PLT) (1496)* Value Reference Range W CARLOS BLOOD CELL COUNT 9.1 3.8-10.8 - Thousan d/uL * R ED BLOOD CELL COUNT 4.13 3.80-5.10 - Million/ uL * H EMOGLOBIN 12.9 11.7-15.5 - g/dL * H EMATOCRIT 40.3 35.0-45.0 - % * M CV 97.6 80.0-100.0 - fL * M CH 31.2 27.0-33.0 - pg * M CHC 32.0 32.0-36.0 - g/dL * R DW 13.9 11.0-15.0 - % * P LATELET COUNT 250 140-400 - Thousand/u L * N EUTROPHILS 66.7 - % * A BSOLUTE NEUTROPHILS 6070 0702-9490 - cells/uL * L YMPHOCYTES 20.8 - % * A BSOLUTE LYMPHOCYTES 7988 096-3912 - cells/uL * M ONOCYTES 7.1 - % * A BSOLUTE MONOCYTES 646 200-950 - cells/uL * E OSINOPHILS 4.7 - % * A BSOLUTE EOSINOPHILS 428 15-500 - cells/uL * B ASOPHILS 0.7 - % * A BSOLUTE BASOPHILS 64 0-200 - cells/uL * M PV 9.9 7.5-12.5 - fL * Irlanda Smith 03/08/2025 12:18:58 PM EDT > informedThis lab was reviewed by Irlanda Smith on 03/08/2025 at 12:19 PM EDT ?LAB: HEMOGLOBIN A1c (496)* Value Reference Range H EMOGLOBIN A1c 5.5 <5.7 - % * Irlanda Smith 03/08/2025 12:18:58 PM EDT > Marquita lab was reviewed by Irlanda Smith on 03/08/2025 at 12:19 PM EDT Notes: Check lipids. All reviewed personally??3.?Chronic obstructive pulmonary disease, unspecified COPD type?LAB: LIPID PANEL, STANDARD (7600)* Value Reference Range T RIGLYCERIDES 92 <150 - mg/dL * C HOLESTEROL, TOTAL 82 <200 - mg/dL * H DL CHOLESTEROL 45 L > OR = 50 - mg/dL * L DL-CHOLESTEROL 19 - mg/dL (calc) * C HOL/HDLC RATIO 1.8 <5.0 - (calc) * N ON HDL CHOLESTEROL 37 <130 - mg/dL (calc) * Irlanda Smith 03/08/2025 12:18:58 PM EDT > Marquita lab was reviewed by Irlanda Smith on 03/08/2025 at 12:19 PM EDT ?LAB: COMPREHENSIVE METABOLIC PANEL (52477)* Value Reference Range G LUCOSE 94 65-99 - mg/dL * U ANANTH NITROGEN (BUN) 22 7-25 - mg/dL * C REATININE 0.81 0.60-1.00 - mg/dL * B UN/CREATININE RATIO SEE NOTE: 6-22 - (calc) * S ODIUM 144 135-146 - mmol/L * P OTASSIUM 3.9 3.5-5.3 - mmol/L * C HLORIDE 106 98-110 - mmol/L * C ARBON DIOXIDE 28 20-32 - mmol/L * C ALCIUM 9.5 8.6-10.4 - mg/dL * P ROTEIN, TOTAL 6.6 6.1-8.1 - g/dL * A LBUMIN 3.6 3.6-5.1 - g/dL * G LOBULIN 3.0 1.9-3.7 - g/dL (calc ) * A LBUMIN/GLOBULIN RATIO 1.2 1.0-2.5 - (calc) * B ILIRUBIN, TOTAL 0.3 0.2-1.2 - mg/dL * A LKALINE PHOSPHATASE 82 37-153 - U/L * A ST 23 10-35 - U/L * A LT 17 6-29 - U/L * E GFR 78 > OR = 60 - mL/min/1 .73m2 * Irlanda Smith 03/08/2025 12:18:58 PM EDT > informedThis lab was reviewed by Irlanda Smith on 03/08/2025 at 12:19 PM EDT ?LAB: CBC (INCLUDES DIFF/PLT) (2762)* Value Reference Range W CARLOS BLOOD CELL COUNT 9.1 3.8-10.8 - Thousan d/uL * R ED BLOOD CELL COUNT 4.13 3.80-5.10 - Million/ uL * H EMOGLOBIN 12.9 11.7-15.5 - g/dL * H EMATOCRIT 40.3 35.0-45.0 - % * M CV 97.6 80.0-100.0 - fL * M CH 31.2 27.0-33.0 - pg * M CHC 32.0 32.0-36.0 - g/dL * R DW 13.9 11.0-15.0 - % * P LATELET COUNT 250 140-400 - Thousand/u L * N EUTROPHILS 66.7 - % * A BSOLUTE NEUTROPHILS 6070 6893-9487 - cells/uL * L YMPHOCYTES 20.8 - % * A BSOLUTE LYMPHOCYTES 5640 751-3441 - cells/uL * M ONOCYTES 7.1 - % * A BSOLUTE MONOCYTES 646 200-950 - cells/uL * E OSINOPHILS 4.7 - % * A BSOLUTE EOSINOPHILS 428 15-500 - cells/uL * B ASOPHILS 0.7 - % * A BSOLUTE BASOPHILS 64 0-200 - cells/uL * M PV 9.9 7.5-12.5 - fL * Irlanda Smith 03/08/2025 12:18:58 PM EDT > informedThis lab was reviewed by Irlanda Smith on 03/08/2025 at 12:19 PM EDT ?LAB: HEMOGLOBIN A1c (496)* Value Reference Range H EMOGLOBIN A1c 5.5 <5.7 - % * Irlanda Smith 03/08/2025 12:18:58 PM EDT > informedAlixs lab was reviewed by Irlanda Smith on 03/08/2025 at 12:19 PM EDT Notes: Stable. Unfortunately continues to smoke, will discuss at next visit also??4.?Type 2 diabetes mellitus with other specified complication?LAB: LIPID PANEL, STANDARD (7600)* Value Reference Range T RIGLYCERIDES 92 <150 - mg/dL * C HOLESTEROL, TOTAL 82 <200 - mg/dL * H DL CHOLESTEROL 45 L > OR = 50 - mg/dL * L DL-CHOLESTEROL 19 - mg/dL (calc) * C HOL/HDLC RATIO 1.8 <5.0 - (calc) * N ON HDL CHOLESTEROL 37 <130 - mg/dL (calc) * Irlanda Smith 03/08/2025 12:18:58 PM EDT > Marquita lab was reviewed by Irlanda Smith on 03/08/2025 at 12:19 PM EDT ?LAB: COMPREHENSIVE METABOLIC PANEL (73171)* Value Reference Range G LUCOSE 94 65-99 - mg/dL * U ANANTH NITROGEN (BUN) 22 7-25 - mg/dL * C REATININE 0.81 0.60-1.00 - mg/dL * B UN/CREATININE RATIO SEE NOTE: 6-22 - (calc) * S ODIUM 144 135-146 - mmol/L * P OTASSIUM 3.9 3.5-5.3 - mmol/L * C HLORIDE 106 98-110 - mmol/L * C ARBON DIOXIDE 28 20-32 - mmol/L * C ALCIUM 9.5 8.6-10.4 - mg/dL * P ROTEIN, TOTAL 6.6 6.1-8.1 - g/dL * A LBUMIN 3.6 3.6-5.1 - g/dL * G LOBULIN 3.0 1.9-3.7 - g/dL (calc ) * A LBUMIN/GLOBULIN RATIO 1.2 1.0-2.5 - (calc) * B ILIRUBIN, TOTAL 0.3 0.2-1.2 - mg/dL * A LKALINE PHOSPHATASE 82 37-153 - U/L * A ST 23 10-35 - U/L * A LT 17 6-29 - U/L * E GFR 78 > OR = 60 - mL/min/1 .73m2 * Irlanda Smith 03/08/2025 12:18:58 PM EDT > informedThis lab was reviewed by Irlanda Smith on 03/08/2025 at 12:19 PM EDT ?LAB: CBC (INCLUDES DIFF/PLT) (1681)* Value Reference Range W CARLOS BLOOD CELL COUNT 9.1 3.8-10.8 - Thousan d/uL * R ED BLOOD CELL COUNT 4.13 3.80-5.10 - Million/ uL * H EMOGLOBIN 12.9 11.7-15.5 - g/dL * H EMATOCRIT 40.3 35.0-45.0 - % * M CV 97.6 80.0-100.0 - fL * M CH 31.2 27.0-33.0 - pg * M CHC 32.0 32.0-36.0 - g/dL * R DW 13.9 11.0-15.0 - % * P LATELET COUNT 250 140-400 - Thousand/u L * N EUTROPHILS 66.7 - % * A BSOLUTE NEUTROPHILS 6070 0274-3127 - cells/uL * L YMPHOCYTES 20.8 - % * A BSOLUTE LYMPHOCYTES 9409 563-1825 - cells/uL * M ONOCYTES 7.1 - % * A BSOLUTE MONOCYTES 646 200-950 - cells/uL * E OSINOPHILS 4.7 - % * A BSOLUTE EOSINOPHILS 428 15-500 - cells/uL * B ASOPHILS 0.7 - % * A BSOLUTE BASOPHILS 64 0-200 - cells/uL * M PV 9.9 7.5-12.5 - fL * Irlanda Smith 03/08/2025 12:18:58 PM EDT > informedThis lab was reviewed by Irlanda Smith on 03/08/2025 at 12:19 PM EDT ?LAB: HEMOGLOBIN A1c (496)* Value Reference Range H EMOGLOBIN A1c 5.5 <5.7 - % * Irlanda Smith 03/08/2025 12:18:58 PM EDT > informedThis lab was reviewed by Irlanda Smith on 03/08/2025 at 12:19 PM EDT Notes: Check A1c.??5.?Compression fracture of lumbar vertebra with routine healing, unspecified lumbar vertebral level, subsequent encounter? Notes: Pain seems to be improving. Continue to follow with pain management. I will see her as needed for this problem?? * Immunizations: Fluzone High Dose : 0.5 mL (Route: Intramuscular) given by ANTHONY Cervantes on Right Deltoid (Immunization(s) administered) * Procedure Codes: 9 0662 Influenza High Dose Vaccine >65 Years Old, G0008 ADMINISTRATION-FLU VACCINE MEDICARE ONLY, G2211 Complex e/m visit add on * Follow Up: 6 Months * * Sign off status: Completed true * Provider: Mary Souza MD Date: Generated for Porter hernandez/Juan/Davieransmitting on: 05/19/2024 09:56 AM EST History and Physical Notes * HPI (History of Present Illness) Category Sub-Category Detail Notes Category Not es gen Presents for 3-month follow-up. Was seen because of compression fractures last week. She is an appoint with pain management for kyphoplasty injections on March 19. Pain is better and she stopped all her pain medicines. Otherwise no changes in meds. Examination Category Sub-Category Detail Notes Category Not es General Examination Still somewhat stiff when she walks and when she gets up from the chair has pain down into her spine. No ankle edema, heart rate regular, lungs clear. Otherwise neurologically intact
--- NOTE | 2025-03-19 09:53 | XR_ITS ---
FINAL REPORT CLINICAL HISTORY: SCREENING COMPARISON: 09/15/2022 FINDINGS: Using L1-4, the bone mineral density of the spine is 1.265 g/cm2, corresponding to T-score of 2.0. The bone mineral density change versus baseline is 9.6% Using the left hip, the bone mineral density of the femoral neck is 1.039 g/cm2, corresponding to a T-score of 1.7. The bone mineral density change versus baseline is -8.2%. Using the right hip, the bone mineral density of the femoral neck is 1.059 g/cm2, corresponding to a T-score of 1.9. The bone mineral density change versus baseline is -3.4% NOTE: T-score: Standard deviation compared with peak bone mass of young adult mean. *Following the recommendations of the International Society of Bone densitometry, classification of hip BMD is based on the lower of two T-scores; total hip or femoral neck. IMPRESSION: 1. Bone mineral density of the bilateral hips and lumbar spine is within normal limits. Reviewed, Interpreted and Dictated by Vijaya Barillas MD Transcribed by Janett Wells Authenticated and [facility]
--- OUTSIDE RECORDS SUMMARY | 2025-03-19 09:56 | XMS_ITS | Patient Health Record ---
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 According to [place] Diabetes Association (ADA) guidelines, hemoglobin A1c <7.0% represents optimal control in non- diabetic patients. Different metrics may apply to specific patient populations. Standards of Medical Care in Diabetes(ADA). CBC (INCLUDES DIFF/PLT) (639 9) Reviewed date:03/08/2025 12:19:12 PM Interpretation: Performing Lab:CB, [facility] [address], [facility] CenterSsidUN[address] Han Busch Notes/Report: NON-FASTING; NON-FASTING; NON-FASTING; NON-FASTING [...] MPV 9.9 7.5-12.5 fL ABSOLUTE NEUTROPHILS [phone] cells/uL ABSOLUTE LYMPHOCYTES 0877 594-3905 cells/uL ABSOLUTE MONOCYTES 646 200-950 cells/uL ABSOLUTE EOSINOPHILS 428 15-500 cells/uL ABSOLUTE BASOPHILS 64 0-200 cells/uL NEUTROPHILS 66.7 LYMPHOCYTES 20.8 MONOCYTES 7.1 EOSINOPHILS 4.7 BASOPHILS 0.7 COMPREHENSIVE METABOLIC PANE (65754) Reviewed date:03/08/2025 12:19:12 PM Interpretation: Performing Lab:[facility], [facility] [facility], [facility] CenterHoyvZV[address] Han Busch Notes/Report: NON-FASTING; NON-FASTING; NON-FASTING; NON-FASTING [...] 23 10-35 U/L ALT 17 6-29 U/L LIPID PANEL, STANDARD (7600) Reviewed date:03/08/2025 12:19:11 PM Interpretation: Performing Lab:[facility]e[address] [place] [employer], Snapd AppWmrjBZ[address] Han Busch Notes/Report: NON-FASTING; NON-FASTING; NON-FASTING; NON-FASTING [...] LDL-C. Jose LINDER et al. JOB. 2013;310(19): 1904-6186 (http://education.[employer]./faq/JKH938) CHOL/HDLC RATIO 1.8 <5.0 (calc) NON HDL CHOLESTEROL 37 <130 mg/dL (calc) For patients with diabetes plus 1 major ASCVD risk factor, treating to a non-HDL-C goal of <100 mg/dL (LDL-C of <70 mg/dL) is considered a therapeutic option. HEMOGLOBIN A1c (496) Reviewed date:03/30/2024 02:37:20 PM Interpretation: Performing Lab:[facility], Abine [address], LoyalBlocksDgvzPC[address] Han Busch Notes/Report: NON-FASTING; NON-FASTING; NON-FASTING FASTING:YES [...] of diabetes for children. COMPREHENSIVE METABOLIC PANE (70110) Reviewed date:03/30/2024 02:37:20 PM Interpretation: Performing Lab:[facility], [facility]Pixel Qi [address], LoyalBlocksZsiaHL[address] Han Busch Notes/Report: NON-FASTING; NON-FASTING; NON-FASTING FASTING:YES [...] Reviewed date:03/30/2024 02:37:20 PM Interpretation: Performing Lab:[facility], [facility] Qi [address], [facility] CenterLnqwPH[address] Han Busch Notes/Report: NON-FASTING; NON-FASTING; NON-FASTING FASTING:YES [...] of LDL-C. Jose SS et al. JOB. 2013;310(21): 4388-0427 (http://education.[employer]/faq/PTQ053) CHOL/HDLC RATIO 1.9 <5.0 (calc) NON HDL CHOLESTEROL 42 <130 mg/dL (calc) For patients with diabetes plus 1 major ASCVD risk factor, treating to a non-HDL-C goal of <100 mg/dL (LDL-C of <70 mg/dL) is considered a therapeutic option. VITAMIN B12/FOLATE, SERUM PA ANA (7050) Reviewed date:08/30/2024 02:15:11 PM Interpretation: Performing Lab:CB, [facility]LoyalBlockse13[address] [facility], [facility] CenterRadqFN[address] Han Busch Notes/Report: NON-FASTING; NON-FASTING; NON-FASTING; NON-FASTING; NON-FAST FASTING:YES FASTING: YES VITAMIN B12 675 888-2570 pg/mL Please Note: Although the reference range [...] Reviewed date:08/30/2024 02:15:11 PM Interpretation: Performing Lab:[facility], [facility]-LoyalBlockse1355 [facility], [facility] CenterPigdJS[address] Han Busch Notes/Report: NON-FASTING; NON-FASTING; NON-FASTING; NON-FASTING; [...] date:08/30/2024 02:15:11 PM Interpretation: Performing Lab:[facility], [facility], [facility] CenterRuxyOG[address] Han Busch Notes/Report: NON-FASTING; NON-FASTING; NON-FASTING; NON-FASTING; [...] MPV 9.9 7.5-12.5 fL ABSOLUTE NEUTROPHILS 5906 2214-4012 cells/uL ABSOLUTE LYMPHOCYTES [phone] cells/uL ABSOLUTE MONOCYTES 892 200-950 cells/uL ABSOLUTE EOSINOPHILS 442 15-500 cells/uL ABSOLUTE BASOPHILS 74 0-200 cells/uL NEUTROPHILS 64.2 LYMPHOCYTES 20.5 MONOCYTES 9.7 EOSINOPHILS 4.8 BASOPHILS 0.8 COMPREHENSIVE METABOLIC PANE L (02464) Reviewed date:08/30/2024 02:15:11 PM Interpretation: Performing Lab:[facility] [address] [facility], [facility] JojbZM[address] Han Busch Notes/Report: NON-FASTING; NON-FASTING; NON-FASTING; NON-FASTING; [...] Reviewed date:08/30/2024 02:15:11 PM Interpretation: Performing Lab:[facility] Qi Ozne[address] [facility], [facility] SystemJhqkHS[address] Han Busch Notes/Report: NON-FASTING; NON-FASTING; NON-FASTING; NON-FASTING; [...] of LDL-C. Jose SS et al. JOB. 2013;310(02): 9250-2200 (http://education.[employer]/faq/AUL675) CHOL/HDLC RATIO 1.7 <5.0 (calc) NON HDL CHOLESTEROL 44 <130 mg/dL (calc) For patients with diabetes plus 1 major ASCVD risk factor, treating to a non-HDL-C goal of <100 mg/dL (LDL-C of <70 mg/dL) is considered a therapeutic option. IRON, TIBC AND FERRITIN PANE L (5616) Reviewed date:08/30/2024 02:15:11 PM Interpretation: Performing Lab:[facility]-LoyalBlockse1355 [employer], [place] OgjrXZ[address] Han Busch Notes/Report: NON-FASTING; NON-FASTING; NON-FASTING; NON-FASTING; NON-FAST FASTING:YES FASTING: YES IRON, TOTAL 27 45-160 mcg/dL IRON BINDING CAPACITY 431 250-450 mcg/dL (robina c) % SATURATION 6 16-45 % (calc) FERRITIN 7 16-288 ng/mL THYROID PANEL WITH TSH (7444 ) Reviewed date:08/30/2024 02:15:10 PM Interpretation: Performing Lab:[facility]-LoyalBlockse13[address] [employer] [facility], [place] IiomQD[address] Han Busch Notes/Report: NON-FASTING; NON-FASTING; NON-FASTING; NON-FASTING; NON-FAST FASTING:YES FASTING: YES T3 UPTAKE 30 22-35 % T4 (THYROXINE), TOTAL 6.6 5.1-11.9 mcg/dL FREE T4 INDEX (T7) 2.0 1.4-3.8 TSH 2.43 0.40-4.50 mIU/L Medications Medication SIG (Take, Route, Frequency, Duration) Notes Start Date End Date Status Fluticasone Propionate 50 MCG/ACT as directed intranasally once a day; Duration: 90 days prn Active GLUCOMETER 1; Duration: 30 DAYS Active Anoro Ellipta 62.5-25 MCG/ACT Inhale 1 puff by mouth once daily; Duration: 90 Active metFORMIN HCl 1000 MG 1 tab(s) orally on ce daily; Duration: 90 days Active Aspirin 325 MG 1 tab(s) orally once a day Active hydroCHLOROthiazide 25 MG 1/2 orally onc e a day; Duration: 90 days Active KONSYL 100% DIRECTED ORALLY 3 TIMES A DAY; Duration: 7 DAY(S) once a day Active Rosuvastatin Calcium 20 MG Take 1 tablet by mouth once daily; Duration: 90 Active Carvedilol 12.5 MG Take 1 tablet by mouth twice daily; Duration: 90 days Active Albuterol Sulfate (2.5 MG/3ML) 0.083% 3 mL inhaled three times daily as needed; Duration: 90 days 02/09/2021 Active Venlafaxine HCl ER 150 MG 1 cap(s) orall y daily; Duration: 90 days Active Immunizations Vaccine Route Administration Date Status Comme nts Adacel (Tdap) IM Intramuscular 03/09/2017 Administered Adacel (Tdap) Unknown 03/09/2017 Administered Arexvy IM Intramuscular 02/06/2024 Administered Covid Pfizer Unknown 07/11/2020 Administered Covid Pfizer Unknown 07/11/2020 Administered Covid Pfizer Unknown 08/08/2020 Administered Covid Pfizer Unknown 08/08/2020 Administered Covid Pfizer Unknown 03/02/2021 Administered Fluvirin--Influenz a vaccine 3+ year IM Intramuscular 02/07/2009 Administered Fluvirin--Influenz a vaccine 3+ year IM Intramuscular 02/09/2010 Administered Fluvirin--Influenz a vaccine 3+ year IM Intramuscular 02/11/2011 Administered Fluvirin--Influenz a vaccine 3+ year IM Intramuscular 03/09/2012 Administered Fluvirin--Influenz a vaccine 3+ year IM Intramuscular 03/29/2013 Administered Fluzone High Dose IM Intramuscular 03/13/2020 Administered Fluzone High Dose IM Intramuscular 02/09/2021 Administered Fluzone High Dose IM Intramuscular 01/31/2023 Administered Fluzone High Dose IM Intramuscular 03/28/2024 Administered Fluzone High Dose IM Intramuscular 03/06/2025 Administered Influenza-Fluzone 3+years (NON-MEDICARE) IM Intramuscular 03/05/2016 Administered Influenza-Fluzone 3+years (NON-MEDICARE) IM Intramuscular 03/09/2017 Administered Influenza-Fluzone 3+years (NON-MEDICARE) IM Intramuscular 01/24/2018 Administered Pneumovax 23 IM Intramuscular 10/01/2020 Administered Prevnar PCV-13 (Pneumococcal conjugate 13) IM Intramuscular 03/13/2020 Administered Prevnar PCV-20 (Pneumococcal conjugate 20) IM Intramuscular 01/31/2023 Administered SHINGRIX IM Intramuscular 01/31/2023 Administered SHINGRIX IM Intramuscular 04/25/2023 Administered Zostavax (Shingles) Unknown 11/14/2015 Administered 11/12/2015 Julio gave see document Social History Tobacco Use: Social History Observation [...] specified complication (E11.69) Active confirmed Problem Obesity (625655394) Obesity, unspecified (E66.9) Active confirmed Problem Essential hypertension (35338615) Essential (primary) hypertension (I10) Active confirmed Problem Simple chronic bronchitis (55317876) Simple chronic bronchitis (J41.0) Active confirmed Problem Acute cystitis (42536469) Acute cystitis without hematuria (N30.00) Active confirmed Problem Nicotine dependence (01597553) Personal history of nicotine dependence (Z87.891) Active confirmed Problem Gastroesophageal reflux disease (075575450) GERD (gastroesophagea l reflux disease) (K21.9) Active confirmed Problem Mixed anxiety and depressive disorder (372463199) Depression with anxiety (F41.8) Active confirmed Problem Hyperlipidemia (61727086) Hyperlipemia, idiopathic familial (E78.5) Active confirmed Problem Essential hypertension (59291533) Hypertension, essential (I10) Active confirmed Problem Urinary frequency (016481004) Urinary frequency (R35.0) Active confirmed Problem Acute exacerbation of chronic obstructive airways disease (423949166) COPD exacerbation (J44.1) Active confirmed Problem Mammography abnormal (750001461) Abnormal mammogram of right breast (R92.8) Active confirmed Problem Body mass index 40+ - morbidly obese (033428895) BMI 40.0-44.9, adult (Z68.41) Active confirmed Problem COPD - Chronic obstructive pulmonary disease (21054108) Chronic obstructive pulmonary disease, unspecified COPD type (J44.9) Active confirmed Problem Tobacco user (193093308) Cigarette nicotine dependence without complication (F17.210) Active confirmed Problem Iron deficiency anemia (27847974) Iron deficiency anemia, unspecified iron deficiency anemia type (D50.9) Active confirmed Problem Sciatica (31104164) Sciatica of left side (M54.32) Active confirmed Problem SI - Stress incontinence (64856993) Stress incontinence (N39.3) Active confirmed Problem Pain in pelvis (24756088) Pelvic pain (R10.2) Active confirmed Problem Cervical radiculopathy (32530774) Cervical radiculopathy (M54.12) Active confirmed Problem Recurrent major depression in full remission (04680649) Recurrent major depressive disorder, in full remission (F33.42) Active confirmed Problem Mixed incontinence (357006005) Mixed stress and urge urinary incontinence (N39.46) Active confirmed Problem Microcytic anemia (171346280) Microcytic anemia (D50.9) Active confirmed Problem Adult health examination (499838861) Healthcare maintenance (Z00.00) Active confirmed Problem Allergic rhinitis (54434802) Allergic sinusitis (J30.9) Active confirmed Vital Signs Heart Rate 78 /min 03/06/2025 Temperature 96.8 degrees Fahrenheit 03/06/2025 Blood pressure diastolic 70 mm Hg 03/06/2025 Height 5 ft 7.5 in in 03/06/2025 Blood pressure systolic 134 mm Hg 03/06/2025 Weight 237.2 lbs 03/06/2025 BMI 36.6 kg/m2 03/06/2025 Encounters Encounter Location Date Provider Diagnosis [facility] [address] [facility] [address] [place], [employer] [address] 08/11/2024 Provider Migration Chronic obstructive pulmonary disease, unspecified COPD type J44.9 [facility] [address] [facility] [address] [place], [place] [address] 03/28/2024 Jorge A Torresjonathan Hyperlipemia, idiopathic familial E78.5 ; Type 2 diabetes mellitus with other specified complication E11.69 ; Chronic obstructive pulmonary disease, unspecified COPD type J44.9 and Immunization(s) administered Z23 [facility] [address] [facility] [address] [place] [address] 08/29/2024 Jorge A Besson Hypertension, essential I10 ; Chronic obstructive pulmonary disease, unspecified COPD type J44.9 ; Microcytic anemia D50.9 ; Type 2 diabetes mellitus with other specified complication E11.69 ; Recurrent major depressive disorder, in full remission F33.42 and Dizziness R42 [facility] [address] [place] [address] 10/24/2024 Jorge A Besson Epigastric pain R10.13 and Iron deficiency anemia, unspecified iron deficiency anemia type D50.9 [facility] [address] [place] [address] 12/05/2024 Jorge A Besson Essential (primary) hypertension I10 ; Depression with anxiety F41.8 ; Cigarette nicotine dependence without complication F17.210 ; Hyperlipemia, idiopathic familial E78.5 and Encntr for general adult medical exam w/o abnormal findings Z00.00 [facility] [address] [place] [address] 12/26/2024 Jorge A Besson Hypertension, essential I10 ; Cervical radiculopathy M54.12 and Hospital discharge follow-up Z09 [facility] [address] [place] [address] 02/18/2025 Jorge A Besson Compression fracture of L1 vertebra with routine healing, subsequent encounter S32.010D ; Personal history of nicotine dependence Z87.891 and Hospital discharge follow-up Z09 [facility] [address] [place] [address] 03/06/2025 Jorge A Besson Hypertension, essential I10 ; Hyperlipemia, idiopathic familial E78.5 ; Chronic obstructive pulmonary disease, unspecified COPD type J44.9 ; Type 2 diabetes mellitus with other specified complication E11.69 ; Immunization(s) administered Z23 and Compression fracture of lumbar vertebra with routine healing, unspecified lumbar vertebral level, subsequent encounter S32.000D [facility] [address] [address] 09/26/2024 Jorge A Besson [facility] [address] [address] 10/10/2024 Jorge A Souza Hyperlipemia, idiopathic familial E78.5 [facility] [address] [place] [address] 01/28/2025 [facility] [address] [place] [address] 02/19/2025 Jorge A Souza Assessments Encounter Date Diagnosis (ICD Code) Assessment Notes Treatment Notes Treatment Clinical Notes Section Notes 03/28/2024 Type 2 diabetes mellitus with other [...] - Mood is stable - Continue venlafaxine 12/26/2024 Hypertension, essential (ICD-10 - I10) Pt has not taken blood pressure medication this morning bp rechecked in exam room 142/78 12/26/2024 Cervical radiculopathy (ICD-10 - M54.12) Continue methocarbamol rx for celebrex sent to pharmacy, take bid for pain relief Advised pt to apply lidocain patches she has at home if needed Possible follow up with pain management for injections 02/18/2025 Personal history of nicotine dependence (ICD-10 - Z87.891) Long discussion about cigarette smoking. Patient understands the risks, does not want to quit until the new year. She knows that it is a risk for worsening osteoporosis 02/18/2025 Compression fracture of L1 vertebra with [...] during that appointment. Will follow pt closely 03/06/2025 Hyperlipemia, idiopathic familial (ICD-10 - E78.5) Check lipids. All reviewed personally 03/06/2025 Hypertension, essential (ICD-10 - I10) Blood pressure is under good control. No changes in plans. 03/06/2025 Chronic obstructive pulmonary disease, unspecified COPD type (ICD-10 - J44.9) Stable. Unfortunately continues to smoke, will discuss at next visit also 02/18/2025 Hospital discharge follow-up (ICD-10 - Z09) I reviewed ER notes available from emergency department. Reviewed labs, reviewed discharge plan, personally reconciled medication. 12/26/2024 Hospital discharge follow-up (ICD-10 - Z09) I reviewed ER notes available from emergency department. Reviewed labs, reviewed discharge plan, personally reconciled medication. 08/29/2024 Microcytic anemia (ICD-10 - D50.9) 12/05/2024 [...] disease, unspecified COPD type (ICD-10 - J44.9) 08/29/2024 Type 2 diabetes mellitus with other specified complication (ICD-10 - E11.69) 03/28/2024 Immunization(s) administered (ICD-10 - Z23) 12/05/2024 Hyperlipemia, idiopathic familial (ICD-10 - E78.5) - Continue statin 03/06/2025 Type 2 diabetes mellitus with other specified complication (ICD-10 - E11.69) Check A1c. 03/06/2025 Immunization(s) administered (ICD-10 - Z23) 08/29/2024 Recurrent [...] personally to monitor her chronic medical problems 03/06/2025 Compression fracture of lumbar vertebra with routine healing, unspecified lumbar vertebral level, subsequent encounter (ICD-10 - S32.000D) Pain seems to be improving. Continue to follow with pain management. I will see her as needed for this problem Plan Of Treatment Pending Test Test Name Order Date N-CBC 06/27/2006 X ray : Spines, Lumbosacral 06/12/2019 X ray : Spines, Cervical 06/12/2019 N-CMP 06/27/2006 N-Lipid Panel 06/27/2006 Physical Therapy 10/17/2013 C-THYROID PROFILE 03/05/2016 C-URINE CULTURE 11/20/2014 Urine Culture, Routine 11/04/2014 DEXA Hip and Spine - Diagnostic 02/19/20 25 Pulmonary Function Test- Complete 2017 LIPID PANEL, STANDARD (7600) 09/09/2023 COMPREHENSIVE METABOLIC PANEL (23813) HEMOGLOBIN A1c (496) 09/09/2023 Future Test Test Name Order Date Mammogram : Diagnostic 12/29/2006 Mammogram : Bilateral 01/25/2011 Next Appt Details Provider Name:Jorge A Souza, 08/26/2025 09:00:00 AM, [address], [place], [address], Insurance Providers Payer Name Payer Address Payer Phone Subscriber Number Group Number Insured Name Patient Relationship to Insured Coverage Start Date Coverage End Date [employer] [address] [place] [address] [id number] Janice Cruz Self - patient is [...] heel spur tubal ligation cystoscopy 02/2015 colonoscopy 2016 breast cyst with aspiration 2004 colonscopy 05/2020 Gallbladder removal 12/2024 Hospitalization History Reason Date(Month/Year) pneumonia 02/2018 pneumonia, asthma 05/2017 childbirth x3 pneumonia, CHF 1985
== END 2025-03-19 23:59 | disposition home or self-care (01) ==
LOC: RAD 09:53
PROVIDERS: PCP Internal Medicine Adolescent Medicine; Visit Provider Internal Medicine Adolescent Medicine
DX: S32.010D Wedge compression fracture of first lumbar vertebra, subsequent encounter for fracture with routine healing (principal); Z13.9 Encounter for screening, unspecified
CPT/HCPCS: 77080

== ENCOUNTER 2025-04-19 13:08 | Day surgery (SDC) | payer MEDICARE, SELFPAY ==
[2025-04-19 13:20] VITALS: BP 130/69; PULSE 69; RESP 16; O2SAT 98; BMI 36.5
--- NOTE | 2025-04-19 13:50 | P.HP_ITS ---
History of Present Illness *Admission Date: 04/19/25 *Reason for visit:: Left shoulder pain *History of present illness: This patient presents for left suprascapular nerve block for left shoulder pain. [facility] Disclaimer: The information contained in this section may have been updated after the patient was seen, as this information can be updated by other users. Medical History Depression Anxiety Stroke Diabetes Hypercholesterolemia Hypertension COPD (chronic obstructive pulmonary disease) Surgical History History of laparoscopic cholecystectomy History of esophagogastroduodenoscopy (EGD) Hx of colonoscopy Hx of tubal ligation Hx of foot surgery Family History Other Family history of CVA Family history of cancer Family history of diabetes mellitus Family history of heart disease Social History Smoking Status: Current every day smoker tobacco type: cigarettes packs per day: 1 second hand exposure: Yes alcohol intake: never substance use type: denies use current occupational status: retired Travel in the last 8 weeks?: Inside the [place] household members: spouse housing: house current occupation: house current occupational exposures/hazards: No caffeine: No Have you lived/traveled outside [place] in past 30 days?: No Contact w/someone who lives/traveled outside [place] past 30 days?: No Exposure to someone with infectious disease in past 14 days?: No Do you have a fever (greater than 100.4 F or 38 C)?: No Have you tested positive for COVID-19?: No Exposed to someone with COVID-19 in past 14 days?: No Do you have a sore throat?: No Do you have a cough?: No Do you have any weakness?: No Do you have any diarrhea?: No Are you experiencing any unusual bleeding?: No Do you have any muscle aches/pain?: No Do you have any abdominal pain?: No Are you experiencing loss of taste or smell?: No Other Medical History Have you received the Flu Vaccine for this season: No Have you received the Pneumonia Vaccine: No Meds Home Medications and Allergies Home Medications ?Medication ?Instructions ?Recorded ?Confirmed ?Type carvedilol 25 mg tablet 12.5 mg PO BID Hypertension 06/02/17 04/19/25 History aspirin 325 mg tablet 325 mg PO DAILY Heart diseas e 03/22/19 04/19/25 History hydrochlorothiazide 25 mg tablet 12.5 mg (1/2 x 25 mg) PO DAILY 03/24/19 04/19/25 Rx Diuretic 30 days #15 tabs tiotropium 2.5 mcg-olodaterol 2.5 2 puff inhalation DA MAGDALENA allergies 05/22/20 04/19/25 History mcg/actuation mist for inhalation (Stiolto Respimat) rosuvastatin 20 mg tablet 20 mg PO DAILY 11/07/2404/08 History venlafaxine 150 mg 150 mg PO DAILY 11/07/2405/02 History capsule,extended release 24 hr (Effexor XR) lidocaine 5 % topical patch 1 patch topical DAILY #15 ea 12/12/24 04/19/25 Rx methocarbamol 500 mg tablet 500 mg PO BID #20 tabs 10/3104/19/25 Rx methocarbamol 750 mg tablet 750 mg PO Q8H 7 days #21 t abs 02/16/25 04/19/25 Rx naproxen 500 mg tablet 500 mg PO BID PRN pain #60 t abs 02/16/25 04/19/25 Rx New Prescriptions to Start Prescriptions: Allergies Allergy/AdvReac Type Severity Reaction Status Date / Time venom-honey bee Allergy Unknown Unknown Verified 04/19/25 13:20 allergy reaction venom-wasp Allergy Unknown Unknown Verified 04/19/25 13:20 allergy reaction Iodinated Contrast Media Allergy Hives Verified 04/19/25 13:20 Exam Data for Last 24 hours Vital signs and Labs for Last 24 Hours: Pulse Resp BP Pulse Ox O2 Del Method 69 16 130/69 98 Room Air 04/19/25 13:20 04/19/25 13:20 04/19/25 13:20 04/19/25 13:20 04/19/25 13:20 I & O for Last 24 hours: Intake & Output 04/17/25 04/18/25 04/19/25 04/20/25 11:59 11:59 11:59 11:59 Weight 233 lb *Routine HEENT Exam Head: Present normocephalic Eye: Present EOMI ENT: Present mucous membranes moist *Routine Respiratory Exam Respiratory: Present CTA bilaterally *Routine Cardiovascular Exam Cardiovascular: Present RRR, Normal S1 and Normal S2 *Routine Abdominal Exam Abdominal: Present soft *Routine Rectal Exam Rectal:: deferred *Routine Genitalia Exam Genitalia:: deferred Assessment and Plan *Assessment and plan (1) Left shoulder pain: Status: Acute Qualifiers: Chronicity: chronic Qualified Code(s): M25.512 - Pain in left shoulder; G89.29 - Other chronic pain Category: Medical Code(s): M25.512 - Pain in left shoulder Plan Left suprascapular nerve block
[2025-04-19 13:51] VITALS: BP 141/65; PULSE 77; RESP 16; O2SAT 95
--- NOTE | 2025-04-19 13:51 | P.OP_ITS ---
<Statement entered by Rinku Anaya MD - 05/10/25 14:29> Please delete this note as it was done in error. Date of procedure: 05/10/25 Pre-op Diagnosis:: Left shoulder pain with suprascapular neuropathy Post-op Diagnosis:: Same Procedure performed:: Left suprascapular nerve block Surgeon:: Rinku Anaya MD
--- NOTE | 2025-04-19 13:52 | EXP.PAIN.PRO ---
Procedure Date: 04/19/25 Time: 13:52 Anesthesiologist:: Rinku Anaya MD Complications:: None Pre-procedure Diagnosis:: Left shoulder pain with suprascapular neuropathy Post-procedure Diagnosis:: Same Indications for Procedure:: The patient is a pleasant 70-year-old white female who we are treating for left shoulder pain with suprascapular neuropathy. She is doing well after her cervical epidural steroid injection. She presents for left suprascapular nerve block today. Procedure Details:: Informed consent was obtained risk and benefits of the procedure were explained to the patient. The left shoulder was prepped using alcohol preps. 25-gauge needle was used and inserted into the area of the left suprascapular nerve. We then injected 10 mL lidocaine 1% and dexamethasone 10 mg. Patient tolerated the procedure well with no complications. Plan and Disposition:: Will follow-up with this patient in 2 weeks. Will reevaluate symptoms at that time.
[2025-04-19] MEDS: BUPIVACAINE 0.25% 10ML INJ 25 MG IJ (13:56)
[2025-04-19] MEDS: DEXAMETHASONE 10MG/ML 1ML VIAL 10 MG (13:59)
[2025-04-19 14:00] VITALS: BP 117/73; PULSE 74; RESP 18; O2SAT 97
[2025-04-19] MEDS: LIDOCAINE 1% 5ML PF VIAL 5 ML (14:00)
[2025-04-19 14:06] VITALS: BP 117/73; PULSE 74; RESP 18; O2SAT 97
== END 2025-04-19 13:51 | disposition home or self-care (01) ==
PROVIDERS: PCP Internal Medicine Adolescent Medicine; Visit Provider Anesthesiology
DX: E11.41 Type 2 diabetes mellitus with diabetic mononeuropathy (principal); G56.82 Other specified mononeuropathies of left upper limb; I10 Essential (primary) hypertension; E78.5 Hyperlipidemia, unspecified; J44.9 Chronic obstructive pulmonary disease, unspecified; F32.A Depression, unspecified; F41.9 Anxiety disorder, unspecified; Z86.73 Personal history of transient ischemic attack (TIA), and cerebral infarction without residual deficits; F17.210 Nicotine dependence, cigarettes, uncomplicated; Z79.02 Long term (current) use of antithrombotics/antiplatelets; Z79.82 Long term (current) use of aspirin; Z79.899 Other long term (current) drug therapy; Z91.041 Radiographic dye allergy status
CPT/HCPCS: 64418; J0665; J1100; J2003